=== PATIENT | male | born 1945 | race Caucasian/White ===

== ENCOUNTER → 2019-05-31 | Outpatient (CLI) | payer MEDICARE, OTHER ==
--- NOTE | 2019-05-31 17:48 | RADIOLOGY REPORT (SQ) ---
EXAM DESCRIPTION: PET CT SKULL/THIGH COMPLETED DATE/TIME: 05/31/2019 1:19 pm REASON FOR STUDY: R91.1 SOLITARY PULMONARY NODULE R91.1 SOLITARY PULMONARY NODULE COMPARISON: Report [facility] CT chest abdomen pelvis 05/04/2019 RADIONUCLIDE AND DOSE: 11.4 mCi F18 FDG The route of agent administration: Intravenous FASTING BLOOD SUGAR: 70 mg/dl CONTRAST TYPE AND DOSE: No CT contrast given. TECHNIQUE: Blood glucose level was verified. Above dose of FDG was injected intravenously. 2-D seg mented attenuation correction images were obtained from the base of the skull to the midthighs. Nonc ontrast CT images were obtained for attenuation correction and fusion with emission images. CT image s were performed without oral or intravenous contrast and are not sensitive for parenchymal lesions. A series of overlapping emission PET images were obtained. Images reviewed and manipulated at [facility] work station by the radiologist. Images stored on PACS. LIMITATIONS: None. FINDINGS: HEAD AND NECK: No areas of abnormal metabolic activity in the soft tissues of the head and neck. CHEST: No areas of abnormal metabolic activity in the chest. In particular, no metabolically active lung nodules are present at the right lung apex. No metabolic activity along the right pleural space adjacent to with trace right pleural effusion. No metabolic activity in 3.5 x 2 cm right peritracheal lymph node axial image 80, sub-carinal 2 x 1.6 cm lymph node, or multiple bilateral 1 to 2 cm hilar lymph nodes. ABDOMEN AND PELVIS: No areas of abnormal metabolic activity in the abdomen or pelvis. Expected physi ologic activity is present in the genitourinary system and bowel. PROXIMAL LOWER EXTREMITIES: No areas of abnormal metabolic activity in the soft tissues of the lower extremities. BONES: No abnormal metabolic activity in the visualized skeleton. ADDITIONAL CT FINDINGS: Calcified carotid bifurcations, cardiomegaly with calcified aortic valve and coronary arteries, calcified gallstone, 4 cm cyst right kidney, trace right pleural effusion OTHER: No other significant findings. IMPRESSION: No hypermetabolic lesions worrisome for malignancy TECHNICAL DOCUMENTATION: JOB ID: [id number] [employer]- All Rights Reserved Reading location - IP/workstation name: BUSINESS [employer]UCATION [employer]STRU[employer]-[email or web address]
== END ==
LOC: RAD 10:19
PROVIDERS: ATTEND Internal Medicine
DX: R91.1 Solitary pulmonary nodule (principal)
CPT/HCPCS: 78815; A9552

== ENCOUNTER 2019-08-07 00:53 | Inpatient (IN) | payer MEDICARE, OTHER ==
[2019-08-07 01:42] LABS: ABSOLUTE LYMPHOCYTES (AUTO) 0.6 10^3/uL (0.5-4.7); ABSOLUTE MONOCYTES (AUTO) 0.5 10^3/uL (0.1-1.4); ABSOLUTE NEUT (AUTO) 3.5 10^3/uL (1.7-8.2); BASOPHILS % (AUTO) 0.6 % (0-2); EOSINOPHILS % (AUTO) 0.9 % (0-6); HEMATOCRIT 34.2 % (37.9-51.0); HEMOGLOBIN 11.2 g/dL (13.5-17.0); LYMPHOCYTES % (AUTO) 13.4 % (13-45); MEAN CORPUSCULAR HEMOGLOBIN 29.6 pg (27.0-33.4); MEAN CORPUSCULAR HGB CONC 32.6 g/dL (32.0-36.0); MEAN CORPUSCULAR VOLUME 91 fl (80-97); MONOCYTES % (AUTO) 10.7 % (3-13); PLATELET COUNT 211 10^3/uL (150-450); RED BLOOD COUNT 3.77 10^6/uL (4.35-5.55); RED CELL DISTRIBUTION WIDTH 16.6 % (11.5-14.0); SEGMENTED NEUTROPHILS % (AUTO) 74.4 % (42-78); TOTAL CELLS COUNTED % (AUTO) 100 %; WHITE BLOOD COUNT 4.7 10^3/uL (4.0-10.5)
[2019-08-07 01:54] LABS: INTERNATIONAL RATION (INR) 1.34; PROTHROMBIN TIME 16.7 SEC (11.4-15.4)
[2019-08-07 01:57] LABS: ALBUMIN 3.5 g/dL (3.5-5.0); ALKALINE PHOSPHATASE 171 U/L (38-126); ANION GAP 10 (5-19); ASPARTATE AMINO TRANSFERASE 38 U/L (17-59); BILIRUBIN,DIRECT 0.2 mg/dL (0.0-0.4); BILIRUBIN,TOTAL 0.7 mg/dL (0.2-1.3); BLOOD UREA NITROGEN 61 mg/dL (7-20); CARBON DIOXIDE 34 mmol/L (22-30); CHLORIDE 90 mmol/L (98-107); CREATINE KINASE 58 U/L (55-170); GLUCOSE 221 mg/dL (75-110); POTASSIUM 3.9 mmol/L (3.6-5.0); TOTAL PROTEIN 6.7 g/dL (6.3-8.2)
[2019-08-07 02:09] LABS: TROPONIN I < 0.012 ng/mL
--- NOTE | 2019-08-07 02:31 | RADIOLOGY REPORT (SQ) ---
CHEST 1 VIEW on 08/07/2019 at 1:57 AM CLINICAL INDICATION: Shortness of breath COMPARISON: 07/25/2015 FINDINGS: The patient is status post median sternotomy. Mild cardiomegaly is noted. Mild increased interstitial changes may be chronic in nature versus mild edema. Vascular calcification is noted in the aorta. Hilar and mediastinal contours are within normal limits. IMPRESSION: No significant change in the appearance of the chest.
[2019-08-07 03:48] LABS: APPEARANCE,URINE SLIGHTLY-CLOUDY; BILIRUBIN,URINE NEGATIVE (NEGATIVE); COLOR,URINE YELLOW; GLUCOSE, URINE NEGATIVE (NEGATIVE); KETONES,URINE NEGATIVE (NEGATIVE); LEUKOCYTE ESTERASE,URINE LARGE (NEGATIVE); NITRITE,URINE NEGATIVE (NEGATIVE); PROTEIN,URINE NEGATIVE (NEGATIVE); URINE SPECIFIC GRAVITY 1.014
[2019-08-07] MEDS ORDERED: CEFTRIAXONE 1 GM/D5W RTU 1 GM/50 ML RTUPB IV ONE (04:47)
[2019-08-07] MEDS ORDERED: FUROSEMIDE INJ/PF 40 MG/4 ML SDV IV ONE (04:47)
[2019-08-07] MEDS ORDERED: ACETAMINOPHEN 325 MG TABLET PO ONE (05:03)
--- NOTE | 2019-08-07 05:09 | ER Document Report ---
ED General - General Chief Complaint: Shortness Of Breath Stated Complaint: SHORTNESS OF BREATH Time Seen by Provider: 08/07/19 03:40 Primary Care Provider: SHAYAN RODAS MD [Primary Care Provider] - Follow up as needed Notes: 74-year-old male with atrial fibrillation on apixaban, CHF with unknown EF presents to the emergency department with chief complaint of lower extremity swelling and pain. Patient states that he has swelling from his hips down and "my scrotum is the size of a grapefruit". Patient also complains of shortness of breath. Patient is requiring 4 L of oxygen via nasal cannula here in the emergency department and he does not wear oxygen at home. Patient is in significant discomfort. Of note, patient does have a small pressure ulcer on his left medial malleolus. Patient denies any chest pain, does complain of a productive cough, denies any nausea or vomiting, denies abdominal pain. TRAVEL OUTSIDE OF THE [place] IN LAST 30 DAYS: No - Related Data Allergies/Adverse Reactions: No Known Allergies Allergy (Unverified 07/25/15 00:42) Past Medical History - Social History Smoking Status: Former Smoker Chew tobacco use (# tins/day): No Frequency of alcohol use: Occasional Drug Abuse: None Family History: Reviewed & Not Pertinent Patient has suicidal ideation: No Patient has homicidal ideation: No - Past Medical History Cardiac Medical History: Reports: Hx Atrial Fibrillation, Hx Congestive Heart Failure, Hx Heart Attack, Hx Hypertension Pulmonary Medical History: Reports: Hx Pneumonia Endocrine Medical History: Reports: Hx Diabetes Mellitus Type 2 Renal/ Medical History: Reports: Hx Benign Prostatic Hyperplasia Past Surgical History: Reports: Hx Appendectomy, Hx Cardiac Catheterization, Hx Cardiac Surgery Review of Systems - Review of Systems Constitutional: See HPI EENT: No symptoms reported Cardiovascular: See HPI Respiratory: See HPI Gastrointestinal: See HPI Genitourinary: No symptoms reported Male Genitourinary: See HPI Musculoskeletal: No symptoms reported Skin: No symptoms reported Hematologic/Lymphatic: No symptoms reported Neurological/Psychological: No symptoms reported Physical Exam - Vital signs Vitals: Temp 97.5 F 08/07/19 00:53 - Notes Notes: PHYSICAL EXAMINATION: Reviewed vital signs and charting by RN GENERAL: Alert, interacts well. No acute distress. HEAD: Normocephalic, atraumatic. EYES: Pupils equal and round. Extraocular movements intact. ENT: Oral mucosa moist, tongue midline. NECK: Full range of motion. Trachea midline. LUNGS: Bilateral basilar rhonchi. Mild respiratory distress. HEART: Irregularly irregular rhythm. 2/6 systolic ejection murmur ABDOMEN: Distended and mildly tender. Bowel sounds present EXTREMITIES: Moves all 4 extremities spontaneously. No edema, No cyanosis. PSYCH: Normal affect, normal mood. SKIN: Warm, dry, normal turgor. No rashes or lesions noted. Course - Re-evaluation Re-evalutation: 08/07/19 05:10 Patient appears to be in discomfort and is requesting relief. He has been tachypneic throughout his stay but is currently breathing at 14 breaths/min. Patient's blood pressure is normotensive. Patient is requiring 4 L of oxygen and does seem to be in mild respiratory distress. Chest x-ray did show some bilateral interstitial edema, the hemidiaphragms were both crisp and clear no evidence of pulmonary edema or pleural effusions. Urinalysis did show a urinary tract infection. He will receive ceftriaxone 1 g IV once. BNP 4730. I am going to initiated admission. 08/07/19 05:42 Dr. Patino, hospitalist, accepted the patient for full admission to [facility]. - Vital Signs Vital signs: Temp Pulse Resp BP Pulse Ox 97.5 F 16 100/73 97 08/07/19 01:08 08/07/19 05:08 08/07/19 05:08 08/07/19 05:08 - Laboratory Result Diagrams: 08/07/19 01:22 08/07/19 01:22 Laboratory results interpreted by me: 08/07/19 08/07/19 08/07/19 01:22 01:22 01:22 RBC 3.77 L Hgb 11.2 L Hct 34.2 L RDW 16.6 H PT 16.7 H Sodium 134.1 L Chloride 90 L Carbon Dioxide 34 H BUN 61 H Creatinine 1.30 H Est GFR (MDRD) Non-Af 54 L Glucose 221 H Calcium 8.0 L Alkaline Phosphatase 171 H NT-Pro-B Natriuret Pep Urine Urobilinogen Ur Leukocyte Esterase Urine Ascorbic Acid 08/07/19 08/07/19 01:22 03:15 RBC Hgb Hct RDW PT Sodium Chloride Carbon Dioxide BUN Creatinine Est GFR (MDRD) Non-Af Glucose Calcium Alkaline Phosphatase NT-Pro-B Natriuret Pep 4730 H Urine Urobilinogen 4.0 H Ur Leukocyte Esterase LARGE H Urine Ascorbic Acid 40 H Discharge - Discharge Clinical Impression: CHF exacerbation Qualifiers: Heart failure type: unspecified Qualified Code(s): I50.9 - Heart failure, unspecified Condition: Stable Disposition: ADMITTED INPATIENT Admitting Provider: Sukumar (Hospitalist) Unit Admitted: IMCU Referrals: SHAYAN RODAS MD [Primary Care Provider] - Follow up as needed
[2019-08-07] MEDS ORDERED: ACETAMINOPHEN 325 MG TABLET PO PRN (05:31)
[2019-08-07] MEDS ORDERED: DEXTROSE 50%-WATER 25 GM/50 ML DISP.SYRIN IV PRN ×2 (05:31)
[2019-08-07] MEDS ORDERED: MAG HYDROX/AL HYDROX/SIMETH SUSP 30 ML UDCUP PO PRN (05:31)
[2019-08-07] MEDS ORDERED: GLUCAGON,HUMAN RECOMB 1 MG INJ IM PRN (05:31)
[2019-08-07] MEDS ORDERED: DEXTROSE 40% GEL 15 GM TUBE PO PRN ×2 (05:31)
[2019-08-07 06:19] LABS: URINE AMPHETAMINES SCREEN NEGATIVE; URINE BARBITURATES SCREEN NEGATIVE; URINE BENZODIAZEPINES SCREEN NEGATIVE; URINE COCAINE SCREEN NEGATIVE; URINE MARIJUANA (THC) SCREEN NEGATIVE; URINE METHADONE SCREEN NEGATIVE; URINE PHENCYCLIDINE SCREEN NEGATIVE
--- NOTE | 2019-08-07 06:32 | PDOC H&P ---
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 He is past medical history of 5 vessel bypass graft, diabetes, COPD, atrial fibrillation on Eliquis, hypertension, congestive heart failure with unknown ejection fraction, deafness and BPH. He presents with several days of worsening shortness of breath from baseline with a nonproductive cough it is associated with scrotal and lower extremity edema. He denies recent chest pain, nausea vomiting, change of diet or medications. However bag of medications have multiple full duplicates. He is found to have blood pressure of 85/50, pulse of 88 respirations 24 saturation of 92% on 3 L. He has massive volume overload with widespread pitting edema, acute renal failure and evidence of peripheral vascular disease with ulcer to the left medial malleolus and left lateral lower leg. He received Lasix and referred to the hospitalist for admission. Past Medical History Cardiac Medical History: Reports: Atrial Fibrillation, Congestive Heart Failure, Myocardial Infarction, Hypertension Pulmonary Medical History: Reports: Pneumonia Endocrine Medical History: Reports: Diabetes Mellitus Type 2 Psychiatric Medical History: Reports: Tobacco Dependency Past Surgical History Past Surgical History: Reports: Appendectomy, Cardiac Catheterization Social History Information Source: Patient, [facility] Lives with: Alone Smoking Status: Former Smoker Electronic Cigarette use?: No Drugs: None - Advance Directive Resuscitation Status: Full Code Family History Family History: COPD, Hypertension Parental Family History Reviewed: Yes Children Family History Reviewed: Yes Sibling(s) Family History Reviewed.: Yes Medication/Allergy Allergies/Adverse Reactions: No Known Allergies Allergy (Unverified 07/25/15 00:42) Review of Systems Constitutional: PRESENT: as per HPI, fatigue, weakness, weight gain. ABSENT: chills, fever(s), headache(s), weight loss Eyes: ABSENT: visual disturbances Ears: ABSENT: hearing changes Cardiovascular: PRESENT: as per HPI, dyspnea on exertion, edema, orthropnea. ABSENT: chest pain, palpitations Respiratory: PRESENT: as per HPI, cough, dyspnea. ABSENT: hemoptysis, sputum Gastrointestinal: PRESENT: as per HPI, abdominal pain, bloating. ABSENT: constipation, diarrhea, hematemesis, hematochezia, nausea, vomiting Genitourinary: ABSENT: dysuria, hematuria Musculoskeletal: ABSENT: joint swelling Integumentary: ABSENT: rash, wounds Neurological: ABSENT: abnormal gait, abnormal speech, confusion, dizziness, focal weakness, syncope Psychiatric: ABSENT: anxiety, depression, homidical ideation, suicidal ideation Endocrine: ABSENT: cold intolerance, heat intolerance, polydipsia, polyuria Hematologic/Lymphatic: ABSENT: easy bleeding, easy bruising Physical Exam Vital Signs: Temp Pulse Resp BP Pulse Ox 97.5 F 16 100/73 97 08/07/19 01:08 08/07/19 05:08 08/07/19 05:08 08/07/19 05:08 Intake & Output 08/05/19 08/06/19 08/07/19 11:59 11:59 11:59 Weight 117.48 kg General appearance: PRESENT: cooperative, disheveled, hard of hearing, mild distress, well-developed. ABSENT: well-nourished Head exam: PRESENT: atraumatic, normocephalic Eye exam: PRESENT: conjunctiva pink, EOMI, PERRLA. ABSENT: scleral icterus Ear exam: PRESENT: normal external ear exam Mouth exam: PRESENT: moist, tongue midline Neck exam: PRESENT: full ROM, JVD. ABSENT: lymphadenopathy Respiratory exam: PRESENT: accessory muscle use, crackles, decreased breath sounds, prolonged expiratory phas, symmetrical, tachypnea. ABSENT: rhonchi, wheezes Cardiovascular exam: PRESENT: gallop, +S1, +S2, systolic murmur Pulses: PRESENT: normal dorsalis pedis pul Vascular exam: PRESENT: normal capillary refill GI/Abdominal exam: PRESENT: normal bowel sounds, soft. ABSENT: distended, guarding, mass, organolmegaly, rebound, tenderness Rectal exam: PRESENT: deferred Extremities exam: PRESENT: full ROM, pedal edema, tenderness, +2 edema. ABSENT: joint swelling Neurological exam: PRESENT: alert, awake, oriented to person, oriented to place, oriented to time, oriented to situation, CN II-XII grossly intact. ABSENT: motor sensory deficit Psychiatric exam: PRESENT: appropriate affect, normal mood. ABSENT: homicidal ideation, suicidal ideation Skin exam: PRESENT: cyanosis, erythema, intact, warm, other - Several 1 cm ulcers of arterial insufficiency and peripheral vascular disease. ABSENT: rash Results Laboratory Results: 08/07/19 01:22 08/07/19 01:22 08/07/19 08/07/19 08/07/19 01:22 01:22 01:22 WBC 4.7 RBC 3.77 L Hgb 11.2 L Hct 34.2 L MCV 91 MCH 29.6 MCHC 32.6 RDW 16.6 H Plt Count 211 Seg Neutrophils % 74.4 Sodium 134.1 L Potassium 3.9 Chloride 90 L Carbon Dioxide 34 H Anion Gap 10 BUN 61 H Creatinine 1.30 H Est GFR ( Amer) > 60 Glucose 221 H Lactic Acid 0.8 Calcium 8.0 L Total Bilirubin 0.7 AST 38 Alkaline Phosphatase 171 H Total Protein 6.7 Albumin 3.5 Urine Color Urine Appearance Urine pH Ur Specific Prole Urine Protein Urine Glucose (UA) Urine Ketones Urine Blood Urine Nitrite Ur Leukocyte Esterase Urine WBC (Auto) Urine RBC (Auto) 08/07/19 03:15 WBC RBC Hgb Hct MCV MCH MCHC RDW Plt Count Seg Neutrophils % Sodium Potassium Chloride Carbon Dioxide Anion Gap BUN Creatinine Est GFR ( Amer) Glucose Lactic Acid Calcium Total Bilirubin AST Alkaline Phosphatase Total Protein Albumin Urine Color YELLOW Urine Appearance SLIGHTLY-CLOUDY Urine pH 5.0 Ur Specific Prole 1.014 Urine Protein NEGATIVE Urine Glucose (UA) NEGATIVE Urine Ketones NEGATIVE Urine Blood NEGATIVE Urine Nitrite NEGATIVE Ur Leukocyte Esterase LARGE H Urine WBC (Auto) 134 Urine RBC (Auto) 5 08/07/19 08/07/19 08/07/19 01:22 01:22 01:22 Creatine Kinase 58 CK-MB (CK-2) 1.70 Troponin I < 0.012 NT-Pro-B Natriuret Pep 4730 H Impressions: Chest X-Ray 08/07/19 01:19 IMPRESSION: No significant change in the appearance of the chest. Assessment and Plan - Diagnosis (1) CHF exacerbation Qualifiers: Heart failure type: systolic Qualified Code(s): I50.23 - Acute on chronic systolic (congestive) heart failure Is this a current diagnosis for this admission?: Yes Plan: Likely decompensated acute on chronic systolic heart failure secondary to dietary and medication noncompliance complicated by hypotension.. Trial gentle diuresis, optimize rate control, follow-up 2D echo and TSH (2) Acute renal failure Is this a current diagnosis for this admission?: Yes Plan: Likely secondary to hypotension and #1. Avoid nephrotoxic meds and doses follow-up chemistry (3) Atrial fibrillation Is this a current diagnosis for this admission?: Yes Plan: Reduce Eliquis to 2.5 twice daily. Consider calcium channel ezekiel for rate control given beta-ezekiel expected hypotension. (4) Diabetes mellitus Is this a current diagnosis for this admission?: Yes Plan: Follow-up medication reconciliation with Humalog sliding scale - Time Time Spent with patient: 25-34 minutes - Inpatient Certification Medical Necessity: Need Close Monitoring Due to Risk of Patient Decompensation
[2019-08-07 06:42] LABS: ABSOLUTE RETICS # 0.044 10^6/uL (0.028-0.122); RETICULOCYTE COUNT (AUTO) 1.16 % (0.66-2.85)
[2019-08-07 07:01] LABS: IRON(TIBC) 53.3 ug/dL (49-181)
[2019-08-07] MEDS ORDERED: INSULIN GLARGINE,HUM.REC.ANLOG 1,000 UNIT/10 ML VIAL SUBCUT ONE (07:30)
[2019-08-07] MEDS: INSULIN LISPRO 100 UNIT/ML 3 ML VIAL SUBCUT SCH ×3 (07:54→16:06)
[2019-08-07] MEDS ORDERED: INSULIN GLARGINE,HUM.REC.ANLOG 1,000 UNIT/10 ML VIAL (PYX) SUBCUT SCH (08:00)
[2019-08-07 08:08] LABS: FOLATE 8.22 ng/mL (>2.76)
[2019-08-07 09:28] LABS: CREATINE KINASE MB 1.76 ng/mL (<4.55); TROPONIN I 0.013 ng/mL
[2019-08-07] MEDS: FLUTICASONE NASAL SPRAY 50 MCG/SPRY 120 SPRAY/16 GM NASL SCH ×2 (10:27→21:46)
[2019-08-07] MEDS: FUROSEMIDE INJ/PF 40 MG/4 ML SDV IV SCH (10:27)
[2019-08-07] MEDS: NITROGLYCERIN 2.5 MG (0.1 MG/HR) PATCH.TD24 TD SCH (10:27)
[2019-08-07] MEDS: APIXABAN 2.5 MG TABLET PO SCH ×2 (10:28→17:27)
[2019-08-07] MEDS: POTASSIUM CHLORIDE 10 MEQ TABLET.ER PO SCH ×2 (10:28→21:43)
[2019-08-07] MEDS: DOCUSATE SODIUM 100 MG CAPSULE PO SCH ×2 (10:28→10:30)
[2019-08-07] MEDS: ASPIRIN 81 MG TABLET, CHEWABLE PO SCH (10:28)
[2019-08-07] MEDS: ASCORBIC ACID 500 MG TABLET PO SCH (10:28)
[2019-08-07] MEDS ORDERED: INSULIN GLARGINE,HUM.REC.ANLOG 1,000 UNIT/10 ML VIAL (PYX) SUBCUT ONE (10:30)
--- NOTE | 2019-08-07 11:57 | Progress Note ---
Provider Note Provider Note: Mr. Prado is a 74 year old gentleman who follows with [facility] physicians for primary care. He recently was evaluated in June [address] Camarillo for a pulmonary nodule. However, this was negative on PET and was NOT thought to be cancer and no biopsy was recommended. Further annual screening chest CT was recommended. Please call with any questions or concerns.
[2019-08-07 13:57] LABS: CREATINE KINASE MB 1.44 ng/mL (<4.55); TROPONIN I 0.013 ng/mL
--- NOTE | 2019-08-07 16:01 | Progress Note ---
Provider Note Provider Note: Patient seen and evaluated. He was admitted early on today. Appreciate oncology input. No further evaluation needed for the pulmonary arnold at this time. He will follow-up with outpatient CT scan as per Alma Rosaers recommendation
[2019-08-07 19:53] LABS: CREATINE KINASE MB 1.49 ng/mL (<4.55); TROPONIN I 0.013 ng/mL
[2019-08-07] MEDS: ATORVASTATIN CALCIUM 80 MG TABLET PO SCH (21:43)
[2019-08-07] MEDS ORDERED: TRAZODONE HCL 50 MG TABLET PO ONE (23:00)
[2019-08-08 06:42] LABS: ABSOLUTE EOSINOPHILS # (AUTO) 0.1 10^3/uL (0.0-0.6); ABSOLUTE LYMPHOCYTES (AUTO) 0.7 10^3/uL (0.5-4.7); ABSOLUTE MONOCYTES (AUTO) 0.5 10^3/uL (0.1-1.4); ABSOLUTE NEUT (AUTO) 3.3 10^3/uL (1.7-8.2); BASOPHILS % (AUTO) 0.7 % (0-2); EOSINOPHILS % (AUTO) 1.2 % (0-6); HEMATOCRIT 35.2 % (37.9-51.0); HEMOGLOBIN 11.5 g/dL (13.5-17.0); LYMPHOCYTES % (AUTO) 14.7 % (13-45); MEAN CORPUSCULAR HEMOGLOBIN 29.3 pg (27.0-33.4); MEAN CORPUSCULAR HGB CONC 32.5 g/dL (32.0-36.0); MEAN CORPUSCULAR VOLUME 90 fl (80-97); MONOCYTES % (AUTO) 11.2 % (3-13); PLATELET COUNT 216 10^3/uL (150-450); RED BLOOD COUNT 3.92 10^6/uL (4.35-5.55); RED CELL DISTRIBUTION WIDTH 16.4 % (11.5-14.0); SEGMENTED NEUTROPHILS % (AUTO) 72.2 % (42-78); TOTAL CELLS COUNTED % (AUTO) 100 %; WHITE BLOOD COUNT 4.6 10^3/uL (4.0-10.5)
[2019-08-08 06:58] LABS: ANION GAP 9 (5-19); BLOOD UREA NITROGEN 60 mg/dL (7-20); CARBON DIOXIDE 34 mmol/L (22-30); CHLORIDE 90 mmol/L (98-107); GLUCOSE 165 mg/dL (75-110)
[2019-08-08] MEDS: INSULIN LISPRO 100 UNIT/ML 3 ML VIAL SUBCUT SCH ×3 (10:13→18:53)
[2019-08-08] MEDS: INSULIN GLARGINE,HUM.REC.ANLOG 1,000 UNIT/10 ML VIAL (PYX) SUBCUT SCH (10:14)
[2019-08-08] MEDS: NITROGLYCERIN 2.5 MG (0.1 MG/HR) PATCH.TD24 TD SCH (10:15)
[2019-08-08] MEDS: ASPIRIN 81 MG TABLET, CHEWABLE PO SCH (10:18)
[2019-08-08] MEDS: APIXABAN 2.5 MG TABLET PO SCH ×2 (10:18→18:54)
[2019-08-08] MEDS: ASCORBIC ACID 500 MG TABLET PO SCH (10:18)
[2019-08-08] MEDS: POTASSIUM CHLORIDE 10 MEQ TABLET.ER PO SCH ×2 (10:18→22:03)
[2019-08-08] MEDS: FUROSEMIDE INJ/PF 40 MG/4 ML SDV IV SCH (10:18)
[2019-08-08] MEDS: FLUTICASONE NASAL SPRAY 50 MCG/SPRY 120 SPRAY/16 GM NASL SCH ×2 (10:22→22:03)
[2019-08-08] MEDS: DOCUSATE SODIUM 100 MG CAPSULE PO SCH (10:22)
--- NOTE | 2019-08-08 14:56 | PDOC PROGRESS REPORT ---
Subjective Progress Note for:: 08/08/19 Subjective:: Says he feels better, no chest pain Reason For Visit: HYPOTENSION ARF HEART FAILURE Physical Exam Vital Signs: Temp Pulse Resp BP Pulse Ox 98.0 F 85 20 107/65 96 08/08/19 12:48 08/08/19 12:48 08/08/19 12:48 08/08/19 12:48 08/08/19 12:48 Intake & Output 08/07/19 08/08/19 08/09/19 06:59 06:59 06:59 Intake Total 50 598 Output Total 600 Balance 50 -2 Weight 117.48 kg 116.7 kg General appearance: PRESENT: no acute distress, hard of hearing, other - Chronically ill looking Head exam: PRESENT: atraumatic Eye exam: PRESENT: conjunctiva pink, PERRLA. ABSENT: scleral icterus Mouth exam: PRESENT: moist, tongue midline Neck exam: ABSENT: carotid bruit, JVD, lymphadenopathy, thyromegaly Respiratory exam: PRESENT: clear to auscultation remington. ABSENT: rales, rhonchi, wheezes Cardiovascular exam: PRESENT: RRR, +S1, +S2. ABSENT: diastolic murmur, rubs, s ystolic murmur Vascular exam: PRESENT: normal capillary refill GI/Abdominal exam: PRESENT: distended, normal bowel sounds, soft. ABSENT: guarding, mass, organolmegaly, rebound, tenderness Rectal exam: PRESENT: deferred Extremities exam: PRESENT: full ROM, +2 edema. ABSENT: calf tenderness, clubbin g, pedal edema Neurological exam: PRESENT: alert, awake, oriented to person, oriented to place, oriented to time, oriented to situation, CN II-XII grossly intact. ABSENT: mot or sensory deficit Psychiatric exam: PRESENT: appropriate affect, normal mood. ABSENT: homicidal ideation, suicidal ideation Skin exam: PRESENT: dry, intact, warm. ABSENT: cyanosis, rash Results Laboratory Results: 08/08/19 05:55 08/08/19 05:55 08/08/19 08/08/19 05:55 05:55 WBC 4.6 RBC 3.92 L Hgb 11.5 L Hct 35.2 L MCV 90 MCH 29.3 MCHC 32.5 RDW 16.4 H Plt Count 216 Seg Neutrophils % 72.2 Sodium 132.7 L Potassium 4.0 Chloride 90 L Carbon Dioxide 34 H Anion Gap 9 BUN 60 H Creatinine 1.09 Est GFR ( Amer) > 60 Glucose 165 H Calcium 8.0 L 08/07/19 08/07/19 08/07/19 01:22 01:22 01:22 Creatine Kinase 58 CK-MB (CK-2) 1.70 Troponin I < 0.012 NT-Pro-B Natriuret Pep 4730 H 08/07/19 08/07/19 08/07/19 08:32 08:32 13:06 Creatine Kinase 52 L 38 L CK-MB (CK-2) 1.76 Troponin I 0.013 NT-Pro-B Natriuret Pep 08/07/19 08/07/19 08/07/19 13:06 19:15 19:15 Creatine Kinase 43 L CK-MB (CK-2) 1.44 1.49 Troponin I 0.013 0.013 NT-Pro-B Natriuret Pep Impressions: Chest X-Ray 08/07/19 01:19 IMPRESSION: No significant change in the appearance of the chest. Assessment and Plan - Diagnosis (1) Acute renal failure Is this a current diagnosis for this admission?: Yes Plan: Likely secondary to hypotension and #1. Avoid nephrotoxic meds and doses follow-up chemistry (2) CHF exacerbation Qualifiers: Heart failure type: systolic Qualified Code(s): I50.23 - Acute on chronic systolic (congestive) heart failure Is this a current diagnosis for this admission?: Yes Plan: Likely decompensated acute on chronic systolic heart failure secondary to diet mil and medication noncompliance complicated by hypotension.. Trial gentle diuresis, optimize rate control, F/u echo and obtain US abd as he appears to have ascites clinically (3) Diabetes mellitus Is this a current diagnosis for this admission?: Yes Plan: Waylon sliding scale - Inpatient Certification Based on my medical assessment, after consideration of the patient's comorbidities, presenting symptoms, or acuity I expect that the services needed warrant INPATIENT care.: Yes
--- NOTE | 2019-08-08 17:21 | RADIOLOGY REPORT (SQ) ---
EXAM DESCRIPTION: U/S ABDOMEN COMPLETE W/DOPPLER IMAGES COMPLETED DATE/TIME: 08/08/2019 4:52 pm REASON FOR STUDY: Abdominal distension, ? ascites COMPARISON: None TECHNIQUE: Dynamic and static grayscale images acquired of the abdomen and recorded on PACS. Mark adams selected color Doppler and spectral images recorded. LIMITATIONS: Study limited due to acoustical interference from fat or from air in the bowel. FINDINGS: PANCREAS: Not seen, obscured by gas. LIVER: Diffusely echogenic but otherwise unremarkable. Top normal size at 18 cm. LIVER VASCULATURE: Normal directional flow of the main portal vein and hepatic veins. GALLBLADDER: Limited positioning, suboptimal visualization. Probable cholelithiasis and sludge. ULTRASOUND-DETECTED CORTES'S SIGN: Negative. INTRAHEPATIC DUCTS AND COMMON DUCT:CBD and intrahepatic ducts normal caliber. No filling defects. INFERIOR VENA CAVA: Normal flow. AORTA: Obscured by gas. RIGHT KIDNEY: Normal size. Normal echogenicity. No solid or suspicious masses. No hydronephrosis. No calcifications. LEFT KIDNEY: Normal size. Normal echogenicity. No solid or suspicious masses. No hydronephrosis. No calcifications. SPLEEN:Enlarged, almost 16 cm maximally. PERITONEAL AND PLEURAL SPACES: Fluid is noted, most notable in the right lower quadrant. This is foc ally moderate. OTHER: No other significant finding. IMPRESSION: 1. Ascites, most pronounced in the right lower quadrant. 2. Splenomegaly. 3. Cholelithiasis. 4. Fatty liver. TECHNICAL DOCUMENTATION: JOB ID: [id number] 2010 [employer]- All Rights Reserved Reading location - IP/workstation name: [email or web address]
[2019-08-08] MEDS: OXYCODONE-ACETAMINOPHEN 5-325 MG TABLET PO PRN (18:54)
[2019-08-08] MEDS: ATORVASTATIN CALCIUM 80 MG TABLET PO SCH (22:03)
[2019-08-08] MEDS: GUAIFENESIN 600 MG TABLET.SA PO SCH (22:03)
--- NOTE | 2019-08-08 22:57 | XCELERA REPORT ---
[address] [address] Transthoracic Echocardiogram Report Name: SANDRA MAX Age: 74 yrs Gender: Male : 1945 Patient Status: Inpatient Patient Location: [address] [place] [address] Study Date: 08/08/2019 07:00 PM Height: 75 in Weight: 259 lb BSA: 2.4 m2 Procedure: A two-dimensional transthoracic echocardiogram with color flow and Doppler was performed. The study was technically difficult with many images being suboptimal in quality. Reason For Study: systolic murmur History: SYSTOLIC MURMUR. Ordering Physician: SLOANE IQBAL Performed By: Jacqueline Kitchen Interpretation Summary The left ventricle is normal in size. There is normal left ventricular wall thickness. LV EF is 45% Left ventricular systolic function is moderately reduced. There is moderate global hypokinesis of the left ventricle. Flattened septum is consistent with RV pressure/volume overload There is no thrombus. No ASD,VSD, or PFO seen. The right ventricle is moderately dilated. The right atrium is mild to moderately dilated. The left atrium is severely dilated. There is mild mitral leaflet calcification. There is mild mitral annular calcification. There is no evidence of mitral valve prolapse. There is mild mitral stenosis There is a mild amount of mitral regurgitation There is no aortic valvular vegetation. There is aortic sclerosis without aortic stenosis. There is no LVOT obstruction. There is a trace amount of aortic regurgitation There is no tricuspid stenosis. There is a moderate amount of tricuspid regurgitation There is servere pulmonary hypertension by echo RVSP is at least 75 mm of Hg , with RA mean of at least 20 mm of Hg. There is no pulmonic valvular stenosis. There is a trace amount of pulmonic regurgitation The aortic root is normal size. The inferior vena cava appeared dilated and did not change with respiration (RAP > 20 mmHg) There is no pericardial effusion. MMode/2D Measurements & Calculations RVDd: 4.8 cm LVIDd: 5.6 cm FS: 20.5 % Ao root diam: 3.7 cm IVSd: 1.0 cm LVIDs: 4.5 cm EDV(Teich): 154.6 ml Ao root area: 10.8 cm2 LVPWd: 1.1 cm ESV(Teich): 90.7 ml LA dimension: 6.2 cm EF(Teich): 41.4 % Doppler Measurements & Calculations MV E max rd: MV P1/2t max rd: Ao V2 max: LV V1 max P.5 cm/sec 156.4 cm/sec 123.9 cm/sec 3.5 mmHg MV A max rd: MV P1/2t: 82.4 msec Ao max P.1 mmHgLV V1 max: 36.2 cm/sec MVA(P1/2t): 2.7 cm2 92.9 cm/sec MV E/A: 3.6 MV dec slope: 555.7 cm/sec2 MV dec time: 0.22 sec TV V2 max: PA V2 max: MV P1/2t-pr_phl: 375.2 cm/sec 103.2 cm/sec 82.4 msec TV max PG: PA max P.3 mmHg 56.3 mmHg Left Ventricle The left ventricle is normal in size. There is normal left ventricular wall thickness. LV EF is 45%. Left ventricular systolic function is moderately reduced. LV diastolic function not assessed. There is moderate global hypokinesis of the left ventricle. Flattened septum is consistent with RV pressure/volume overload. There is no thrombus. No ASD,VSD, or PFO seen. Right Ventricle The right ventricle is moderately dilated. The right ventricular systolic function is mild to moderately reduced. Atria The right atrium is mild to moderately dilated. The left atrium is severely dilated. Mitral Valve There is mild mitral leaflet calcification. There is mild mitral annular calcification. There is no evidence of mitral valve prolapse. There is mild mitral stenosis. There is a mild amount of mitral regurgitation. Aortic Valve There is no aortic valvular vegetation. There is aortic sclerosis without aortic stenosis. There is no LVOT obstruction. There is a trace amount of aortic regurgitation. Tricuspid Valve There is no tricuspid stenosis. There is a moderate amount of tricuspid regurgitation. There is servere pulmonary hypertension by echo. RVSP is at least 75 mm of Hg , with RA mean of at least 20 mm of Hg. Pulmonic Valve There is no pulmonic valvular stenosis. There is a trace amount of pulmonic regurgitation. Great Vessels The aortic root is normal size. The inferior vena cava appeared dilated and did not change with respiration (RAP > 20 mmHg). Effusions There is no pericardial effusion. : SLOANE IQBAL Lakshmi
[2019-08-09 05:53] LABS: ABSOLUTE EOSINOPHILS # (AUTO) 0.1 10^3/uL (0.0-0.6); ABSOLUTE LYMPHOCYTES (AUTO) 0.9 10^3/uL (0.5-4.7); ABSOLUTE MONOCYTES (AUTO) 0.6 10^3/uL (0.1-1.4); ABSOLUTE NEUT (AUTO) 3.2 10^3/uL (1.7-8.2); BASOPHILS % (AUTO) 0.5 % (0-2); EOSINOPHILS % (AUTO) 1.7 % (0-6); HEMATOCRIT 35.7 % (37.9-51.0); HEMOGLOBIN 11.7 g/dL (13.5-17.0); LYMPHOCYTES % (AUTO) 18.2 % (13-45); MEAN CORPUSCULAR HEMOGLOBIN 29.5 pg (27.0-33.4); MEAN CORPUSCULAR HGB CONC 32.9 g/dL (32.0-36.0); MEAN CORPUSCULAR VOLUME 90 fl (80-97); MONOCYTES % (AUTO) 11.9 % (3-13); PLATELET COUNT 202 10^3/uL (150-450); RED BLOOD COUNT 3.98 10^6/uL (4.35-5.55); RED CELL DISTRIBUTION WIDTH 16.5 % (11.5-14.0); SEGMENTED NEUTROPHILS % (AUTO) 67.7 % (42-78); TOTAL CELLS COUNTED % (AUTO) 100 %; WHITE BLOOD COUNT 4.7 10^3/uL (4.0-10.5)
[2019-08-09 06:05] LABS: ANION GAP 7 (5-19); BLOOD UREA NITROGEN 57 mg/dL (7-20); CALCIUM 7.9 mg/dL (8.4-10.2); CARBON DIOXIDE 34 mmol/L (22-30); CHLORIDE 90 mmol/L (98-107); GLUCOSE 181 mg/dL (75-110); POTASSIUM 4.2 mmol/L (3.6-5.0)
[2019-08-09] MEDS: OXYCODONE-ACETAMINOPHEN 5-325 MG TABLET PO PRN ×4 (08:24→20:38)
[2019-08-09] MEDS: INSULIN GLARGINE,HUM.REC.ANLOG 1,000 UNIT/10 ML VIAL (PYX) SUBCUT SCH (08:25)
[2019-08-09] MEDS: INSULIN LISPRO 100 UNIT/ML 3 ML VIAL SUBCUT SCH ×3 (08:31→17:47)
[2019-08-09] MEDS: DOCUSATE SODIUM 100 MG CAPSULE PO SCH (11:28)
[2019-08-09] MEDS: GUAIFENESIN 600 MG TABLET.SA PO SCH ×2 (11:28→22:24)
[2019-08-09] MEDS: ASCORBIC ACID 500 MG TABLET PO SCH (11:28)
[2019-08-09] MEDS: FUROSEMIDE INJ/PF 40 MG/4 ML SDV IV SCH (11:28)
[2019-08-09] MEDS: POTASSIUM CHLORIDE 10 MEQ TABLET.ER PO SCH ×2 (11:29→22:23)
[2019-08-09] MEDS: CEFTRIAXONE 1 GM/D5W RTU 1 GM/50 ML RTUPB IV SCH (11:29)
[2019-08-09] MEDS: FLUTICASONE NASAL SPRAY 50 MCG/SPRY 120 SPRAY/16 GM NASL SCH ×2 (11:37→22:24)
[2019-08-09] MEDS: APIXABAN 2.5 MG TABLET PO SCH ×2 (11:38→17:40)
[2019-08-09] MEDS: ASPIRIN 81 MG TABLET, CHEWABLE PO SCH (11:38)
[2019-08-09] MEDS ORDERED: (PENDING PHARMACY ID) (Eszopiclone [Lunesta] 1 MG) PO PRN (12:54)
--- NOTE | 2019-08-09 13:09 | PDOC PROGRESS REPORT ---
Subjective Reason For Visit: HYPOTENSION ARF HEART FAILURE Physical Exam Vital Signs: Temp Pulse Resp BP Pulse Ox 98.3 F 95 16 100/68 96 08/09/19 08:05 08/09/19 08:05 08/09/19 08:05 08/09/19 08:05 08/09/19 08:05 Intake & Output 08/08/19 08/09/19 08/10/19 06:59 06:59 06:59 Intake Total 598 1622 Output Total 600 Balance -2 1622 Weight 116.7 kg 115.2 kg General appearance: PRESENT: no acute distress, hard of hearing, well-developed, well-nourished Head exam: PRESENT: atraumatic, normocephalic Eye exam: PRESENT: conjunctiva pink, EOMI, PERRLA. ABSENT: scleral icterus Ear exam: PRESENT: normal external ear exam Mouth exam: PRESENT: moist, tongue midline Neck exam: ABSENT: carotid bruit, JVD, lymphadenopathy, thyromegaly Respiratory exam: PRESENT: clear to auscultation remington, unlabored. ABSENT: rales, rhonchi, wheezes Cardiovascular exam: PRESENT: RRR, +S1, +S2. ABSENT: diastolic murmur, rubs, systolic murmur Pulses: PRESENT: normal dorsalis pedis pul Vascular exam: PRESENT: normal capillary refill GI/Abdominal exam: PRESENT: ascites, normal bowel sounds, soft. ABSENT: distended, guarding, mass, organolmegaly, rebound, tenderness Rectal exam: PRESENT: deferred Gentrourinary exam: PRESENT: scrotal swelling Extremities exam: PRESENT: full ROM, other - Anasarca. ABSENT: calf tenderness, clubbing, pedal edema Neurological exam: PRESENT: alert, awake, oriented to person, oriented to place, oriented to time, oriented to situation, CN II-XII grossly intact. ABSENT: motor sensory deficit Psychiatric exam: PRESENT: appropriate affect, normal mood. ABSENT: homicidal ideation, suicidal ideation Skin exam: PRESENT: dry, intact, warm. ABSENT: cyanosis, rash Results Laboratory Results: 08/09/19 04:36 08/09/19 04:36 08/09/19 08/09/19 04:36 04:36 WBC 4.7 RBC 3.98 L Hgb 11.7 L Hct 35.7 L MCV 90 MCH 29.5 MCHC 32.9 RDW 16.5 H Plt Count 202 Seg Neutrophils % 67.7 Sodium 131.0 L Potassium 4.2 Chloride 90 L Carbon Dioxide 34 H Anion Gap 7 BUN 57 H Creatinine 1.26 H Est GFR ( Amer) > 60 Glucose 181 H Calcium 7.9 L 08/07/19 08/07/19 08/07/19 01:22 01:22 01:22 Creatine Kinase 58 CK-MB (CK-2) 1.70 Troponin I < 0.012 NT-Pro-B Natriuret Pep 4730 H 08/07/19 08/07/19 08/07/19 08:32 08:32 13:06 Creatine Kinase 52 L 38 L CK-MB (CK-2) 1.76 Troponin I 0.013 NT-Pro-B Natriuret Pep 08/07/19 08/07/19 08/07/19 13:06 19:15 19:15 Creatine Kinase 43 L CK-MB (CK-2) 1.44 1.49 Troponin I 0.013 0.013 NT-Pro-B Natriuret Pep Impressions: Chest X-Ray 08/07/19 01:19 IMPRESSION: No significant change in the appearance of the chest. Abdomen Ultrasound 08/08/19 00:00 IMPRESSION: 1. Ascites, most pronounced in the right lower quadrant. 2. Splenomegaly. 3. Cholelithiasis. 4. Fatty liver. Assessment and Plan - Diagnosis (1) Acute renal failure Is this a current diagnosis for this admission?: Yes (2) CHF exacerbation Qualifiers: Heart failure type: systolic Qualified Code(s): I50.23 - Acute on chronic systolic (congestive) heart failure Is this a current diagnosis for this admission?: Yes (3) Diabetes mellitus Is this a current diagnosis for this admission?: Yes (4) Pulmonary hypertension Is this a current diagnosis for this admission?: Yes (5) Ascites Is this a current diagnosis for this admission?: Yes - Plan Summary Summary: Echocardiogram reveals an ejection fraction of 45% with normal left ventricular wall thickness and right ventricular dilatation and biatrial dilatation there is no thrombus patient has severe pulmonary hypertension with RVSP of at least 75 mmHg which is consistent with his massive anasarca. Abdominal ultrasound revealed ascites especially in the right lower quadrant, splenomegaly, cholelithiasis and fatty liver. Patient had a recent PET scan done which did not confirm any malignancy LFTs done on admission were grossly negative with normal AST ALT and bilirubin. Alkaline phosphatase was mildly elevated. Noted to have a gram-positive cocci positivity in 1 blood culture bottle possible contaminant however given his comorbidities I have started him on empiric ceftriaxone and repeat blood cultures are pending Clearly something is going on with this patient with severe right-sided heart failure although precise etiology is unclear to me at this time. He is down for a paracentesis. Fluid will be sent for analysis including cytology. We will follow-up with results
[2019-08-09] MEDS: NITROGLYCERIN 2.5 MG (0.1 MG/HR) PATCH.TD24 TD SCH (14:24)
[2019-08-09] MEDS: GABAPENTIN 300 MG CAPSULE PO SCH ×2 (14:24→22:24)
[2019-08-09 16:27] LABS: FLUID SOURCE ASCITES
[2019-08-09 16:28] LABS: FLUID COLOR YELLOW
[2019-08-09 16:29] LABS: FLUID APPEARANCE HAZY; FLUID VISCOSITY LIQUID
[2019-08-09 16:41] LABS: FLUID TYPE PERITONEAL
--- NOTE | 2019-08-09 17:31 | RADIOLOGY REPORT (SQ) ---
EXAM DESCRIPTION: U/S ABD PARACENTESIS IMAGES COMPLETED DATE/TIME: 08/09/2019 4:10 pm REASON FOR STUDY: Ascites COMPARISON Abdominal ultrasound 08/08/2019 PET-CT 05/31/2019 LIMITATIONS: None. PROCEDURE: After obtaining informed consent, the patient was brought to the ultrasound suite. The p rocedure was performed with the patient on a gurney. Ultrasound was used to identify a prominent poc ket of ascites in the right lower quadrant. An appropriate access site was selected. The patient wa s prepped and draped in usual sterile fashion. The access site was anesthetized with 6 mL 1% lidoca ine. A [id number] needle was advanced into the fluid. After aspiration of fluid the needle, th e catheter was advanced off the needle into the fluid. A total of 3,000 mL of clear yellow fluid was removed. The patient tolerated the procedure well left the department in satisfactory condition. IMPRESSION: Ultrasound-guided paracentesis. Specimen sent for testing as per attending physician COMMENT: Patient medication list reviewed: Yes- Quality ID# [id number]:Eligible professional attests to doc umenting in the medical record they obtained, updated, or reviewed the patient's current medications. TECHNICAL DOCUMENTATION: JOB ID: [id number] 2010 [employer]- All Rights Reserved Reading location - IP/workstation name: [id number]
[2019-08-09] MEDS: ATORVASTATIN CALCIUM 80 MG TABLET PO SCH (22:23)
[2019-08-09] MEDS: TAMSULOSIN HCL 0.4 MG CAP.SR.24H PO SCH (22:24)
[2019-08-10] MEDS: GABAPENTIN 300 MG CAPSULE PO SCH ×3 (05:58→22:20)
[2019-08-10] MEDS: INSULIN LISPRO 100 UNIT/ML 3 ML VIAL SUBCUT SCH ×3 (08:17→17:30)
[2019-08-10] MEDS: ASCORBIC ACID 500 MG TABLET PO SCH (09:48)
[2019-08-10] MEDS: ASPIRIN 81 MG TABLET, CHEWABLE PO SCH (09:48)
[2019-08-10] MEDS: METOPROLOL SUCCINATE 25 MG TAB.SR.24H PO SCH (09:48)
[2019-08-10] MEDS: INSULIN GLARGINE,HUM.REC.ANLOG 1,000 UNIT/10 ML VIAL SUBCUT SCH (09:48)
[2019-08-10] MEDS: FUROSEMIDE INJ/PF 40 MG/4 ML SDV IV SCH ×2 (09:49→22:21)
[2019-08-10] MEDS: GUAIFENESIN 600 MG TABLET.SA PO SCH ×2 (09:49→22:20)
[2019-08-10] MEDS: APIXABAN 2.5 MG TABLET PO SCH ×2 (09:49→17:28)
[2019-08-10] MEDS: POTASSIUM CHLORIDE 10 MEQ TABLET.ER PO SCH ×2 (09:49→22:21)
[2019-08-10] MEDS: NITROGLYCERIN 2.5 MG (0.1 MG/HR) PATCH.TD24 TD SCH (09:49)
[2019-08-10] MEDS: DOCUSATE SODIUM 100 MG CAPSULE PO SCH (09:50)
[2019-08-10] MEDS: CEFTRIAXONE 1 GM/D5W RTU 1 GM/50 ML RTUPB IV SCH (09:50)
[2019-08-10] MEDS: FLUTICASONE NASAL SPRAY 50 MCG/SPRY 120 SPRAY/16 GM NASL SCH ×2 (09:51→22:00)
[2019-08-10] MEDS: OXYCODONE-ACETAMINOPHEN 5-325 MG TABLET PO PRN ×2 (11:25→20:08)
--- NOTE | 2019-08-10 13:43 | PDOC PROGRESS REPORT ---
Subjective Progress Note for:: 08/10/19 Subjective:: Says he feels better, no chest pain Reason For Visit: HYPOTENSION ARF HEART FAILURE Physical Exam Vital Signs: Temp Pulse Resp BP Pulse Ox 97.6 F 92 16 95/50 L 99 08/10/19 07:39 08/10/19 07:39 08/10/19 07:39 08/10/19 07:43 08/10/19 07:39 Intake & Output 08/09/19 08/10/19 08/11/19 06:59 06:59 06:59 Intake Total 1622 1282 50 Balance 1622 1282 50 Weight 115.2 kg 114.8 kg General appearance: PRESENT: no acute distress, well-developed, well-nourished Head exam: PRESENT: atraumatic, normocephalic Eye exam: PRESENT: conjunctiva pink, EOMI, PERRLA. ABSENT: scleral icterus Mouth exam: PRESENT: tongue midline Neck exam: ABSENT: carotid bruit, JVD, lymphadenopathy, thyromegaly Respiratory exam: PRESENT: clear to auscultation remington, unlabored. ABSENT: rales, rhonchi, wheezes Cardiovascular exam: PRESENT: RRR, +S1, +S2, systolic murmur. ABSENT: diastolic murmur, rubs GI/Abdominal exam: PRESENT: normal bowel sounds, soft, other - anasarca. ABSENT: distended, guarding, mass, organolmegaly, rebound, tenderness Rectal exam: PRESENT: deferred Gentrourinary exam: PRESENT: scrotal swelling Extremities exam: PRESENT: full ROM, other - 4 + edema. ABSENT: calf tenderness, clubbing, pedal edema Neurological exam: PRESENT: alert, awake, oriented to person, oriented to place, oriented to time, oriented to situation, CN II-XII grossly intact. ABSENT: motor sensory deficit Psychiatric exam: PRESENT: appropriate affect, normal mood. ABSENT: homicidal ideation, suicidal ideation Skin exam: PRESENT: dry, intact, warm. ABSENT: cyanosis, rash Results Laboratory Results: 08/09/19 04:36 08/09/19 04:36 08/09/19 15:10 Fluid Type PERITONEAL Fluid Source ASCITES Fluid Color YELLOW Fluid Appearance HAZY Fluid Viscosity LIQUID Fluid WBC 700 Fluid RBC 4666 08/07/19 05:30 Blood Blood Culture - Final Staphylococcus Cohnii 08/07/19 08/07/19 08/07/19 01:22 01:22 01:22 Creatine Kinase 58 CK-MB (CK-2) 1.70 Troponin I < 0.012 NT-Pro-B Natriuret Pep 4730 H 08/07/19 08/07/19 08/07/19 08:32 08:32 13:06 Creatine Kinase 52 L 38 L CK-MB (CK-2) 1.76 Troponin I 0.013 NT-Pro-B Natriuret Pep 08/07/19 08/07/19 08/07/19 13:06 19:15 19:15 Creatine Kinase 43 L CK-MB (CK-2) 1.44 1.49 Troponin I 0.013 0.013 NT-Pro-B Natriuret Pep Impressions: Chest X-Ray 08/07/19 01:19 IMPRESSION: No significant change in the appearance of the chest. Abdomen Ultrasound 08/08/19 00:00 IMPRESSION: 1. Ascites, most pronounced in the right lower quadrant. 2. Splenomegaly. 3. Cholelithiasis. 4. Fatty liver. Paracentesis Ultrasound 08/09/19 00:00 IMPRESSION: Ultrasound-guided paracentesis. Specimen sent for testing as per attending physician Assessment and Plan - Diagnosis (1) Acute renal failure Is this a current diagnosis for this admission?: Yes (2) CHF exacerbation Qualifiers: Heart failure type: systolic Qualified Code(s): I50.23 - Acute on chronic systolic (congestive) heart failure Is this a current diagnosis for this admission?: Yes (3) Diabetes mellitus Is this a current diagnosis for this admission?: Yes (4) Pulmonary hypertension Is this a current diagnosis for this admission?: Yes (5) Ascites Is this a current diagnosis for this admission?: Yes - Plan Summary Summary: Echocardiogram reveals an ejection fraction of 45% with normal left ventricular wall thickness and right ventricular dilatation and biatrial dilatation there is no thrombus patient has severe pulmonary hypertension with RVSP of at least 75 mmHg which is consistent with his massive anasarca. Abdominal ultrasound revealed ascites especially in the right lower quadrant, splenomegaly, cholelithiasis and fatty liver. Patient had a recent PET scan done which did not confirm any malignancy LFTs done on admission were grossly negative with normal AST ALT and bilirubin. Alkaline phosphatase was mildly elevated. Noted to have a gram-positive cocci positivity in 1 blood culture bottle possible contaminant however given his comorbidities I have started him on empiric ceftriaxone and repeat blood cultures are pending Clearly something is going on with this patient with severe right-sided heart failure although precise etiology is unclear to me at this time. He is down for a paracentesis. Fluid will be sent for analysis including cytology. We will follow-up with results 08/09 Patient grew Staphylococcus Cohnii on 1 blood culture with 3 of the bottles having been negative. Patient does have a right-sided valvular dysfunction. No vegetations were seen on echocardiogram. His ascitic fluid shows 2+ white blood cells with 700 WBC and 4666 RBC. Total protein, LDH as well as cytology still pending. Patient remains on Lasix 40 mg IV although I wonder if this should be increased to twice a day to try move some of within is improved and his scrotal pain is also improved fluid - Time Anticipated discharge: Home Within: within 72 hours
[2019-08-10] MEDS ORDERED: APIXABAN 2.5 MG TABLET PO SCH (18:00)
[2019-08-10] MEDS: APIXABAN 5 MG TABLET PO SCH (18:47)
[2019-08-10] MEDS: MORPHINE SULFATE 10 MG/ML INJ IV PRN (22:18)
[2019-08-10] MEDS: MAGNESIUM HYDROXIDE SUSP 30 ML UDCUP PO PRN (22:19)
[2019-08-10] MEDS: ATORVASTATIN CALCIUM 80 MG TABLET PO SCH (22:20)
[2019-08-10] MEDS: TAMSULOSIN HCL 0.4 MG CAP.SR.24H PO SCH (22:20)
[2019-08-11] MEDS: MORPHINE SULFATE 10 MG/ML INJ IV PRN ×4 (00:43→08:36)
[2019-08-11] MEDS: GABAPENTIN 300 MG CAPSULE PO SCH ×3 (05:23→21:15)
[2019-08-11 05:52] LABS: ABSOLUTE EOSINOPHILS # (AUTO) 0.1 10^3/uL (0.0-0.6); ABSOLUTE LYMPHOCYTES (AUTO) 0.7 10^3/uL (0.5-4.7); ABSOLUTE MONOCYTES (AUTO) 0.6 10^3/uL (0.1-1.4); BASOPHILS % (AUTO) 0.7 % (0-2); EOSINOPHILS % (AUTO) 1.2 % (0-6); HEMATOCRIT 36.8 % (37.9-51.0); HEMOGLOBIN 12.2 g/dL (13.5-17.0); LYMPHOCYTES % (AUTO) 16.9 % (13-45); MEAN CORPUSCULAR HEMOGLOBIN 29.4 pg (27.0-33.4); MEAN CORPUSCULAR VOLUME 89 fl (80-97); MONOCYTES % (AUTO) 13.1 % (3-13); PLATELET COUNT 175 10^3/uL (150-450); RED BLOOD COUNT 4.14 10^6/uL (4.35-5.55); SEGMENTED NEUTROPHILS % (AUTO) 68.1 % (42-78); TOTAL CELLS COUNTED % (AUTO) 100 %; WHITE BLOOD COUNT 4.4 10^3/uL (4.0-10.5)
[2019-08-11 06:07] LABS: ANION GAP 9 (5-19); BLOOD UREA NITROGEN 53 mg/dL (7-20); CARBON DIOXIDE 36 mmol/L (22-30); CHLORIDE 88 mmol/L (98-107); GLUCOSE 191 mg/dL (75-110); POTASSIUM 4.5 mmol/L (3.6-5.0)
[2019-08-11] MEDS: INSULIN LISPRO 100 UNIT/ML 3 ML VIAL SUBCUT SCH ×3 (08:35→17:55)
[2019-08-11] MEDS: INSULIN GLARGINE,HUM.REC.ANLOG 1,000 UNIT/10 ML VIAL SUBCUT SCH (08:35)
[2019-08-11] MEDS: CEFTRIAXONE 1 GM/D5W RTU 1 GM/50 ML RTUPB IV SCH (10:32)
[2019-08-11] MEDS: APIXABAN 5 MG TABLET PO SCH ×2 (10:33→17:58)
[2019-08-11] MEDS: ASCORBIC ACID 500 MG TABLET PO SCH (10:33)
[2019-08-11] MEDS: METOPROLOL SUCCINATE 25 MG TAB.SR.24H PO SCH (10:33)
[2019-08-11] MEDS: ASPIRIN 81 MG TABLET, CHEWABLE PO SCH (10:33)
[2019-08-11] MEDS: DOCUSATE SODIUM 100 MG CAPSULE PO SCH (10:33)
[2019-08-11] MEDS: GUAIFENESIN 600 MG TABLET.SA PO SCH ×2 (10:33→21:16)
[2019-08-11] MEDS: FUROSEMIDE INJ/PF 40 MG/4 ML SDV IV SCH ×2 (10:34→21:17)
[2019-08-11] MEDS: POTASSIUM CHLORIDE 10 MEQ TABLET.ER PO SCH ×2 (10:34→21:15)
[2019-08-11] MEDS: FLUTICASONE NASAL SPRAY 50 MCG/SPRY 120 SPRAY/16 GM NASL SCH ×2 (10:40→21:17)
[2019-08-11] MEDS: NITROGLYCERIN 2.5 MG (0.1 MG/HR) PATCH.TD24 TD SCH (10:41)
--- NOTE | 2019-08-11 13:39 | PDOC PROGRESS REPORT ---
Subjective Progress Note for:: 08/11/19 Subjective:: Says he feels better, no chest pain Reason For Visit: HYPOTENSION ARF HEART FAILURE Physical Exam Vital Signs: Temp Pulse Resp BP Pulse Ox 97.3 F 87 16 109/57 L 95 08/11/19 07:41 08/11/19 07:41 08/11/19 07:41 08/11/19 07:41 08/11/19 07:41 Intake & Output 08/10/19 08/11/19 08/12/19 06:59 06:59 06:59 Intake Total 1282 1672 Output Total 3200 Balance 1282 -1528 Weight 114.8 kg 114.8 kg General appearance: PRESENT: no acute distress, cooperative, hard of hearing Head exam: PRESENT: atraumatic Neck exam: ABSENT: JVD, tenderness Respiratory exam: PRESENT: clear to auscultation remington, unlabored Cardiovascular exam: PRESENT: irregular rhythm, +S1, +S2 GI/Abdominal exam: PRESENT: ascites, soft. ABSENT: tenderness Rectal exam: PRESENT: deferred Neurological exam: PRESENT: alert, awake, oriented to person, oriented to place, oriented to time, oriented to situation, CN II-XII grossly intact. ABSENT: motor sensory deficit Results Laboratory Results: 08/11/19 05:12 08/11/19 05:12 08/09/19 08/09/19 08/11/19 15:10 15:10 05:12 WBC 4.4 RBC 4.14 L Hgb 12.2 L Hct 36.8 L MCV 89 MCH 29.4 MCHC 33.0 RDW 16.0 H Plt Count 175 Seg Neutrophils % 68.1 Sodium Potassium Chloride Carbon Dioxide Anion Gap BUN Creatinine Est GFR ( Amer) Glucose Calcium Fluid Total Protein 3.3 Fluid LDH 123 08/11/19 05:12 WBC RBC Hgb Hct MCV MCH MCHC RDW Plt Count Seg Neutrophils % Sodium 133.1 L Potassium 4.5 Chloride 88 L Carbon Dioxide 36 H Anion Gap 9 BUN 53 H Creatinine 1.27 H Est GFR ( Amer) > 60 Glucose 191 H Calcium 8.0 L Fluid Total Protein Fluid LDH 08/09/19 15:10 Ascities Fluid Gram Stain - Final 08/07/19 08/07/19 08/07/19 01:22 01:22 01:22 Creatine Kinase 58 CK-MB (CK-2) 1.70 Troponin I < 0.012 NT-Pro-B Natriuret Pep 4730 H 08/07/19 08/07/19 08/07/19 08:32 08:32 13:06 Creatine Kinase 52 L 38 L CK-MB (CK-2) 1.76 Troponin I 0.013 NT-Pro-B Natriuret Pep 08/07/19 08/07/19 08/07/19 13:06 19:15 19:15 Creatine Kinase 43 L CK-MB (CK-2) 1.44 1.49 Troponin I 0.013 0.013 NT-Pro-B Natriuret Pep Impressions: Chest X-Ray 08/07/19 01:19 IMPRESSION: No significant change in the appearance of the chest. Abdomen Ultrasound 08/08/19 00:00 IMPRESSION: 1. Ascites, most pronounced in the right lower quadrant. 2. Splenomegaly. 3. Cholelithiasis. 4. Fatty liver. Paracentesis Ultrasound 08/09/19 00:00 IMPRESSION: Ultrasound-guided paracentesis. Specimen sent for testing as per attending physician Assessment and Plan - Diagnosis (1) Acute renal failure Is this a current diagnosis for this admission?: Yes (2) CHF exacerbation Qualifiers: Heart failure type: systolic Qualified Code(s): I50.23 - Acute on chronic systolic (congestive) heart failure Is this a current diagnosis for this admission?: Yes (3) Diabetes mellitus Is this a current diagnosis for this admission?: Yes (4) Pulmonary hypertension Is this a current diagnosis for this admission?: Yes (5) Ascites Is this a current diagnosis for this admission?: Yes - Plan Summary Summary: Echocardiogram reveals an ejection fraction of 45% with normal left ventricular wall thickness and right ventricular dilatation and biatrial dilatation there is no thrombus patient has severe pulmonary hypertension with RVSP of at least 75 mmHg which is consistent with his massive anasarca. Abdominal ultrasound revealed ascites especially in the right lower quadrant, splenomegaly, cho lelithiasis and fatty liver. Patient had a recent PET scan done which did not confirm any malignancy LFTs done on admission were grossly negative with normal AST ALT and bilirubin. Alkaline phosphatase was mildly elevated. Noted to have a gram-positive cocci positivity in 1 blood culture bottle pos sible contaminant however given his comorbidities I have started him on empiric ceftriaxone and repeat blood cultures are pending Clearly something is going on with this patient with severe right-sided heart failure although precise etiology is unclear to me at this time. He is down for a paracentesis. Fluid will be sent for analysis including cytology. We will follow-up with results 08/09 Patient grew Staphylococcus Cohnii on 1 blood culture with 3 of the bottles having been negative. Patient does have a right-sided valvular dysfunction. No vegetations were seen on echocardiogram. His ascitic fluid shows 2+ white blood cells with 700 WBC and 4666 RBC. Total protein, LDH as well as cytology still pending. Patient remains on Lasix 40 mg IV although I wonder if this should be increased to twice a day to try move some of within is improved and his scrotal pain is also improved fluid 08/10Patient's weight has barely changed since admission losing less than 3 kg over the last 3 to 4 days despite diuresis as well as paracentesis. He does appear that he is not being adequately diuresed. I have increased his Lasix to 40 mg twice daily from 08/09. His output actually increased on August 09 with a - 1528 mL. At this point I will leave his Lasix at 40 mg twice daily. I however also note that he is hypochloremic and hyponatremic and so we will have to watch this very closely and be on the look out for contraction alkalosis. Kidney function today is barely improved but at least it is not getting worse. A short after all the tests that have obtained on this gentleman the only explanation Patient has a small woundulcer, present on admission, currently yielding gram-positive cocci in clusters likely skin west. Is currently on ceftriaxone empirically. I see no evidence of any systemic infection but antibiotics can be adjusted if needed. Ascitic fluid is no yielding any organism at this point. And although there was a positive 1 out of 4 blood culture this may well be a contaminant. We will continue to encourage diuresis as tolerated. If needed his Lasix can be increased but he does appear to have responded to the 80 mg daily and so we will leave it at this for now - Inpatient Certification Based on my medical assessment, after consideration of the patient's comorbidities, presenting symptoms, or acuity I expect that the services needed warrant INPATIENT care.: Yes Medical Necessity: Need for IV Antibiotics, Risk of Complication if Not Cared For in Hospital
[2019-08-11] MEDS: OXYCODONE-ACETAMINOPHEN 5-325 MG TABLET PO PRN ×2 (13:49→21:16)
[2019-08-11] MEDS: ZOLPIDEM TARTRATE 5 MG TABLET PO PRN (21:15)
[2019-08-11] MEDS: ALPRAZOLAM 0.25 MG TABLET PO PRN (21:15)
[2019-08-11] MEDS: TRAZODONE HCL 50 MG TABLET PO PRN (21:16)
[2019-08-11] MEDS: TAMSULOSIN HCL 0.4 MG CAP.SR.24H PO SCH (21:16)
[2019-08-11] MEDS: ATORVASTATIN CALCIUM 80 MG TABLET PO SCH (21:16)
[2019-08-12] MEDS: GABAPENTIN 300 MG CAPSULE PO SCH ×3 (05:12→21:19)
[2019-08-12 06:35] LABS: ALBUMIN 3.2 g/dL (3.5-5.0); ALKALINE PHOSPHATASE 145 U/L (38-126); ANION GAP 9 (5-19); ASPARTATE AMINO TRANSFERASE 33 U/L (17-59); BILIRUBIN,DIRECT 0.2 mg/dL (0.0-0.4); BILIRUBIN,TOTAL 0.5 mg/dL (0.2-1.3); BLOOD UREA NITROGEN 57 mg/dL (7-20); CALCIUM 7.8 mg/dL (8.4-10.2); CARBON DIOXIDE 36 mmol/L (22-30); CHLORIDE 88 mmol/L (98-107); GLUCOSE 138 mg/dL (75-110); POTASSIUM 4.2 mmol/L (3.6-5.0); TOTAL PROTEIN 6.4 g/dL (6.3-8.2)
[2019-08-12] MEDS: INSULIN LISPRO 100 UNIT/ML 3 ML VIAL SUBCUT SCH ×3 (08:32→17:20)
[2019-08-12] MEDS: CEFTRIAXONE 1 GM/D5W RTU 1 GM/50 ML RTUPB IV SCH (10:05)
[2019-08-12] MEDS: APIXABAN 5 MG TABLET PO SCH ×2 (10:06→17:21)
[2019-08-12] MEDS: INSULIN GLARGINE,HUM.REC.ANLOG 1,000 UNIT/10 ML VIAL SUBCUT SCH (10:06)
[2019-08-12] MEDS: ASCORBIC ACID 500 MG TABLET PO SCH (10:06)
[2019-08-12] MEDS: POTASSIUM CHLORIDE 10 MEQ TABLET.ER PO SCH ×2 (10:06→21:19)
[2019-08-12] MEDS: DOCUSATE SODIUM 100 MG CAPSULE PO SCH (10:06)
[2019-08-12] MEDS: ASPIRIN 81 MG TABLET, CHEWABLE PO SCH (10:06)
[2019-08-12] MEDS: NITROGLYCERIN 2.5 MG (0.1 MG/HR) PATCH.TD24 TD SCH (10:07)
[2019-08-12] MEDS: METOPROLOL SUCCINATE 25 MG TAB.SR.24H PO SCH (10:07)
[2019-08-12] MEDS: GUAIFENESIN 600 MG TABLET.SA PO SCH ×2 (10:07→21:19)
[2019-08-12] MEDS: FLUTICASONE NASAL SPRAY 50 MCG/SPRY 120 SPRAY/16 GM NASL SCH ×2 (10:08→21:20)
[2019-08-12] MEDS: FUROSEMIDE INJ/PF 40 MG/4 ML SDV IV SCH ×2 (10:11→21:20)
[2019-08-12] MEDS: OXYCODONE-ACETAMINOPHEN 5-325 MG TABLET PO PRN (11:55)
[2019-08-12] MEDS: ALPRAZOLAM 0.25 MG TABLET PO PRN (13:55)
[2019-08-12] MEDS: MAGNESIUM HYDROXIDE SUSP 30 ML UDCUP PO PRN (13:55)
--- NOTE | 2019-08-12 17:11 | PDOC PROGRESS REPORT ---
Subjective Progress Note for:: 08/12/19 Subjective:: Patient doing well overall today after his paracentesis yesterday. He states his abdomen feels significantly better but when I examined him today his belly is still quite tense. He was started on 4 mg IV morphine overnight which seems like a bit much. This is been discontinued. He has oral narcotics available at a lower concentration. His creatinine is the same approximately which is consistent with likely CKD 2. He still has some abdominal discomfort and fu llness. Patient has no new complaints today otherwise. Reason For Visit: HYPOTENSION ARF HEART FAILURE Physical Exam Vital Signs: Temp Pulse Resp BP Pulse Ox 98.2 F 69 20 106/60 97 08/12/19 16:29 08/12/19 16:29 08/12/19 16:29 08/12/19 16:29 08/12/19 16:29 Intake & Output 08/11/19 08/12/19 08/13/19 06:59 06:59 06:59 Intake Total 1672 1112 530 Output Total 3200 2850 1250 Balance -1528 -1738 -720 Weight 114.8 kg 112.1 kg General appearance: PRESENT: no acute distress, well-developed, well-nourished Head exam: PRESENT: atraumatic, normocephalic Eye exam: PRESENT: conjunctiva pink Mouth exam: PRESENT: moist Respiratory exam: PRESENT: clear to auscultation remington. ABSENT: rales, rhonchi, wheezes Cardiovascular exam: PRESENT: RRR. ABSENT: diastolic murmur, rubs, systolic murmur GI/Abdominal exam: PRESENT: ascites, distended, firm. ABSENT: guarding, rebound, rigid, soft, tenderness Extremities exam: PRESENT: pedal edema Neurological exam: PRESENT: alert, awake, oriented to person, oriented to place, oriented to time, oriented to situation Psychiatric exam: PRESENT: appropriate affect, normal mood Skin exam: PRESENT: dry, intact, warm Results Laboratory Results: 08/11/19 05:12 08/12/19 05:36 08/12/19 05:36 Sodium 132.5 L Potassium 4.2 Chloride 88 L Carbon Dioxide 36 H Anion Gap 9 BUN 57 H Creatinine 1.26 H Est GFR ( Amer) > 60 Glucose 138 H Calcium 7.8 L Total Bilirubin 0.5 AST 33 Alkaline Phosphatase 145 H Total Protein 6.4 Albumin 3.2 L 08/10/19 13:00 Ankle - Diabetic Ulcer Gram Stain - Final 08/10/19 13:00 Ankle - Diabetic Ulcer Wound Culture - Final Staphylococcus Aureus Skin [place] 08/09/19 15:10 Ascities Fluid Gram Stain - Final 08/10/19 13:00 Leg - Diabetic Ulcer Gram Stain - Final 08/10/19 13:00 Leg - Diabetic Ulcer Wound Culture - Final Staphylococcus Aureus Skin [place] 08/07/19 05:15 Blood Blood Culture - Final NO GROWTH IN 5 DAYS 08/07/19 08/07/19 08/07/19 01:22 01:22 01:22 Creatine Kinase 58 CK-MB (CK-2) 1.70 Troponin I < 0.012 NT-Pro-B Natriuret Pep 4730 H 08/07/19 08/07/19 08/07/19 08:32 08:32 13:06 Creatine Kinase 52 L 38 L CK-MB (CK-2) 1.76 Troponin I 0.013 NT-Pro-B Natriuret Pep 08/07/19 08/07/19 08/07/19 13:06 19:15 19:15 Creatine Kinase 43 L CK-MB (CK-2) 1.44 1.49 Troponin I 0.013 0.013 NT-Pro-B Natriuret Pep Impressions: Chest X-Ray 08/07/19 01:19 IMPRESSION: No significant change in the appearance of the chest. Abdomen Ultrasound 08/08/19 00:00 IMPRESSION: 1. Ascites, most pronounced in the right lower quadrant. 2. Splenomegaly. 3. Cholelithiasis. 4. Fatty liver. Paracentesis Ultrasound 08/09/19 00:00 IMPRESSION: Ultrasound-guided paracentesis. Specimen sent for testing as per attending physician Assessment and Plan - Diagnosis (1) CHF exacerbation Qualifiers: Heart failure type: systolic Qualified Code(s): I50.23 - Acute on chronic systolic (congestive) heart failure Is this a current diagnosis for this admission?: Yes Plan: Per previous physician: "likely decompensated acute on chronic systolic heart failure secondary to dietary and medication noncompliance complicated by hypotension.. 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 He will need cardiology follow-up closely after discharge. Beta-ezekiel, held ARB/LUIS inhibitor for renal failure; may consider starting Entresto in the future (2) Acute renal failure Is this a current diagnosis for this admission?: Yes Plan: 08/12/2019 Suspect cardiorenal superimposed on CKD 2 Trend BMP Diuresis as above (3) Pulmonary hypertension Is this a current diagnosis for this admission?: Yes Plan: Likely secondary to LV and RV failure with volume overload Needs repeat echo after adequate diuresis is achieved; get RHC if pressures are still high at that point (4) Atrial fibrillation Is this a current diagnosis for this admission?: Yes Plan: 08/12/2019 Chronic A. fib Eliquis twice daily continued Rate control medications continued (5) Diabetes mellitus Qualifiers: Diabetes mellitus type: type 2 Diabetes mellitus intermediate frame tender insulin use: without intermediate frame tender use Diabetes mellitus complication status: without complication Qualified Code(s): E11.9 - Type 2 diabetes mellitus without complications Is this a current diagnosis for this admission?: Yes Plan: Accu-Cheks Low-dose correctional insulin (6) Dyslipidemia Is this a current diagnosis for this admission?: Yes Plan: Statin - Plan Summary Summary: Echocardiogram reveals an ejection fraction of 45% with normal left ventricular wall thickness and right ventricular dilatation and biatrial dilatation there is no thrombus patient has severe pulmonary hypertension with RVSP of at least 75 mmHg which is consistent with his massive anasarca. Abdominal ultrasound revealed ascites especially in the right lower quadrant, splenomegaly, cholelithiasis and fatty liver. Patient had a recent PET scan done which did not confirm any malignancy LFTs done on admission were grossly negative with normal AST ALT and bilirubin. Alkaline phosphatase was mildly elevated. Noted to have a gram-positive cocci positivity in 1 blood culture bottle possible contaminant however given his comorbidities I have started him on empiric ceftriaxone and repeat blood cultures are pending Clearly something is going on with this patient with severe right-sided heart failure although precise etiology is unclear to me at this time. He is down for a paracentesis. Fluid will be sent for analysis including cytology. We will follow-up with results 08/09 Patient grew Staphylococcus Cohnii on 1 blood culture with 3 of the bottles having been negative. Patient does have a right-sided valvular dysfunction. No vegetations were seen on echocardiogram. His ascitic fluid shows 2+ white blood cells with 700 WBC and 4666 RBC. Total protein, LDH as well as cytology still pending. Patient remains on Lasix 40 mg IV although I wonder if this should be increased to twice a day to try move some of within is improved and his scrotal pain is also improved fluid 08/10Patient's weight has barely changed since admission losing less than 3 kg over the last 3 to 4 days despite diuresis as well as paracentesis. He does appear that he is not being adequately diuresed. I have increased his Lasix to 40 mg twice daily from 08/09. His output actually increased on August 09 with a - 1528 mL. At this point I will leave his Lasix at 40 mg twice daily. I however also note that he is hypochloremic and hyponatremic and so we will have to watch this very closely and be on the look out for contraction alkalosis. Kidney function today is barely improved but at least it is not getting worse. A short after all the tests that have obtained on this gentleman the only explanation Patient has a small woundulcer, present on admission, currently yielding gram- positive cocci in clusters likely skin west. Is currently on ceftriaxone empirically. I see no evidence of any systemic infection but antibiotics can be adjusted if needed. Ascitic fluid is no yielding any organism at this point. And although there was a positive 1 out of 4 blood culture this may well be a contaminant. We will continue to encourage diuresis as tolerated. If needed his Lasix can be increased but he does appear to have responded to the 80 mg daily and so we will leave it at this for now - Time Time Spent with patient: 15-24 minutes Medications reviewed and adjusted accordingly: Yes Anticipated discharge: Home Within: within 48 hours - Inpatient Certification Based on my medical assessment, after consideration of the patient's comorbidities, presenting symptoms, or acuity I expect that the services needed warrant INPATIENT care.: Yes I certify that my determination is in accordance with my understanding of Medicare's requirements for reasonable and necessary INPATIENT services [42 CFR 412.3e].: Yes Medical Necessity: Significant Comorbidiites Make Outpatient Treatment Too Risky, Need Close Monitoring Due to Risk of Patient Decompensation, Risk of Complication if Not Cared For in Hospital, Risk of Diagnosis Which Will Require Inpatient Eval/Care/Monitoring
[2019-08-12] MEDS: ATORVASTATIN CALCIUM 80 MG TABLET PO SCH (21:19)
[2019-08-12] MEDS: TAMSULOSIN HCL 0.4 MG CAP.SR.24H PO SCH (21:19)
[2019-08-12] MEDS: TRAZODONE HCL 50 MG TABLET PO PRN (21:22)
[2019-08-12] MEDS: ZOLPIDEM TARTRATE 5 MG TABLET PO PRN (23:46)
[2019-08-13] MEDS: GABAPENTIN 300 MG CAPSULE PO SCH ×3 (05:47→21:25)
[2019-08-13] MEDS: INSULIN LISPRO 100 UNIT/ML 3 ML VIAL SUBCUT SCH ×3 (08:01→18:04)
[2019-08-13] MEDS: INSULIN GLARGINE,HUM.REC.ANLOG 1,000 UNIT/10 ML VIAL SUBCUT SCH (08:02)
[2019-08-13] MEDS: ASCORBIC ACID 500 MG TABLET PO SCH (09:18)
[2019-08-13] MEDS: POTASSIUM CHLORIDE 10 MEQ TABLET.ER PO SCH ×2 (09:18→21:25)
[2019-08-13] MEDS: ASPIRIN 81 MG TABLET, CHEWABLE PO SCH (09:18)
[2019-08-13] MEDS: DOCUSATE SODIUM 100 MG CAPSULE PO SCH (09:18)
[2019-08-13] MEDS: GUAIFENESIN 600 MG TABLET.SA PO SCH ×2 (09:18→21:25)
[2019-08-13] MEDS: OXYCODONE-ACETAMINOPHEN 5-325 MG TABLET PO PRN ×2 (09:18→20:07)
[2019-08-13] MEDS: APIXABAN 5 MG TABLET PO SCH ×2 (09:18→18:07)
[2019-08-13] MEDS: FUROSEMIDE INJ/PF 40 MG/4 ML SDV IV SCH ×2 (09:19→21:25)
[2019-08-13] MEDS: CEFTRIAXONE 1 GM/D5W RTU 1 GM/50 ML RTUPB IV SCH (09:19)
[2019-08-13] MEDS: METOPROLOL SUCCINATE 25 MG TAB.SR.24H PO SCH (09:24)
[2019-08-13] MEDS: FLUTICASONE NASAL SPRAY 50 MCG/SPRY 120 SPRAY/16 GM NASL SCH ×2 (09:24→21:25)
[2019-08-13] MEDS: NITROGLYCERIN 2.5 MG (0.1 MG/HR) PATCH.TD24 TD SCH (09:24)
--- NOTE | 2019-08-13 13:32 | PDOC PROGRESS REPORT ---
Subjective Subjective:: 08/12/2019 patient doing well overall today after his paracentesis yesterday. He states his abdomen feels significantly better but when I examined him today his belly is still quite tense. He was started on 4 mg IV morphine overnight which seems like a bit much. This is been discontinued. He has oral narcotics available at a lower concentration. His creatinine is the same approximately which is consistent with likely CKD 2. He still has some abdominal discomfort and fullness. Patient has no new complaints today otherwise. 08/13/2019 Patient is a bit sleepy today but probably wakes up when I speak to him. He a ctually jumped out of bed and threw his nasal cannula on the floor trying to get his urinal. His abdomen and legs are still quite edematous. I reviewed his previous imaging studies and other than CHF I do not see a source of his ascites and lower extremity edema. He did not appear to have any malignancy or vascular occlusions on his ultrasound and recent PET scan. The ascites fluid did not shira ear to be infected and the pathology did not reveal malignancy in the fluid. LDH was low and protein slightly elevated in the ascites fluid. Per his UA he does not have nephrotic syndrome. His liver function appears to be normal based on his CMP. His blood pressure is low today, will add midodrine and if this successfully increases his blood pressure we can increase his cardiac medication regimen to help with his diuresis. If we can accomplish this he could probably be discharged tomorrow. Reason For Visit: HYPOTENSION ARF HEART FAILURE Physical Exam Vital Signs: Temp Pulse Resp BP Pulse Ox 97.4 F 86 16 102/64 92 08/13/19 11:45 08/13/19 11:45 08/13/19 11:45 08/13/19 11:45 08/13/19 11:45 Intake & Output 08/12/19 08/13/19 08/14/19 06:59 06:59 06:59 Intake Total 1112 1532 50 Output Total 2850 3200 Balance -3323 -7578 50 Weight 112.1 kg 113.5 kg General appearance: PRESENT: no acute distress, well-developed, well-nourished Head exam: PRESENT: atraumatic, normocephalic Eye exam: PRESENT: conjunctiva pink Mouth exam: PRESENT: moist Respiratory exam: PRESENT: clear to auscultation remington. ABSENT: rales, rhonchi, wheezes Cardiovascular exam: PRESENT: RRR. ABSENT: diastolic murmur, rubs, systolic murmur GI/Abdominal exam: PRESENT: ascites, distended, normal bowel sounds, soft. ABSENT: guarding, mass, organolmegaly, rebound, tenderness Extremities exam: PRESENT: pedal edema, +2 edema Neurological exam: PRESENT: alert, awake, oriented to person, oriented to place, oriented to time, oriented to situation Psychiatric exam: PRESENT: appropriate affect, normal mood Skin exam: PRESENT: dry, intact, warm Results Laboratory Results: 08/11/19 05:12 08/12/19 05:36 08/09/19 15:10 Ascities Fluid Gram Stain - Final 08/09/19 15:10 Ascities Fluid Body Fluid Culture - Final NO AEROBIC OR ANAEROBIC ORGANISMS RECOVERED 08/10/19 13:00 Ankle - Diabetic Ulcer Gram Stain - Final 08/10/19 13:00 Ankle - Diabetic Ulcer Wound Culture - Final Staphylococcus Aureus Skin West 08/07/19 08/07/19 08/07/19 01:22 01:22 01:22 Creatine Kinase 58 CK-MB (CK-2) 1.70 Troponin I < 0.012 NT-Pro-B Natriuret Pep 4730 H 08/07/19 08/07/19 08/07/19 08:32 08:32 13:06 Creatine Kinase 52 L 38 L CK-MB (CK-2) 1.76 Troponin I 0.013 NT-Pro-B Natriuret Pep 08/07/19 08/07/19 08/07/19 13:06 19:15 19:15 Creatine Kinase 43 L CK-MB (CK-2) 1.44 1.49 Troponin I 0.013 0.013 NT-Pro-B Natriuret Pep Impressions: Chest X-Ray 08/07/19 01:19 IMPRESSION: No significant change in the appearance of the chest. Abdomen Ultrasound 08/08/19 00:00 IMPRESSION: 1. Ascites, most pronounced in the right lower quadrant. 2. Splenomegaly. 3. Cholelithiasis. 4. Fatty liver. Paracentesis Ultrasound 08/09/19 00:00 IMPRESSION: Ultrasound-guided paracentesis. Specimen sent for testing as per attending physician Assessment and Plan - Diagnosis (1) CHF exacerbation Qualifiers: Heart failure type: combined systolic and diastolic Qualified Code(s): I50.43 - Acute on chronic combined systolic (congestive) and diastolic (congestive) heart failure Is this a current diagnosis for this admission?: Yes Plan: Per previous physician: "likely decompensated acute on chronic systolic heart failure secondary to dietary and medication noncompliance complicated by hypotension.. 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 He will need cardiology follow-up closely after discharge. Beta-ezekiel, held ARB/LUIS inhibitor for renal failure; may consider starting Entresto in the future 08/13/2019 Added midodrine so that we can increase his cardiac meds and improve his diuresis in the setting of low blood pressure. Continue up titrating his cardiac meds, he will need close follow-up with cardiology outpatient We will check PVL BLE to look for DVT (2) Acute renal failure Is this a current diagnosis for this admission?: Yes (3) Pulmonary hypertension Is this a current diagnosis for this admission?: Yes Plan: Likely secondary to LV and RV failure with volume overload Needs repeat echo after adequate diuresis is achieved; get RHC if pressures are still high at that point 08/13/2019 Still trying to adequately diurese patient. I continue to be concerned that he may have underlying primary pulmonary hypertension. We will not be able to tell until he has properly diuresed (4) Atrial fibrillation Is this a current diagnosis for this admission?: Yes Plan: 08/12/2019 Chronic A. 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 Abdominal ultrasound revealed ascites especially in the right lower quadrant, splenomegaly, cholelithiasis and fatty liver. Patient had a recent PET scan done which did not confirm any malignancy LFTs done on admission were grossly negative with normal AST ALT and bilirubin. Alkaline phosphatase was mildly elevated. Noted to have a gram-positive cocci positivity in 1 blood culture bottle possible contaminant however given his comorbidities I have started him on empiric ceftriaxone and repeat blood cultures are pending Clearly something is going on with this patient with severe right-sided heart failure although precise etiology is unclear to me at this time. He is down for a paracentesis. Fluid will be sent for analysis including cytology. We will follow-up with results 08/09 Patient grew Staphylococcus Cohnii on 1 blood culture with 3 of the bottles having been negative. Patient does have a right-sided valvular dysfunction. No vegetations were seen on echocardiogram. His ascitic fluid shows 2+ white blood cells with 700 WBC and 4666 RBC. Total protein, LDH as well as cytology still pending. Patient remains on Lasix 40 mg IV although I wonder if this should be increased to twice a day to try move some of within is improved and his scrotal pain is also improved fluid 08/10Patient's weight has barely changed since admission losing less than 3 kg over the last 3 to 4 days despite diuresis as well as paracentesis. He does appear that he is not being adequately diuresed. I have increased his Lasix to 40 mg twice daily from 08/09. His output actually increased on August 09 with a - 1528 mL. At this point I will leave his Lasix at 40 mg twice daily. I however also note that he is hypochloremic and hyponatremic and so we will have to watch this very closely and be on the look out for contraction alkalosis. Kidney function today is barely improved but at least it is not getting worse. A short after all the tests that have obtained on this gentleman the only explanation Patient has a small woundulcer, present on admission, currently yielding gram- positive cocci in clusters likely skin west. Is currently on ceftriaxone empirically. I see no evidence of any systemic infection but antibiotics can be adjusted if needed. Ascitic fluid is no yielding any organism at this point. And although there was a positive 1 out of 4 blood culture this may well be a contaminant. We will continue to encourage diuresis as tolerated. If needed his Lasix can be increased but he does appear to have responded to the 80 mg daily and so we will leave it at this for now - Time Time Spent with patient: 15-24 minutes Medications reviewed and adjusted accordingly: Yes Anticipated discharge: Home Within: within 48 hours - Inpatient Certification Based on my medical assessment, after consideration of the patient's comorbidities, presenting symptoms, or acuity I expect that the services needed warrant INPATIENT care.: Yes I certify that my determination is in accordance with my understanding of Medicare's requirements for reasonable and necessary INPATIENT services [42 CFR 412.3e].: Yes Medical Necessity: Significant Comorbidiites Make Outpatient Treatment Too Risky, Need Close Monitoring Due to Risk of Patient Decompensation, Risk of Complication if Not Cared For in Hospital, Risk of Diagnosis Which Will Require Inpatient Eval/Care/Monitoring
[2019-08-13] MEDS: MIDODRINE HCL 5 MG TABLET PO SCH ×2 (14:50→18:07)
[2019-08-13] MEDS: TAMSULOSIN HCL 0.4 MG CAP.SR.24H PO SCH (21:25)
[2019-08-13] MEDS: ATORVASTATIN CALCIUM 80 MG TABLET PO SCH (21:25)
[2019-08-13] MEDS: MAGNESIUM HYDROXIDE SUSP 30 ML UDCUP PO PRN (21:35)
[2019-08-14] MEDS: TRAZODONE HCL 50 MG TABLET PO PRN (01:54)
[2019-08-14] MEDS: GABAPENTIN 300 MG CAPSULE PO SCH ×3 (06:18→21:07)
[2019-08-14] MEDS: INSULIN GLARGINE,HUM.REC.ANLOG 1,000 UNIT/10 ML VIAL SUBCUT SCH (08:44)
[2019-08-14] MEDS: INSULIN LISPRO 100 UNIT/ML 3 ML VIAL SUBCUT SCH ×3 (08:44→17:59)
[2019-08-14] MEDS: ASPIRIN 81 MG TABLET, CHEWABLE PO SCH (09:52)
[2019-08-14] MEDS: ASCORBIC ACID 500 MG TABLET PO SCH (09:53)
[2019-08-14] MEDS: POTASSIUM CHLORIDE 10 MEQ TABLET.ER PO SCH ×2 (09:53→21:07)
[2019-08-14] MEDS: GUAIFENESIN 600 MG TABLET.SA PO SCH ×2 (09:53→21:07)
[2019-08-14] MEDS: METOPROLOL SUCCINATE 25 MG TAB.SR.24H PO SCH (09:54)
[2019-08-14] MEDS: DOCUSATE SODIUM 100 MG CAPSULE PO SCH (09:54)
[2019-08-14] MEDS: APIXABAN 5 MG TABLET PO SCH ×2 (09:54→17:59)
[2019-08-14] MEDS: MIDODRINE HCL 5 MG TABLET PO SCH ×3 (09:54→17:59)
[2019-08-14] MEDS: FUROSEMIDE INJ/PF 40 MG/4 ML SDV IV SCH ×2 (09:55→21:08)
[2019-08-14] MEDS: CEFTRIAXONE 1 GM/D5W RTU 1 GM/50 ML RTUPB IV SCH (09:55)
[2019-08-14] MEDS: FLUTICASONE NASAL SPRAY 50 MCG/SPRY 120 SPRAY/16 GM NASL SCH ×2 (09:56→21:13)
[2019-08-14] MEDS: NITROGLYCERIN 2.5 MG (0.1 MG/HR) PATCH.TD24 TD SCH (09:58)
[2019-08-14] MEDS: MAGNESIUM HYDROXIDE SUSP 30 ML UDCUP PO PRN (12:51)
[2019-08-14] MEDS ORDERED: MIDODRINE HCL 5 MG TABLET PO ONE (13:00)
[2019-08-14] MEDS ORDERED: MIDODRINE HCL 5 MG TABLET PO SCH (14:00)
[2019-08-14] MEDS: DOBUTAMINE HCL/D5W 500 MG/250 ML RTUINJ IV PRN (14:20)
[2019-08-14] MEDS: ALPRAZOLAM 0.25 MG TABLET PO PRN (14:20)
--- NOTE | 2019-08-14 14:57 | PDOC PROGRESS REPORT ---
Subjective Progress Note for:: 08/14/19 Subjective:: 08/12/2019 patient doing well overall today after his paracentesis yesterday. He states his abdomen feels significantly better but when I examined him today his belly is still quite tense. He was started on 4 mg IV morphine overnight which seems like a bit much. This is been discontinued. He has oral narcotics available at a lower concentration. His creatinine is the same approximately which is consistent with likely CKD 2. He still has some abdominal discomfort and fullness. Patient has no new complaints today otherwise. 08/13/2019 Patient is a bit sleepy today but probably wakes up when I speak to him. He actually jumped out of bed and threw his nasal cannula on the floor trying to get his urinal. His abdomen and legs are still quite edematous. I reviewed his previous imaging studies and other than CHF I do not see a source of his ascites and lower extremity edema. He did not appear to have any malignancy or vascular occlusions on his ultrasound and recent PET scan. The ascites fluid did not appear to be infected and the pathology did not reveal malignancy in the fluid. LDH was low and protein slightly elevated in the ascites fluid. Per his UA he does not have nephrotic syndrome. His liver function appears to be normal based on his CMP. His blood pressure is low today, will add midodrine and if this successfully increases his blood pressure we can increase his cardiac medication regimen to help with his diuresis. If we can accomplish this he could probably be discharged tomorrow. 08/14/2019 Consulted cardiology and discussed the case in great detail with Dr. Portillo. Patient has portal hypertension likely due to right-sided heart failure and pulmonary hypertension. I have increased his dose of midodrine to allow for up titration of his cardiac medications and diuresis. Other than generalized fatigue and weakness and his persistent edema, patient has no new complaints. Reason For Visit: HYPOTENSION ARF HEART FAILURE Physical Exam Vital Signs: Temp Pulse Resp BP Pulse Ox 97.4 F 68 20 97/57 L 92 08/14/19 11:27 08/14/19 11:27 08/14/19 11:27 08/14/19 11:27 08/14/19 11:27 Intake & Output 08/13/19 08/14/19 08/15/19 06:59 06:59 06:59 Intake Total 1532 1458 520 Output Total 3200 2400 900 [facility] [phone] Weight 113.5 kg 111.8 kg General appearance: PRESENT: no acute distress, well-developed, well-nourished Head exam: PRESENT: atraumatic, normocephalic Eye exam: PRESENT: conjunctiva pink Mouth exam: PRESENT: moist Respiratory exam: PRESENT: clear to auscultation remington. ABSENT: rales, rhonchi, wheezes Cardiovascular exam: PRESENT: RRR. ABSENT: diastolic murmur, rubs, systolic murmur GI/Abdominal exam: PRESENT: ascites, distended, normal bowel sounds, soft. ABSENT: guarding, mass, organolmegaly, rebound, tenderness Extremities exam: PRESENT: full ROM, pedal edema, +2 edema Neurological exam: PRESENT: alert, awake, oriented to person, oriented to place, oriented to time, oriented to situation Psychiatric exam: PRESENT: appropriate affect, normal mood Skin exam: PRESENT: dry, intact, warm Results Laboratory Results: 08/11/19 05:12 08/12/19 05:36 08/09/19 05:44 Blood Blood Culture - Final NO GROWTH IN 5 DAYS 08/09/19 04:36 Blood Blood Culture - Final NO GROWTH IN 5 DAYS 08/07/19 08/07/19 08/07/19 01:22 01:22 01:22 Creatine Kinase 58 CK-MB (CK-2) 1.70 Troponin I < 0.012 NT-Pro-B Natriuret Pep 4730 H 08/07/19 08/07/19 08/07/19 08:32 08:32 13:06 Creatine Kinase 52 L 38 L CK-MB (CK-2) 1.76 Troponin I 0.013 NT-Pro-B Natriuret Pep 08/07/19 08/07/19 08/07/19 13:06 19:15 19:15 Creatine Kinase 43 L CK-MB (CK-2) 1.44 1.49 Troponin I 0.013 0.013 NT-Pro-B Natriuret Pep Impressions: Chest X-Ray 08/07/19 01:19 IMPRESSION: No significant change in the appearance of the chest. Abdomen Ultrasound 08/08/19 00:00 IMPRESSION: 1. Ascites, most pronounced in the right lower quadrant. 2. Splenomegaly. 3. Cholelithiasis. 4. Fatty liver. Paracentesis Ultrasound 08/09/19 00:00 IMPRESSION: Ultrasound-guided paracentesis. Specimen sent for testing as per attending physician Assessment and Plan - Diagnosis (1) CHF exacerbation Qualifiers: Heart failure type: combined systolic and diastolic Qualified Code(s): I50.43 - Acute on chronic combined systolic (congestive) and diastolic (congestive) heart failure Is this a current diagnosis for this admission?: Yes Plan: Per previous physician: "likely decompensated acute on chronic systolic heart failure secondary to dietary and medication noncompliance complicated by hypotension.. 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 He will need cardiology follow-up closely after discharge. Beta-ezekiel, held ARB/LUIS inhibitor for renal failure; may consider starting Entresto in the future 08/13/2019 Added midodrine so that we can increase his cardiac meds and improve his diuresis in the setting of low blood pressure. Continue up titrating his cardiac meds, he will need close follow-up with cardiology outpatient We will check PVL BLE to look for DVT 08/14/2019 Consulted cardiology discussed case with Dr. Portillo will see the patient today. Appreciate his help. PVL has not been done yet Increase midodrine for low BP on cardiac medications are being uptitrated (2) Acute renal failure Is this a current diagnosis for this admission?: Yes Plan: 08/12/2019 Suspect cardiorenal superimposed on CKD 2 Trend BMP Diuresis as above 08/14/2019 Patient likely at baseline creatinine currently at 1.26 Trend BMP (3) Pulmonary hypertension Is this a current diagnosis for this admission?: Yes Plan: Likely secondary to LV and RV failure with volume overload Needs repeat echo after adequate diuresis is achieved; get RHC if pressures are still high at that point 08/13/2019 Still trying to adequately diurese patient. I continue to be concerned that he may have underlying primary pulmonary hypertension. We will not be able to tell until he has properly diuresed (4) Atrial fibrillation Is this a current diagnosis for this admission?: Yes (5) Diabetes mellitus Qualifiers: Diabetes mellitus type: type 2 Diabetes mellitus termination clerk insulin use: without termination clerk use Diabetes mellitus complication status: without complication Qualified Code(s): E11.9 - Type 2 diabetes mellitus without complications Is this a current diagnosis for this admission?: Yes (6) Dyslipidemia Is this a current diagnosis for this admission?: Yes - Plan Summary Summary: Echocardiogram reveals an ejection fraction of 45% with normal left ventricular wall thickness and right ventricular dilatation and biatrial dilatation there is no thrombus patient has severe pulmonary hypertension with RVSP of at least 75 mmHg which is consistent with his massive anasarca. Abdominal ultrasound revealed ascites especially in the right lower quadrant, splenomegaly, cholelithiasis and fatty liver. Patient had a recent PET scan done which did not confirm any malignancy LFTs done on admission were grossly negative with normal AST ALT and bilirubin. Alkaline phosphatase was mildly elevated. Noted to have a gram-positive cocci positivity in 1 blood culture bottle possible contaminant however given his comorbidities I have started him on empi claire ceftriaxone and repeat blood cultures are pending Clearly something is going on with this patient with severe right-sided heart failure although precise etiology is unclear to me at this time. He is down for a paracentesis. Fluid will be sent for analysis including cytology. We will follow-up with results 08/09 Patient grew Staphylococcus Cohnii on 1 blood culture with 3 of the bottles having been negative. Patient does have a right-sided valvular dysfunction. No vegetations were seen on echocardiogram. His ascitic fluid shows 2+ white blood cells with 700 WBC and 4666 RBC. Total protein, LDH as well as cytology still pending. Patient remains on Lasix 40 mg IV although I wonder if this should be increased to twice a day to try move some of within is improved and his scrotal pain is also improved fluid 08/10Patient's weight has barely changed since admission losing less than 3 kg over the last 3 to 4 days despite diuresis as well as paracentesis. He does appear that he is not being adequately diuresed. I have increased his Lasix to 40 mg twice daily from 08/09. His output actually increased on August 09 with a - 1528 mL. At this point I will leave his Lasix at 40 mg twice daily. I however also note that he is hypochloremic and hyponatremic and so we will have to watch this very closely and be on the look out for contraction alkalosis. Kidney function today is barely improved but at least it is not getting worse. A short after all the tests that have obtained on this gentleman the only explanation Patient has a small woundulcer, present on admission, currently yielding gram- positive cocci in clusters likely skin west. Is currently on ceftriaxone empirically. I see no evidence of any systemic infection but antibiotics can be adjusted if needed. Ascitic fluid is no yielding any organism at this point. And although there was a positive 1 out of 4 blood culture this may well be a contaminant. We will continue to encourage diuresis as tolerated. If needed his Lasix can be increased but he does appear to have responded to the 80 mg daily and so we will leave it at this for now - Time Time Spent with patient: 15-24 minutes Medications reviewed and adjusted accordingly: Yes Anticipated discharge: Home Within: within 48 hours - Inpatient Certification Based on my medical assessment, after consideration of the patient's comorbidities, presenting symptoms, or acuity I expect that the services needed warrant INPATIENT care.: Yes I certify that my determination is in accordance with my understanding of Medicare's requirements for reasonable and necessary INPATIENT services [42 CFR 412.3e].: Yes Medical Necessity: Significant Comorbidiites Make Outpatient Treatment Too Risky, Need Close Monitoring Due to Risk of Patient Decompensation, Risk of Complication if Not Cared For in Hospital, Risk of Diagnosis Which Will Require Inpatient Eval/Care/Monitoring
--- NOTE | 2019-08-14 20:34 | PDOC CONSULTATION ---
Consultation-Blank Consultation: CARDIOLOGY CONSULTATION by Dr. Alicia Portillo on 08/14/2019. Patient seen at 11:30 AM. 60 minutes spent as patient more than 50% of time spent in direct patient care. REASON FOR CONSULTATION: Patient with biventricular failure and portal hypertension. The patient also has been having hypotension. CONSULT REQUESTING PHYSICIAN: Dr. Colby, [facility]. History OF PRESENT ILLNESS: Note patient not a very good historian, and the patient severely hard of hearing.. At present he says his shortness of breath is much better and he feels much better after his paracentesis. Although he has had fluid removed by paracentesis. The patient still has ascites. He also has bad hepatosplenomegaly. He has orthopnea but no PND. The patient was admitted on 08/07/2023 worsening shortness of breath with nonproductive cough and with a scrotal and lower extremity edema. He has a history of chronic leg edema which increased. He has a history of hypertension, coronary artery disease history of coronary bypass graft surgery in 2 5 vessels with no recent angina. Past history of myocardial infarction history of atrial fibrillation with the patient being on Eliquis. He also has COPD. The patient was admitted and treated and his echocardiogram showed a moderately reduced left ventricle ejection fraction of 45%. He also had severe pulmonary hypertension. Also the patient had a situs and he has hepatosplenomegaly with evidence of portal hypertension. He had a paracentesis a few days ago which showed that there was no spontaneous bacterial peritonitis and there was no malignant cells in the peritoneal fluid. Hence this is most likely a combination of portal pulmonary hypertension. At present he has some orthopnea but no chest pain or discomfort. His atrial fibrillation is well controlled. He has no TIA CVA symptoms there is no bleeding on Coumadin on Eliquis. He is on diuretics but his blood pressure is low and with a small dose of midodrine 2.5 did not make any effect. This has been increased to 5 mg p.o. twice daily. Will increase it to 10 mg p.o. 3 times daily and also in view of the patient's biventricular failure we will start the patient on dobutamine. Past Medical History Cardiac Medical History: Reports: Atrial Fibrillation, Congestive Heart Failure, Myocardial Infarction, Hypertension, artery disease, history of myocardial infarction in the past, and hyperlipidemia. Pulmonary Medical History: Reports: Pneumonia, COPD. Denies asthma or sleep apnea. Diagnosis of right pulmonary solitary nodule. In May 2019 the patient had a PET scan which did not show evidence of malignancy. This was done due to the patient's solitary pulmonary nodule. Endocrine Medical History: Reports: Diabetes Mellitus Type 2 Psychiatric Medical History: Reports: Tobacco Dependency [employer] FINDER: Denies history of TIA CVA. No history of headaches migraines or seizures. RENAL: History of mild renal failure. Past Surgical History Past Surgical History: Reports: Appendectomy, Cardiac Catheterization. Coronary artery bypass graft surgery. Recent paracentesis to remove peritoneal fluid Social History Information Source: Patient, [facility] Records Lives with: Alone Smoking Status: Current smoker. 1 pack/day Electronic Cigarette use?: No Drugs: None - Advance Directive Resuscitation Status: Full Code Family History Family History: COPD, Hypertension Parental Family History Reviewed: Yes Children Family History Reviewed: Yes Sibling(s) Family History Reviewed.: Yes Medication/Allergy Allergies/Adverse Reactions: No Known Allergies Allergy (Unverified 07/25/15 00:42) Apixaban [Eliquis 5 mg Tablet] 1 tab PO BID 08/07/19 Ascorbic Acid [Vitamin C 500 mg Tablet] 500 mg PO DAILY 08/07/19 Aspirin [Ecotrin 81 mg EC Tablet] 81 mg PO DAILY 08/07/19 Atorvastatin Calcium [Lipitor 80 mg Tablet] 80 mg PO QHS 08/07/19 Bumetanide [Bumex 1 mg Tablet] 2 mg PO BID 08/07/19 Docusate Sodium [Colace 100 mg Capsule] 1 tab PO BID PRN 08/07/19 Eszopiclone [Lunesta] 1 mg PO QHS PRN 08/07/19 Fluticasone Propionate [Flonase Nasal [place] 50 Mcg/[place] 16 gm] 2 sprays NASL Q12 PRN 08/07/19 Gabapentin [Neurontin 300 mg Capsule] 1 - 2 tab PO NOON PRN 08/07/19 Gabapentin [Neurontin 300 mg Capsule] 2 - 3 tab PO QHS PRN 08/07/19 Gabapentin [Neurontin 300 mg Capsule] 2 tab PO QAM PRN 08/07/19 Guaifenesin [Mucinex] 1,200 mg PO BID 08/07/19 Loperamide HCl [Loperamide] 2 mg PO ASDIR PRN 08/07/19 Magnesium Oxide 400 mg PO DAILY 08/07/19 Melatonin [Melatonin 3 mg Tablet] 1 tab PO QHS PRN 08/07/19 Metolazone [Zaroxolyn 2.5 Mg Tablet] 2.5 mg PO BID 08/07/19 Metoprolol Succinate [Toprol Xl 25 mg Tab.sr] 1 tab PO DAILY 08/07/19 Nitroglycerin [Nitrostat 0.4 mg (1/150 Gr) Tabs 25/Bottle] 1 tab SL Q5MP PRN 08/07/19 Omeprazole 20 mg PO DAILY 08/07/19 Simethicone [Mi-Acid] 80 mg PO TID PRN 08/07/19 Tamsulosin HCl [Flomax] 0.4 mg PO QHS 08/07/19 Trazodone HCl 50 mg PO QHS PRN MDD 4 TABS 08/07/19 Review of Systems Constitutional: PRESENT: as per HPI, fatigue, weakness, weight gain. ABSENT: chills, fever(s), headache(s), weight loss Eyes: ABSENT: visual disturbances Ears: ABSENT: hearing changes Cardiovascular: PRESENT: as per HPI, dyspnea on exertion, edema, orthropnea. ABSENT: chest pain, palpitations Respiratory: PRESENT: as per HPI, cough, dyspnea. ABSENT: hemoptysis, sputum Gastrointestinal: PRESENT: as per HPI, abdominal pain, bloating. ABSENT: constipation, diarrhea, hematemesis, hematochezia, nausea, vomiting Genitourinary: ABSENT: dysuria, hematuria Musculoskeletal: ABSENT: joint swelling Integumentary: ABSENT: rash, wounds Neurological: ABSENT: abnormal gait, abnormal speech, confusion, dizziness, focal weakness, syncope Psychiatric: ABSENT: anxiety, depression, homidical ideation, suicidal ideation Endocrine: ABSENT: cold intolerance, heat intolerance, polydipsia, polyuria Hematologic/Lymphatic: ABSENT: easy bleeding, easy bruising Current Medications Acetaminophen (Tylenol 325 Mg Tablet) 650 mg PO Q4HP PRN PRN Reason: pain or temp greater than 101F Stop: 09/06/19 05:30 Al Hydrox/Mg Hydrox/Simethicone (Maalox Plus Susp 30 Udcup) 30 ml PO Q4HP PRN PRN Reason: HEARTBURN Stop: 09/06/19 05:30 Alprazolam (Xanax 0.25 Mg Tablet) 0.25 mg PO Q6HP PRN PRN Reason: ANXIETY Stop: 08/15/19 14:47 Last Admin: 08/14/19 14:20 Dose: 0.25 mg Documented by: Apixaban (Eliquis 5 Mg Tablet) 5 mg PO BID JONNY Stop: 09/09/19 17:59 Last Admin: 08/14/19 17:59 Dose: 5 mg Documented by: Ascorbic Acid (Vitamin C 500 Mg Tablet) 500 mg PO DAILY JONNY Stop: 09/06/19 09:59 Last Admin: 08/14/19 09:53 Dose: 500 mg Documented by: Aspirin (Aspirin 81 Mg Chewable Tablet) 81 mg PO DAILY JONNY Stop: 09/06/19 09:59 Last Admin: 08/14/19 09:52 Dose: 81 mg Documented by: Atorvastatin Calcium (Lipitor 80 Mg Tablet) 80 mg PO QHS JONNY Stop: 09/06/19 21:59 Last Admin: 08/13/19 21:25 Dose: 80 mg Documented by: Dextrose (Dextrose Inj 50% Syringe (25 Gm/50 Ml)) 12.5 gm IV PRN PRN; Protocol PRN Reason: FOR BG 50-69 IN ALERT PATIENT Stop: 09/06/19 05:30 Dextrose (Dextrose Inj 50% Syringe (25 Gm/50 Ml)) 25 gm IV PRN PRN; Protocol PRN Reason: PER PROTOCOL Stop: 09/06/19 05:30 Docusate Sodium (Colace 100 Mg Capsule) 100 mg PO DAILY [facility] Stop: 09/06/19 09:59 Last Admin: 08/14/19 09:54 Dose: 100 mg Documented by: Fluticasone Propionate (Flonase Nasal [place] 50 Mcg/[place] 16 Gm) 1 spray NASL Q12 JONNY Stop: 09/06/19 09:59 Last Admin: 08/14/19 09:56 Dose: 1 spr Documented by: Furosemide (Lasix Inj/Pf 40 Mg/4 Ml Sdv) 40 mg IV Q8 JONNY Stop: 09/13/19 21:59 Gabapentin (Neurontin 300 Mg Capsule) 300 mg PO Q8 JONNY Stop: 09/08/19 13:59 Last Admin: 08/14/19 13:01 Dose: 300 mg Documented by: Glucagon (Glucagen Inj 1 Mg Vial) 1 mg IM PRN PRN; Protocol PRN Reason: Evaluate for BG < 70 Stop: 09/06/19 05:30 Glucose (Glutose 40% Gel 15 Gm Tube) 15 gm PO PRN PRN; Protocol PRN Reason: FOR BG 50-69 IN ALERT PATIENT Stop: 09/06/19 05:30 Glucose (Glutose 40% Gel 15 Gm Tube) 30 gm PO PRN PRN; Protocol PRN Reason: FOR BG < 50 IN ALERT PATIENT Stop: 09/06/19 05:30 Guaifenesin (Mucinex Sr 600 Mg Tablet.Sa) 600 mg PO Q12 [facility] Stop: 09/07/19 21:59 Last Admin: 08/14/19 09:53 Dose: 600 mg Documented by: Ceftriaxone Sodium/Dextrose (Rocephin Rtu 1 Gm/D5w 50 Ml Premix) 1 gm in 50 mls @ 100 mls/hr IV DAILY [facility] Stop: 08/16/19 09:59 Last Infusion: 08/14/19 13:51 Dose: Infused Documented by: Insulin Glargine (Lantus Insulin 100 Unit/1 Ml 10 Ml) 15 [facility] Stop: 09/09/19 07:59 Last Admin: 08/14/19 08:44 Dose: 15 unit Documented by: Insulin Human Lispro (Humalog Insulin 100 Unit/1 Ml 3 Ml Vial) 0 - 12 unit SUBCUT [facility]; Protocol Stop: 09/06/19 07:59 Last Admin: 08/14/19 17:59 Dose: 2 unit Documented by: Magnesium Hydroxide (Milk Of Magnesia 30 Ml Udcup) 30 ml PO Q12HP PRN PRN Reason: CONSTIPATION Stop: 09/09/19 20:25 Last Admin: 08/14/19 12:51 Dose: 30 ml Documented by: Metoprolol Succinate (Toprol Xl 25 Mg Tab.Sr) 12.5 mg PO DAILY [facility] Stop: 09/13/19 09:59 Last Admin: 08/14/19 09:54 Dose: 12.5 mg Documented by: Nitroglycerin (Nitro-Dur 2.5 Mg (0.1 Mg/Hr) Transdermal Ptch) 1 each TD DAILY [facility] Stop: 09/06/19 09:59 Last Admin: 08/14/19 09:58 Dose: 1 each Documented by: Oxycodone/Acetaminophen (Percocet 5-325 Mg Tablet) 1 tab PO Q4HP PRN PRN Reason: FOR PAIN SCALE 2-4 Stop: 08/15/19 18:24 Last Admin: 08/13/19 20:07 Dose: 1 tab Documented by: Potassium Chloride (Klor-Con 10 Meq Tablet Er) 20 meq PO Q12 JONNY Stop: 09/06/19 09:59 Last Admin: 08/14/19 09:53 Dose: 20 meq Documented by: Sodium Chloride (Saline Flush 2.5 Ml Monoject Prefil Syrin) 2.5 ml IV Q8 JONNY Stop: 09/06/19 05:59 Last Admin: 08/14/19 13:01 Dose: 2.5 ml Documented by: Tamsulosin HCl (Flomax 0.4 Mg Cap.Sr) 0.4 mg PO QHS JONNY Stop: 09/08/19 21:59 Last Admin: 08/13/19 21:25 Dose: 0.4 mg Documented by: Trazodone HCl (Desyrel 50 Mg Tablet) 50 mg PO HSP PRN PRN Reason: SLEEP OR INSOMNIA Stop: 09/08/19 12:53 Last Admin: 08/14/19 01:54 Dose: 50 mg Documented by: Zolpidem Tartrate (Ambien 5 Mg Tablet) 5 mg PO HSP PRN PRN Reason: INSOMNIA Stop: 08/16/19 13:19 Last Admin: 08/12/19 23:46 Dose: 5 mg Documented by: PHYSICAL EXAMINATION: The patient is a frail build is very hard of hearing, and appears to be chronically ill. Selected Entries 08/14/19 07:43 Temperature 97.5 F Temperature Oral Source Pulse Rate 76 Respiratory 16 Rate Blood Pressure 101/62 Blood Pressure 75 Mean BP Location Right Arm BP Position Supine O2 Sat by Pulse 98 Oximetry Oxygen Flow 2.50 Rate Oxygen Delivery Nasal Cannula Method HEAD: Is atraumatic normocephalic. EYES: Pupils are equal round regular reactive to light and accommodation. Extraocular movements are normal there is no conjunctival pallor. There is no scleral icterus. EARS: Tympanic membranes are intact. External auditory canals are clear. NOSE: There is no deviated nasal septum. There is no inflammation nasal mucous membrane. MOUTH: Mucous membranes of mouth are moist tongue is moist there is no ulcers. There is no bleeding from the gums. THROAT: There is no redness of the oropharynx. There is no exudates. SKIN: There is no skin rashes. There is no skin lesions. There is stasis dermatitis of the lower extremities. There is no petechia or ecchymosis. NECK: Is supple. There is JVD present. [JVD is elevated]. Carotids are equal there is no bruits. There is no lymphadenopathy. There is no goiter. There is no accessory muscle respiration use. Trachea central. LUNGS: Shows diminished air entry and prolonged expiration. There is no rhonchi rales or wheezing. On percussion there is hyperresonance. There are a few bibasilar rales of CHF. There is heart S1-S2 is heard. S1 is of variable intensity. There is no S3 gallop. There is no S4 gallop. Systolic murmur in the left sternal border and the apex. There is murmurs of mitral regurgitation, tricuspid tricuspid regurgitation present. There is no rub. ABDOMEN: There is hepatomegaly and splenomegaly present. Liver is nontender, and nonpulsatile. There is ascites present. There is no tender areas masses. Bowel sounds are well heard. HERNIAL SITES ARE FREE. Extremities: Femorals are diminished. There is no femoral bruits. Leg pulses are difficult to palpate. There is 1+ pedal edema bilaterally with chronic venous stasis dermatitis. There is no cyanosis or clubbing. There is no DVT or cellulitis. [employer] FINDER: The patient is conscious awake alert oriented x3 with no focal deficits. PSYCHIATRIC: The patient judgment site are intact, and his affect is normal. Labs- Entire Visit 08/07/19 08/07/19 08/07/19 01:22 01:22 01:22 WBC 4.7 RBC 3.77 L Hgb 11.2 L Hct 34.2 L MCV 91 MCH 29.6 MCHC 32.6 RDW 16.6 H Plt Count 211 Lymph % (Auto) 13.4 [place] % (Auto) 10.7 Eos % (Auto) 0.9 Baso % (Auto) 0.6 Reticulocyte # Absolute Neuts (auto) 3.5 Absolute Lymphs (auto) 0.6 Absolute Monos (auto) 0.5 Absolute Eos (auto) 0.0 Absolute Basos (auto) 0.0 Seg Neutrophils % 74.4 Retic Count (auto) PT 16.7 H INR 1.34 Sodium 134.1 L Potassium 3.9 Chloride 90 L Carbon Dioxide 34 H Anion Gap 10 BUN 61 H Creatinine 1.30 H Est GFR ( Amer) > 60 Est GFR (MDRD) Non-Af 54 L Glucose 221 H POC Glucose Lactic Acid Calcium 8.0 L Iron TIBC % Saturation Ferritin Total Bilirubin 0.7 Direct Bilirubin 0.2 Neonat Total Bilirubin Not Reportable Neonat Direct Bilirubin Not Reportable Neonat Indirect Bili Not Reportable AST 38 ALT 36 Alkaline Phosphatase 171 H Creatine Kinase 58 CK-MB (CK-2) Troponin I NT-Pro-B Natriuret Pep Total Protein 6.7 Albumin 3.5 Vitamin B12 Folate TSH Urine Color Urine Appearance Urine pH Ur Specific Alpha Urine Protein Urine Glucose (UA) Urine Ketones Urine Blood Urine Nitrite Urine Bilirubin Urine Urobilinogen Ur Leukocyte Esterase Urine WBC (Auto) Urine RBC (Auto) U Hyaline Cast (Auto) Urine Bacteria (Auto) Urine WBC Clumps Squamous Epi Cells Auto Urine Mucus (Auto) Urine Ascorbic Acid Fluid Type Fluid Source Fluid Color Fluid Appearance Fluid Viscosity Fluid WBC Fluid RBC Fluid Seg Neutrophils Fluid Lymphocytes Fluid Monocytes Fluid Eosinophils Fluid Basophils Fluid Total Protein Fluid LDH Urine Opiates Screen Urine Methadone Screen Ur Barbiturates Screen Ur Phencyclidine Scrn Ur Amphetamines Screen U Benzodiazepines Scrn Urine Cocaine Screen U Marijuana (THC) Screen 08/07/19 08/07/19 08/07/19 01:22 01:22 01:22 WBC RBC Hgb Hct MCV MCH MCHC RDW Plt Count Lymph % (Auto) [place] % (Auto) Eos % (Auto) Baso % (Auto) Reticulocyte # Absolute Neuts (auto) Absolute Lymphs (auto) Absolute Monos (auto) Absolute Eos (auto) Absolute Basos (auto) Seg Neutrophils % Retic Count (auto) PT INR Sodium Potassium Chloride Carbon Dioxide Anion Gap BUN Creatinine Est GFR ( Amer) Est GFR (MDRD) Non-Af Glucose POC Glucose Lactic Acid 0.8 Calcium Iron TIBC % Saturation Ferritin Total Bilirubin Direct Bilirubin Neonat Total Bilirubin Neonat Direct Bilirubin Neonat Indirect Bili AST ALT Alkaline Phosphatase Creatine Kinase CK-MB (CK-2) 1.70 Troponin I < 0.012 NT-Pro-B Natriuret Pep 4730 H Total Protein Albumin Vitamin B12 Folate TSH Urine Color Urine Appearance Urine pH Ur Specific Alpha Urine Protein Urine Glucose (UA) Urine Ketones Urine Blood Urine Nitrite Urine Bilirubin Urine Urobilinogen Ur Leukocyte Esterase Urine WBC (Auto) Urine RBC (Auto) U Hyaline Cast (Auto) Urine Bacteria (Auto) Urine WBC Clumps Squamous Epi Cells Auto Urine Mucus (Auto) Urine Ascorbic Acid Fluid Type Fluid Source Fluid Color Fluid Appearance Fluid Viscosity Fluid WBC Fluid RBC Fluid Seg Neutrophils Fluid Lymphocytes Fluid Monocytes Fluid Eosinophils Fluid Basophils Fluid Total Protein Fluid LDH Urine Opiates Screen Urine Methadone Screen Ur Barbiturates Screen Ur Phencyclidine Scrn Ur Amphetamines Screen U Benzodiazepines Scrn Urine Cocaine Screen U Marijuana (THC) Screen 08/07/19 08/07/19 08/07/19 01:22 01:22 01:22 WBC RBC Hgb Hct MCV MCH MCHC RDW Plt Count Lymph % (Auto) [place] % (Auto) Eos % (Auto) Baso % (Auto) Reticulocyte # 0.044 Absolute Neuts (auto) Absolute Lymphs (auto) Absolute Monos (auto) Absolute Eos (auto) Absolute Basos (auto) Seg Neutrophils % Retic Count (auto) 1.16 PT INR Sodium Potassium Chloride Carbon Dioxide Anion Gap BUN Creatinine Est GFR ( Amer) Est GFR (MDRD) Non-Af Glucose POC Glucose Lactic Acid Calcium Iron 53.3 TIBC 358 % Saturation 15 Ferritin 15.40 L Total Bilirubin Direct Bilirubin Neonat Total Bilirubin Neonat Direct Bilirubin Neonat Indirect Bili AST ALT Alkaline Phosphatase Creatine Kinase CK-MB (CK-2) Troponin I NT-Pro-B Natriuret Pep Total Protein Albumin Vitamin B12 276.0 Folate 8.22 TSH 3.17 Urine Color Urine Appearance Urine pH Ur Specific Alpha Urine Protein Urine Glucose (UA) Urine Ketones Urine Blood Urine Nitrite Urine Bilirubin Urine Urobilinogen Ur Leukocyte Esterase Urine WBC (Auto) Urine RBC (Auto) U Hyaline Cast (Auto) Urine Bacteria (Auto) Urine WBC Clumps Squamous Epi Cells Auto Urine Mucus (Auto) Urine Ascorbic Acid Fluid Type Fluid Source Fluid Color Fluid Appearance Fluid Viscosity Fluid WBC Fluid RBC Fluid Seg Neutrophils Fluid Lymphocytes Fluid Monocytes Fluid Eosinophils Fluid Basophils Fluid Total Protein Fluid LDH Urine Opiates Screen Urine Methadone Screen Ur Barbiturates Screen Ur Phencyclidine Scrn Ur Amphetamines Screen U Benzodiazepines Scrn Urine Cocaine Screen U Marijuana (THC) Screen 08/07/19 08/07/19 08/07/19 03:15 03:15 06:59 WBC RBC Hgb Hct MCV MCH MCHC RDW Plt Count Lymph % (Auto) [place] % (Auto) Eos % (Auto) Baso % (Auto) Reticulocyte # Absolute Neuts (auto) Absolute Lymphs (auto) Absolute Monos (auto) Absolute Eos (auto) Absolute Basos (auto) Seg Neutrophils % Retic Count (auto) PT INR Sodium Potassium Chloride Carbon Dioxide Anion Gap BUN Creatinine Est GFR ( Amer) Est GFR (MDRD) Non-Af Glucose POC Glucose 180 H Lactic Acid Calcium Iron TIBC % Saturation Ferritin Total Bilirubin Direct Bilirubin Neonat Total Bilirubin Neonat Direct Bilirubin Neonat Indirect Bili AST ALT Alkaline Phosphatase Creatine Kinase CK-MB (CK-2) Troponin I NT-Pro-B Natriuret Pep Total Protein Albumin Vitamin B12 Folate TSH Urine Color YELLOW Urine Appearance SLIGHTLY-CLOUDY Urine pH 5.0 Ur Specific Alpha 1.014 Urine Protein NEGATIVE Urine Glucose (UA) NEGATIVE Urine Ketones NEGATIVE Urine Blood NEGATIVE Urine Nitrite NEGATIVE Urine Bilirubin NEGATIVE Urine Urobilinogen 4.0 H Ur Leukocyte Esterase LARGE H Urine WBC (Auto) 134 Urine RBC (Auto) 5 U Hyaline Cast (Auto) 5 Urine Bacteria (Auto) TRACE Urine WBC Clumps FEW Squamous Epi Cells Auto 1 Urine Mucus (Auto) RARE Urine Ascorbic Acid 40 H Fluid Type Fluid Source Fluid Color Fluid Appearance Fluid Viscosity Fluid WBC Fluid RBC Fluid Seg Neutrophils Fluid Lymphocytes Fluid Monocytes Fluid Eosinophils Fluid Basophils Fluid Total Protein Fluid LDH Urine Opiates Screen NEGATIVE Urine Methadone Screen NEGATIVE Ur Barbiturates Screen NEGATIVE Ur Phencyclidine Scrn NEGATIVE Ur Amphetamines Screen NEGATIVE U Benzodiazepines Scrn NEGATIVE Urine Cocaine Screen NEGATIVE U Marijuana (THC) Screen NEGATIVE 08/07/19 08/07/19 08/07/19 07:48 08:32 08:32 WBC RBC Hgb Hct MCV MCH MCHC RDW Plt Count Lymph % (Auto) [place] % (Auto) Eos % (Auto) Baso % (Auto) Reticulocyte # Absolute Neuts (auto) Absolute Lymphs (auto) Absolute Monos (auto) Absolute Eos (auto) Absolute Basos (auto) Seg Neutrophils % Retic Count (auto) PT INR Sodium Potassium Chloride Carbon Dioxide Anion Gap BUN Creatinine Est GFR ( Amer) Est GFR (MDRD) Non-Af Glucose POC Glucose 172 H Lactic Acid Calcium Iron TIBC % Saturation Ferritin Total Bilirubin Direct Bilirubin Neonat Total Bilirubin Neonat Direct Bilirubin Neonat Indirect Bili AST ALT Alkaline Phosphatase Creatine Kinase 52 L CK-MB (CK-2) 1.76 Troponin I 0.013 NT-Pro-B Natriuret Pep Total Protein Albumin Vitamin B12 Folate TSH Urine Color Urine Appearance Urine pH Ur Specific Alpha Urine Protein Urine Glucose (UA) Urine Ketones Urine Blood Urine Nitrite Urine Bilirubin Urine Urobilinogen Ur Leukocyte Esterase Urine WBC (Auto) Urine RBC (Auto) U Hyaline Cast (Auto) Urine Bacteria (Auto) Urine WBC Clumps Squamous Epi Cells Auto Urine Mucus (Auto) Urine Ascorbic Acid Fluid Type Fluid Source Fluid Color Fluid Appearance Fluid Viscosity Fluid WBC Fluid RBC Fluid Seg Neutrophils Fluid Lymphocytes Fluid Monocytes Fluid Eosinophils Fluid Basophils Fluid Total Protein Fluid LDH Urine Opiates Screen Urine Methadone Screen Ur Barbiturates Screen Ur Phencyclidine Scrn Ur Amphetamines Screen U Benzodiazepines Scrn Urine Cocaine Screen U Marijuana (THC) Screen 08/07/19 08/07/19 08/07/19 11:16 13:06 13:06 WBC RBC Hgb Hct MCV MCH MCHC RDW Plt Count Lymph % (Auto) [place] % (Auto) Eos % (Auto) Baso % (Auto) Reticulocyte # Absolute Neuts (auto) Absolute Lymphs (auto) Absolute Monos (auto) Absolute Eos (auto) Absolute Basos (auto) Seg Neutrophils % Retic Count (auto) PT INR Sodium Potassium Chloride Carbon Dioxide Anion Gap BUN Creatinine Est GFR ( Amer) Est GFR (MDRD) Non-Af Glucose POC Glucose 256 H Lactic Acid Calcium Iron TIBC % Saturation Ferritin Total Bilirubin Direct Bilirubin Neonat Total Bilirubin Neonat Direct Bilirubin Neonat Indirect Bili AST ALT Alkaline Phosphatase Creatine Kinase 38 L CK-MB (CK-2) 1.44 Troponin I 0.013 NT-Pro-B Natriuret Pep Total Protein Albumin Vitamin B12 Folate TSH Urine Color Urine Appearance Urine pH Ur Specific Alpha Urine Protein Urine Glucose (UA) Urine Ketones Urine Blood Urine Nitrite Urine Bilirubin Urine Urobilinogen Ur Leukocyte Esterase Urine WBC (Auto) Urine RBC (Auto) U Hyaline Cast (Auto) Urine Bacteria (Auto) Urine WBC Clumps Squamous Epi Cells Auto Urine Mucus (Auto) Urine Ascorbic Acid Fluid Type Fluid Source Fluid Color Fluid Appearance Fluid Viscosity Fluid WBC Fluid RBC Fluid Seg Neutrophils Fluid Lymphocytes Fluid Monocytes Fluid Eosinophils Fluid Basophils Fluid Total Protein Fluid LDH Urine Opiates Screen Urine Methadone Screen Ur Barbiturates Screen Ur Phencyclidine Scrn Ur Amphetamines Screen U Benzodiazepines Scrn Urine Cocaine Screen U Marijuana (THC) Screen 08/07/19 08/07/19 08/07/19 15:57 19:15 19:15 WBC RBC Hgb Hct MCV MCH MCHC RDW Plt Count Lymph % (Auto) [place] % (Auto) Eos % (Auto) Baso % (Auto) Reticulocyte # Absolute Neuts (auto) Absolute Lymphs (auto) Absolute Monos (auto) Absolute Eos (auto) Absolute Basos (auto) Seg Neutrophils % Retic Count (auto) PT INR Sodium Potassium Chloride Carbon Dioxide Anion Gap BUN Creatinine Est GFR ( Amer) Est GFR (MDRD) Non-Af Glucose POC Glucose 134 H Lactic Acid Calcium Iron TIBC % Saturation Ferritin Total Bilirubin Direct Bilirubin Neonat Total Bilirubin Neonat Direct Bilirubin Neonat Indirect Bili AST ALT Alkaline Phosphatase Creatine Kinase 43 L CK-MB (CK-2) 1.49 Troponin I 0.013 NT-Pro-B Natriuret Pep Total Protein Albumin Vitamin B12 Folate TSH Urine Color Urine Appearance Urine pH Ur Specific Alpha Urine Protein Urine Glucose (UA) Urine Ketones Urine Blood Urine Nitrite Urine Bilirubin Urine Urobilinogen Ur Leukocyte Esterase Urine WBC (Auto) Urine RBC (Auto) U Hyaline Cast (Auto) Urine Bacteria (Auto) Urine WBC Clumps Squamous Epi Cells Auto Urine Mucus (Auto) Urine Ascorbic Acid Fluid Type Fluid Source Fluid Color Fluid Appearance Fluid Viscosity Fluid WBC Fluid RBC Fluid Seg Neutrophils Fluid Lymphocytes Fluid Monocytes Fluid Eosinophils Fluid Basophils Fluid Total Protein Fluid LDH Urine Opiates Screen Urine Methadone Screen Ur Barbiturates Screen Ur Phencyclidine Scrn Ur Amphetamines Screen U Benzodiazepines Scrn Urine Cocaine Screen U Marijuana (THC) Screen 08/08/19 08/08/19 08/08/19 05:55 05:55 09:37 WBC 4.6 RBC 3.92 L Hgb 11.5 L Hct 35.2 L MCV 90 MCH 29.3 MCHC 32.5 RDW 16.4 H Plt Count 216 Lymph % (Auto) 14.7 [place] % (Auto) 11.2 Eos % (Auto) 1.2 Baso % (Auto) 0.7 Reticulocyte # Absolute Neuts (auto) 3.3 Absolute Lymphs (auto) 0.7 Absolute Monos (auto) 0.5 Absolute Eos (auto) 0.1 Absolute Basos (auto) 0.0 Seg Neutrophils % 72.2 Retic Count (auto) PT INR Sodium 132.7 L Potassium 4.0 Chloride 90 L Carbon Dioxide 34 H Anion Gap 9 BUN 60 H Creatinine 1.09 Est GFR ( Amer) > 60 Est GFR (MDRD) Non-Af > 60 Glucose 165 H POC Glucose 193 H Lactic Acid Calcium 8.0 L Iron TIBC % Saturation Ferritin Total Bilirubin Direct Bilirubin Neonat Total Bilirubin Neonat Direct Bilirubin Neonat Indirect Bili AST ALT Alkaline Phosphatase Creatine Kinase CK-MB (CK-2) Troponin I NT-Pro-B Natriuret Pep Total Protein Albumin Vitamin B12 Folate TSH Urine Color Urine Appearance Urine pH Ur Specific Alpha Urine Protein Urine Glucose (UA) Urine Ketones Urine Blood Urine Nitrite Urine Bilirubin Urine Urobilinogen Ur Leukocyte Esterase Urine WBC (Auto) Urine RBC (Auto) U Hyaline Cast (Auto) Urine Bacteria (Auto) Urine WBC Clumps Squamous Epi Cells Auto Urine Mucus (Auto) Urine Ascorbic Acid Fluid Type Fluid Source Fluid Color Fluid Appearance Fluid Viscosity Fluid WBC Fluid RBC Fluid Seg Neutrophils Fluid Lymphocytes Fluid Monocytes Fluid Eosinophils Fluid Basophils Fluid Total Protein Fluid LDH Urine Opiates Screen Urine Methadone Screen Ur Barbiturates Screen Ur Phencyclidine Scrn Ur Amphetamines Screen U Benzodiazepines Scrn Urine Cocaine Screen U Marijuana (THC) Screen 08/08/19 08/08/19 08/08/19 11:30 16:39 20:43 WBC RBC Hgb Hct MCV MCH MCHC RDW Plt Count Lymph % (Auto) [place] % (Auto) Eos % (Auto) Baso % (Auto) Reticulocyte # Absolute Neuts (auto) Absolute Lymphs (auto) Absolute Monos (auto) Absolute Eos (auto) Absolute Basos (auto) Seg Neutrophils % Retic Count (auto) PT INR Sodium Potassium Chloride Carbon Dioxide Anion Gap BUN Creatinine Est GFR ( Amer) Est GFR (MDRD) Non-Af Glucose POC Glucose 188 H 207 H 190 H Lactic Acid Calcium Iron TIBC % Saturation Ferritin Total Bilirubin Direct Bilirubin Neonat Total Bilirubin Neonat Direct Bilirubin Neonat Indirect Bili AST ALT Alkaline Phosphatase Creatine Kinase CK-MB (CK-2) Troponin I NT-Pro-B Natriuret Pep Total Protein Albumin Vitamin B12 Folate TSH Urine Color Urine Appearance Urine pH Ur Specific Alpha Urine Protein Urine Glucose (UA) Urine Ketones Urine Blood Urine Nitrite Urine Bilirubin Urine Urobilinogen Ur Leukocyte Esterase Urine WBC (Auto) Urine RBC (Auto) U Hyaline Cast (Auto) Urine Bacteria (Auto) Urine WBC Clumps Squamous Epi Cells Auto Urine Mucus (Auto) Urine Ascorbic Acid Fluid Type Fluid Source Fluid Color Fluid Appearance Fluid Viscosity Fluid WBC Fluid RBC Fluid Seg Neutrophils Fluid Lymphocytes Fluid Monocytes Fluid Eosinophils Fluid Basophils Fluid Total Protein Fluid LDH Urine Opiates Screen Urine Methadone Screen Ur Barbiturates Screen Ur Phencyclidine Scrn Ur Amphetamines Screen U Benzodiazepines Scrn Urine Cocaine Screen U Marijuana (THC) Screen 08/09/19 08/09/19 08/09/19 04:36 04:36 07:51 WBC 4.7 RBC 3.98 L Hgb 11.7 L Hct 35.7 L MCV 90 MCH 29.5 MCHC 32.9 RDW 16.5 H Plt Count 202 Lymph % (Auto) 18.2 [place] % (Auto) 11.9 Eos % (Auto) 1.7 Baso % (Auto) 0.5 Reticulocyte # Absolute Neuts (auto) 3.2 Absolute Lymphs (auto) 0.9 Absolute Monos (auto) 0.6 Absolute Eos (auto) 0.1 Absolute Basos (auto) 0.0 Seg Neutrophils % 67.7 Retic Count (auto) PT INR Sodium 131.0 L Potassium 4.2 Chloride 90 L Carbon Dioxide 34 H Anion Gap 7 BUN 57 H Creatinine 1.26 H Est GFR ( Amer) > 60 Est GFR (MDRD) Non-Af 56 L Glucose 181 H POC Glucose 151 H Lactic Acid Calcium 7.9 L Iron TIBC % Saturation Ferritin Total Bilirubin Direct Bilirubin Neonat Total Bilirubin Neonat Direct Bilirubin Neonat Indirect Bili AST ALT Alkaline Phosphatase Creatine Kinase CK-MB (CK-2) Troponin I NT-Pro-B Natriuret Pep Total Protein Albumin Vitamin B12 Folate TSH Urine Color Urine Appearance Urine pH Ur Specific Alpha Urine Protein Urine Glucose (UA) Urine Ketones Urine Blood Urine Nitrite Urine Bilirubin Urine Urobilinogen Ur Leukocyte Esterase Urine WBC (Auto) Urine RBC (Auto) U Hyaline Cast (Auto) Urine Bacteria (Auto) Urine WBC Clumps Squamous Epi Cells Auto Urine Mucus (Auto) Urine Ascorbic Acid Fluid Type Fluid Source Fluid Color Fluid Appearance Fluid Viscosity Fluid WBC Fluid RBC Fluid Seg Neutrophils Fluid Lymphocytes Fluid Monocytes Fluid Eosinophils Fluid Basophils Fluid Total Protein Fluid LDH Urine Opiates Screen Urine Methadone Screen Ur Barbiturates Screen Ur Phencyclidine Scrn Ur Amphetamines Screen U Benzodiazepines Scrn Urine Cocaine Screen U Marijuana (THC) Screen 08/09/19 08/09/19 08/09/19 11:20 15:10 15:10 WBC RBC Hgb Hct MCV MCH MCHC RDW Plt Count Lymph % (Auto) [place] % (Auto) Eos % (Auto) Baso % (Auto) Reticulocyte # Absolute Neuts (auto) Absolute Lymphs (auto) Absolute Monos (auto) Absolute Eos (auto) Absolute Basos (auto) Seg Neutrophils % Retic Count (auto) PT INR Sodium Potassium Chloride Carbon Dioxide Anion Gap BUN Creatinine Est GFR ( Amer) Est GFR (MDRD) Non-Af Glucose POC Glucose 200 H Lactic Acid Calcium Iron TIBC % Saturation Ferritin Total Bilirubin Direct Bilirubin Neonat Total Bilirubin Neonat Direct Bilirubin Neonat Indirect Bili AST ALT Alkaline Phosphatase Creatine Kinase CK-MB (CK-2) Troponin I NT-Pro-B Natriuret Pep Total Protein Albumin Vitamin B12 Folate TSH Urine Color Urine Appearance Urine pH Ur Specific Alpha Urine Protein Urine Glucose (UA) Urine Ketones Urine Blood Urine Nitrite Urine Bilirubin Urine Urobilinogen Ur Leukocyte Esterase Urine WBC (Auto) Urine RBC (Auto) U Hyaline Cast (Auto) Urine Bacteria (Auto) Urine WBC Clumps Squamous Epi Cells Auto Urine Mucus (Auto) Urine Ascorbic Acid Fluid Type PERITONEAL Fluid Source ASCITES Fluid Color YELLOW Fluid Appearance HAZY Fluid Viscosity LIQUID Fluid WBC 700 Fluid RBC 4666 Fluid Seg Neutrophils 14 Fluid Lymphocytes 63 Fluid Monocytes 23 Fluid Eosinophils 0 Fluid Basophils 0 Fluid Total Protein Fluid LDH 123 Urine Opiates Screen Urine Methadone Screen Ur Barbiturates Screen Ur Phencyclidine Scrn Ur Amphetamines Screen U Benzodiazepines Scrn Urine Cocaine Screen U Marijuana (THC) Screen 08/09/19 08/09/19 08/10/19 15:10 17:39 07:36 WBC RBC Hgb Hct MCV MCH MCHC RDW Plt Count Lymph % (Auto) [place] % (Auto) Eos % (Auto) Baso % (Auto) Reticulocyte # Absolute Neuts (auto) Absolute Lymphs (auto) Absolute Monos (auto) Absolute Eos (auto) Absolute Basos (auto) Seg Neutrophils % Retic Count (auto) PT INR Sodium Potassium Chloride Carbon Dioxide Anion Gap BUN Creatinine Est GFR ( Amer) Est GFR (MDRD) Non-Af Glucose POC Glucose 157 H 123 H Lactic Acid Calcium Iron TIBC % Saturation Ferritin Total Bilirubin Direct Bilirubin Neonat Total Bilirubin Neonat Direct Bilirubin Neonat Indirect Bili AST ALT Alkaline Phosphatase Creatine Kinase CK-MB (CK-2) Troponin I NT-Pro-B Natriuret Pep Total Protein Albumin Vitamin B12 Folate TSH Urine Color Urine Appearance Urine pH Ur Specific Alpha Urine Protein Urine Glucose (UA) Urine Ketones Urine Blood Urine Nitrite Urine Bilirubin Urine Urobilinogen Ur Leukocyte Esterase Urine WBC (Auto) Urine RBC (Auto) U Hyaline Cast (Auto) Urine Bacteria (Auto) Urine WBC Clumps Squamous Epi Cells Auto Urine Mucus (Auto) Urine Ascorbic Acid Fluid Type Fluid Source Fluid Color Fluid Appearance Fluid Viscosity Fluid WBC Fluid RBC Fluid Seg Neutrophils Fluid Lymphocytes Fluid Monocytes Fluid Eosinophils Fluid Basophils Fluid Total Protein 3.3 Fluid LDH Urine Opiates Screen Urine Methadone Screen Ur Barbiturates Screen Ur Phencyclidine Scrn Ur Amphetamines Screen U Benzodiazepines Scrn Urine Cocaine Screen U Marijuana (THC) Screen 08/10/19 08/11/19 08/11/19 12:19 05:12 05:12 WBC 4.4 RBC 4.14 L Hgb 12.2 L Hct 36.8 L MCV 89 MCH 29.4 MCHC 33.0 RDW 16.0 H Plt Count 175 Lymph % (Auto) 16.9 [place] % (Auto) 13.1 H Eos % (Auto) 1.2 Baso % (Auto) 0.7 Reticulocyte # Absolute Neuts (auto) 3.0 Absolute Lymphs (auto) 0.7 Absolute Monos (auto) 0.6 Absolute Eos (auto) 0.1 Absolute Basos (auto) 0.0 Seg Neutrophils % 68.1 Retic Count (auto) PT INR Sodium 133.1 L Potassium 4.5 Chloride 88 L Carbon Dioxide 36 H Anion Gap 9 BUN 53 H Creatinine 1.27 H Est GFR ( Amer) > 60 Est GFR (MDRD) Non-Af 55 L Glucose 191 H POC Glucose 233 H Lactic Acid Calcium 8.0 L Iron TIBC % Saturation Ferritin Total Bilirubin Direct Bilirubin Neonat Total Bilirubin Neonat Direct Bilirubin Neonat Indirect Bili AST ALT Alkaline Phosphatase Creatine Kinase CK-MB (CK-2) Troponin I NT-Pro-B Natriuret Pep Total Protein Albumin Vitamin B12 Folate TSH Urine Color Urine Appearance Urine pH Ur Specific Alpha Urine Protein Urine Glucose (UA) Urine Ketones Urine Blood Urine Nitrite Urine Bilirubin Urine Urobilinogen Ur Leukocyte Esterase Urine WBC (Auto) Urine RBC (Auto) U Hyaline Cast (Auto) Urine Bacteria (Auto) Urine WBC Clumps Squamous Epi Cells Auto Urine Mucus (Auto) Urine Ascorbic Acid Fluid Type Fluid Source Fluid Color Fluid Appearance Fluid Viscosity Fluid WBC Fluid RBC Fluid Seg Neutrophils Fluid Lymphocytes Fluid Monocytes Fluid Eosinophils Fluid Basophils Fluid Total Protein Fluid LDH Urine Opiates Screen Urine Methadone Screen Ur Barbiturates Screen Ur Phencyclidine Scrn Ur Amphetamines Screen U Benzodiazepines Scrn Urine Cocaine Screen U Marijuana (THC) Screen 08/11/19 08/11/19 08/11/19 07:34 12:41 17:25 WBC RBC Hgb Hct MCV MCH MCHC RDW Plt Count Lymph % (Auto) [place] % (Auto) Eos % (Auto) Baso % (Auto) Reticulocyte # Absolute Neuts (auto) Absolute Lymphs (auto) Absolute Monos (auto) Absolute Eos (auto) Absolute Basos (auto) Seg Neutrophils % Retic Count (auto) PT INR Sodium Potassium Chloride Carbon Dioxide Anion Gap BUN Creatinine Est GFR ( Amer) Est GFR (MDRD) Non-Af Glucose POC Glucose 165 H 129 H 132 H Lactic Acid Calcium Iron TIBC % Saturation Ferritin Total Bilirubin Direct Bilirubin Neonat Total Bilirubin Neonat Direct Bilirubin Neonat Indirect Bili AST ALT Alkaline Phosphatase Creatine Kinase CK-MB (CK-2) Troponin I NT-Pro-B Natriuret Pep Total Protein Albumin Vitamin B12 Folate TSH Urine Color Urine Appearance Urine pH Ur Specific Alpha Urine Protein Urine Glucose (UA) Urine Ketones Urine Blood Urine Nitrite Urine Bilirubin Urine Urobilinogen Ur Leukocyte Esterase Urine WBC (Auto) Urine RBC (Auto) U Hyaline Cast (Auto) Urine Bacteria (Auto) Urine WBC Clumps Squamous Epi Cells Auto Urine Mucus (Auto) Urine Ascorbic Acid Fluid Type Fluid Source Fluid Color Fluid Appearance Fluid Viscosity Fluid WBC Fluid RBC Fluid Seg Neutrophils Fluid Lymphocytes Fluid Monocytes Fluid Eosinophils Fluid Basophils Fluid Total Protein Fluid LDH Urine Opiates Screen Urine Methadone Screen Ur Barbiturates Screen Ur Phencyclidine Scrn Ur Amphetamines Screen U Benzodiazepines Scrn Urine Cocaine Screen U Marijuana (THC) Screen 08/12/19 08/12/19 08/12/19 05:36 08:15 12:17 WBC RBC Hgb Hct MCV MCH MCHC RDW Plt Count Lymph % (Auto) [place] % (Auto) Eos % (Auto) Baso % (Auto) Reticulocyte # Absolute Neuts (auto) Absolute Lymphs (auto) Absolute Monos (auto) Absolute Eos (auto) Absolute Basos (auto) Seg Neutrophils % Retic Count (auto) PT INR Sodium 132.5 L Potassium 4.2 Chloride 88 L Carbon Dioxide 36 H Anion Gap 9 BUN 57 H Creatinine 1.26 H Est GFR ( Amer) > 60 Est GFR (MDRD) Non-Af 56 L Glucose 138 H POC Glucose 128 H 165 H Lactic Acid Calcium 7.8 L Iron TIBC % Saturation Ferritin Total Bilirubin 0.5 Direct Bilirubin 0.2 Neonat Total Bilirubin Not Reportable Neonat Direct Bilirubin Not Reportable Neonat Indirect Bili Not Reportable AST 33 ALT 29 Alkaline Phosphatase 145 H Creatine Kinase CK-MB (CK-2) Troponin I NT-Pro-B Natriuret Pep Total Protein 6.4 Albumin 3.2 L Vitamin B12 Folate TSH Urine Color Urine Appearance Urine pH Ur Specific Alpha Urine Protein Urine Glucose (UA) Urine Ketones Urine Blood Urine Nitrite Urine Bilirubin Urine Urobilinogen Ur Leukocyte Esterase Urine WBC (Auto) Urine RBC (Auto) U Hyaline Cast (Auto) Urine Bacteria (Auto) Urine WBC Clumps Squamous Epi Cells Auto Urine Mucus (Auto) Urine Ascorbic Acid Fluid Type Fluid Source Fluid Color Fluid Appearance Fluid Viscosity Fluid WBC Fluid RBC Fluid Seg Neutrophils Fluid Lymphocytes Fluid Monocytes Fluid Eosinophils Fluid Basophils Fluid Total Protein Fluid LDH Urine Opiates Screen Urine Methadone Screen Ur Barbiturates Screen Ur Phencyclidine Scrn Ur Amphetamines Screen U Benzodiazepines Scrn Urine Cocaine Screen U Marijuana (THC) Screen 08/12/19 08/13/19 08/13/19 16:28 07:46 11:47 WBC RBC Hgb Hct MCV MCH MCHC RDW Plt Count Lymph % (Auto) [place] % (Auto) Eos % (Auto) Baso % (Auto) Reticulocyte # Absolute Neuts (auto) Absolute Lymphs (auto) Absolute Monos (auto) Absolute Eos (auto) Absolute Basos (auto) Seg Neutrophils % Retic Count (auto) PT INR Sodium Potassium Chloride Carbon Dioxide Anion Gap BUN Creatinine Est GFR ( Amer) Est GFR (MDRD) Non-Af Glucose POC Glucose 198 H 157 H 167 H Lactic Acid Calcium Iron TIBC % Saturation Ferritin Total Bilirubin Direct Bilirubin Neonat Total Bilirubin Neonat Direct Bilirubin Neonat Indirect Bili AST ALT Alkaline Phosphatase Creatine Kinase CK-MB (CK-2) Troponin I NT-Pro-B Natriuret Pep Total Protein Albumin Vitamin B12 Folate TSH Urine Color Urine Appearance Urine pH Ur Specific Alpha Urine Protein Urine Glucose (UA) Urine Ketones Urine Blood Urine Nitrite Urine Bilirubin Urine Urobilinogen Ur Leukocyte Esterase Urine WBC (Auto) Urine RBC (Auto) U Hyaline Cast (Auto) Urine Bacteria (Auto) Urine WBC Clumps Squamous Epi Cells Auto Urine Mucus (Auto) Urine Ascorbic Acid Fluid Type Fluid Source Fluid Color Fluid Appearance Fluid Viscosity Fluid WBC Fluid RBC Fluid Seg Neutrophils Fluid Lymphocytes Fluid Monocytes Fluid Eosinophils Fluid Basophils Fluid Total Protein Fluid LDH Urine Opiates Screen Urine Methadone Screen Ur Barbiturates Screen Ur Phencyclidine Scrn Ur Amphetamines Screen U Benzodiazepines Scrn Urine Cocaine Screen U Marijuana (THC) Screen 08/13/19 08/14/19 08/14/19 16:22 07:44 11:27 WBC RBC Hgb Hct MCV MCH MCHC RDW Plt Count Lymph % (Auto) [place] % (Auto) Eos % (Auto) Baso % (Auto) Reticulocyte # Absolute Neuts (auto) Absolute Lymphs (auto) Absolute Monos (auto) Absolute Eos (auto) Absolute Basos (auto) Seg Neutrophils % Retic Count (auto) PT INR Sodium Potassium Chloride Carbon Dioxide Anion Gap BUN Creatinine Est GFR ( Amer) Est GFR (MDRD) Non-Af Glucose POC Glucose 136 H 170 H 149 H Lactic Acid Calcium Iron TIBC % Saturation Ferritin Total Bilirubin Direct Bilirubin Neonat Total Bilirubin Neonat Direct Bilirubin Neonat Indirect Bili AST ALT Alkaline Phosphatase Creatine Kinase CK-MB (CK-2) Troponin I NT-Pro-B Natriuret Pep Total Protein Albumin Vitamin B12 Folate TSH Urine Color Urine Appearance Urine pH Ur Specific Alpha Urine Protein Urine Glucose (UA) Urine Ketones Urine Blood Urine Nitrite Urine Bilirubin Urine Urobilinogen Ur Leukocyte Esterase Urine WBC (Auto) Urine RBC (Auto) U Hyaline Cast (Auto) Urine Bacteria (Auto) Urine WBC Clumps Squamous Epi Cells Auto Urine Mucus (Auto) Urine Ascorbic Acid Fluid Type Fluid Source Fluid Color Fluid Appearance Fluid Viscosity Fluid WBC Fluid RBC Fluid Seg Neutrophils Fluid Lymphocytes Fluid Monocytes Fluid Eosinophils Fluid Basophils Fluid Total Protein Fluid LDH Urine Opiates Screen Urine Methadone Screen Ur Barbiturates Screen Ur Phencyclidine Scrn Ur Amphetamines Screen U Benzodiazepines Scrn Urine Cocaine Screen U Marijuana (THC) Screen 08/14/19 16:12 WBC RBC Hgb Hct MCV MCH MCHC RDW Plt Count Lymph % (Auto) [place] % (Auto) Eos % (Auto) Baso % (Auto) Reticulocyte # Absolute Neuts (auto) Absolute Lymphs (auto) Absolute Monos (auto) Absolute Eos (auto) Absolute Basos (auto) Seg Neutrophils % Retic Count (auto) PT INR Sodium Potassium Chloride Carbon Dioxide Anion Gap BUN Creatinine Est GFR ( Amer) Est GFR (MDRD) Non-Af Glucose POC Glucose 192 H Lactic Acid Calcium Iron TIBC % Saturation Ferritin Total Bilirubin Direct Bilirubin Neonat Total Bilirubin Neonat Direct Bilirubin Neonat Indirect Bili AST ALT Alkaline Phosphatase Creatine Kinase CK-MB (CK-2) Troponin I NT-Pro-B Natriuret Pep Total Protein Albumin Vitamin B12 Folate TSH Urine Color Urine Appearance Urine pH Ur Specific Alpha Urine Protein Urine Glucose (UA) Urine Ketones Urine Blood Urine Nitrite Urine Bilirubin Urine Urobilinogen Ur Leukocyte Esterase Urine WBC (Auto) Urine RBC (Auto) U Hyaline Cast (Auto) Urine Bacteria (Auto) Urine WBC Clumps Squamous Epi Cells Auto Urine Mucus (Auto) Urine Ascorbic Acid Fluid Type Fluid Source Fluid Color Fluid Appearance Fluid Viscosity Fluid WBC Fluid RBC Fluid Seg Neutrophils Fluid Lymphocytes Fluid Monocytes Fluid Eosinophils Fluid Basophils Fluid Total Protein Fluid LDH Urine Opiates Screen Urine Methadone Screen Ur Barbiturates Screen Ur Phencyclidine Scrn Ur Amphetamines Screen U Benzodiazepines Scrn Urine Cocaine Screen U Marijuana (THC) Screen Chest X-Ray 08/07/19 01:19 IMPRESSION: No significant change in the appearance of the chest. Abdomen Ultrasound 08/08/19 00:00 IMPRESSION: 1. Ascites, most pronounced in the right lower quadrant. 2. Splenomegaly. 3. Cholelithiasis. 4. Fatty liver. Paracentesis Ultrasound 08/09/19 00:00 IMPRESSION: Ultrasound-guided paracentesis. Specimen sent for testing as per attending physician EKG done today shows atrial fibrillation with controlled ventricular response. Incomplete right bundle branch block pattern. Cannot exclude old inferior myocardial infarction. All echocardiogram done on 08/08/2019. Shows that the left ventricle is of normal size without LVH. LV ejection fraction is 45% moderately reduced with moderate diffuse hypokinesis. There is flattened septum consistent with right ventricular pressure and volume overload. There is no thrombus and no ASD VSD or PFO seen. Right ventricle was moderately dilated. There is mild mitral leaflet calcification mild mitral annular calcification there is mild mitral stenosis there is mild amount of mitral regurgitation. There is aortic sclerosis without stenosis. There is trace amount of aortic regurgitation. There is moderate amount of tricuspid regurgitation. There is severe pulmonary hypertension) systolic pressure is at least 75 mmHg with a RA mean of at least 20 mmHg. There is trace pulmonic regurgitation. There is no pericardial effusion. The inferior vena cava appeared to be dilated and did not change with respiration [right atrial pressure greater than 20 mm]. This was already discussed with the [facility] hospitalist physician on the day this was done. 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 The patient is not on LUIS. We will start as soon as the blood pressure gets better so he can tolerate the LUIS inhibitor.. Will increase the patient's diuretics. In view of the patient's hypotension will increase the patient's midodrine to 10 mg p.o. 3 times daily and start the patient on dobutamine. This may also help in reducing the patient's pulmonary hypertension. 2. Severe pulmonary hypertension: Because of acute on chronic right ventricle systolic pressure. As mentioned earlier we will try dobutamine. We will also continue diuresis cautiously. Will increase the patient's beta-ezekiel. We will start the patient on LUIS inhibitor. This will be done once the patient's blood pressure picks up. 3. Portal hypertension with hepatosplenomegaly and ascites: This most likely is a due to portal pulmonary hypertension. We will a.m. at treating the patient's right ventricle systolic heart failure. The patient has no history of alcohol abuse. 4. Cardiomyopathy with moderately reduced LV ejection fraction. As mentioned earlier we will try to start the patient on an LUIS inhibitor and increase the patient's beta-ezekiel. 5. Chronic atrial fibrillation, with controlled ventricular response. We will continue the patient's Eliquis. 6. Coronary artery disease: History of prior OR and history of coronary bypass graft surgery. No evidence of anginal symptoms. No evidence of acute coronary syndrome at present. 7. COPD: At present does not seem to have acute exacerbation of COPD. 8. Struve hypertension: At present the patient blood pressure is tenuous. We will see if the midodrine will increase the patient's blood pressure. 9. Diabetes mellitus: Continue current antidiabetic regimen and Accu-Cheks as per protocol. 10. Mild renal insufficiency. This should improve with treatment. 11. Hyperlipidemia: Continue statin 12. Tobacco abuse disorder. Tobacco cessation counseling given. 3 minutes spent on this. Medications reviewed. Medications adjusted. Medical decision making is high complexity. 60 minutes spent as patient more than 50% time spent in direct patient care. Discussed with attending provider Dr. Colby. Will follow. 4.
[2019-08-14] MEDS: OXYCODONE-ACETAMINOPHEN 5-325 MG TABLET PO PRN (21:06)
[2019-08-14] MEDS: ZOLPIDEM TARTRATE 5 MG TABLET PO PRN (21:06)
[2019-08-14] MEDS: TAMSULOSIN HCL 0.4 MG CAP.SR.24H PO SCH (21:07)
[2019-08-14] MEDS: ATORVASTATIN CALCIUM 80 MG TABLET PO SCH (21:07)
[2019-08-15] MEDS: ALPRAZOLAM 0.25 MG TABLET PO PRN (00:07)
[2019-08-15] MEDS: TRAZODONE HCL 50 MG TABLET PO PRN (00:07)
[2019-08-15] MEDS: OXYCODONE-ACETAMINOPHEN 5-325 MG TABLET PO PRN (01:05)
[2019-08-15] MEDS: FUROSEMIDE INJ/PF 40 MG/4 ML SDV IV SCH ×3 (06:05→22:06)
[2019-08-15] MEDS: GABAPENTIN 300 MG CAPSULE PO SCH ×3 (06:05→22:07)
--- NOTE | 2019-08-15 07:15 | EKG REPORT ---
SEVERITY:- ABNORMAL ECG - ATRIAL FIBRILLATION, V-RATE [id number] INCOMPLETE RIGHT BUNDLE BRANCH BLOCK AND LPFB PROBABLE INFERIOR INFARCT, AGE INDETERMINATE : Confirmed by: Riley Coleman MD 15-Aug-2019 07:14:52
[2019-08-15] MEDS: INSULIN GLARGINE,HUM.REC.ANLOG 1,000 UNIT/10 ML VIAL SUBCUT SCH (09:18)
[2019-08-15] MEDS: ASPIRIN 81 MG TABLET, CHEWABLE PO SCH (09:18)
[2019-08-15] MEDS: INSULIN LISPRO 100 UNIT/ML 3 ML VIAL SUBCUT SCH ×3 (09:18→17:26)
[2019-08-15] MEDS: POTASSIUM CHLORIDE 10 MEQ TABLET.ER PO SCH ×2 (09:18→22:06)
[2019-08-15] MEDS: ASCORBIC ACID 500 MG TABLET PO SCH (09:19)
[2019-08-15] MEDS: APIXABAN 5 MG TABLET PO SCH ×2 (09:19→17:35)
[2019-08-15] MEDS: METOPROLOL SUCCINATE 25 MG TAB.SR.24H PO SCH (09:19)
[2019-08-15] MEDS: DOCUSATE SODIUM 100 MG CAPSULE PO SCH (09:19)
[2019-08-15] MEDS: MIDODRINE HCL 5 MG TABLET PO SCH ×3 (09:19→17:35)
[2019-08-15] MEDS: GUAIFENESIN 600 MG TABLET.SA PO SCH ×2 (09:19→22:07)
[2019-08-15] MEDS: CEFTRIAXONE 1 GM/D5W RTU 1 GM/50 ML RTUPB IV SCH (09:20)
[2019-08-15] MEDS: NITROGLYCERIN 2.5 MG (0.1 MG/HR) PATCH.TD24 TD SCH (09:21)
[2019-08-15] MEDS: FLUTICASONE NASAL SPRAY 50 MCG/SPRY 120 SPRAY/16 GM NASL SCH ×2 (09:33→22:07)
--- NOTE | 2019-08-15 13:37 | PDOC PROGRESS REPORT ---
Subjective Progress Note for:: 08/15/19 Subjective:: 08/12/2019 patient doing well overall today after his paracentesis yesterday. He states his abdomen feels significantly better but when I examined him today his belly is still quite tense. He was started on 4 mg IV morphine overnight which seems like a bit much. This is been discontinued. He has oral narcotics available at a lower concentration. His creatinine is the same approximately which is consistent with likely CKD 2. He still has some abdominal discomfort and fullness. Patient has no new complaints today otherwise. 08/13/2019 Patient is a bit sleepy today but probably wakes up when I speak to him. He actually jumped out of bed and threw his nasal cannula on the floor trying to get his urinal. His abdomen and legs are still quite edematous. I reviewed his previous imaging studies and other than CHF I do not see a source of his ascites and lower extremity edema. He did not appear to have any malignancy or vascular occlusions on his ultrasound and recent PET scan. The ascites fluid did not appear to be infected and the pathology did not reveal malignancy in the fluid. LDH was low and protein slightly elevated in the ascites fluid. Per his UA he does not have nephrotic syndrome. His liver function appears to be normal based on his CMP. His blood pressure is low today, will add midodrine and if this successfully increases his blood pressure we can increase his cardiac medication regimen to help with his diuresis. If we can accomplish this he could probably be discharged tomorrow. 08/14/2019 Consulted cardiology and discussed the case in great detail with Dr. Portillo. Patient has portal hypertension likely due to right-sided heart failure and pulmonary hypertension. I have increased his dose of midodrine to allow for up titration of his cardiac medications and diuresis. Other than generalized fatigue and weakness and his persistent edema, patient has no new complaints. 08/15/2019 Dr. Portilol has started the patient on dobutamine and he seems to be diuresing a bit better. His legs are less tense but still quite swollen and the same goes for his abdomen. His lungs are clear on exam. Patient has no specific complaints other than overall edema and generalized fatigue. Blood pressure running a bit low and his midodrine has been increased. Reason For Visit: HYPOTENSION ARF HEART FAILURE Physical Exam Vital Signs: Temp Pulse Resp BP Pulse Ox 97.7 F 75 16 114/69 87 L 08/15/19 10:59 08/15/19 12:00 08/15/19 10:59 08/15/19 12:00 08/15/19 10:59 Intake & Output 08/14/19 08/15/19 08/16/19 06:59 06:59 06:59 Intake Total 1458 842 Output Total 2400 3500 Balance -942 -3418 Weight 111.8 kg 113.3 kg General appearance: PRESENT: no acute distress, well-developed, well-nourished Head exam: PRESENT: atraumatic, normocephalic Eye exam: PRESENT: conjunctiva pink Mouth exam: PRESENT: moist Respiratory exam: PRESENT: clear to auscultation remington. ABSENT: rales, rhonchi, wheezes Cardiovascular exam: PRESENT: RRR. ABSENT: diastolic murmur, rubs, systolic murmur GI/Abdominal exam: PRESENT: ascites, distended, normal bowel sounds, soft. ABSENT: tenderness Extremities exam: PRESENT: pedal edema, +2 edema Musculoskeletal exam: PRESENT: ambulatory Neurological exam: PRESENT: alert, awake, oriented to person, oriented to place, oriented to time, oriented to situation Psychiatric exam: PRESENT: appropriate affect, normal mood Skin exam: PRESENT: dry, intact, warm Results Laboratory Results: 08/11/19 05:12 08/12/19 05:36 08/07/19 08/07/19 08/07/19 01:22 01:22 01:22 Creatine Kinase 58 CK-MB (CK-2) 1.70 Troponin I < 0.012 NT-Pro-B Natriuret Pep 4730 H 08/07/19 08/07/19 08/07/19 08:32 08:32 13:06 Creatine Kinase 52 L 38 L CK-MB (CK-2) 1.76 Troponin I 0.013 NT-Pro-B Natriuret Pep 08/07/19 08/07/19 08/07/19 13:06 19:15 19:15 Creatine Kinase 43 L CK-MB (CK-2) 1.44 1.49 Troponin I 0.013 0.013 NT-Pro-B Natriuret Pep Impressions: Chest X-Ray 08/07/19 01:19 IMPRESSION: No significant change in the appearance of the chest. Abdomen Ultrasound 08/08/19 00:00 IMPRESSION: 1. Ascites, most pronounced in the right lower quadrant. 2. Splenomegaly. 3. Cholelithiasis. 4. Fatty liver. Paracentesis Ultrasound 08/09/19 00:00 IMPRESSION: Ultrasound-guided paracentesis. Specimen sent for testing as per attending physician Assessment and Plan - Diagnosis (1) CHF exacerbation Qualifiers: Heart failure type: combined systolic and diastolic Qualified Code(s): I50.43 - Acute on chronic combined systolic (congestive) and diastolic (congestive) heart failure Is this a current diagnosis for this admission?: Yes Plan: Per previous physician: "likely decompensated acute on chronic systolic heart failure secondary to dietary and medication noncompliance complicated by hypotension.. 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 He will need cardiology follow-up closely after discharge. Beta-ezekiel, held ARB/LUIS inhibitor for renal failure; may consider starting Entresto in the future 08/13/2019 Added midodrine so that we can increase his cardiac meds and improve his diuresis in the setting of low blood pressure. Continue up titrating his cardiac meds, he will need close follow-up with cardiology outpatient We will check PVL BLE to look for DVT 08/14/2019 Consulted cardiology discussed case with Dr. Portillo will see the patient today. Appreciate his help. PVL has not been done yet Increase midodrine for low BP on cardiac medications are being uptitrated 08/15/2019 Dobutamine continues, diuresing, legs and abdomen slightly less tense and less edematous (2) Acute renal failure Is this a current diagnosis for this admission?: Yes (3) Pulmonary hypertension Is this a current diagnosis for this admission?: Yes Plan: Likely secondary to LV and RV failure with volume overload Needs repeat echo after adequate diuresis is achieved; get RHC if pressures are still high at that point 08/13/2019 Still trying to adequately diurese patient. I continue to be concerned that he may have underlying primary pulmonary hypertension. We will not be able to tell until he has properly diuresed 08/15/2019 Diuresing with the addition of dobutamine on board now per Dr. Portillo (4) Atrial fibrillation Is this a current diagnosis for this admission?: Yes (5) Diabetes mellitus Qualifiers: Diabetes mellitus type: type 2 Diabetes mellitus jail insulin use: without termite technician use Diabetes mellitus complication status: without complication Qualified Code(s): E11.9 - Type 2 diabetes mellitus without complications Is this a current diagnosis for this admission?: Yes (6) Dyslipidemia Is this a current diagnosis for this admission?: Yes - Plan Summary Summary: Echocardiogram reveals an ejection fraction of 45% with normal left ventricular wall thickness and right ventricular dilatation and biatrial dilatation there is no thrombus patient has severe pulmonary hypertension with RVSP of at least 75 mmHg which is consistent with his massive anasarca. Abdominal ultrasound revealed ascites especially in the right lower quadrant, splenomegaly, cholelithiasis and fatty liver. Patient had a recent PET scan done which did not confirm any malignancy LFTs done on admission were grossly negative with normal AST ALT and bilirubin. Alkaline phosphatase was mildly elevated. Noted to have a gram-positive cocci positivity in 1 blood culture bottle possible contaminant however given his comorbidities I have started him on empiric ceftriaxone and repeat blood cultures are pending Clearly something is going on with this patient with severe right-sided heart failure although precise etiology is unclear to me at this time. He is down for a paracentesis. Fluid will be sent for analysis including cytology. We will follow-up with results 08/09 Patient grew Staphylococcus Cohnii on 1 blood culture with 3 of the bottles having been negative. Patient does have a right-sided valvular dysfunction. No vegetations were seen on echocardiogram. His ascitic fluid shows 2+ white blood cells with 700 WBC and 4666 RBC. Total protein, LDH as well as cytology still pending. Patient remains on Lasix 40 mg IV although I wonder if this should be increased to twice a day to try move some of within is improved and his scrotal pain is also improved fluid 08/10Patient's weight has barely changed since admission losing less than 3 kg over the last 3 to 4 days despite diuresis as well as paracentesis. He does appear that he is not being adequately diuresed. I have increased his Lasix to 40 mg twice daily from 08/09. His output actually increased on August 09 with a - 1528 mL. At this point I will leave his Lasix at 40 mg twice daily. I however also note that he is hypochloremic and hyponatremic and so we will have to watch this very closely and be on the look out for contraction alkalosis. Kidney function today is barely improved but at least it is not getting worse. A short after all the tests that have obtained on this gentleman the only explanation Patient has a small woundulcer, present on admission, currently yielding gram-p ositive cocci in clusters likely skin west. Is currently on ceftriaxone empirically. I see no evidence of any systemic infection but antibiotics can be adjusted if needed. Ascitic fluid is no yielding any organism at this point. And although there was a positive 1 out of 4 blood culture this may well be a contaminant. We will continue to encourage diuresis as tolerated. If needed his Lasix can be increased but he does appear to have responded to the 80 mg daily and so we will leave it at this for now - Time Time Spent with patient: 25-34 minutes Medications reviewed and adjusted accordingly: Yes Anticipated discharge: Home - Inpatient Certification Based on my medical assessment, after consideration of the patient's comorbidities, presenting symptoms, or acuity I expect that the services needed warrant INPATIENT care.: Yes I certify that my determination is in accordance with my understanding of Medicare's requirements for reasonable and necessary INPATIENT services [42 CFR 412.3e].: Yes Medical Necessity: Significant Comorbidiites Make Outpatient Treatment Too Risky, Need Close Monitoring Due to Risk of Patient Decompensation, Risk of Complication if Not Cared For in Hospital, Risk of Diagnosis Which Will Require Inpatient Eval/Care/Monitoring
--- NOTE | 2019-08-15 15:31 | Progress Note ---
Provider Note Provider Note: CARDIOLOGY PROGRESS NOTE by Dr. Alicia Portillo on 08/15/2019. SUBJECTIVE: The patient states that his shortness of breath is slightly improved. He does have orthopnea but no PND. He is got an excellent urine output and his leg edema is slightly less than yesterday. He remains in atrial fibrillation with controlled ventricular response. There is no ventricular arrhythmia seen. There is no nausea vomiting. There is no chest pain or discomfort. His blood pressure has improved. PHYSICAL EXAMINATION: The patient is a frail build and appears to be chronically ill. At present in no acute distress. Of note again the patient is severely hard of hearing. Selected Entries 08/15/19 08/15/19 08:00 08:16 Temperature 97.4 F Temperature Oral Source Respiratory 18 Rate Blood Pressure 118/55 L Blood Pressure 76 Mean O2 Sat by Pulse 97 Oximetry Oxygen Flow 2.50 Rate Oxygen Delivery Nasal Cannula Method HEAD: Is atraumatic normocephalic. EYES: Pupils are equal round regular reactive to light and accommodation. Extraocular movements are normal there is no conjunctival pallor. There is no scleral icterus. EARS: Tympanic membranes are intact. External auditory canals are clear. NOSE: There is no deviated nasal septum. There is no inflammation nasal mucous membrane. MOUTH: Mucous membranes of mouth are moist tongue is moist there is no ulcers. There is no bleeding from the gums. THROAT: There is no redness of the oropharynx. There is no exudates. SKIN: There is no skin rashes. There is no skin lesions. There is stasis dermatitis of the lower extremities. There is no petechia or ecchymosis. NECK: Is supple. There is JVD present. [JVD is elevated]. Carotids are equal there is no bruits. There is no lymphadenopathy. There is no goiter. There is no accessory muscle respiration use. Trachea central. LUNGS: Shows diminished air entry and prolonged expiration. There is no rhonchi rales or wheezing. On percussion there is hyperresonance. There are a few bibasilar rales of CHF. There is heart S1-S2 is heard. S1 is of variable intensity. There is no S3 gallop. There is no S4 gallop. Systolic murmur in the left sternal border and the apex. There is murmurs of mitral regurgitation, tricuspid tricuspid regurgitation present. There is no rub. ABDOMEN: There is hepatomegaly and splenomegaly present. Liver is nontender, and nonpulsatile. There is ascites present. There is no tender areas masses. Bowel sounds are well heard. HERNIAL SITES ARE FREE. Extremities: Femorals are diminished. There is no femoral bruits. Leg pulses are difficult to palpate. There is 1+ pedal edema bilaterally with chronic venous stasis dermatitis. There is no cyanosis or clubbing. There is no DVT or cellulitis. 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 PSYCHIATRIC: The pa tient judgment site are intact, and his affect is normal. 24-hour intake is 842 mL. Total 24-hour output is 3500 mL. Labs- All tests 24 hr 08/15/19 08/15/19 08/15/19 08:14 10:55 16:11 POC Glucose 184 H 158 H 134 H Chest X-Ray 08/07/19 01:19 IMPRESSION: No significant change in the appearance of the chest. Abdomen Ultrasound 08/08/19 00:00 IMPRESSION: 1. Ascites, most pronounced in the right lower quadrant. 2. Splenomegaly. 3. Cholelithiasis. 4. Fatty liver. Paracentesis Ultrasound 08/09/19 00:00 IMPRESSION: Ultrasound-guided paracentesis. Specimen sent for testing as per attending physician Venous Doppler Study 08/15/19 00:00 IMPRESSION: NO EVIDENCE DVT OR SVT IN EITHER LEG. 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 The patient is not on LUIS. We will start as soon as the blood pressure gets better so he can tolerate the LUIS inhibitor.. Will increase the patient's diuretics. Will continue the patient's midodrine and dobutamine. This may also help in reducing the patient's pulmonary hypertension. 2. Severe pulmonary hypertension: Because of acute on chronic right ventricle systolic pressure. As mentioned earlier we will try dobutamine. We will also continue diuresis cautiously. Will increase the patient's beta-ezekiel. We will start the patient on LUIS inhibitor. This will be done once the patient's blood pressure picks up. 3. Portal hypertension with hepatosplenomegaly and ascites: This most likely is a due to portal pulmonary hypertension. We will a.m. at treating the patient's right ventricle systolic heart failure. The patient has no history of alcohol abuse. 4. Cardiomyopathy with moderately reduced LV ejection fraction. As mentioned earlier we will try to start the patient on an LUIS inhibitor and increase the patient's beta-ezekiel. 5. Chronic atrial fibrillation, with controlled ventricular response. We will continue the patient's Eliquis. 6. Coronary artery disease: History of prior IA and history of coronary bypass graft surgery. No evidence of anginal symptoms. No evidence of acute coronary syndrome at present. 7. COPD: At present does not seem to have acute exacerbation of COPD. 8. Struve hypertension: At present the patient blood pressure is tenuous. We will see if the midodrine will increase the patient's blood pressure. 9. Diabetes mellitus: Continue current antidiabetic regimen and Accu-Cheks as per protocol. 10. Mild renal insufficiency. This should improve with treatment. 11. Hyperlipidemia: Continue statin 12. Tobacco abuse disorder. Tobacco cessation counseling given. 3 minutes spent on this. Medications reviewed. Medications adjusted. Medical decision making is high complexity. 40 minutes spent as patient more than 50% time spent in direct patient care. Discussed with attending provider Dr. Colby. Will follow.
--- NOTE | 2019-08-15 16:30 | RADIOLOGY REPORT (SQ) ---
EXAM DESCRIPTION: VENOUS BILATERAL LOWER IMAGES COMPLETED DATE/TIME: 08/15/2019 3:54 pm REASON FOR STUDY: DVT/PE COMPARISON: None. TECHNIQUE: Dynamic and static haji scale and color images acquired of both lower extremity venous sy stems. Selected spectral images acquired with additional compression and augmentation maneuvers. Imag es stored on PACS. LIMITATIONS: None. FINDINGS: RIGHT LEG COMMON FEMORAL AND FEMORAL: Normal phasicity, compression and augmentation. No visualized echogenic m aterial on haji scale. No defects on color images. POPLITEAL: Normal compression and augmentation. No visualized echogenic material on haji scale. No de fects on color images. CALF VESSELS: Normal compression and augmentation. No visualized echogenic material on haji scale. No defects on color image. GSV AND SSV: Normal compression. No visualized echogenic material on haji scale. No defects on color images. ANY DEEP VENOUS INSUFFICIENCY: No. ANY EVIDENCE OF POPLITEAL CYST: No. OTHER: No other finding. LEFT LEG COMMON FEMORAL AND FEMORAL: Normal phasicity, compression and augmentation. No visualized echogenic m aterial on haji scale. No defects on color images. POPLITEAL: Normal compression and augmentation. No visualized echogenic material on haji scale. No de fects on color images. CALF VESSELS: Normal compression and augmentation. No visualized echogenic material on haji scale. No defects on color images. GSV AND SSV: Normal compression. No visualized echogenic material on haji scale. No defects on color images. ANY DEEP VENOUS INSUFFICIENCY: No. ANY EVIDENCE POPLITEAL CYST: No. OTHER: No other finding. IMPRESSION: NO EVIDENCE DVT OR SVT IN EITHER LEG. TECHNICAL DOCUMENTATION: JOB ID: [id number] 2010 [employer]- All Rights Reserved Reading location - IP/workstation name: [email or web address]
[2019-08-15] MEDS: DOBUTAMINE HCL/D5W 500 MG/250 ML RTUINJ IV PRN (17:38)
[2019-08-15] MEDS: ATORVASTATIN CALCIUM 80 MG TABLET PO SCH (22:06)
[2019-08-15] MEDS: TAMSULOSIN HCL 0.4 MG CAP.SR.24H PO SCH (22:07)
[2019-08-16] MEDS: FUROSEMIDE INJ/PF 40 MG/4 ML SDV IV SCH ×3 (06:39→21:49)
[2019-08-16] MEDS: GABAPENTIN 300 MG CAPSULE PO SCH ×3 (06:40→21:49)
[2019-08-16 07:15] LABS: ANION GAP 6 (5-19); BLOOD UREA NITROGEN 33 mg/dL (7-20); CARBON DIOXIDE 37 mmol/L (22-30); CHLORIDE 91 mmol/L (98-107); GLUCOSE 89 mg/dL (75-110); POTASSIUM 4.3 mmol/L (3.6-5.0)
[2019-08-16] MEDS: INSULIN LISPRO 100 UNIT/ML 3 ML VIAL SUBCUT SCH ×3 (08:00→16:21)
[2019-08-16] MEDS: ASCORBIC ACID 500 MG TABLET PO SCH (09:53)
[2019-08-16] MEDS: MIDODRINE HCL 5 MG TABLET PO SCH ×3 (09:53→17:09)
[2019-08-16] MEDS: LISINOPRIL 5 MG TABLET PO SCH ×2 (09:53→21:50)
[2019-08-16] MEDS: POTASSIUM CHLORIDE 10 MEQ TABLET.ER PO SCH ×2 (09:53→21:49)
[2019-08-16] MEDS: DOCUSATE SODIUM 100 MG CAPSULE PO SCH (09:53)
[2019-08-16] MEDS: METOPROLOL SUCCINATE 25 MG TAB.SR.24H PO SCH (09:53)
[2019-08-16] MEDS: GUAIFENESIN 600 MG TABLET.SA PO SCH ×2 (09:53→21:49)
[2019-08-16] MEDS: APIXABAN 5 MG TABLET PO SCH ×2 (09:53→17:09)
[2019-08-16] MEDS: INSULIN GLARGINE,HUM.REC.ANLOG 1,000 UNIT/10 ML VIAL SUBCUT SCH (09:54)
[2019-08-16] MEDS: ASPIRIN 81 MG TABLET, CHEWABLE PO SCH (09:54)
[2019-08-16] MEDS: FLUTICASONE NASAL SPRAY 50 MCG/SPRY 120 SPRAY/16 GM NASL SCH ×2 (09:56→21:43)
[2019-08-16] MEDS: NITROGLYCERIN 2.5 MG (0.1 MG/HR) PATCH.TD24 TD SCH (10:08)
--- NOTE | 2019-08-16 15:46 | PDOC PROGRESS REPORT ---
Subjective Progress Note for:: 08/16/19 Subjective:: 08/12/2019 patient doing well overall today after his paracentesis yesterday. He states his abdomen feels significantly better but when I examined him today his belly is still quite tense. He was started on 4 mg IV morphine overnight which seems like a bit much. This is been discontinued. He has oral narcotics available at a lower concentration. His creatinine is the same approximately which is consistent with likely CKD 2. He still has some abdominal discomfort and fullness. Patient has no new complaints today otherwise. 08/13/2019 Patient is a bit sleepy today but probably wakes up when I speak to him. He actually jumped out of bed and threw his nasal cannula on the floor trying to get his urinal. His abdomen and legs are still quite edematous. I reviewed his previous imaging studies and other than CHF I do not see a source of his ascites and lower extremity edema. He did not appear to have any malignancy or vascular occlusions on his ultrasound and recent PET scan. The ascites fluid did not appear to be infected and the pathology did not reveal malignancy in the fluid. LDH was low and protein slightly elevated in the ascites fluid. Per his UA he does not have nephrotic syndrome. His liver function appears to be normal based on his CMP. His blood pressure is low today, will add midodrine and if this successfully increases his blood pressure we can increase his cardiac medication regimen to help with his diuresis. If we can accomplish this he could probably be discharged tomorrow. 08/14/2019 Consulted cardiology and discussed the case in great detail with Dr. Portillo. Patient has portal hypertension likely due to right-sided heart failure and pulmonary hypertension. I have increased his dose of midodrine to allow for up titration of his cardiac medications and diuresis. Other than generalized fatigue and weakness and his persistent edema, patient has no new complaints. 08/15/2019 Dr. Portillo has started the patient on dobutamine and he seems to be diuresing a bit better. His legs are less tense but still quite swollen and the same goes for his abdomen. His lungs are clear on exam. Patient has no specific complaints other than overall edema and generalized fatigue. Blood pressure running a bit low and his midodrine has been increased. 08/16/2019 Patient does not seem to have much improvement in his abdomen or legs today. We are continuing to adjust his cardiac medications as his blood pressure allows though it remains quite low. Ceftriaxone day 7 is today and this will and. His ankle wound culture grew MSSA. Other than continued edema and generalized fatigue and weakness, patient has no new complaints. Reason For Visit: HYPOTENSION ARF HEART FAILURE Physical Exam Vital Signs: Temp Pulse Resp BP Pulse Ox 97.8 F 74 18 104/88 H 96 08/16/19 10:58 08/16/19 14:00 08/16/19 10:58 08/16/19 14:00 08/16/19 10:58 Intake & Output 08/15/19 08/16/19 08/17/19 06:59 06:59 06:59 Intake Total 842 1371 50 Output Total 3500 6200 Balance -7422 -8117 50 Weight 113.3 kg 113.3 kg General appearance: PRESENT: no acute distress, well-developed, well-nourished Head exam: PRESENT: atraumatic Eye exam: PRESENT: conjunctiva pink Mouth exam: PRESENT: moist Respiratory exam: PRESENT: clear to auscultation remington. ABSENT: rales, rhonchi, wheezes Cardiovascular exam: PRESENT: RRR. ABSENT: diastolic murmur, rubs, systolic murmur GI/Abdominal exam: PRESENT: ascites, distended, normal bowel sounds. ABSENT: guarding, tenderness Neurological exam: PRESENT: alert, awake, oriented to person, oriented to place, oriented to time, oriented to situation Psychiatric exam: PRESENT: appropriate affect, normal mood Skin exam: PRESENT: dry, intact, warm Results Laboratory Results: 08/11/19 05:12 08/16/19 06:31 08/16/19 06:31 Sodium 134.2 L Potassium 4.3 Chloride 91 L Carbon Dioxide 37 H Anion Gap 6 BUN 33 H Creatinine 0.90 Est GFR ( Amer) > 60 Glucose 89 Calcium 8.0 L Magnesium 2.6 H 08/07/19 08/07/19 08/07/19 01:22 01:22 01:22 Creatine Kinase 58 CK-MB (CK-2) 1.70 Troponin I < 0.012 NT-Pro-B Natriuret Pep 4730 H 08/07/19 08/07/19 08/07/19 08:32 08:32 13:06 Creatine Kinase 52 L 38 L CK-MB (CK-2) 1.76 Troponin I 0.013 NT-Pro-B Natriuret Pep 08/07/19 08/07/19 08/07/19 13:06 19:15 19:15 Creatine Kinase 43 L CK-MB (CK-2) 1.44 1.49 Troponin I 0.013 0.013 NT-Pro-B Natriuret Pep Impressions: Chest X-Ray 08/07/19 01:19 IMPRESSION: No significant change in the appearance of the chest. Abdomen Ultrasound 08/08/19 00:00 IMPRESSION: 1. Ascites, most pronounced in the right lower quadrant. 2. Splenomegaly. 3. Cholelithiasis. 4. Fatty liver. Paracentesis Ultrasound 08/09/19 00:00 IMPRESSION: Ultrasound-guided paracentesis. Specimen sent for testing as per attending physician Venous Doppler Study 08/15/19 00:00 IMPRESSION: NO EVIDENCE DVT OR SVT IN EITHER LEG. Assessment and Plan - Diagnosis (1) CHF exacerbation Qualifiers: Heart failure type: combined systolic and diastolic Qualified Code(s): I50.43 - Acute on chronic combined systolic (congestive) and diastolic (congestive) heart failure Is this a current diagnosis for this admission?: Yes Plan: Per previous physician: "likely decompensated acute on chronic systolic heart failure secondary to dietary and medication noncompliance complicated by hypotension.. Trial gentle diuresis, optimize rate control, F/u echo and obtain US abd as he appears to have ascites clinically and" 08/23/2019 Acute combined systolic and diastolic CHF exacerbation; fluid accumulation pref erence appears to be in the abdomen Echo showed an EF 45%, moderately reduced LV systolic function and moderate global hypokinesis of left ventricle, elevated RV pressure and volume overload Diuresis with IV Lasix has only been partially effective Suspect he may have some underlying primary pulmonary hypertension which will need to be evaluated with a right heart cath assuming he continues to have elevated pulmonary pressures and a repeat echo after adequate diuresis. He will need cardiology follow-up closely after discharge. Beta-ezekiel, held ARB/LUIS inhibitor for renal failure; may consider starting Entresto in the future 08/13/2019 Added midodrine so that we can increase his cardiac meds and improve his diuresis in the setting of low blood pressure. Continue up titrating his cardiac meds, he will need close follow-up with cardiology outpatient We will check PVL BLE to look for DVT 08/14/2019 Consulted cardiology discussed case with Dr. Portillo will see the patient today. Appreciate his help. PVL has not been done yet Increase midodrine for low BP on cardiac medications are being uptitrated 08/15/2019 Dobutamine continues, diuresing, legs and abdomen slightly less tense and less edematous 08/16/2019 Still on dobutamine drip. No notable improvement in edema of his abdomen or legs. I reviewed his EKGs and his echo. He does not meet criteria for cardiac resynchronization therapy but he should be monitored in case this changes in the future. Check for adrenal insufficiency given he has paradoxical low blood pressure in the setting of volume overload and this is severely limiting her ability to treat his volume overload. I say this is paradoxical because his pump failure is disproportionate to the degree of his hypotension and volume overload. I believe there is an underlying reason for his hypotension other than heart failure. Bret/renin ratio, a.m. 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: without skilled nursing use Diabetes mellitus complication status: without complication Qualified Code(s): E11.9 - Type 2 diabetes mellitus without complications Is this a current diagnosis for this admission?: Yes (6) Dyslipidemia Is this a current diagnosis for this admission?: Yes - Plan Summary Summary: Echocardiogram reveals an ejection fraction of 45% with normal left ventricular wall thickness and right ventricular dilatation and biatrial dilatation there is no thrombus patient has severe pulmonary hypertension with RVSP of at least 75 mmHg which is consistent with his massive anasarca. Abdominal ultrasound revealed ascites especially in the right lower quadrant, splenomegaly, cholelithiasis and fatty liver. Patient had a recent PET scan done which did not confirm any malignancy LFTs done on admission were grossly negative with normal AST ALT and bilirubin. Alkaline phosphatase was mildly elevated. Noted to have a gram-positive cocci positivity in 1 blood culture bottle possible contaminant however given his comorbidities I have started him on empiric ceftriaxone and repeat blood cultures are pending Clearly something is going on with this patient with severe right-sided heart failure although precise etiology is unclear to me at this time. He is down for a paracentesis. Fluid will be sent for analysis including cytology. We will follow-up with results 08/09 Patient grew Staphylococcus Cohnii on 1 blood culture with 3 of the bottles having been negative. Patient does have a right-sided valvular dysfunction. No vegetations were seen on echocardiogram. His ascitic fluid shows 2+ white blood cells with 700 WBC and 4666 RBC. Total protein, LDH as well as cytology still pending. Patient remains on Lasix 40 mg IV although I wonder if this should be increased to twice a day to try move some of within is improved and his scrotal pain is also improved fluid 08/10Patient's weight has barely changed since admission losing less than 3 kg over the last 3 to 4 days despite diuresis as well as paracentesis. He does appear that he is not being adequately diuresed. I have increased his Lasix to 40 mg twice daily from 08/09. His output actually increased on August 09 with a - 1528 mL. At this point I will leave his Lasix at 40 mg twice daily. I however also note that he is hypochloremic and hyponatremic and so we will have to watch this very closely and be on the look out for contraction alkalosis. Kidney function today is barely improved but at least it is not getting worse. A short after all the tests that have obtained on this gentleman the only explanation Patient has a small woundulcer, present on admission, currently yielding gram-p ositive cocci in clusters likely skin west. Is currently on ceftriaxone empirically. I see no evidence of any systemic infection but antibiotics can be adjusted if needed. Ascitic fluid is no yielding any organism at this point. And although there was a positive 1 out of 4 blood culture this may well be a contaminant. We will continue to encourage diuresis as tolerated. If needed his Lasix can be increased but he does appear to have responded to the 80 mg daily and so we will leave it at this for now - Time Time Spent with patient: 25-34 minutes Medications reviewed and adjusted accordingly: Yes - Inpatient Certification Based on my medical assessment, after consideration of the patient's com orbidities, presenting symptoms, or acuity I expect that the services needed warrant INPATIENT care.: Yes I certify that my determination is in accordance with my understanding of Medicare's requirements for reasonable and necessary INPATIENT services [42 CFR 412.3e].: Yes Medical Necessity: Significant Comorbidiites Make Outpatient Treatment Too Risky, Need Close Monitoring Due to Risk of Patient Decompensation, Risk of Complication if Not Cared For in Hospital, Risk of Diagnosis Which Will Require Inpatient Eval/Care/Monitoring
--- NOTE | 2019-08-16 15:50 | Progress Note ---
Provider Note Provider Note: CARDIOLOGY PROGRESS NOTE by Dr. Alicia Portillo on 08/16/2019. SUBJECTIVE: The patient states he feels he is feeling slightly better. His leg edema seems to be slightly improved. He has orthopnea but no PND. There is no chest pain or discomfort. He is in atrial fibrillation with controlled ventricular response. There is no ventricular arrhythmia seen. There is no bleeding on Eliquis. There is no TIA CVA symptoms. PHYSICAL EXAMINATION: The patient is a frail build and appears to be chronically ill. But no acute distress. Selected Entries 08/16/19 08/16/19 15:39 15:43 Temperature 97.9 F Temperature Oral Source Respiratory 16 Rate Blood Pressure 108/49 L Blood Pressure 68 Mean O2 Sat by Pulse 96 Oximetry Oxygen Flow 2.50 Rate Oxygen Delivery Nasal Cannula Method HEAD: Is atraumatic normocephalic. EYES: Pupils are equal round regular reactive to light and accommodation. Extraocular movements are normal there is no conjunctival pallor. There is no scleral icterus. EARS: Tympanic membranes are intact. External auditory canals are clear. NOSE: There is no deviated nasal septum. There is no inflammation nasal mucous membrane. MOUTH: Mucous membranes of mouth are moist tongue is moist there is no ulcers. There is no bleeding from the gums. THROAT: There is no redness of the oropharynx. There is no exudates. SKIN: There is no skin rashes. There is no skin lesions. There is stasis dermatitis of the lower extremities. There is no petechia or ecchymosis. NECK: Is supple. There is JVD present. [JVD is elevated]. Carotids are equal there is no bruits. There is no lymphadenopathy. There is no goiter. There is no accessory muscle respiration use. Trachea central. LUNGS: Shows diminished air entry and prolonged expiration. There is no rhonchi rales or wheezing. On percussion there is hyperresonance. There are a few bibasilar rales of CHF. There is heart S1-S2 is heard. S1 is of variable intensity. There is no S3 gallop. There is no S4 gallop. Systolic murmur in the left sternal border and the apex. There is murmurs of mitral regurgitation, tricuspid tricuspid regurgitation present. There is no rub. ABDOMEN: There is hepatomegaly and splenomegaly present. Liver is nontender, and nonpulsatile. There is ascites present. There is no tender areas masses. Bowel sounds are well heard. HERNIAL SITES ARE FREE. Extremities: Femorals are diminished. There is no femoral bruits. Leg pulses are difficult to palpate. There is 1- pedal edema bilaterally with chronic venous stasis dermatitis. There is no cyanosis or clubbing. There is no DVT or cellulitis. CEMENTER OIL WELL: The patient is conscious awake alert oriented x3 with no focal deficits. PSYCHIATRIC: The patient judgment site are intact, and his affect is normal. 24-hour intake is 1371 mL. Total 24-hour output is 6200 mL IMPRESSION/RECOMMENDATION: 1.Acute on chronic left ventricular and right ventricle systolic heart failure: Continue patient on beta-ezekiel and will try to increase the patient's beta- ezekiel. The patient is not on LUIS. The patient tolerating a small dose of LUIS inhibitor and beta-ezekiel. We will try to increase the dose as tolerated. Will increase the patient's diuretics. Will continue the patient's midodrine and dobutamine. This may also help in reducing the patient's pulmonary hypertension. 2. Severe pulmonary hypertension: Because of acute on chronic right ventricle systolic pressure. As mentioned earlier we will try dobutamine. We will also continue diuresis cautiously. Will increase the patient's beta-ezekiel. We will start the patient on LUIS inhibitor. This will be done once the patient's blood pressure picks up. 3. Portal hypertension with hepatosplenomegaly and ascites: This most likely is a due to portal pulmonary hypertension. We will a.m. at treating the patient's right ventricle systolic heart failure. The patient has no history of alcohol abuse. 4. Cardiomyopathy with moderately reduced LV ejection fraction. As mentioned earlier we will try to start the patient on an LUIS inhibitor and increase the patient's beta-ezekiel. 5. Chronic atrial fibrillation, with controlled ventricular response. We will continue the patient's Eliquis. 6. Coronary artery disease: History of prior [place] and history of coronary bypass graft surgery. No evidence of anginal symptoms. No evidence of acute coronary syndrome at present. 7. COPD: At present does not seem to have acute exacerbation of COPD. 8. Struve hypertension: At present the patient blood pressure is tenuous. We will see if the midodrine will increase the patient's blood pressure. 9. Diabetes mellitus: Continue current antidiabetic regimen and Accu-Cheks as per protocol. 10. Mild renal insufficiency. This should improve with treatment. 11. Hyperlipidemia: Continue statin 12. Tobacco abuse disorder. Tobacco cessation counseling given. 3 minutes spent on this. Medications reviewed. Medications adjusted. Medical decision making is high complexity. 40 minutes spent as patient more than 50% time spent in direct patient care. Discussed with attending provider Dr. Colby. Will follow.
[2019-08-16] MEDS: TRAZODONE HCL 50 MG TABLET PO PRN (21:49)
[2019-08-16] MEDS: ATORVASTATIN CALCIUM 80 MG TABLET PO SCH (21:49)
[2019-08-16] MEDS: TAMSULOSIN HCL 0.4 MG CAP.SR.24H PO SCH (21:49)
[2019-08-17] MEDS: DOBUTAMINE HCL/D5W 500 MG/250 ML RTUINJ IV PRN (02:58)
[2019-08-17] MEDS: FUROSEMIDE INJ/PF 40 MG/4 ML SDV IV SCH ×3 (05:22→21:43)
[2019-08-17] MEDS: GABAPENTIN 300 MG CAPSULE PO SCH ×3 (05:22→21:47)
[2019-08-17] MEDS: INSULIN LISPRO 100 UNIT/ML 3 ML VIAL SUBCUT SCH ×3 (08:06→18:15)
[2019-08-17] MEDS: ASCORBIC ACID 500 MG TABLET PO SCH (09:29)
[2019-08-17] MEDS: APIXABAN 5 MG TABLET PO SCH ×2 (09:29→18:24)
[2019-08-17] MEDS: GUAIFENESIN 600 MG TABLET.SA PO SCH ×2 (09:30→21:41)
[2019-08-17] MEDS: METOPROLOL SUCCINATE 25 MG TAB.SR.24H PO SCH (09:30)
[2019-08-17] MEDS: LISINOPRIL 5 MG TABLET PO SCH ×2 (09:30→21:24)
[2019-08-17] MEDS: POTASSIUM CHLORIDE 10 MEQ TABLET.ER PO SCH ×2 (09:30→21:41)
[2019-08-17] MEDS: DOCUSATE SODIUM 100 MG CAPSULE PO SCH (09:30)
[2019-08-17] MEDS: NITROGLYCERIN 2.5 MG (0.1 MG/HR) PATCH.TD24 TD SCH (09:30)
[2019-08-17] MEDS: MIDODRINE HCL 5 MG TABLET PO SCH ×3 (09:30→18:24)
[2019-08-17] MEDS: ASPIRIN 81 MG TABLET, CHEWABLE PO SCH (09:30)
[2019-08-17] MEDS: FLUTICASONE NASAL SPRAY 50 MCG/SPRY 120 SPRAY/16 GM NASL SCH ×2 (09:32→22:26)
[2019-08-17] MEDS: INSULIN GLARGINE,HUM.REC.ANLOG 1,000 UNIT/10 ML VIAL SUBCUT SCH (09:35)
--- NOTE | 2019-08-17 10:05 | PDOC PROGRESS REPORT ---
Subjective Progress Note for:: 08/17/19 Subjective:: 08/12/2019 patient doing well overall today after his paracentesis yesterday. He states his abdomen feels significantly better but when I examined him today his belly is still quite tense. He was started on 4 mg IV morphine overnight which seems like a bit much. This is been discontinued. He has oral narcotics available at a lower concentration. His creatinine is the same approximately which is consistent with likely CKD 2. He still has some abdominal discomfort and fullness. Patient has no new complaints today otherwise. 08/13/2019 Patient is a bit sleepy today but probably wakes up when I speak to him. He actually jumped out of bed and threw his nasal cannula on the floor trying to get his urinal. His abdomen and legs are still quite edematous. I reviewed his previous imaging studies and other than CHF I do not see a source of his ascites and lower extremity edema. He did not appear to have any malignancy or vascular occlusions on his ultrasound and recent PET scan. The ascites fluid did not appear to be infected and the pathology did not reveal malignancy in the fluid. LDH was low and protein slightly elevated in the ascites fluid. Per his UA he does not have nephrotic syndrome. His liver function appears to be normal based on his CMP. His blood pressure is low today, will add midodrine and if this successfully increases his blood pressure we can increase his cardiac medication regimen to help with his diuresis. If we can accomplish this he could probably be discharged tomorrow. 08/14/2019 Consulted cardiology and discussed the case in great detail with Dr. Portillo. Patient has portal hypertension likely due to right-sided heart failure and pulmonary hypertension. I have increased his dose of midodrine to allow for up titration of his cardiac medications and diuresis. Other than generalized fatigue and weakness and his persistent edema, patient has no new complaints. 08/15/2019 Dr. Portillo has started the patient on dobutamine and he seems to be diuresing a bit better. His legs are less tense but still quite swollen and the same goes for his abdomen. His lungs are clear on exam. Patient has no specific complaints other than overall edema and generalized fatigue. Blood pressure running a bit low and his midodrine has been increased. 08/16/2019 Patient does not seem to have much improvement in his abdomen or legs today. We are continuing to adjust his cardiac medications as his blood pressure allows though it remains quite low. Ceftriaxone day 7 is today and this will and. His ankle wound culture grew MSSA. Other than continued edema and generalized fatigue and weakness, patient has no new complaints. 08/17/2019 Patient states the fluid seems to be coming off more slowly now compared to when he first started the dobutamine. His legs and abdomen are still quite swollen and he would like another paracentesis done for relief of the abdominal pressure. This is been ordered for therapeutic purposes with some appropriate labs ordered as well. Unclear why his blood pressure is persistently low as his pump failure is disproportionate to his degree of hypotension. Cortisol and other hormone levels have been checked today and are pending. Patient has no other new specific complaints. Reason For Visit: HYPOTENSION ARF HEART FAILURE Physical Exam Vital Signs: Temp Pulse Resp BP Pulse Ox 98.3 F 85 16 106/72 100 08/17/19 07:49 08/17/19 08:00 08/16/19 15:43 08/17/19 08:00 08/16/19 20:27 Intake & Output 08/16/19 08/17/19 08/18/19 06:59 06:59 06:59 Intake Total 1371 1934 Output Total 5900 4285 Balance -0349 -2896 Weight 113.3 kg 109.8 kg General appearance: PRESENT: no acute distress, well-developed, well-nourished Head exam: PRESENT: atraumatic, normocephalic Eye exam: PRESENT: conjunctiva pink. ABSENT: scleral icterus Mouth exam: PRESENT: moist Respiratory exam: PRESENT: clear to auscultation remington. ABSENT: rales, rhonchi, wheezes Cardiovascular exam: PRESENT: RRR. ABSENT: diastolic murmur, rubs, systolic murmur GI/Abdominal exam: PRESENT: ascites, distended, normal bowel sounds, organolmegaly, soft. ABSENT: guarding, mass, rebound, tenderness Neurological exam: PRESENT: alert, awake, oriented to person, oriented to place, oriented to time, oriented to situation Psychiatric exam: PRESENT: appropriate affect, normal mood Skin exam: PRESENT: dry, intact, warm Results Laboratory Results: 08/11/19 05:12 08/16/19 06:31 08/07/19 08/07/19 08/07/19 01:22 01:22 01:22 Creatine Kinase 58 CK-MB (CK-2) 1.70 Troponin I < 0.012 NT-Pro-B Natriuret Pep 4730 H 08/07/19 08/07/19 08/07/19 08:32 08:32 13:06 Creatine Kinase 52 L 38 L CK-MB (CK-2) 1.76 Troponin I 0.013 NT-Pro-B Natriuret Pep 08/07/19 08/07/19 08/07/19 13:06 19:15 19:15 Creatine Kinase 43 L CK-MB (CK-2) 1.44 1.49 Troponin I 0.013 0.013 NT-Pro-B Natriuret Pep Impressions: Chest X-Ray 08/07/19 01:19 IMPRESSION: No significant change in the appearance of the chest. Abdomen Ultrasound 08/08/19 00:00 IMPRESSION: 1. Ascites, most pronounced in the right lower quadrant. 2. Splenomegaly. 3. Cholelithiasis. 4. Fatty liver. Paracentesis Ultrasound 08/09/19 00:00 IMPRESSION: Ultrasound-guided paracentesis. Specimen sent for testing as per attending physician Venous Doppler Study 08/15/19 00:00 IMPRESSION: NO EVIDENCE DVT OR SVT IN EITHER LEG. Assessment and Plan - Diagnosis (1) CHF exacerbation Qualifiers: Heart failure type: combined systolic and diastolic Qualified Code(s): I50.43 - Acute on chronic combined systolic (congestive) and diastolic (congestive) heart failure Is this a current diagnosis for this admission?: Yes Plan: Per previous physician: "likely decompensated acute on chronic systolic heart failure secondary to dietary and medication noncompliance complicated by hypotension.. 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 He will need cardiology follow-up closely after discharge. Beta-ezekeil, held ARB/LUIS inhibitor for renal failure; may consider starting Entresto in the future 08/13/2019 Added midodrine so that we can increase his cardiac meds and improve his diuresis in the setting of low blood pressure. Continue up titrating his cardiac meds, he will need close follow-up with cardiology outpatient We will check PVL BLE to look for DVT 08/14/2019 Consulted cardiology discussed case with Dr. Portillo will see the patient today. Appreciate his help. PVL has not been done yet Increase midodrine for low BP on cardiac medications are being uptitrated 08/15/2019 Dobutamine continues, diuresing, legs and abdomen slightly less tense and less edematous 08/16/2019 Still on dobutamine drip. No notable improvement in edema of his abdomen or legs. I reviewed his EKGs and his echo. He does not meet criteria for cardiac resynchronization therapy but he should be monitored in case this changes in the future. Check for adrenal insufficiency given he has paradoxical low blood pressure in the setting of volume overload and this is severely limiting her ability to treat his volume overload. I say this is paradoxical because his pump failure is disproportionate to the degree of his hypotension and volume overload. I believe there is an underlying reason for his hypotension other than heart failure. Bret/renin ratio, a.m. cortisol 08/17/2019 Hormone levels are still pending Maxed out on midodrine Dobutamine continued per cardiology (2) Acute renal failure Is this a current diagnosis for this admission?: Yes (3) Pulmonary hypertension Is this a current diagnosis for this admission?: Yes (4) Atrial fibrillation Is this a current diagnosis for this admission?: Yes (5) Diabetes mellitus Qualifiers: Diabetes mellitus type: type 2 Diabetes mellitus [employer] insulin use: without [employer] use Diabetes mellitus complication status: without complication Qualified Code(s): E11.9 - Type 2 diabetes mellitus without complications Is this a current diagnosis for this admission?: Yes (6) Dyslipidemia Is this a current diagnosis for this admission?: Yes (7) Hypotension Qualifiers: Hypotension type: unspecified hypotension type Qualified Code(s): I95.9 - Hypotension, unspecified Is this a current diagnosis for this admission?: Yes Plan: Unclear etiology is heart failure is not as severe as would be expected for this degree of low BP Possible adrenal insufficiency, appropriate labs ordered (8) Ascites Qualifiers: Ascites type: other type Qualified Code(s): R18.8 - Other ascites Is this a current diagnosis for this admission?: Yes Plan: Due to right heart failure Paracentesis done, fluid not consistent with SBP, consistent with transudate Repeat paracentesis ordered 08/16 for therapeutic purposes - Plan Summary Summary: Echocardiogram reveals an ejection fraction of 45% with normal left ventricular wall thickness and right ventricular dilatation and biatrial dilatation there is no thrombus patient has severe pulmonary hypertension with RVSP of at least 75 mmHg which is consistent with his massive anasarca. Abdominal ultrasound revealed ascites especially in the right lower quadrant, splenomegaly, cholelithiasis and fatty liver. Patient had a recent PET scan done which did not confirm any malignancy LFTs done on admission were grossly negative with normal AST ALT and bilirubin. Alkaline phosphatase was mildly elevated. Noted to have a gram-positive cocci positivity in 1 blood culture bottle possible contaminant however given his comorbidities I have started him on empiric ceftriaxone and repeat blood cultures are pending Clearly something is going on with this patient with severe right-sided heart failure although precise etiology is unclear to me at this time. He is down for a paracentesis. Fluid will be sent for analysis including cytology. We will follow-up with results 08/09 Patient grew Staphylococcus Cohnii on 1 blood culture with 3 of the bottles having been negative. Patient does have a right-sided valvular dysfunction. No vegetations were seen on echocardiogram. His ascitic fluid shows 2+ white blood cells with 700 WBC and 4666 RBC. Total protein, LDH as well as cytology still pending. Patient remains on Lasix 40 mg IV although I wonder if this should be increased to twice a day to try move some of within is improved and his scrotal pain is also improved fluid 08/10Patient's weight has barely changed since admission losing less than 3 kg over the last 3 to 4 days despite diuresis as well as paracentesis. He does appear that he is not being adequately diuresed. I have increased his Lasix to 40 mg twice daily from 08/09. His output actually increased on August 09 with a - 1528 mL. At this point I will leave his Lasix at 40 mg twice daily. I however also note that he is hypochloremic and hyponatremic and so we will have to watch this very closely and be on the look out for contraction alkalosis. Kidney function today is barely improved but at least it is not getting worse. A short after all the tests that have obtained on this gentleman the only explanation Patient has a small woundulcer, present on admission, currently yielding gram- positive cocci in clusters likely skin west. Is currently on ceftriaxone empirically. I see no evidence of any systemic infection but antibiotics can be adjusted if needed. Ascitic fluid is no yielding any organism at this point. And although there was a positive 1 out of 4 blood culture this may well be a contaminant. We will continue to encourage diuresis as tolerated. If needed his Lasix can be increased but he does appear to have responded to the 80 mg daily and so we will leave it at this for now - Time Time Spent with patient: 15-24 minutes Medications reviewed and adjusted accordingly: Yes - Inpatient Certification Based on my medical assessment, after consideration of the patient's comorbidities, presenting symptoms, or acuity I expect that the services needed warrant INPATIENT care.: Yes I certify that my determination is in accordance with my understanding of Medicare's requirements for reasonable and necessary INPATIENT services [42 CFR 412.3e].: Yes Medical Necessity: Significant Comorbidiites Make Outpatient Treatment Too Risky, Need Close Monitoring Due to Risk of Patient Decompensation, Risk of Complication if Not Cared For in Hospital, Risk of Diagnosis Which Will Require Inpatient Eval/Care/Monitoring
[2019-08-17] MEDS: ATORVASTATIN CALCIUM 80 MG TABLET PO SCH (21:42)
[2019-08-17] MEDS: TAMSULOSIN HCL 0.4 MG CAP.SR.24H PO SCH (21:42)
[2019-08-18 03:19] LABS: TOTAL PROTEIN 6.7 g/dL (6.3-8.2)
[2019-08-18] MEDS: GABAPENTIN 300 MG CAPSULE PO SCH ×3 (06:02→21:57)
[2019-08-18] MEDS: FUROSEMIDE INJ/PF 40 MG/4 ML SDV IV SCH ×3 (06:02→21:59)
[2019-08-18] MEDS: DOBUTAMINE HCL/D5W 500 MG/250 ML RTUINJ IV PRN (07:56)
[2019-08-18] MEDS: INSULIN LISPRO 100 UNIT/ML 3 ML VIAL SUBCUT SCH ×3 (07:58→16:58)
[2019-08-18] MEDS: INSULIN GLARGINE,HUM.REC.ANLOG 1,000 UNIT/10 ML VIAL SUBCUT SCH (08:06)
[2019-08-18] MEDS: DOCUSATE SODIUM 100 MG CAPSULE PO SCH (09:06)
[2019-08-18] MEDS: ASPIRIN 81 MG TABLET, CHEWABLE PO SCH (09:06)
[2019-08-18] MEDS: GUAIFENESIN 600 MG TABLET.SA PO SCH ×2 (09:09→21:58)
[2019-08-18] MEDS: ASCORBIC ACID 500 MG TABLET PO SCH (09:09)
[2019-08-18] MEDS: MIDODRINE HCL 5 MG TABLET PO SCH ×3 (09:09→17:43)
[2019-08-18] MEDS: NITROGLYCERIN 2.5 MG (0.1 MG/HR) PATCH.TD24 TD SCH (09:09)
[2019-08-18] MEDS: FLUTICASONE NASAL SPRAY 50 MCG/SPRY 120 SPRAY/16 GM NASL SCH ×2 (09:09→21:57)
[2019-08-18] MEDS: METOPROLOL SUCCINATE 25 MG TAB.SR.24H PO SCH (09:09)
[2019-08-18] MEDS: LISINOPRIL 5 MG TABLET PO SCH ×2 (09:09→21:58)
[2019-08-18] MEDS: POTASSIUM CHLORIDE 10 MEQ TABLET.ER PO SCH ×2 (09:10→21:58)
--- NOTE | 2019-08-18 12:35 | PDOC PROGRESS REPORT ---
Subjective Progress Note for:: 08/18/19 Subjective:: 08/12/2019 patient doing well overall today after his paracentesis yesterday. He states his abdomen feels significantly better but when I examined him today his belly is still quite tense. He was started on 4 mg IV morphine overnight which seems like a bit much. This is been discontinued. He has oral narcotics available at a lower concentration. His creatinine is the same approximately which is consistent with likely CKD 2. He still has some abdominal discomfort and fullness. Patient has no new complaints today otherwise. 08/13/2019 Patient is a bit sleepy today but probably wakes up when I speak to him. He actually jumped out of bed and threw his nasal cannula on the floor trying to get his urinal. His abdomen and legs are still quite edematous. I reviewed his previous imaging studies and other than CHF I do not see a source of his ascites and lower extremity edema. He did not appear to have any malignancy or vascular occlusions on his ultrasound and recent PET scan. The ascites fluid did not appear to be infected and the pathology did not reveal malignancy in the fluid. LDH was low and protein slightly elevated in the ascites fluid. Per his UA he does not have nephrotic syndrome. His liver function appears to be normal based on his CMP. His blood pressure is low today, will add midodrine and if this successfully increases his blood pressure we can increase his cardiac medication regimen to help with his diuresis. If we can accomplish this he could probably be discharged tomorrow. 08/14/2019 Consulted cardiology and discussed the case in great detail with Dr. Portillo. Patient has portal hypertension likely due to right-sided heart failure and pulmonary hypertension. I have increased his dose of midodrine to allow for up titration of his cardiac medications and diuresis. Other than generalized fatigue and weakness and his persistent edema, patient has no new complaints. 08/15/2019 Dr. Portillo has started the patient on dobutamine and he seems to be diuresing a bit better. His legs are less tense but still quite swollen and the same goes for his abdomen. His lungs are clear on exam. Patient has no specific complaints other than overall edema and generalized fatigue. Blood pressure running a bit low and his midodrine has been increased. 08/16/2019 Patient does not seem to have much improvement in his abdomen or legs today. We are continuing to adjust his cardiac medications as his blood pressure allows though it remains quite low. Ceftriaxone day 7 is today and this will and. His ankle wound culture grew MSSA. Other than continued edema and generalized fatigue and weakness, patient has no new complaints. 08/17/2019 Patient states the fluid seems to be coming off more slowly now compared to when he first started the dobutamine. His legs and abdomen are still quite swollen and he would like another paracentesis done for relief of the abdominal pressure. This is been ordered for therapeutic purposes with some appropriate labs ordered as well. Unclear why his blood pressure is persistently low as his pump failure is disproportionate to his degree of hypotension. Cortisol and other hormone levels have been checked today and are pending. Patient has no other new specific complaints. 08/18/2019 Patient has had very good urine output the past 1 to 2 days now currently net - 3.87 L and 5.8 L of urine out since yesterday. His legs appear less tense today as well as his abdomen. He still has a significant amount of ascites that would greatly benefit from another paracentesis and we will have this done tomorrow while we hold the patient's Eliquis today and tomorrow. He is very much agreeable to this and states that helped a great deal last time it was done. His cortisol is normal I expect his ACTH to be the same. Aldosterone/renin ratio still pending and probably will be back for several more days. 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 I did not see any significant valvular pathology noted on his echocardiogram done here. He would like Dr. Portillo to look back at his old echoes and compare to see if there is any significant valvular pathology seen on the previous echo. If this were the case, it would certainly change consultant as [email or web address] to correct the incompetent valve. All things considered, this would probably be the best scenario for the patient is present a fixable problem that would greatly improve his heart failure and edema. Reason For Visit: HYPOTENSION ARF HEART FAILURE Physical Exam Vital Signs: Temp Pulse Resp BP Pulse Ox 97.9 F 73 18 103/64 93 08/18/19 12:08/18/19 12:08/18/19 12:08/18/19 12:05 08/18/19 12:05 Intake & Output 08/17/19 08/18/19 08/19/19 06:59 06:59 06:59 Intake Total 1934 1050 1148 Output Total 5810 6300 600 Balance -3876 -1100 548 Weight 109.8 kg 109.2 kg General appearance: PRESENT: no acute distress, well-developed, well-nourished Head exam: PRESENT: atraumatic, normocephalic Eye exam: PRESENT: conjunctiva pink Mouth exam: PRESENT: moist Respiratory exam: PRESENT: clear to auscultation remington. ABSENT: rales, rhonchi, wheezes Cardiovascular exam: PRESENT: RRR. ABSENT: diastolic murmur, rubs, systolic murmur GI/Abdominal exam: PRESENT: ascites, distended, normal bowel sounds, soft. ABSENT: guarding, mass, organolmegaly, rebound, tenderness Extremities exam: PRESENT: pedal edema, +2 edema Musculoskeletal exam: PRESENT: ambulatory Neurological exam: PRESENT: alert, awake, oriented to person, oriented to place, oriented to time, oriented to situation Psychiatric exam: PRESENT: appropriate affect, normal mood Skin exam: PRESENT: dry, warm Results Laboratory Results: 08/11/19 05:12 08/16/19 06:31 08/18/19 02:53 Total Protein 6.7 08/07/19 08/07/19 08/07/19 01:22 01:22 01:22 Creatine Kinase 58 CK-MB (CK-2) 1.70 Troponin I < 0.012 NT-Pro-B Natriuret Pep 4730 H 08/07/19 08/07/19 08/07/19 08:32 08:32 13:06 Creatine Kinase 52 L 38 L CK-MB (CK-2) 1.76 Troponin I 0.013 NT-Pro-B Natriuret Pep 08/07/19 08/07/19 08/07/19 13:06 19:15 19:15 Creatine Kinase 43 L CK-MB (CK-2) 1.44 1.49 Troponin I 0.013 0.013 NT-Pro-B Natriuret Pep Impressions: Chest X-Ray 08/07/19 01:19 IMPRESSION: No significant change in the appearance of the chest. Abdomen Ultrasound 08/08/19 00:00 IMPRESSION: 1. Ascites, most pronounced in the right lower quadrant. 2. Splenomegaly. 3. Cholelithiasis. 4. Fatty liver. Paracentesis Ultrasound 08/09/19 00:00 IMPRESSION: Ultrasound-guided paracentesis. Specimen sent for testing as per attending physician Venous Doppler Study 08/15/19 00:00 IMPRESSION: NO EVIDENCE DVT OR SVT IN EITHER LEG. Assessment and Plan - Diagnosis (1) CHF exacerbation Qualifiers: Heart failure type: combined systolic and diastolic Qualified Code(s): I50.43 - Acute on chronic combined systolic (congestive) and diastolic (congestive) heart failure Is this a current diagnosis for this admission?: Yes (2) Acute renal failure Is this a current diagnosis for this admission?: Yes (3) Pulmonary hypertension Is this a current diagnosis for this admission?: Yes (4) Atrial fibrillation Is this a current diagnosis for this admission?: Yes (5) Diabetes mellitus Qualifiers: Diabetes mellitus type: type 2 Diabetes mellitus halfway insulin use: without terminal clerk use Diabetes mellitus complication status: without complication Qualified Code(s): E11.9 - Type 2 diabetes mellitus without complications Is this a current diagnosis for this admission?: Yes (6) Dyslipidemia Is this a current diagnosis for this admission?: Yes (7) Hypotension Qualifiers: Hypotension type: unspecified hypotension type Qualified Code(s): I95.9 - Hypotension, unspecified Is this a current diagnosis for this admission?: Yes (8) Ascites Qualifiers: Ascites type: other type Qualified Code(s): R18.8 - Other ascites Is this a current diagnosis for this admission?: Yes - Plan Summary Summary: Echocardiogram reveals an ejection fraction of 45% with normal left ventricular wall thickness and right ventricular dilatation and biatrial dilatation there is no thrombus patient has severe pulmonary hypertension with RVSP of at least 75 mmHg which is consistent with his massive anasarca. Abdominal ultrasound revealed ascites especially in the right lower quadrant, splenomegaly, cholelithiasis and fatty liver. Patient had a recent PET scan done which did not confirm any malignancy LFTs done on admission were grossly negative with normal AST ALT and bilirubin. Alkaline phosphatase was mildly elevated. Noted to have a gram-positive cocci positivity in 1 blood culture bottle possible contaminant however given his comorbidities I have started him on empiric ceftriaxone and repeat blood cultures are pending Clearly something is going on with this patient with severe right-sided heart failure although precise etiology is unclear to me at this time. He is down for a paracentesis. Fluid will be sent for analysis including cytology. We will follow-up with results 08/09 Patient grew Staphylococcus Cohnii on 1 blood culture with 3 of the bottles having been negative. Patient does have a right-sided valvular dysfunction. No vegetations were seen on echocardiogram. His ascitic fluid shows 2+ white blood cells with 700 WBC and 4666 RBC. Total protein, LDH as well as cytology still pending. Patient remains on Lasix 40 mg IV although I wonder if this should be increased to twice a day to try move some of within is improved and his scrotal pain is also improved fluid 08/10Patient's weight has barely changed since admission losing less than 3 kg over the last 3 to 4 days despite diuresis as well as paracentesis. He does appear that he is not being adequately diuresed. I have increased his Lasix to 40 mg twice daily from 08/09. His output actually increased on August 09 with a - 1528 mL. At this point I will leave his Lasix at 40 mg twice daily. I however also note that he is hypochloremic and hyponatremic and so we will have to watch this very closely and be on the look out for contraction alkalosis. Kidney function today is barely improved but at least it is not getting worse. A short after all the tests that have obtained on this gentleman the only explanation Patient has a small woundulcer, present on admission, currently yielding gram- positive cocci in clusters likely skin west. Is currently on ceftriaxone empirically. I see no evidence of any systemic infection but antibiotics can be adjusted if needed. Ascitic fluid is no yielding any organism at this point. And although there was a positive 1 out of 4 blood culture this may well be a contaminant. We will continue to encourage diuresis as tolerated. If needed his Lasix can be increased but he does appear to have responded to the 80 mg daily and so we will leave it at this for now - Time Time Spent with patient: 15-24 minutes Medications reviewed and adjusted accordingly: Yes - Inpatient Certification Based on my medical assessment, after consideration of the patient's comorbidities, presenting symptoms, or acuity I expect that the services needed warrant INPATIENT care.: Yes I certify that my determination is in accordance with my understanding of Medicare's requirements for reasonable and necessary INPATIENT services [42 CFR 412.3e].: Yes Medical Necessity: Significant Comorbidiites Make Outpatient Treatment Too Risky, Need Close Monitoring Due to Risk of Patient Decompensation, Risk of Complication if Not Cared For in Hospital, Risk of Diagnosis Which Will Require Inpatient Eval/Care/Monitoring
[2019-08-18] MEDS: TAMSULOSIN HCL 0.4 MG CAP.SR.24H PO SCH (21:57)
[2019-08-18] MEDS: ATORVASTATIN CALCIUM 80 MG TABLET PO SCH (21:58)
--- NOTE | 2019-08-18 22:01 | Progress Note ---
Provider Note Provider Note: CARDIOLOGY PROGRESS NOTE by Dr. Alicia Mayo on 08/18/2019. SUBJECTIVE: The patient states his shortness of breath is better but he has stents abdominal distention which makes him very uncomfortable. His leg edema is down to trace to mild chronic leg edema with stasis dermatitis. The patient denies any chest pain or discomfort. There is orthopnea but no PND. There is no ventricular arrhythmia seen on the monitor. The patient's atrial fibrillation with controlled ventricular response. His Eliquis has been held for the patient to have a paracentesis tomorrow. Physical EXAMINATION: The patient is of frail build and appears to be chronically ill and malnourished. Selected Entries 08/18/19 07:46 Temperature 98.0 F Temperature Oral Source Pulse Rate 77 Respiratory 17 Rate Blood Pressure 111/49 L Blood Pressure 69 Mean BP Location Right Arm BP Position Supine O2 Sat by Pulse 93 Oximetry Oxygen Delivery Room Air Method HEAD: Is atraumatic normocephalic. EYES: Pupils are equal round regular reactive to light and accommodation. Extraocular movements are normal there is no conjunctival pallor. There is no scleral icterus. EARS: Tympanic membranes are intact. External auditory canals are clear. NOSE: There is no deviated nasal septum. There is no inflammation nasal mucous membrane. MOUTH: Mucous membranes of mouth are moist tongue is moist there is no ulcers. There is no bleeding from the gums. THROAT: There is no redness of the oropharynx. There is no exudates. SKIN: There is no skin rashes. There is no skin lesions. There is stasis dermatitis of the lower extremities. There is no petechia or ecchymosis. NECK: Is supple. There is JVD present. [JVD is elevated]. Carotids are equal there is no bruits. There is no lymphadenopathy. There is no goiter. There is no accessory muscle respiration use. Trachea central. L UNGS: Shows diminished air entry and prolonged expiration. There is no rhonchi rales or wheezing. On percussion there is hyperresonance. There are a few bibasilar rales of CHF. There is heart S1-S2 is heard. S1 is of variable intensity. There is no S3 gallop. There is no S4 gallop. Systolic murmur in the left sternal border and the apex. There is murmurs of mitral regurgitation, tricuspid tricuspid regurgitation present. There is no rub. ABDOMEN: There is hepatomegaly and splenomegaly present. Liver is nontender, and nonpulsatile. There is ascites present. There is no tender areas masses. Bowel sounds are well heard. HERNIAL SITES ARE FREE. Extremities: Femorals are diminished. There is no femoral bruits. Leg pulses are difficult to palpate. There is 1- pedal edema bilaterally with chronic venous stasis dermatitis. There is no cyanosis or clubbing. There is no DVT or cellulitis. GOLD MINER: The patient is conscious awake alert oriented x3 with no focal deficits. PSYCHIATRIC: The patient judgment site are intact, and his affect is normal. 24-hour intake is 1050 mL. Total 24-hour output du5769 mL Labs- All tests 24 hr 08/17/19 08/18/19 08/18/19 05:55 02:53 02:53 APTT 35.8 POC Glucose Lactate Dehydrogenase 191 Total Protein 6.7 ACTH 24.8 08/18/19 08/18/19 08/18/19 07:45 12:03 16:36 APTT POC Glucose 110 171 H 114 H Lactate Dehydrogenase Total Protein ACTH Chest X-Ray 08/07/19 01:19 IMPRESSION: No significant change in the appearance of the chest. Abdomen Ultrasound 08/08/19 00:00 IMPRESSION: 1. Ascites, most pronounced in the right lower quadrant. 2. Splenomegaly. 3. Cholelithiasis. 4. Fatty liver. Paracentesis Ultrasound 08/09/19 00:00 IMPRESSION: Ultrasound-guided paracentesis. Specimen sent for testing as per attending physician Venous Doppler Study 08/15/19 00:00 IMPRESSION: NO EVIDENCE DVT OR SVT IN EITHER LEG. 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 The patient is not on LUIS. The patient tolerating a small dose of LUIS inhibitor and beta-ezekiel. We will try to increase the dose as tolerated. Will increase the patient's diuretics. Will continue the patient's midodrine and dobutamine. This may also help in reducing the patient's pulmonary hypert ension. 2. Severe pulmonary hypertension: Because of acute on chronic right ventricle systolic pressure. As mentioned earlier we will try dobutamine. We will also continue diuresis cautiously. Will increase the patient's beta-ezekiel. We will start the patient on LUIS inhibitor. This will be done once the patient's blood pressure picks up. 3. Portal hypertension with hepatosplenomegaly and ascites: This most likely is a due to portal pulmonary hypertension. We will a.m. at treating the patient's right ventricle systolic heart failure. The patient has no history of alcohol abuse. The patient is 4 paracentesis office peritoneal fluid tomorrow for symptomatic relief. 4. Cardiomyopathy with moderately reduced LV ejection fraction. As mentioned earlier we will try to start the patient on an LUIS inhibitor and increase the patient's beta-ezekiel. 5. Chronic atrial fibrillation, with controlled ventricular response. We will continue the patient's Eliquis. 6. Coronary artery disease: History of prior GA and history of coronary bypass graft surgery. No evidence of anginal symptoms. No evidence of acute coronary syndrome at present. 7. COPD: At present does not seem to have acute exacerbation of COPD. 8. Struve hypertension: At present the patient blood pressure is tenuous. We will see if the midodrine will increase the patient's blood pressure. 9. Diabetes mellitus: Continue current antidiabetic regimen and Accu-Cheks as per protocol. 10. Mild renal insufficiency. This should improve with treatment. 11. Hyperlipidemia: Continue statin 12. Tobacco abuse disorder. Tobacco cessation counseling given. 3 minutes spent on this. Medications reviewed. Medications adjusted. Medical decision making is high complexity. 40 minutes spent as patient more than 50% time spent in direct patient care. Discussed with attending provider Dr. Colby. Will follow..
[2019-08-19] MEDS: TRAZODONE HCL 50 MG TABLET PO PRN (01:50)
[2019-08-19 04:23] LABS: C DIFFICILE GDH NEGATIVE (NEGATIVE)
[2019-08-19] MEDS: FUROSEMIDE INJ/PF 40 MG/4 ML SDV IV SCH ×2 (05:13→15:19)
[2019-08-19] MEDS: GABAPENTIN 300 MG CAPSULE PO SCH ×2 (05:13→15:19)
[2019-08-19 06:40] LABS: PROTHROMBIN TIME 17.2 SEC (11.4-15.4)
[2019-08-19] MEDS: INSULIN LISPRO 100 UNIT/ML 3 ML VIAL SUBCUT SCH ×3 (08:31→17:02)
[2019-08-19] MEDS: ASPIRIN 81 MG TABLET, CHEWABLE PO SCH (09:26)
[2019-08-19] MEDS: DOCUSATE SODIUM 100 MG CAPSULE PO SCH (09:27)
[2019-08-19] MEDS: ASCORBIC ACID 500 MG TABLET PO SCH (10:33)
[2019-08-19] MEDS: GUAIFENESIN 600 MG TABLET.SA PO SCH (10:33)
[2019-08-19] MEDS: MIDODRINE HCL 5 MG TABLET PO SCH ×2 (10:33→15:19)
[2019-08-19] MEDS: LISINOPRIL 5 MG TABLET PO SCH (10:33)
[2019-08-19] MEDS: METOPROLOL SUCCINATE 25 MG TAB.SR.24H PO SCH (10:33)
[2019-08-19] MEDS: FLUTICASONE NASAL SPRAY 50 MCG/SPRY 120 SPRAY/16 GM NASL SCH (10:34)
[2019-08-19] MEDS: INSULIN GLARGINE,HUM.REC.ANLOG 1,000 UNIT/10 ML VIAL SUBCUT SCH (10:34)
[2019-08-19] MEDS: NITROGLYCERIN 2.5 MG (0.1 MG/HR) PATCH.TD24 TD SCH (10:48)
[2019-08-19] MEDS: POTASSIUM CHLORIDE 10 MEQ TABLET.ER PO SCH (10:53)
--- NOTE | 2019-08-19 14:59 | PDOC PROGRESS REPORT ---
Subjective Progress Note for:: 08/19/19 Subjective:: Patient was seen on morning rounds. He was found sitting up to the edge of the bed, comfortably, on room air. He is frustrated that he has not yet had his paracentesis today. When asked if he is feeling well, he shrugs his shoulders. He does state that he is looking forward to going home soon. He denies fever, chest pain, shortness of breath. He has no other questions or concerns at this time. Reason For Visit: HYPOTENSION ARF HEART FAILURE Physical Exam Vital Signs: Temp Pulse Resp BP Pulse Ox 97.8 F 67 18 102/53 L 93 08/19/19 12:09 08/19/19 12:09 08/19/19 12:09 08/19/19 12:08/19/19 12:09 Intake & Output 08/18/19 08/19/19 08/20/19 06:59 06:59 06:59 Intake Total 1050 2450 701 Output Total 2150 2500 750 Balance -1100 -50 -49 Weight 109.2 kg 106.9 kg General appearance: PRESENT: no acute distress, cooperative, hard of hearing, morbidly obese, well-developed Head exam: PRESENT: atraumatic, normocephalic Eye exam: PRESENT: conjunctiva pink, EOMI, PERRLA. ABSENT: scleral icterus Mouth exam: PRESENT: moist, tongue midline Respiratory exam: PRESENT: clear to auscultation remington, symmetrical, unlabored, other - Room air. ABSENT: rales, rhonchi, wheezes Cardiovascular exam: PRESENT: RRR. ABSENT: diastolic murmur, rubs, systolic murmur Pulses: PRESENT: normal dorsalis pedis pul Vascular exam: PRESENT: normal capillary refill GI/Abdominal exam: PRESENT: ascites, distended, normal bowel sounds. ABSENT: guarding, mass, organolmegaly, rebound, tenderness Rectal exam: PRESENT: deferred Extremities exam: PRESENT: full ROM. ABSENT: calf tenderness, clubbing, pedal edema Musculoskeletal exam: PRESENT: ambulatory Neurological exam: PRESENT: alert, awake, oriented to person, oriented to place, oriented to time, oriented to situation, CN II-XII grossly intact. ABSENT: motor sensory deficit Psychiatric exam: PRESENT: appropriate affect, normal mood. ABSENT: homicidal ideation, suicidal ideation Skin exam: PRESENT: dry, intact, warm. ABSENT: cyanosis, rash Results Laboratory Results: 08/11/19 05:12 08/16/19 06:31 08/07/19 08/07/19 08/07/19 01:22 01:22 01:22 Creatine Kinase 58 CK-MB (CK-2) 1.70 Troponin I < 0.012 NT-Pro-B Natriuret Pep 4730 H 08/07/19 08/07/19 08/07/19 08:32 08:32 13:06 Creatine Kinase 52 L 38 L CK-MB (CK-2) 1.76 Troponin I 0.013 NT-Pro-B Natriuret Pep 08/07/19 08/07/19 08/07/19 13:06 19:15 19:15 Creatine Kinase 43 L CK-MB (CK-2) 1.44 1.49 Troponin I 0.013 0.013 NT-Pro-B Natriuret Pep Impressions: Chest X-Ray 08/07/19 01:19 IMPRESSION: No significant change in the appearance of the chest. Abdomen Ultrasound 08/08/19 00:00 IMPRESSION: 1. Ascites, most pronounced in the right lower quadrant. 2. Splenomegaly. 3. Cholelithiasis. 4. Fatty liver. Paracentesis Ultrasound 08/09/19 00:00 IMPRESSION: Ultrasound-guided paracentesis. Specimen sent for testing as per attending physician Venous Doppler Study 08/15/19 00:00 IMPRESSION: NO EVIDENCE DVT OR SVT IN EITHER LEG. Assessment and Plan - Diagnosis (1) CHF exacerbation Qualifiers: Heart failure type: combined systolic and diastolic Qualified Code(s): I50.43 - Acute on chronic combined systolic (congestive) and diastolic (congestive) heart failure Is this a current diagnosis for this admission?: Yes Plan: Per previous physician: "likely decompensated acute on chronic systolic heart failure secondary to dietary and medication noncompliance complicated by hypotension.. 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 He will need cardiology follow-up closely after discharge. Beta-ezekiel, held ARB/LUIS inhibitor for renal failure; may consider starting Entresto in the future 08/13/2019 Added midodrine so that we can increase his cardiac meds and improve his diuresis in the setting of low blood pressure. Continue up titrating his cardiac meds, he will need close follow-up with cardiology outpatient We will check PVL BLE to look for DVT 08/14/2019 Consulted cardiology discussed case with Dr. Portillo will see the patient today. Appreciate his help. PVL has not been done yet Increase midodrine for low BP on cardiac medications are being uptitrated 08/15/2019 Dobutamine continues, diuresing, legs and abdomen slightly less tense and less edematous 08/16/2019 Still on dobutamine drip. No notable improvement in edema of his abdomen or legs. I reviewed his EKGs and his echo. He does not meet criteria for cardiac resynchronization therapy but he should be monitored in case this changes in the future. Check for adrenal insufficiency given he has paradoxical low blood pressure in the setting of volume overload and this is severely limiting her ability to treat his volume overload. I say this is paradoxical because his pump failure is disproportionate to the degree of his hypotension and volume overload. I believe there is an underlying reason for his hypotension other than heart failure. Bret/renin ratio, a.m. cortisol 08/17/2019 Hormone levels are still pending Maxed out on midodrine Dobutamine continued per cardiology 08/19/2019 Cardiology consulted; primary management per Dr. Calderon No longer on dobutamine. Continues on lisinopril, metoprolol, aspirin and statin therapy. Continues to be diuresed with IV furosemide 40 mg every 8 hours. Cardiac diet Daily weights, strict I&O's. (2) Ascites Qualifiers: Ascites type: other type Qualified Code(s): R18.8 - Other ascites Is this a current diagnosis for this admission?: Yes Plan: Due to right heart failure Paracentesis done, fluid not consistent with SBP, consistent with transudate Repeat paracentesis ordered 08/16 for therapeutic purposes 08/19/2019 Repeat therapeutic paracentesis today. (3) Acute renal failure Is this a current diagnosis for this admission?: Yes Plan: 08/12/2019 Suspect cardiorenal superimposed on CKD 2 Trend BMP Diuresis as above 08/14/2019 Patient likely at baseline creatinine currently at 1.26 Trend BMP 08/19/2019 Continues to have good urinary output. Follow-up routine chemistry. (4) Hypotension Qualifiers: Hypotension type: unspecified hypotension type Qualified Code(s): I95.9 - Hypotension, unspecified Is this a current diagnosis for this admission?: Yes Plan: Unclear etiology is heart failure is not as severe as would be expected for this degree of low BP Possible adrenal insufficiency, appropriate labs ordered 08/19/2019 Adrenal insufficiency labs are normal; ruled out. Doing well with Midodrine 10 mg 3 times daily. Changing position slowly/fall precautions (5) Pulmonary hypertension Is this a current diagnosis for this admission?: Yes Plan: Likely secondary to LV and RV failure with volume overload Needs repeat echo after adequate diuresis is achieved; get RHC if pressures are still high at that point 08/13/2019 Still trying to adequately diurese patient. I continue to be concerned that he may have underlying primary pulmonary hypertension. We will not be able to tell until he has properly diuresed 08/15/2019 Diuresing with the addition of dobutamine on board now per Dr. Portillo 08/19/[address] Calderon. Continues on Iv furosemide (6) Atrial fibrillation Is this a current diagnosis for this admission?: Yes Plan: 08/12/2019 Chronic A. fib Eliquis twice daily continued Rate control medications continued 08/13/2019 Rate primarily controlled, increasing rate control meds may be difficult with low BP 08/19/2019 Rate controlled on current regiment; metoprolol Anticoagulated on Eliquis (7) Diabetes mellitus Qualifiers: Diabetes mellitus type: type 2 Diabetes mellitus terminal worker insulin use: without terminal worker use Diabetes mellitus complication status: without c omplication Qualified Code(s): E11.9 - Type 2 diabetes mellitus without c omplications Is this a current diagnosis for this admission?: Yes Plan: We will check A1c with a.m. lab work. Patient is placed on a cardiac diet. Accu-Cheks before meals and at bedtime with Humalog for sliding scale coverage. Hypoglycemia protocol in place. (8) Dyslipidemia Is this a current diagnosis for this admission?: Yes Plan: Statin - Plan Summary Summary: Echocardiogram reveals an ejection fraction of 45% with normal left ventricular wall thickness and right ventricular dilatation and biatrial dilatation there is no thrombus patient has severe pulmonary hypertension with RVSP of at least 75 mmHg which is consistent with his massive anasarca. Abdominal ultrasound revealed ascites especially in the right lower quadrant, splenomegaly, cholelithiasis and fatty liver. Patient had a recent PET scan done which did not confirm any malignancy LFTs done on admission were grossly negative with normal AST ALT and bilirubin. Alkaline phosphatase was mildly elevated. Noted to have a gram-positive cocci positivity in 1 blood culture bottle possible contaminant however given his comorbidities I have started him on empir ic ceftriaxone and repeat blood cultures are pending Clearly something is going on with this patient with severe right-sided heart failure although precise etiology is unclear to me at this time. He is down for a paracentesis. Fluid will be sent for analysis including cytology. We will follow-up with results 08/09 Patient grew Staphylococcus Cohnii on 1 blood culture with 3 of the bottles having been negative. Patient does have a right-sided valvular dysfunction. No vegetations were seen on echocardiogram. His ascitic fluid shows 2+ white blood cells with 700 WBC and 4666 RBC. Total protein, LDH as well as cytology still pending. Patient remains on Lasix 40 mg IV although I wonder if this should be increased to twice a day to try move some of within is improved and his scrotal pain is also improved fluid 08/10Patient's weight has barely changed since admission losing less than 3 kg over the last 3 to 4 days despite diuresis as well as paracentesis. He does appear that he is not being adequately diuresed. I have increased his Lasix to 40 mg twice daily from 08/09. His output actually increased on August 09 with a - 1528 mL. At this point I will leave his Lasix at 40 mg twice daily. I however also note that he is hypochloremic and hyponatremic and so we will have to watch this very closely and be on the look out for contraction alkalosis. Kidney function today is barely improved but at least it is not getting worse. A short after all the tests that have obtained on this gentleman the only explanation Patient has a small woundulcer, present on admission, currently yielding gram- positive cocci in clusters likely skin west. Is currently on ceftriaxone empirically. I see no evidence of any systemic infection but antibiotics can be adjusted if needed. Ascitic fluid is no yielding any organism at this point. And although there was a positive 1 out of 4 blood culture this may well be a contaminant. We will continue to encourage diuresis as tolerated. If needed his Lasix can be increased but he does appear to have responded to the 80 mg daily and so we will leave it at this for now - Time Time Spent with patient: 25-34 minutes Medications reviewed and adjusted accordingly: Yes
[2019-08-19 15:24] VITALS: BP 104/59
--- NOTE | 2019-08-19 15:32 | RADIOLOGY REPORT (SQ) ---
EXAM DESCRIPTION: U/S ABDOMEN LIMITED W/O DOP IMAGES COMPLETED DATE/TIME: 08/19/2019 3:17 pm REASON FOR STUDY: therapeutic ascites removal COMPARISON: None. TECHNIQUE: Limited Static and real time haji scale imaging performed of the 4 abdominal quadrants an d the midline. LIMITATIONS: None. FINDINGS: ASCITES: Minimal diffuse all ascites identified, with limited safe access. OTHER: No other significant finding. IMPRESSION: MINIMAL DIFFUSE ASCITES WITH LIMITED SAFE ACCESS. PARACENTESIS NOT PERFORMED. COMMENT: NONE TECHNICAL DOCUMENTATION: JOB ID: [id number] 2010 [employer]- All Rights Reserved Reading location - IP/workstation name: [email or web address]
[2019-08-19 16:14] LABS: ANION GAP 10 (5-19); BLOOD UREA NITROGEN 24 mg/dL (7-20); CALCIUM 8.4 mg/dL (8.4-10.2); CARBON DIOXIDE 30 mmol/L (22-30); CHLORIDE 95 mmol/L (98-107); GLUCOSE 126 mg/dL (75-110); POTASSIUM 4.4 mmol/L (3.6-5.0)
[2019-08-20 09:09] LABS: ALDOSTERONE RENIN RATIO 2 1.2 (0.0-30.0); RENIN ACTIVITY 2.136 ng/mL/hr (0.167-5.38)
--- NOTE | 2019-08-20 11:13 | PDOC DISCHARGE SUMMARY ---
Impression - Admit/DC Date/PCP Admission Date/Primary Care Provider: 08/07/19 05:34 SHAYAN RODAS MD Discharge Date: 08/19/19 - Discharge Diagnosis (1) CHF exacerbation Is this a current diagnosis for this admission?: Yes (2) Ascites Is this a current diagnosis for this admission?: Yes (3) Acute renal failure Is this a current diagnosis for this admission?: Yes (4) Hypotension Is this a current diagnosis for this admission?: Yes (5) Pulmonary hypertension Is this a current diagnosis for this admission?: Yes (6) Atrial fibrillation Is this a current diagnosis for this admission?: Yes (7) Diabetes mellitus Is this a current diagnosis for this admission?: Yes (8) Dyslipidemia Is this a current diagnosis for this admission?: Yes - Assessment Summary: Echocardiogram reveals an ejection fraction of 45% with normal left ventricular wall thickness and right ventricular dilatation and biatrial dilatation there is no thrombus patient has severe pulmonary hypertension with RVSP of at least 75 mmHg which is consistent with his massive anasarca. Abdominal ultrasound revealed ascites especially in the right lower quadrant, splenomegaly, cholelithiasis and fatty liver. Patient had a recent PET scan done which did not confirm any malignancy LFTs done on admission were grossly negative with normal AST ALT and bilirubin. Alkaline phosphatase was mildly elevated. Noted to have a gram-positive cocci positivity in 1 blood culture bottle possible contaminant however given his comorbidities I have started him on empiric ceftriaxone and repeat blood cultures are pending Clearly something is going on with this patient with severe right-sided heart failure although precise etiology is unclear to me at this time. He is down for a paracentesis. Fluid will be sent for analysis including cytology. We will follow-up with results 08/09 Patient grew Staphylococcus Cohnii on 1 blood culture with 3 of the bottles having been negative. Patient does have a right-sided valvular dysfunction. No vegetations were seen on echocardiogram. His ascitic fluid shows 2+ white blood cells with 700 WBC and 4666 RBC. Total protein, LDH as well as cytology still pending. Patient remains on Lasix 40 mg IV although I wonder if this should be increased to twice a day to try move some of within is improved and his scrotal pain is also improved fluid 08/10Patient's weight has barely changed since admission losing less than 3 kg over the last 3 to 4 days despite diuresis as well as paracentesis. He does appear that he is not being adequately diuresed. I have increased his Lasix to 40 mg twice daily from 08/09. His output actually increased on August 09 with a - 1528 mL. At this point I will leave his Lasix at 40 mg twice daily. I however also note that he is hypochloremic and hyponatremic and so we will have to watch this very closely and be on the look out for contraction alkalosis. Kidney function today is barely improved but at least it is not getting worse. A short after all the tests that have obtained on this gentleman the only explanation Patient has a small woundulcer, present on admission, currently yielding gram- positive cocci in clusters likely skin west. Is currently on ceftriaxone empirically. I see no evidence of any systemic infection but antibiotics can be adjusted if needed. Ascitic fluid is no yielding any organism at this point. And although there was a positive 1 out of 4 blood culture this may well be a contaminant. We will continue to encourage diuresis as tolerated. If needed his Lasix can be increased but he does appear to have responded to the 80 mg daily and so we will leave it at this for now - Additional Information Resuscitation Status: Full Code Discharge Diet: Cardiac, Diabetic Discharge Activity: Activity As Tolerated, Balance Activity w/Rest, Weigh Daily Referrals: SHAYAN RODAS MD [Primary Care Provider] - 08/22/19 9:15 am ELBA SMITH MD [ACTIVE STAFF] - (Someone will call you with appointment time and date.) Prescriptions: Spironolactone [Aldactone 25 mg Tablet] 25 mg PO QAM #30 tablet Potassium Chloride [Klor-Con 10 Meq Tablet ER] 20 meq PO Q12 #120 tablet.er Furosemide [Lasix 40 mg Tablet] 40 mg PO BID #60 tablet Gabapentin [Neurontin 300 mg Capsule] 300 mg PO Q8 #90 capsule Nitroglycerin [Nitro-Dur 2.5 mg (0.1 mg/Hr) Transdermal Ptch] 1 each TD DAILY #30 patch.td24 Lisinopril [Prinivil 5 mg Tablet] 2.5 mg PO Q12 #30 tablet Midodrine HCl [Proamatine 5 mg Tablet] 10 mg PO TID #180 tablet Home Medications: Apixaban [Eliquis 5 mg Tablet] 1 tab PO BID 08/07/19 Ascorbic Acid [Vitamin C 500 mg Tablet] 500 mg PO DAILY 08/07/19 Aspirin [Ecotrin 81 mg EC Tablet] 81 mg PO DAILY 08/07/19 Atorvastatin Calcium [Lipitor 80 mg Tablet] 80 mg PO QHS 08/07/19 Docusate Sodium [Colace 100 mg Capsule] 1 tab PO BID PRN 08/07/19 Eszopiclone [Lunesta] 1 mg PO QHS PRN 08/07/19 Fluticasone Propionate [Flonase Nasal [place] 50 Mcg/[place] 16 gm] 2 sprays NASL Q12 PRN 08/07/19 Guaifenesin [Mucinex] 1,200 mg PO BID 08/07/19 Loperamide HCl [Loperamide] 2 mg PO ASDIR PRN 08/07/19 Magnesium Oxide 400 mg PO DAILY 08/07/19 Melatonin [Melatonin 3 mg Tablet] 1 tab PO QHS PRN 08/07/19 Metoprolol Succinate [Toprol Xl 25 mg Tab.sr] 1 tab PO DAILY 08/07/19 Nitroglycerin [Nitrostat 0.4 mg (1/150 Gr) Tabs 25/Bottle] 1 tab SL Q5MP PRN 08/07/19 Omeprazole 20 mg PO DAILY 08/07/19 Simethicone [Mi-Acid] 80 mg PO TID PRN 08/07/19 Tamsulosin HCl [Flomax] 0.4 mg PO QHS 08/07/19 Trazodone HCl 50 mg PO QHS PRN MDD 4 TABS 08/07/19 Acetaminophen [Tylenol 325 mg Tablet] 650 mg PO Q4HP PRN tablet 08/19/19 Apixaban [Eliquis 5 mg Tablet] 5 mg PO BID tablet 08/19/19 Aspirin [Aspirin 81 mg Chewable Tablet] 81 mg PO DAILY tab.chew 08/19/19 Furosemide [Lasix 40 mg Tablet] 40 mg PO BID #60 tablet 08/19/19 Gabapentin [Neurontin 300 mg Capsule] 300 mg PO Q8 #90 capsule 08/19/19 Insulin Glargine,Hum.rec.anlog [Lantus Insulin 100 Unit/1 ml 10 ml] 15 unit SUBCUT QAM unit 08/19/19 Lisinopril [Prinivil 5 mg Tablet] 2.5 mg PO Q12 #30 tablet 08/19/19 Midodrine HCl [Proamatine 5 mg Tablet] 10 mg PO TID #180 tablet 08/19/19 Nitroglycerin [Nitro-Dur 2.5 mg (0.1 mg/Hr) Transdermal Ptch] 1 each TD DAILY #30 patch.td24 08/19/19 Potassium Chloride [Klor-Con 10 Meq Tablet ER] 20 meq PO Q12 #120 tablet.er 08/19/19 Spironolactone [Aldactone 25 mg Tablet] 25 mg PO QAM #30 tablet 08/19/19 History of Present Illiness History of Present Illness: H&P per Dr. 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 He is past medical history of 5 vessel bypass graft, diabetes, COPD, atrial fibrillation on Eliquis, hypertension, congestive heart failure with unknown ejection fraction, deafness and BPH. He presents with several days of worsening shortness of breath from baseline with a nonproductive cough it is associated with scrotal and lower extremity edema. He denies recent chest pain, nausea vomiting, change of diet or medications. However bag of medications have multiple full duplicates. He is found to have blood pressure of 85/50, pulse of 88 respirations 24 saturation of 92% on 3 L. He has massive volume overload with widespread pitting edema, acute renal failure and evidence of peripheral vascular disease with ulcer to the left medial malleolus and left lateral lower leg. He received Lasix and referred to the hospitalist for admission. Hospital Course Hospital Course: (1) CHF exacerbation Per previous physician: "likely decompensated acute on chronic systolic heart failure secondary to dietary and medication noncompliance complicated by hypotension.. 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 He will need cardiology follow-up closely after discharge. Beta-ezekiel, held ARB/LUIS inhibitor for renal failure; may consider starting Entresto in the future 08/13/2019 Added midodrine so that we can increase his cardiac meds and improve his diuresis in the setting of low blood pressure. Continue up titrating his cardiac meds, he will need close follow-up with cardiology outpatient We will check PVL BLE to look for DVT 08/14/2019 Consulted cardiology discussed case with Dr. Smith will see the patient today. Appreciate his help. PVL has not been done yet Increase midodrine for low BP on cardiac medications are being uptitrated 08/15/2019 Dobutamine continues, diuresing, legs and abdomen slightly less tense and less edematous 08/16/2019 Still on dobutamine drip. No notable improvement in edema of his abdomen or legs. I reviewed his EKGs and his echo. He does not meet criteria for cardiac resynchronization therapy but he should be monitored in case this changes in the future. Check for adrenal insufficiency given he has paradoxical low blood pressure in the setting of volume overload and this is severely limiting her ability to treat his volume overload. I say this is paradoxical because his pump failure is disproportionate to the degree of his hypotension and volume overload. I believe there is an underlying reason for his hypotension other than heart failure. Bret/renin ratio, a.m. cortisol 08/17/2019 Hormone levels are still pending Maxed out on midodrine Dobutamine continued per cardiology 08/19/2019 Cardiology consulted; primary management per Dr. Calderon No longer on dobutamine. Continues on lisinopril, metoprolol, aspirin and statin therapy. Diuresed with IV furosemide 40 mg every 8 hours; transitioned to p.o. furosemide at discharge with addition of spironolactone per Dr. Calderon. Cardiac diet Daily weights, strict I&O's. (2) Ascites Due to right heart failure Paracentesis done, fluid not consistent with SBP, consistent with transudate Repeat paracentesis ordered 08/16 for therapeutic purposes 08/19/2019 Repeat therapeutic paracentesis on day of discharge unsuccessful. (3) Acute renal failure 08/12/2019 Suspect cardiorenal superimposed on CKD 2 Trend BMP Diuresis as above 08/14/2019 Patient likely at baseline creatinine currently at 1.26 Trend BMP 08/19/2019 Continues to have good urinary output. Routine chemistry follow up per PCP (4) Hypotension Unclear etiology is heart failure is not as severe as would be expected for this degree of low BP Possible adrenal insufficiency, appropriate labs ordered 08/19/2019 Adrenal insufficiency labs are pending. Renin/aldosterone are send out labs that will not return for several more days. Doing well with Midodrine 10 mg 3 times daily. Changing position slowly/fall precautions (5) Pulmonary hypertension Likely secondary to LV and RV failure with volume overload Needs repeat echo after adequate diuresis is achieved; get RHC if pressures are still high at that point 08/13/2019 Still trying to adequately diurese patient. I continue to be concerned that he may have underlying primary pulmonary hypertension. We will not be able to tell until he has properly diuresed 08/15/2019 Diuresing with the addition of dobutamine on board now per Dr. Smith 08/19/[address] Calderon. (6) Atrial fibrillation 08/12/2019 Chronic A. fib Eliquis twice daily continued Rate control medications continued 08/13/2019 Rate primarily controlled, increasing rate control meds may be difficult with l ow BP 08/19/2019 Rate controlled on current regiment; metoprolol Anticoagulated on Eliquis (7) Diabetes mellitus Resume outpatient management on discharge. (8) Dyslipidemia Statin Echocardiogram reveals an ejection fraction of 45% with normal left ventricular wall thickness and right ventricular dilatation and biatrial dilatation there is no thrombus patient has severe pulmonary hypertension with RVSP of at least 75 mmHg which is consistent with his massive anasarca. Abdominal ultrasound revealed ascites especially in the right lower quadrant, splenomegaly, cholelithiasis and fatty liver. Patient had a recent PET scan done which did not confirm any malignancy LFTs done on admission were grossly negative with normal AST ALT and bilirubin. Alkaline phosphatase was mildly elevated. Noted to have a gram-positive cocci positivity in 1 blood culture bottle possible contaminant however given his comorbidities I have started him on empiric ceftriaxone and repeat blood cultures revealed contamination. Physical Exam Vital Signs: Temp Pulse Resp BP Pulse Ox 97.7 F 71 17 104/59 L 97 08/19/19 17:07 08/19/19 17:07 08/19/19 17:08/19/19 17:08/19/19 17:07 Intake & Output 08/19/19 08/20/19 08/21/19 06:59 06:59 06:59 Intake Total 2450 701 Output Total 2500 750 Balance -50 -49 Weight 106.9 kg Additional comments: Exam unchanged from progress note dated same day of discharge. Patient is discharged in stable condition, maintaining oxygen saturations while ambulatory on room air. Results Laboratory Results: WBC 4.4 10^3/uL (4.0-10.5) 08/11/19 05:12 RBC 4.14 10^6/uL (4.35-5.55) L 08/11/19 05:12 Hgb 12.2 g/dL (13.5-17.0) L 08/11/19 05:12 Hct 36.8 % (37.9-51.0) L 08/11/19 05:12 MCV 89 fl (80-97) 08/11/19 05:12 MCH 29.4 pg (27.0-33.4) 08/11/19 05:12 MCHC 33.0 g/dL (32.0-36.0) 08/11/19 05:12 RDW 16.0 % (11.5-14.0) H 08/11/19 05:12 Plt Count 175 10^3/uL (150-450) 08/11/19 05:12 Lymph % (Auto) 16.9 % (13-45) 08/11/19 05:12 [place] % (Auto) 13.1 % (3-13) H 08/11/19 05:12 Eos % (Auto) 1.2 % (0-6) 08/11/19 05:12 Baso % (Auto) 0.7 % (0-2) 08/11/19 05:12 Reticulocyte # 0.044 10^6/uL (0.028-0.122) 08/07/19 01:22 Absolute Neuts (auto) 3.0 10^3/uL (1.7-8.2) 08/11/19 05:12 Absolute Lymphs (auto) 0.7 10^3/uL (0.5-4.7) 08/11/19 05:12 Absolute Monos (auto) 0.6 10^3/uL (0.1-1.4) 08/11/19 05:12 Absolute Eos (auto) 0.1 10^3/uL (0.0-0.6) 08/11/19 05:12 Absolute Basos (auto) 0.0 10^3/uL (0.0-0.2) 08/11/19 05:12 Seg Neutrophils % 68.1 % (42-78) 08/11/19 05:12 Retic Count (auto) 1.16 % (0.66-2.85) 08/07/19 01:22 PT 17.2 SEC (11.4-15.4) H 08/19/19 06:10 INR 1.40 08/19/19 06:10 APTT 35.8 SEC (23.5-35.8) 08/18/19 02:53 Sodium 135.1 mmol/L (137-145) L 08/19/19 15:25 Potassium 4.4 mmol/L (3.6-5.0) 08/19/19 15:25 Chloride 95 mmol/L (98-107) L 08/19/19 15:25 Carbon Dioxide 30 mmol/L (22-30) 08/19/19 15:25 Anion Gap 10 (5-19) 08/19/19 15:25 BUN 24 mg/dL (7-20) H 08/19/19 15:25 Creatinine 0.98 mg/dL (0.52-1.25) 08/19/19 15:25 Est GFR ( Amer) > 60 (>60) 08/19/19 15:25 Est GFR (MDRD) Non-Af > 60 (>60) 08/19/19 15:25 Glucose 126 mg/dL (75-110) H 08/19/19 15:25 POC Glucose 150 mg/dL (70-110) H 08/19/19 16:16 Lactic Acid 0.8 mmol/L (0.7-2.1) 08/07/19 01:22 Calcium 8.4 mg/dL (8.4-10.2) 08/19/19 15:25 Magnesium 2.6 mg/dL (1.6-2.3) H 08/16/19 06:31 Iron 53.3 ug/dL (49-181) 08/07/19 01:22 TIBC 358 ug/dL (250-450) 08/07/19 01:22 % Saturation 15 % 08/07/19 01:22 Ferritin 15.40 ng/mL (17.9-464.0) L 08/07/19 01:22 Total Bilirubin 0.5 mg/dL (0.2-1.3) 08/12/19 05:36 Direct Bilirubin 0.2 mg/dL (0.0-0.4) 08/12/19 05:36 Neonat Total Bilirubin Not Reportable 08/12/19 05:36 Neonat Direct Bilirubin Not Reportable 08/12/19 05:36 Neonat Indirect Bili Not Reportable 08/12/19 05:36 AST 33 U/L (17-59) 08/12/19 05:36 ALT 29 U/L (<50) 08/12/19 05:36 Alkaline Phosphatase 145 U/L (38-126) H 08/12/19 05:36 Lactate Dehydrogenase 191 U/L (120-246) 08/18/19 02:53 Creatine Kinase 43 U/L (55-170) L 08/07/19 19:15 CK-MB (CK-2) 1.49 ng/mL (<4.55) 08/07/19 19:15 Troponin I 0.013 ng/mL 08/07/19 19:15 NT-Pro-B Natriuret Pep 4730 pg/mL (<450) H 08/07/19 01:22 Total Protein 6.7 g/dL (6.3-8.2) 08/18/19 02:53 Albumin 3.2 g/dL (3.5-5.0) L 08/12/19 05:36 Renin Activity 2.136 ng/mL/hr (0.167-5.38) 08/16/19 17:07 Aldosterone 2.6 ng/dL (0.0-30.0) 08/16/19 17:07 Aldosterone/Renin Ratio 1.2 (0.0-30.0) 08/16/19 17:07 Vitamin B12 276.0 pg/mL (239-931) 08/07/19 01:22 Folate 8.22 ng/mL (>2.76) 08/07/19 01:22 TSH 3.17 uIU/mL (0.47-4.68) 08/07/19 01:22 Cortisol AM Sample 14.70 ug/dL (4.46-22.7) 08/17/19 05:55 ACTH 24.8 pg/mL (7.2-63.3) 08/17/19 05:55 Urine Color YELLOW 08/07/19 03:15 Urine Appearance SLIGHTLY-CLOUDY 08/07/19 03:15 Urine pH 5.0 (5.0-9.0) 08/07/19 03:15 Ur Specific Cass 1.014 08/07/19 03:15 Urine Protein NEGATIVE mg/dL (NEGATIVE) 08/07/19 03:15 Urine Glucose (UA) NEGATIVE mg/dL (NEGATIVE) 08/07/19 03:15 Urine Ketones NEGATIVE mg/dL (NEGATIVE) 08/07/19 03:15 Urine Blood NEGATIVE (NEGATIVE) 08/07/19 03:15 Urine Nitrite NEGATIVE (NEGATIVE) 08/07/19 03:15 Urine Bilirubin NEGATIVE (NEGATIVE) 08/07/19 03:15 Urine Urobilinogen 4.0 mg/dL (<2.0) H 08/07/19 03:15 Ur Leukocyte Esterase LARGE (NEGATIVE) H 08/07/19 03:15 Urine WBC (Auto) 134 /HPF 08/07/19 03:15 Urine RBC (Auto) 5 /HPF 08/07/19 03:15 U Hyaline Cast (Auto) 5 /LPF 08/07/19 03:15 Urine Bacteria (Auto) TRACE /HPF 08/07/19 03:15 Urine WBC Clumps FEW /HPF 08/07/19 03:15 Squamous Epi Cells Auto 1 /HPF 08/07/19 03:15 Urine Mucus (Auto) RARE /LPF 08/07/19 03:15 Urine Ascorbic Acid 40 (NEGATIVE) H 08/07/19 03:15 Fluid Type PERITONEAL 08/09/19 15:10 Fluid Source ASCITES 08/09/19 15:10 Fluid Color YELLOW 08/09/19 15:10 Fluid Appearance HAZY 08/09/19 15:10 Fluid Viscosity LIQUID 08/09/19 15:10 Fluid WBC 700 /uL 08/09/19 15:10 Fluid RBC 4666 /uL 08/09/19 15:10 Fluid Seg Neutrophils 14 % 08/09/19 15:10 Fluid Lymphocytes 63 % 08/09/19 15:10 Fluid Monocytes 23 % 08/09/19 15:10 Fluid Eosinophils 0 % 08/09/19 15:10 Fluid Basophils 0 % 08/09/19 15:10 Fluid Total Protein 3.3 g/dL (.) 08/09/19 15:10 Fluid LDH 123 IU/L (.) 08/09/19 15:10 Stl C. Difficile GDH Ag NEGATIVE (NEGATIVE) 08/18/19 22:45 Stl C.difficile Tox A&B NEGATIVE (NEGATIVE) 08/18/19 22:45 Urine Opiates Screen NEGATIVE 08/07/19 03:15 Urine Methadone Screen NEGATIVE 08/07/19 03:15 Ur Barbiturates Screen NEGATIVE 08/07/19 03:15 Ur Phencyclidine Scrn NEGATIVE 08/07/19 03:15 Ur Amphetamines Screen NEGATIVE 08/07/19 03:15 U Benzodiazepines Scrn NEGATIVE 08/07/19 03:15 Urine Cocaine Screen NEGATIVE 08/07/19 03:15 U Marijuana (THC) Screen NEGATIVE 08/07/19 03:15 08/07/19 08/07/19 08/07/19 01:22 01:22 08:32 CK-MB (CK-2) 1.70 1.76 Troponin I < 0.012 0.013 NT-Pro-B Natriuret Pep 4730 H 08/07/19 08/07/19 13:06 19:15 CK-MB (CK-2) 1.44 1.49 Troponin I 0.013 0.013 NT-Pro-B Natriuret Pep Impressions: Chest X-Ray 08/07/19 01:19 IMPRESSION: No significant change in the appearance of the chest. Abdomen Ultrasound 08/08/19 00:00 IMPRESSION: 1. Ascites, most pronounced in the right lower quadrant. 2. Splenomegaly. 3. Cholelithiasis. 4. Fatty liver. Paracentesis Ultrasound 08/09/19 00:00 IMPRESSION: Ultrasound-guided paracentesis. Specimen sent for testing as per attending physician Venous Doppler Study 08/15/19 00:00 IMPRESSION: NO EVIDENCE DVT OR SVT IN EITHER LEG. Abdomen Ultrasound 08/19/19 00:00 IMPRESSION: MINIMAL DIFFUSE ASCITES WITH LIMITED SAFE ACCESS. PARACENTESIS NOT PERFORMED. Plan Plan of Treatment: Follow-up with your primary care provider within 1 week. Follow-up with Dr. Calderon within 1 week Take your medication as prescribed. Eat a heart healthy diet. Do NOT smoke. Return to emergency department as needed for concerning symptoms. Time Spent: Greater than 30 Minutes Stroke Is this a Stroke Patient?: No Acute Heart Failure - Is this a Heart Failure Patient?: Yes Documentation of LVEF assessment?: Yes LVEF < 40%?: No- if no continue to question #3 3. Anticoagulant therapy for permanect/persistent/paraoxysmal Afib or Aflutter: Yes Follow-up Appointment scheduled within 7 days?: Yes
== END 2019-08-19 18:03 | disposition home or self-care (01) | DRG 291 ==
LOC: ER 00:53 → EH 05:34 → 3W 07:41 → 3S 19:42
PROVIDERS: ADMIT Internal Medicine; ATTEND Registered Nurse
PROC: 0W9G30Z Drainage of Peritoneal Cavity with Drainage Device, Percutaneous Approach (ICD-10-PCS; principal; 2019-08-09)
DX: I13.0 Hypertensive heart and chronic kidney disease with heart failure and stage 1 through stage 4 chronic kidney disease, or unspecified chronic kidney disease (principal); I50.43 Acute on chronic combined systolic (congestive) and diastolic (congestive) heart failure; R18.8 Other ascites; N17.9 Acute kidney failure, unspecified; N39.0 Urinary tract infection, site not specified; E87.1 Hypo-osmolality and hyponatremia; K76.6 Portal hypertension; I48.20 Chronic atrial fibrillation, unspecified; I27.20 Pulmonary hypertension, unspecified; I73.9 Peripheral vascular disease, unspecified; E78.5 Hyperlipidemia, unspecified; R16.2 Hepatomegaly with splenomegaly, not elsewhere classified; E11.22 Type 2 diabetes mellitus with diabetic chronic kidney disease; N18.2 Chronic kidney disease, stage 2 (mild); I95.9 Hypotension, unspecified; E11.65 Type 2 diabetes mellitus with hyperglycemia; J44.9 Chronic obstructive pulmonary disease, unspecified; I77.1 Stricture of artery; N50.89 Other specified disorders of the male genital organs; E87.8 Other disorders of electrolyte and fluid balance, not elsewhere classified; L89.529 Pressure ulcer of left ankle, unspecified stage; N40.0 Benign prostatic hyperplasia without lower urinary tract symptoms; I25.2 Old myocardial infarction; Z60.2 Problems related to living alone; Z79.01 Long term (current) use of anticoagulants; Z95.1 Presence of aortocoronary bypass graft; Z79.82 Long term (current) use of aspirin; Z79.891 Long term (current) use of opiate analgesic; Z79.4 Long term (current) use of insulin; Z79.899 Other long term (current) drug therapy; Z71.6 Tobacco abuse counseling
CPT/HCPCS: 36415; 49083; 71045; 76700; 76705; 80048; 80053; 80307; 81001; 82024; 82088; 82533; 82550; 82553; 82607; 82728; 82746; 82962; 83540; 83550; 83605; 83615; 83735; 83880; 84155; 84157; 84244; 84443; 84484; 85025; 85045; 85610; 85730; 87040; 87070; 87075; 87077; 87186; 87205; 87324; 87449; 89050; 93005; 93010; 93306; 93970; 93976; 96365; 96375; 99285; J0696; J1250; J1815; J1940; J2270; J3490

== ENCOUNTER → 2019-12-06 | Outpatient (CLI) | payer MEDICARE, OTHER ==
[2019-12-06 14:37] LABS: ABSOLUTE EOSINOPHILS # (AUTO) 0.1 10^3/uL (0.0-0.6); ABSOLUTE LYMPHOCYTES (AUTO) 0.8 10^3/uL (0.5-4.7); ABSOLUTE MONOCYTES (AUTO) 0.5 10^3/uL (0.1-1.4); ABSOLUTE NEUT (AUTO) 3.9 10^3/uL (1.7-8.2); BASOPHILS % (AUTO) 0.4 % (0-2); EOSINOPHILS % (AUTO) 1.6 % (0-6); HEMATOCRIT 39.5 % (37.9-51.0); HEMOGLOBIN 13.2 g/dL (13.5-17.0); LYMPHOCYTES % (AUTO) 14.5 % (13-45); MEAN CORPUSCULAR HEMOGLOBIN 32.1 pg (27.0-33.4); MEAN CORPUSCULAR HGB CONC 33.3 g/dL (32.0-36.0); MEAN CORPUSCULAR VOLUME 96 fl (80-97); MONOCYTES % (AUTO) 9.1 % (3-13); PLATELET COUNT 213 10^3/uL (150-450); RED CELL DISTRIBUTION WIDTH 20.9 % (11.5-14.0); SEGMENTED NEUTROPHILS % (AUTO) 74.4 % (42-78); TOTAL CELLS COUNTED % (AUTO) 100 %; WHITE BLOOD COUNT 5.2 10^3/uL (4.0-10.5)
[2019-12-06 14:57] LABS: ALBUMIN 3.6 g/dL (3.5-5.0); ALKALINE PHOSPHATASE 181 U/L (38-126); ANION GAP 7 (5-19); ASPARTATE AMINO TRANSFERASE 50 U/L (17-59); BILIRUBIN,DIRECT 0.4 mg/dL (0.0-0.4); BILIRUBIN,TOTAL 0.7 mg/dL (0.2-1.3); BLOOD UREA NITROGEN 16 mg/dL (7-20); CALCIUM 8.6 mg/dL (8.4-10.2); CARBON DIOXIDE 26 mmol/L (22-30); CHLORIDE 102 mmol/L (98-107); GLUCOSE 123 mg/dL (75-110); POTASSIUM 5.2 mmol/L (3.6-5.0); TOTAL PROTEIN 7.1 g/dL (6.3-8.2)
[2019-12-07 15:35] LABS: C DIFFICILE GDH NEGATIVE (NEGATIVE)
== END ==
LOC: OD 13:25
PROVIDERS: ATTEND Physician Assistant
DX: R19.7 Diarrhea, unspecified (principal)
CPT/HCPCS: 36415; 80053; 83520; 83690; 85025; 87177; 87205; 87324; 87449

== ENCOUNTER 2020-02-13 01:10 | Inpatient (IN) | payer MEDICARE ==
[2020-02-13 01:41] LABS: ABSOLUTE EOSINOPHILS # (AUTO) 0.1 10^3/uL (0.0-0.6); ABSOLUTE LYMPHOCYTES (AUTO) 0.6 10^3/uL (0.5-4.7); ABSOLUTE MONOCYTES (AUTO) 0.4 10^3/uL (0.1-1.4); BASOPHILS % (AUTO) 0.5 % (0-2); HEMATOCRIT 40.2 % (37.9-51.0); HEMOGLOBIN 13.1 g/dL (13.5-17.0); MEAN CORPUSCULAR HEMOGLOBIN 32.8 pg (27.0-33.4); MEAN CORPUSCULAR HGB CONC 32.6 g/dL (32.0-36.0); MEAN CORPUSCULAR VOLUME 101 fl (80-97); MONOCYTES % (AUTO) 8.6 % (3-13); PLATELET COUNT 260 10^3/uL (150-450); RED CELL DISTRIBUTION WIDTH 17.7 % (11.5-14.0); SEGMENTED NEUTROPHILS % (AUTO) 78.9 % (42-78); TOTAL CELLS COUNTED % (AUTO) 100 %; WHITE BLOOD COUNT 5.1 10^3/uL (4.0-10.5)
[2020-02-13 01:42] LABS: VENOUS BLOOD BASE EXCESS -1.3 mmol/L; VENOUS BLOOD HCO3 28.4 mmol/L (20-32); VENOUS BLOOD PH 7.2 (7.30-7.42)
[2020-02-13 01:51] LABS: VENOUS BLOOD PCO2 73.7 mmHg (35-63)
[2020-02-13 02:01] LABS: ALBUMIN 3.3 g/dL (3.5-5.0); ALKALINE PHOSPHATASE 150 U/L (38-126); ANION GAP 13 (5-19); ASPARTATE AMINO TRANSFERASE 33 U/L (17-59); BILIRUBIN,DIRECT 0.4 mg/dL (0.0-0.4); BILIRUBIN,TOTAL 0.6 mg/dL (0.2-1.3); BLOOD UREA NITROGEN 47 mg/dL (7-20); CALCIUM 7.9 mg/dL (8.4-10.2); CARBON DIOXIDE 27 mmol/L (22-30); CHLORIDE 95 mmol/L (98-107); GLUCOSE 194 mg/dL (75-110); POTASSIUM 4.6 mmol/L (3.6-5.0); TOTAL PROTEIN 6.3 g/dL (6.3-8.2)
--- NOTE | 2020-02-13 02:07 | RADIOLOGY REPORT (SQ) ---
CLINICAL HISTORY: hx liver failure; acute abdomen swelling; SOB COMPARISON: 07/18/2019. 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 Sternotomy was performed. There is bibasilar airspace disease. There is no pleural effusion. There is no pneumothorax. There are no acute osseous findings. IMPRESSION: Worsening bibasilar pneumonia.
[2020-02-13 02:23] LABS: PROTHROMBIN TIME 18.3 SEC (11.4-15.4)
[2020-02-13] MEDS ORDERED: FENTANYL CITRATE INJ/PF 100 MCG/2 ML AMPUL IV ONE (03:10)
[2020-02-13] MEDS ORDERED: CEFTRIAXONE 1 GM/D5W RTU 1 GM/50 ML RTUPB IV ONE (03:10)
[2020-02-13] MEDS ORDERED: CEFTRIAXONE 2 GM/D5W RTU 2 GM/50 ML RTUPB IV ONE (03:16)
[2020-02-13 04:08] LABS: A TYPE INFLUENZA AG NEGATIVE (NEGATIVE); B INFLUENZA AG NEGATIVE (NEGATIVE)
[2020-02-13 04:17] LABS: APPEARANCE,URINE SLIGHTLY-CLOUDY; BILIRUBIN,URINE NEGATIVE (NEGATIVE); COLOR,URINE YELLOW; GLUCOSE, URINE NEGATIVE (NEGATIVE); KETONES,URINE NEGATIVE (NEGATIVE); LEUKOCYTE ESTERASE,URINE MODERATE (NEGATIVE); NITRITE,URINE NEGATIVE (NEGATIVE); PROTEIN,URINE NEGATIVE (NEGATIVE); URINE SPECIFIC GRAVITY 1.014
--- NOTE | 2020-02-13 04:38 | ER Document Report ---
ED GI/ - General Chief Complaint: Shortness Of Breath Stated Complaint: SOB Time Seen by Provider: 02/13/20 02:31 TRAVEL OUTSIDE OF THE [place] IN LAST 30 DAYS: No - HPI Notes: 02/13/20 04:31 Patient is a 74-year-old male with a past medical history of CHF who presents with shortness of breath and leg swelling. Patient states he has gained a significant amount of weight in the past 12 days. He states that his legs are swollen into the scrotum and the abdomen. He is also short of breath. Per reports, patient was 82% on room air when EMS arrived and was smoking a cigarette. He states he has had a dry cough but nothing is coming up. No fevers. Patient has been taking Eliquis and his lasix and his other medications as prescribed. He also has a history of ascites and has had paracentesis before in the past. States he only drinks on occasion now and not daily. He is a very poor historian and is very hard of hearing. 02/13/20 04:33 - Related Data Allergies/Adverse Reactions: No Known Allergies Allergy (Unverified 07/25/15 00:42) Past Medical History - General Information source: Patient - Social History Smoking Status: Current Every Day Smoker Chew tobacco use (# tins/day): No Frequency of alcohol use: Occasional Drug Abuse: None Family History: COPD, Hypertension - Past Medical History Cardiac Medical History: Reports: Hx Atrial Fibrillation, Hx Congestive Heart Failure, Hx Heart Attack, Hx Hypertension Pulmonary Medical History: Reports: Hx Pneumonia Endocrine Medical History: Reports: Hx Diabetes Mellitus Type 2 Renal/ Medical History: Reports: Hx Benign Prostatic Hyperplasia Psychiatric Medical History: Denies: Hx Depression Past Surgical History: Reports: Hx Appendectomy, Hx Cardiac Catheterization, Hx Cardiac Surgery Review of Systems - Review of Systems Notes: CONSTITUTIONAL: No fever, fatigue or weight loss. SKIN: No rash. HENT: No congestion, ear pain, or sore throat. EYES: No recent vision problems or eye pain. CARDIOVASCULAR: Positive for pitting edema in both lower legs into the abdomen. RESPIRATORY: Positive for dry cough and shortness of breath. GASTROINTESTINAL: No nausea, vomiting, bloody stools or diarrhea. Positive for abdominal pain. GENITOURINARY: No dysuria. MUSCULOSKELETAL: No joint pain or swelling. LYMPHATIC: No swollen glands. NEUROLOGIC: No seizures. No headache, focal weakness or sensory changes. HEMATOLOGIC: No unusual bruising or bleeding. PSYCHIATRIC: No depression or anxiety. Physical Exam - Vital signs Vitals: Resp Pulse Ox 17 97 02/13/20 01:16 02/13/20 01:16 - General In distress: Mild Notes: VITAL SIGNS: On 2L O2 GENERAL: Mild distress HEAD: Normal with no signs of head trauma. EYES: EOMI, conjunctiva normal, no discharge. EARS: Hard of hearing NOSE: Normal. NECK: Normal range of motion, no tenderness, supple, no lymphadenopathy, No adenopathy, no JVD. CHEST: Wheezing and coarse lung sounds bilaterally CARDIAC: Regular rate and rhythm. S1 and S2, without murmurs, gallops, or rubs. VASCULAR: Bilateral pitting edema in the legs, abdomen, back. ABDOMEN: Distended abdomen. GENITOURINARY: Normal, No tenderness LYMPATHTIC: No lymphadenopathy noted. MUSCULOSKELETAL: Good range of motion of all major joints. . NEUROLOGICAL: Alert and oriented x 3. No focal sensory or strength deficits. Speech normal. Follows commands appropriately. PSYCHIATRIC: Normal Affect, judgement and mood. SKIN: Normal appearance with no rashes or lesions. Course - Re-evaluation Re-evalutation: 02/13/20 04:36 CO2 was high on his VBG. He also has a low pH. Patient's x-ray is concerning for pneumonia versus pulmonary edema. He does have a history of heart failure. Patient also has swelling in his abdomen with some pain. He is on Eliquis. I am unable to do a paracentesis at this time. He will be started on Rocephin and azithromycin for the pneumonia as well as possible SBP until he can get a paracentesis with IR while in the hospital. Patient will also be placed on BiPAP. I will discuss with the admitting doctor because he also has acute kidney injury. I have not ordered any Lasix or diuretics due to this. Patient will be admitted to the hospitalist for further work up. 02/14/20 01:44 - Vital Signs Vital signs: Temp Pulse Resp BP Pulse Ox 97.6 F 86 15 97/60 L 97 02/13/20 12:33 02/13/20 14:00 02/13/20 12:33 02/13/20 12:33 02/14/20 00:44 - Laboratory Result Diagrams: 02/13/20 01:22 02/13/20 01:22 Laboratory results interpreted by me: 02/13/20 02/13/20 02/13/20 01:22 01:22 01:22 RBC 4.00 L Hgb 13.1 L MCV 101 H RDW 17.7 H Lymph % (Auto) 11.0 L Seg Neutrophils % 78.9 H PT VBG pH VBG pCO2 Sodium 134.8 L Chloride 95 L BUN 47 H Creatinine 1.70 H Est GFR ( Amer) 48 L Est GFR (MDRD) Non-Af 39 L Glucose 194 H Calcium 7.9 L Alkaline Phosphatase 150 H Ammonia < 8.7 L Albumin 3.3 L Urine Blood Urine Urobilinogen Ur Leukocyte Esterase Urine Ascorbic Acid 02/13/20 02/13/20 02/13/20 01:22 01:22 02:43 RBC Hgb MCV RDW Lymph % (Auto) Seg Neutrophils % PT 18.3 H VBG pH 7.20 L VBG pCO2 73.7 H* Sodium Chloride BUN Creatinine Est GFR ( Amer) Est GFR (MDRD) Non-Af Glucose Calcium Alkaline Phosphatase Ammonia Albumin Urine Blood SMALL H Urine Urobilinogen 4.0 H Ur Leukocyte Esterase MODERATE H Urine Ascorbic Acid 20 H - Diagnostic Test Radiology reviewed: Image reviewed, Reports reviewed - EKG Interpretation by Me Rate: Normal Rhythm: A.Fib When compared to previous EKG there are: No significant change Additional EKG results interpreted by me: 02/13/20 04:38 This atrial fibrillation at a rate of 98. QTc 455. No acute ST changes. EKG is similar to previous. Critical Care Note - Critical Care Note Total time excluding time spent on procedures (mins): 30 Comments: Upon my evaluation, this patient had a high probability of imminent or life- threatening deterioration due to acute respiratory failure, which required my direct attention, intervention, and personal management. I have personally provided 30 minutes of critical care time. Time includes review of laboratory data, radiology results, discussion with consultants, and monitoring for potential decompensation. Interventions were performed as documented above. Discharge - Discharge Clinical Impression: Acute respiratory failure with hypercapnia, BRUCE (acute kidney injury), Suspected COVID-19 virus infection Acute exacerbation of CHF (congestive heart failure) Qualifiers: Heart failure type: combined systolic and diastolic Qualified Code(s): I50.43 - Acute on chronic combined systolic (congestive) and diastolic (congestive) heart failure Pneumonia Qualifiers: Pneumonia type: due to unspecified organism Laterality: bilateral Lung location: unspecified part of lung Qualified Code(s): J18.9 - Pneumonia, unspecified organism Condition: Stable Disposition: ADMITTED INPATIENT Admitting Provider[facility] Unit Admitted: [facility]
[2020-02-13] MEDS ORDERED: AZITHROMYCIN INJ 500 MG VIAL IV ONE (04:40)
[2020-02-13] MEDS ORDERED: LORAZEPAM INJ 2 MG/1 ML VIAL IV ONE (05:21)
--- NOTE | 2020-02-13 06:25 | EKG REPORT ---
SEVERITY:- ABNORMAL ECG - ATRIAL FIBRILLATION LOW VOLTAGE IN FRONTAL LEADS PROBABLE RIGHT VENTRICULAR HYPERTROPHY NONSPECIFIC T ABNORMALITIES, LATERAL LEADS : Confirmed by: Riley Coleman MD 13-Feb-2020 06:23:27
[2020-02-13] MEDS ORDERED: GLUCAGON,HUMAN RECOMB 1 MG INJ IM PRN (08:15)
[2020-02-13] MEDS ORDERED: DEXTROSE 40% GEL 15 GM TUBE PO PRN ×2 (08:15)
[2020-02-13] MEDS ORDERED: DEXTROSE 50%-WATER 25 GM/50 ML DISP.SYRIN IV PRN ×2 (08:15)
[2020-02-13] MEDS ORDERED: IPRATROPIUM/ALBUTEROL 0.5-2.5 MG/3 ML AMPUL NEB PRN (09:04)
--- NOTE | 2020-02-13 10:44 | PDOC H&P ---
History of Present Illness Admission Date/PCP: 02/13/20 05:05 GINGER SETHI MD Patient complains of: Shortness of the breathAnd leg swelling History of Present Illness: SANDRA MAX is a 74 year old male This is a 74-year-old male's with a significant history of the congestive heart failure history of the cirrhosis of the liver history of the significant neurop athy hypertension hyperlipidemia very hard to hearing and very poor historians currently see a Dr. Ashley regularly as outpatient and Dr. Hernandes have a history of the paracentesis done in the past came today's in the emergency department with a complaint of increasing the more swelling for the last 12 daysAnd increasing more shortness of the breath In the emergency department patient oxygen saturation was 82 CO2 was high on a VBG patient was put on the BiPAP and ordered a Covid test because of the ongoing pandemic When I saw the patient in the floor patient was on the BiPAP very hard to hearing as usable patient with significant swelling in the legs patient also have a history of the fall as per the nursing finding patient with some abrasions and the patient on Eliquis otherwise patient is alert awake as usual very hard to hearing some mild distress on the BiPAP Patient at this point will order the ABG order the CT of the head to further evaluate We will order the CT scan of the chest abdomen and pelvis with her patients need a paracentesis or not I believe patients live with his son are nearby will contact with his son regarding the patient's current conditions with the multiple comorbidity with the poor historians Also have a chronic pain issues which currently was giving the gabapentin and change to the Lyrica but other than that patient also on the Lasix Discussed with the Dr. ASHLEY and consulted pulmonary for the respiratory failure repeat the ABG and a CT scan today discussed with the nursing staff Past Medical History Cardiac Medical History: Reports: Atrial Fibrillation, Congestive Heart Failure, Myocardial Infarction, Hypertension Pulmonary Medical History: Reports: Chronic Obstructive Pulmonary Disease (COPD), Pneumonia Endocrine Medical History: Reports: Diabetes Mellitus Type 2 Renal/ Medical History: Reports: Chronic Kidney Disease GI Medical History: Reports: Cirrhosis, Gastroesophageal Reflux Disease Psychiatric Medical History: Reports: Depression, General Anxiety Disorder Past Surgical History Past Surgical History: Reports: Appendectomy, Cardiac Catheterization Social History Information Source: Patient Smoking Status: Current Every Day Smoker Electronic Cigarette use?: No Frequency of Alcohol Use: None Hx Recreational Drug Use: No Drugs: None Hx Prescription Drug Abuse: No Family History Family History: Reviewed & Not Pertinent, COPD, Hypertension Parental Family History Reviewed: Yes Children Family History Reviewed: Yes Sibling(s) Family History Reviewed.: Yes Medication/Allergy Home Medications: Ascorbic Acid [Vitamin C 500 mg Tablet] 500 mg PO DAILY 08/07/19 Aspirin [Ecotrin 81 mg EC Tablet] 81 mg PO DAILY 08/07/19 Atorvastatin Calcium [Lipitor 80 mg Tablet] 80 mg PO QHS 08/07/19 Docusate Sodium [Colace 100 mg Capsule] 1 tab PO BID PRN 08/07/19 Loperamide HCl [Loperamide] 2 mg PO ASDIR PRN 08/07/19 Magnesium Oxide 400 mg PO DAILY 08/07/19 Melatonin [Melatonin 3 mg Tablet] 1 tab PO QHS PRN 08/07/19 Tamsulosin HCl [Flomax] 0.4 mg PO QHS 08/07/19 Trazodone HCl 50 mg PO HSP PRN 08/07/19 Furosemide [Lasix 40 mg Tablet] 40 mg PO BID #60 tablet 08/19/19 Gabapentin [Neurontin 300 mg Capsule] 300 mg PO Q8 #90 capsule 08/19/19 Lisinopril [Prinivil 5 mg Tablet] 2.5 mg PO Q12 #30 tablet 08/19/19 Midodrine HCl [Proamatine 5 mg Tablet] 10 mg PO TID #180 tablet 08/19/19 Nitroglycerin [Nitro-Dur 2.5 mg (0.1 mg/Hr) Transdermal Ptch] 1 each TD DAILY #30 patch.td24 08/19/19 Potassium Chloride [Klor-Con 10 Meq Tablet ER] 20 meq PO Q12 #120 tablet.er 08/19/19 Spironolactone [Aldactone 25 mg Tablet] 25 mg PO QAM #30 tablet 08/19/19 Apixaban [Eliquis 2.5 mg Tablet] 2.5 mg PO BID 02/13/20 Ferrous Sulfate [Feosol 325 mg Tablet] 325 mg PO DAILY 02/13/20 Fluticasone/Umeclidin/Vilanter [Trelegy 100-62.5-25 Mcg Ellipta 14 Dose/Dpi] 1 inh IH DAILY 02/13/20 Metoprolol Tartrate [Lopressor 50 mg Tablet] 50 mg PO Q12 02/13/20 Pregabalin [Lyrica 75 mg Capsule] 75 mg PO Q12 02/13/20 Allergies/Adverse Reactions: No Known Allergies Allergy (Unverified 07/25/15 00:42) Review of Systems Constitutional: PRESENT: fatigue. ABSENT: chills, fever(s), headache(s), weight gain, weight loss Eyes: ABSENT: visual disturbances Ears: ABSENT: hearing changes Cardiovascular: PRESENT: dyspnea on exertion, edema. ABSENT: chest pain, orthropnea, palpitations Respiratory: ABSENT: cough, hemoptysis Gastrointestinal: PRESENT: bloating. ABSENT: abdominal pain, constipation, diarrhea, hematemesis, hematochezia, nausea, vomiting Genitourinary: ABSENT: dysuria, hematuria Musculoskeletal: ABSENT: joint swelling Integumentary: ABSENT: rash, wounds Neurological: ABSENT: abnormal gait, abnormal speech, confusion, dizziness, focal weakness, syncope Psychiatric: ABSENT: anxiety, depression, homidical ideation, suicidal ideation Endocrine: ABSENT: cold intolerance, heat intolerance, menstrual abnormalities, polydipsia, polyuria Hematologic/Lymphatic: ABSENT: easy bleeding, easy bruising, lymphadenopathy Physical Exam Vital Signs: Temp Pulse Resp BP Pulse Ox 97.5 F 101 H 19 105/97 H 91 L 02/13/20 07:55 02/13/20 07:55 02/13/20 07:55 02/13/20 07:55 02/13/20 07:55 Intake & Output 02/12/20 02/13/20 02/14/20 06:59 06:59 06:59 Intake Total 50 Balance 50 Weight 123.7 kg 122.1 kg Physical Exam: Currently on a BiPAPPatient is very hard to hearing General appearance: PRESENT: mild distress, well-developed, well-nourished Head exam: PRESENT: atraumatic, normocephalic Eye exam: PRESENT: conjunctiva pink, EOMI, PERRLA. ABSENT: scleral icterus Ear exam: PRESENT: normal external ear exam Mouth exam: PRESENT: moist, tongue midline Neck exam: PRESENT: full ROM. ABSENT: carotid bruit, JVD, lymphadenopathy, thyromegaly Respiratory exam: PRESENT: decreased breath sounds Cardiovascular exam: PRESENT: RRR. ABSENT: diastolic murmur, rubs, systolic murmur Vascular exam: PRESENT: normal capillary refill GI/Abdominal exam: PRESENT: ascites, distended, normal bowel sounds. ABSENT: guarding, mass, organolmegaly, rebound, tenderness Rectal exam: PRESENT: deferred Extremities exam: PRESENT: pedal edema Neurological exam: PRESENT: alert, awake. ABSENT: motor sensory deficit Psychiatric exam: PRESENT: appropriate affect, normal mood. ABSENT: homicidal ideation, suicidal ideation Skin exam: PRESENT: dry, intact, warm. ABSENT: cyanosis, rash Results Laboratory Results: 02/13/20 01:22 02/13/20 01:22 02/13/20 02/13/20 02/13/20 01:22 01:22 01:22 WBC 5.1 RBC 4.00 L Hgb 13.1 L Hct 40.2 MCV 101 H MCH 32.8 MCHC 32.6 RDW 17.7 H Plt Count 260 Seg Neutrophils % 78.9 H VBG pH VBG pCO2 VBG HCO3 VBG Base Excess Sodium Potassium Chloride Carbon Dioxide Anion Gap BUN Creatinine Est GFR ( Amer) Glucose Lactic Acid 1.8 Calcium Total Bilirubin AST Alkaline Phosphatase Ammonia < 8.7 L Total Protein Albumin Urine Color Urine Appearance Urine pH Ur Specific [place] Urine Protein Urine Glucose (UA) Urine Ketones Urine Blood Urine Nitrite Ur Leukocyte Esterase Urine WBC (Auto) Urine RBC (Auto) 02/13/20 02/13/20 02/13/20 01:22 01:22 02:43 WBC RBC Hgb Hct MCV MCH MCHC RDW Plt Count Seg Neutrophils % VBG pH 7.20 L VBG pCO2 73.7 H* VBG HCO3 28.4 VBG Base Excess -1.3 Sodium 134.8 L Potassium 4.6 Chloride 95 L Carbon Dioxide 27 Anion Gap 13 BUN 47 H Creatinine 1.70 H Est GFR ( Amer) 48 L Glucose 194 H Lactic Acid Calcium 7.9 L Total Bilirubin 0.6 AST 33 Alkaline Phosphatase 150 H Ammonia Total Protein 6.3 Albumin 3.3 L Urine Color YELLOW Urine Appearance SLIGHTLY-CLOUDY Urine pH 5.0 Ur Specific [place] 1.014 Urine Protein NEGATIVE Urine Glucose (UA) NEGATIVE Urine Ketones NEGATIVE Urine Blood SMALL H Urine Nitrite NEGATIVE Ur Leukocyte Esterase MODERATE H Urine WBC (Auto) 81 Urine RBC (Auto) 32 02/13/20 01:22 Troponin I 0.017 Impressions: Chest X-Ray 02/13/20 00:00 IMPRESSION: Worsening bibasilar pneumonia. Assessment & Plan - Diagnosis (1) Acute respiratory failure with hypercapnia Is this a current diagnosis for this admission?: Yes Plan: We will repeat the ABG continues on a BiPAP consult the pulmonary discussed with Dr. Navarrete also ordered a CT of the chest and also rule out the Covid test is already ordered (2) Cirrhosis of liver Qualifiers: Ascites presence: unspecified Is this a current diagnosis for this admission?: Yes Plan: Patient is currently followed by Dr. Hernandes outpatients we will get the CT scan and decide about paracentesis (3) CHF exacerbation Qualifiers: Heart failure type: combined systolic and diastolic Qualified Code(s): I50.9 - Heart failure, unspecified Is this a current diagnosis for this admission?: Yes Plan: Start the patient on Lasix IV discussed with the Dr. ASHLEY (4) Acute renal failure Is this a current diagnosis for this admission?: Yes Plan: Most likely due to the CHF will start him on Lasix IV continues to monitor we will get the CT scan of the abdomen (5) Ascites Qualifiers: Ascites type: other type Qualified Code(s): R18.8 - Other ascites Is this a current diagnosis for this admission?: Yes Plan: We will get the CT scan of the abdomen pelvis whether patient need a paracentesis or not (6) Atrial fibrillation Qualifiers: Atrial fibrillation type: permanent Qualified Code(s): I48.21 - Permanent atrial fibrillation Is this a current diagnosis for this admission?: Yes Plan: Patient is currently on Eliquis 2.5 mg twice a day currently controlled rate (7) CAD (coronary artery disease) Qualifiers: Coronary Disease-Associated Artery/Lesion type: [place] artery Associated angina: without angina Is this a current diagnosis for this admission?: Yes Plan: Consulted cardiology will rule out acute coronary syndromes (8) Diabetes mellitus Qualifiers: Diabetes mellitus type: type 2 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 Diabetes mellitus complication status: without complication Qualified Code(s): E11.9 - Type 2 diabetes mellitus without complications Is this a current diagnosis for this admission?: Yes Plan: Continues a sliding scale with [facility] protocol (9) Chronic pain syndrome Is this a current diagnosis for this admission?: Yes (10) Neuropathy Is this a current diagnosis for this admission?: Yes - Time Time Spent: 50 to 70 Minutes Medications reviewed and adjusted accordingly: Yes Anticipated Discharge Disposition: Home with Home Health Anticipated Discharge Timeframe: within 72 hours - Inpatient Certification Based on my medical assessment, after consideration of the patient's comorbidities, presenting symptoms, or acuity I expect that the services needed warrant INPATIENT care.: Yes I certify that my determination is in accordance with my understanding of Medicare's requirements for reasonable and necessary INPATIENT services [42 CFR 412.3e].: Yes Medical Necessity: Failure to Improve With Outpatient Therapy, Significant Comorbidiites Make Outpatient Treatment Too Risky, Need Close Monitoring Due to Risk of Patient Decompensation, Need for IV Antibiotics Post Hospital Care: 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
[2020-02-13 11:10] LABS: ARTERIAL BLOOD H2CO3 1.88 mmol/L (1.05-1.35); ARTERIAL BLOOD HCO3 27.3 mmol/L (20-24); ARTERIAL BLOOD O2 SATURATION 90.4 % (94-98); ARTERIAL BLOOD PCO2 62.6 mmHg (35-45); ARTERIAL BLOOD PH 7.26 (7.35-7.45); ARTERIAL BLOOD PO2 68.3 mmHg (80-100); ARTERIAL BLOOD TOTAL CO2 29.2 mmol/L (23-27)
[2020-02-13 11:11] LABS: CREATINE KINASE MB 2.37 ng/mL (<4.55)
[2020-02-13 11:15] LABS: ARTERIAL BLOOD FIO2 35%
[2020-02-13 11:16] LABS: TROPONIN I < 0.012 ng/mL
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
[2020-02-13] MEDS: INSULIN LISPRO 100 UNIT/ML 3 ML VIAL SUBCUT SCH ×2 (13:54→17:27)
[2020-02-13] MEDS ORDERED: FUROSEMIDE INJ/PF 20 MG/2 ML SDV IV SCH ×2 (14:00→22:00)
--- NOTE | 2020-02-13 15:23 | RADIOLOGY REPORT (SQ) ---
EXAM DESCRIPTION: CT HEAD WITHOUT IMAGES COMPLETED DATE/TIME: 02/13/2020 2:59 pm REASON FOR STUDY: Fall, hit head, takes eliquis COMPARISON: None. TECHNIQUE: Axial images acquired through the brain without intravenous contrast. Images reviewed wi th bone, brain and subdural windows. Additional sagittal and coronal reconstructions were generated. Images stored on PACS. All CT scanners at this facility use dose modulation, iterative reconstruction, and/or weight based d osing when appropriate to reduce radiation dose to as low as reasonably achievable (ALARA). [facility]: Dose Right [facility]: CareDose [facility]: Dose Right [facility]: Teradose 4D [facility]: Kickit With RADIATION DOSE: CT Rad equipment meets quality standard of care and radiation dose reduction techniq ues were employed. CTDIvol: 50.1 - 50.1 mGy. DLP: 2169 mGy-cm. mGy. LIMITATIONS: None. FINDINGS: VENTRICLES: Normal size and contour. CEREBRUM: No masses. No hemorrhage. No midline shift. No evidence for acute infarction. Normal gra y/white matter differentiation. No areas of low density in the white matter. CEREBELLUM: No masses. No hemorrhage. No alteration of density. No evidence for acute infarction. EXTRAAXIAL SPACES: No fluid collections. No masses. ORBITS AND GLOBE: No intra- or extraconal masses. Normal contour of globe without masses. CALVARIUM: No fracture. PARANASAL SINUSES: No fluid or mucosal thickening. SOFT TISSUES: No mass or hematoma. OTHER: No other significant finding. IMPRESSION: NORMAL BRAIN CT WITHOUT CONTRAST. EVIDENCE OF ACUTE STROKE: NO. COMMENT: Quality ID # [id number]: Final reports with documentation of one or more dose reduction techniques (e.g., Automated exposure control, adjustment of the mA and/or kV according to patient size, use of iterative reconstruction technique) TECHNICAL DOCUMENTATION: JOB ID: [id number] 2010 [employer]- All Rights Reserved Reading location - IP/workstation name: [email or web address]
--- NOTE | 2020-02-13 15:32 | RADIOLOGY REPORT (SQ) ---
EXAM DESCRIPTION: CT ABD/PELVIS NO ORAL OR IV IMAGES COMPLETED DATE/TIME: 02/13/2020 3:00 pm REASON FOR STUDY: ascites COMPARISON: 05/31/2019 TECHNIQUE: CT scan of the abdomen and pelvis performed without intravenous or oral contrast. Images reviewed with lung, soft tissue, and bone windows. Reconstructed coronal and sagittal MPR images revi ewed. All images stored on PACS. All CT scanners at this facility use dose modulation, iterative reconstruction, and/or weight based d osing when appropriate to reduce radiation dose to as low as reasonably achievable (ALARA). [facility]: Dose Right [facility]: CareDose [facility]: Dose Right [facility]: Teradose 4D [facility]: Singly RADIATION DOSE: mGy. LIMITATIONS: None. FINDINGS: LOWER CHEST: See separate report of the CT of the chest. NON-CONTRASTED LIVER, SPLEEN, ADRENALS: Evaluation limited by lack of IV contrast. No identified sign ificant masses. PANCREAS: No masses. No peripancreatic inflammatory changes. GALLBLADDER: 2.6 cm calcified gallstone. No definite pericholecystic inflammatory change. RIGHT KIDNEY AND URETER: No suspicious masses. Upper pole and lower pole cysts, stable. Assessment limited by lack of IV contrast. Vascular calcifications. No definite stones. No hydronephrosis o r hydroureter. LEFT KIDNEY AND URETER: No suspicious masses. Assessment limited by lack of IV contrast. Vascular c alcifications. No hydronephrosis or hydroureter. AORTA AND RETROPERITONEUM: Aortoiliac atherosclerosis. No retroperitoneal adenopathy, mass or hemorr jeremy. BOWEL AND PERITONEAL CAVITY: No evidence of intestinal obstruction. No focal bowel wall thickening. Mild volume ascites. No free intraperitoneal gas. APPENDIX: Not visualized. PELVIS, BLADDER, AND ABDOMINAL WALL:No abnormal masses. No free fluid. Bladder normal. BONES: No acute bony abnormality. No suspicious lytic or blastic osseous lesions. Lower lumbar spon dylosis and facet arthropathy. OTHER: No other significant finding. IMPRESSION: 1. Findings suggestive of volume overload with anasarca and mild volume ascites. 2. Cholelithiasis. 3. No other evidence of acute intra-abdominal/pelvic process. COMMENT: Quality ID # [id number]: Final reports with documentation of one or more dose reduction techniques (e.g., Automated exposure control, adjustment of the mA and/or kV according to patient size, use of iterative reconstruction technique) TECHNICAL DOCUMENTATION: JOB ID: [id number] 2010 [employer]- All Rights Reserved Reading location - IP/workstation name: [email or web address]
--- NOTE | 2020-02-13 15:48 | RADIOLOGY REPORT (SQ) ---
EXAM DESCRIPTION: CT CHEST WITHOUT IMAGES COMPLETED DATE/TIME: 02/13/2020 2:59 pm REASON FOR STUDY: chf/sob COMPARISON: 01/11/2015, PET-CT 05/31/2019 TECHNIQUE: CT scan performed of the chest without intravenous contrast. Images reviewed with lung, soft tissue and bone windows. Reconstructed coronal and sagittal MPR images reviewed. All images st ored on PACS. All CT scanners at this facility use dose modulation, iterative reconstruction, and/or weight based d osing when appropriate to reduce radiation dose to as low as reasonably achievable (ALARA). [facility]: Dose Right [facility]: CareDose [facility]: Dose Right [facility]: Teradose 4D [facility]: [employer] RADIATION DOSE: CT Rad equipment meets quality standard of care and radiation dose reduction techniq ues were employed. CTDIvol: 20.8 - 29.3 mGy. DLP: 2712 mGy-cm. mGy. LIMITATIONS: No technical limitations. FINDINGS: LUNGS AND PLEURA: Small bilateral pleural effusions with bilateral interlobular with thick ening and mild ground-glass attenuation, likely edema. Additional bibasilar consolidation, likely at electasis. No pneumothorax. No discrete pulmonary masses although evaluation limited secondary to c onsolidative change. HILAR AND MEDIASTINAL STRUCTURES: The shotty mediastinal nodes without discrete adenopathy. HEART AND VASCULAR STRUCTURES: Cardiomegaly with extensive three-vessel coronary atherosclerosis. No pericardial effusion. UPPER ABDOMEN: See separate report of the CT of the abdomen. THYROID AND OTHER SOFT TISSUES: No masses. No adenopathy. Anasarca. BONES: No acute bony abnormality. Status post sternotomy. No discrete lytic or blastic osseous lesi ons. HARDWARE: Sternotomy hardware. OTHER: No other significant findings. IMPRESSION: 1. Findings compatible with CHF with cardiomegaly, small bilateral effusions and mild i nterstitial edema. Additional bibasilar consolidative change, likely atelectasis although infection not entirely excluded. 2. Heavy three-vessel coronary atherosclerosis. TECHNICAL DOCUMENTATION: JOB ID: [id number] Quality ID # [id number]: Final reports with documentation of one or more dose reduction techniques (e.g., Au tomated exposure control, adjustment of the mA and/or kV according to patient size, use of iterative reconstruction technique) 2010 [employer]- All Rights Reserved Reading location - IP/workstation name: [email or web address]
[2020-02-13] MEDS ORDERED: ACETAMINOPHEN 325 MG TABLET ONE (16:11)
[2020-02-13 17:15] LABS: CREATINE KINASE MB 2.34 ng/mL (<4.55)
[2020-02-13 17:20] LABS: TROPONIN I < 0.012 ng/mL
[2020-02-13] MEDS: APIXABAN 2.5 MG TABLET PO SCH (17:30)
[2020-02-13] MEDS: GUAIFENESIN 600 MG TABLET.SA PO SCH (17:30)
[2020-02-13] MEDS: MIDODRINE HCL 5 MG TABLET PO SCH (17:30)
[2020-02-13] MEDS ORDERED: FUROSEMIDE 40 MG TABLET PO SCH (18:00)
[2020-02-13 19:32] LABS: APPEARANCE,URINE CLEAR; BILIRUBIN,URINE NEGATIVE (NEGATIVE); COLOR,URINE YELLOW; GLUCOSE, URINE NEGATIVE (NEGATIVE); KETONES,URINE NEGATIVE (NEGATIVE); LEUKOCYTE ESTERASE,URINE TRACE (NEGATIVE); NITRITE,URINE NEGATIVE (NEGATIVE); PROTEIN,URINE NEGATIVE (NEGATIVE); URINE SPECIFIC GRAVITY 1.012; UROBILINOGEN,URINE NEGATIVE mg/dL (<2.0)
[2020-02-14] MEDS: CEFTRIAXONE 2 GM/D5W RTU 2 GM/50 ML RTUPB IV SCH ×2 (01:04→23:05)
[2020-02-14] MEDS: ATORVASTATIN CALCIUM 80 MG TABLET PO SCH ×2 (01:04→23:04)
[2020-02-14] MEDS: FUROSEMIDE INJ/PF 20 MG/2 ML SDV IV SCH ×3 (01:05→13:32)
[2020-02-14] MEDS: METOPROLOL TARTRATE 50 MG TABLET PO SCH ×3 (01:05→23:04)
[2020-02-14] MEDS: POTASSIUM CHLORIDE 10 MEQ TABLET.ER PO SCH ×2 (01:05→10:03)
[2020-02-14] MEDS: TAMSULOSIN HCL 0.4 MG CAP.SR.24H PO SCH ×2 (01:05→23:04)
[2020-02-14] MEDS: INSULIN LISPRO 100 UNIT/ML 3 ML VIAL SUBCUT SCH ×5 (01:06→23:44)
[2020-02-14] MEDS: GABAPENTIN 300 MG CAPSULE PO SCH ×4 (01:06→23:04)
[2020-02-14 05:39] LABS: ABSOLUTE LYMPHOCYTES (AUTO) 0.7 10^3/uL (0.5-4.7); ABSOLUTE MONOCYTES (AUTO) 0.6 10^3/uL (0.1-1.4); ABSOLUTE NEUT (AUTO) 3.9 10^3/uL (1.7-8.2); BASOPHILS % (AUTO) 0.2 % (0-2); EOSINOPHILS % (AUTO) 0.2 % (0-6); HEMATOCRIT 36.9 % (37.9-51.0); LYMPHOCYTES % (AUTO) 13.6 % (13-45); MEAN CORPUSCULAR HEMOGLOBIN 32.5 pg (27.0-33.4); MEAN CORPUSCULAR HGB CONC 32.5 g/dL (32.0-36.0); MEAN CORPUSCULAR VOLUME 100 fl (80-97); MONOCYTES % (AUTO) 10.8 % (3-13); PLATELET COUNT 232 10^3/uL (150-450); RED CELL DISTRIBUTION WIDTH 17.6 % (11.5-14.0); SEGMENTED NEUTROPHILS % (AUTO) 75.2 % (42-78); TOTAL CELLS COUNTED % (AUTO) 100 %; WHITE BLOOD COUNT 5.2 10^3/uL (4.0-10.5)
[2020-02-14 06:00] LABS: ANION GAP 13 (5-19); BLOOD UREA NITROGEN 53 mg/dL (7-20); CALCIUM 8.1 mg/dL (8.4-10.2); CARBON DIOXIDE 25 mmol/L (22-30); CHLORIDE 96 mmol/L (98-107); CREATINE KINASE 59 U/L (55-170); GLUCOSE 107 mg/dL (75-110); POTASSIUM 5.2 mmol/L (3.6-5.0)
[2020-02-14 06:00] LABS: ARTERIAL BLOOD BASE EXCESS -2.1 mmol/L; ARTERIAL BLOOD H2CO3 2.22 mmol/L (1.05-1.35); ARTERIAL BLOOD HCO3 27.6 mmol/L (20-24); ARTERIAL BLOOD O2 SATURATION 75.6 % (94-98); ARTERIAL BLOOD PO2 50.6 mmHg (80-100); ARTERIAL BLOOD TOTAL CO2 29.8 mmol/L (23-27)
[2020-02-14 06:02] LABS: CREATINE KINASE MB 2.53 ng/mL (<4.55); TROPONIN I 0.014 ng/mL
[2020-02-14 06:17] LABS: ARTERIAL BLOOD FIO2 36%; ARTERIAL BLOOD PH 7.19 (7.35-7.45)
[2020-02-14 06:18] LABS: ARTERIAL BLOOD PCO2 73.7 mmHg (35-45)
[2020-02-14] MEDS ORDERED: IPRATROPIUM/ALBUTEROL 0.5-2.5 MG/3 ML AMPUL NEB PRN (07:54)
[2020-02-14] MEDS ORDERED: AZITHROMYCIN 250 MG in DEXTROSE 5%-WATER 250 ML IV SCH (08:00)
--- NOTE | 2020-02-14 08:08 | PDOC CRITICAL CARE PROG REPORT ---
General Date:: 02/14/20 Hospital Day:: 2 Events in the past 12 to 24 Hours:: Remains acidotic, intermittently refusing bipap. Review of systems relevant to events:: Pulmonary Reason for ICU Addmission:: Evaluation - Medications: Medications reviewed and adjusted accordingly: Yes Vasopressors:: None Sedation:: None Physical Exam Vital Signs: Temp Pulse Resp BP Pulse Ox 94.1 F L 69 20 91/52 L 98 02/14/20 01:38 02/14/20 02:00 02/14/20 01:38 02/14/20 01:38 02/14/20 01:38 Intake & Output 02/13/20 02/14/20 02/15/20 06:59 06:59 06:59 Intake Total 50 763 Output Total 1700 Balance 50 -937 Weight 123.7 kg 122.1 kg Weight/Height Weight 122.1 kg Height 6 ft General appearance: PRESENT: no acute distress, obese Head exam: PRESENT: atraumatic, normocephalic Eye exam: PRESENT: conjunctiva pink, EOMI, PERRLA. ABSENT: scleral icterus Ear exam: PRESENT: normal external ear exam Mouth exam: PRESENT: moist, tongue midline Respiratory exam: PRESENT: clear to auscultation [place], decreased breath sounds, symmetrical. ABSENT: rales, rhonchi, wheezes Cardiovascular exam: PRESENT: irregular rhythm. ABSENT: diastolic murmur, rubs, systolic murmur GI/Abdominal exam: PRESENT: normal bowel sounds, soft. ABSENT: distended, guarding, mass, organolmegaly, rebound, tenderness Rectal exam: PRESENT: deferred Extremities exam: PRESENT: full ROM. ABSENT: calf tenderness, clubbing, pedal edema Musculoskeletal exam: PRESENT: normal inspection Neurological exam: PRESENT: other - Sleepy Skin exam: PRESENT: dry, intact, warm. ABSENT: cyanosis, rash Tubes/Lines: PRESENT: Other - Bipap. Laboratory/Radiographs Laboratory Results: 02/14/20 04:17 02/14/20 04:17 02/13/20 02/13/20 02/14/20 10:35 15:46 04:17 WBC RBC Hgb Hct MCV MCH MCHC RDW Plt Count Seg Neutrophils % Carbonic Acid 1.88 H HCO3/H2CO3 Ratio 14:1 ABG pH 7.26 L ABG pCO2 62.6 H ABG pO2 68.3 L ABG HCO3 27.3 H ABG O2 Saturation 90.4 L ABG Base Excess -1.0 FiO2 35% Sodium 133.6 L Potassium 5.2 H Chloride 96 L Carbon Dioxide 25 Anion Gap 13 BUN 53 H Creatinine 1.73 H Est GFR ( Amer) 47 L Glucose 107 Calcium 8.1 L Urine Color YELLOW Urine Appearance CLEAR Urine pH 5.0 Ur Specific [place] 1.012 Urine Protein NEGATIVE Urine Glucose (UA) NEGATIVE Urine Ketones NEGATIVE Urine Blood NEGATIVE Urine Nitrite NEGATIVE Ur Leukocyte Esterase TRACE H Urine WBC (Auto) 17 Urine RBC (Auto) 9 02/14/20 02/14/20 04:17 05:30 WBC 5.2 RBC 3.70 L Hgb 12.0 L Hct 36.9 L MCV 100 H MCH 32.5 MCHC 32.5 RDW 17.6 H Plt Count 232 Seg Neutrophils % 75.2 Carbonic Acid 2.22 H HCO3/H2CO3 Ratio 12:1 ABG pH 7.19 L* ABG pCO2 73.7 H* ABG pO2 50.6 L ABG HCO3 27.6 H ABG O2 Saturation 75.6 L ABG Base Excess -2.1 FiO2 36% Sodium Potassium Chloride Carbon Dioxide Anion Gap BUN Creatinine Est GFR ( Amer) Glucose Calcium Urine Color Urine Appearance Urine pH Ur Specific [place] Urine Protein Urine Glucose (UA) Urine Ketones Urine Blood Urine Nitrite Ur Leukocyte Esterase Urine WBC (Auto) Urine RBC (Auto) 02/13/20 02/13/20 02/13/20 01:22 10:10 10:10 Creatine Kinase 43 L CK-MB (CK-2) 2.37 Troponin I 0.017 < 0.012 02/13/20 02/13/20 02/14/20 16:18 16:18 04:17 Creatine Kinase 41 L 59 CK-MB (CK-2) 2.34 Troponin I < 0.012 02/14/20 04:17 Creatine Kinase CK-MB (CK-2) 2.53 Troponin I 0.014 Impressions: Abdomen/Pelvis CT 02/13/20 00:00 IMPRESSION: 1. Findings suggestive of volume overload with anasarca and mild volume ascites. 2. Cholelithiasis. 3. No other evidence of acute intra-abdominal/pelvic process. Chest CT 02/13/20 00:00 IMPRESSION: 1. Findings compatible with CHF with cardiomegaly, small bilateral effusions and mild interstitial edema. Additional bibasilar consolidative change, likely atelectasis although infection not entirely excluded. 2. Heavy three-vessel coronary atherosclerosis. Chest X-Ray 02/13/20 00:00 IMPRESSION: Worsening bibasilar pneumonia. Head CT 02/13/20 00:00 IMPRESSION: NORMAL BRAIN CT WITHOUT CONTRAST. EVIDENCE OF ACUTE STROKE: NO. EKG: Atrial fibrillation, RVH All labs, radiographs, diagnostic studies and EKGs were personally reviewed: Yes In addition, reports of radiographic and diagnostic studies were read: Yes Assessment and Plan - Diagnosis (1) COPD (chronic obstructive pulmonary disease) Qualifiers: COPD type: emphysema Emphysema type: centrilobular Qualified Code(s): J43.2 - Centrilobular emphysema Is this a current diagnosis for this admission?: Yes Plan: He is hypercarbic which is seen more in COPD than CHF. He is on trelogy, now on steroids and receiving ATC nebulizers and steroids. He is not wheezing. Perhaps steroids can be stopped soon as he is on Trelogy. He has been refusing Bipap so he is not at this point a failure of treatment. He accepted bipap if the alternative is intubation. This has been going on throught the night and may take a few hours to see a change. ABG ordered for 2P. He is not an ICU candidate at this time. Should he fail treatment remain acidotic then he will need the ICU. (2) Acute respiratory failure with hypercapnia Is this a current diagnosis for this admission?: Yes Plan: Just now placed back on bipap. (3) Cirrhosis of liver Qualifiers: Hepatic cirrhosis type: alcoholic cirrhosis Ascites presence: unspecified Qualified Code(s): K70.30 - Alcoholic cirrhosis of liver without ascites Is this a current diagnosis for this admission?: Yes Plan: A chronic condition, currently not active. (4) Suspected COVID-19 virus infection Is this a current diagnosis for this admission?: Yes Plan: He is a PUI although I suspect it will be negative. (5) Pulmonary hypertension Is this a current diagnosis for this admission?: Yes Plan: The presence of RVH suggets this and the presence of hypercarbic COPD. (6) Atrial fibrillation Qualifiers: Atrial fibrillation type: permanent Qualified Code(s): I48.21 - Permanent atrial fibrillation Is this a current diagnosis for this admission?: Yes Plan: This is chronic, controlled and he is on his eliquis. (7) CAD (coronary artery disease) Qualifiers: Coronary Disease-Associated Artery/Lesion type: [place] artery Associated angina: without angina Is this a current diagnosis for this admission?: Yes Plan: Not active. 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 It may go higher with steroids. Plan Summary: Bipap, repeat ABG at 2P and reassess. Critical Time Critical Time (minutes): 35 Level of Care: IMCU Anticipated discharge: Home Anticipated DC Timeframe: Other -: 1. The care of a critical patient is a dynamic process. This note is a medical representative synopsis but static in nature. The timeframe for treatments given in order is not necessarily the actual time these treatments may have been done. 2. This patient requires critical care secondary to ongoing requirements for therapy not offered or safe outside the critical care environment. Transfer to a lower level of care will result in altered life or limb morbidity and mortality. 3. Multidisciplinary rounds completed. 4. ABCDE bundle addressed.
[2020-02-14] MEDS: METHYLPREDNISOLONE INJ 40 MG/1 ML SDV IV SCH ×2 (08:12→23:04)
[2020-02-14] MEDS: AZITHROMYCIN 250 MG in DEXTROSE 5%-WATER 250 ML IV SCH (08:12)
[2020-02-14] MEDS: IPRATROPIUM/ALBUTEROL 0.5-2.5 MG/3 ML AMPUL NEB SCH ×3 (08:20→19:57)
--- NOTE | 2020-02-14 08:43 | PDOC PROGRESS REPORT ---
Subjective Progress Note for:: 02/14/20 Subjective:: Patient is currently doing fair Patient refused to wear the BiPAP Patient's pH was 7.19 consult the bricklayer and suggest the continues the BiPAP to encourage repeat the ABG in afternoon\ Discussed with the patient and he said he will do the BiPAP after he eat the breakfast Patient's denied any chest pain no short of breath Patient's Covid test is still pending Reason For Visit: ACUTE RESPIRATORY FAILURE WITH HYPERCAPNEA,ACUTE Physical Exam Vital Signs: Temp Pulse Resp BP Pulse Ox 94.4 F L 70 21 H 93/54 L 99 02/14/20 05:43 02/14/20 07:00 02/14/20 05:43 02/14/20 05:43 02/14/20 05:43 Intake & Output 02/13/20 02/14/20 02/15/20 06:59 06:59 06:59 Intake Total 50 763 Output Total 1850 Balance 50 -1087 Weight 123.7 kg 123 kg General appearance: PRESENT: no acute distress Eye exam: PRESENT: PERRLA Mouth exam: PRESENT: neck supple Respiratory exam: PRESENT: decreased breath sounds Cardiovascular exam: PRESENT: +S1, +S2 GI/Abdominal exam: PRESENT: normal bowel sounds Extremities exam: PRESENT: pedal edema Neurological exam: PRESENT: alert, awake, oriented to person, oriented to place Results Laboratory Results: 02/14/20 04:17 02/14/20 04:17 02/13/20 02/13/20 02/14/20 10:35 15:46 04:17 WBC RBC Hgb Hct MCV MCH MCHC RDW Plt Count Seg Neutrophils % Carbonic Acid 1.88 H HCO3/H2CO3 Ratio 14:1 ABG pH 7.26 L ABG pCO2 62.6 H ABG pO2 68.3 L ABG HCO3 27.3 H ABG O2 Saturation 90.4 L ABG Base Excess -1.0 FiO2 35% Sodium 133.6 L Potassium 5.2 H Chloride 96 L Carbon Dioxide 25 Anion Gap 13 BUN 53 H Creatinine 1.73 H Est GFR ( Amer) 47 L Glucose 107 Calcium 8.1 L Urine Color YELLOW Urine Appearance CLEAR Urine pH 5.0 Ur Specific [place] 1.012 Urine Protein NEGATIVE Urine Glucose (UA) NEGATIVE Urine Ketones NEGATIVE Urine Blood NEGATIVE Urine Nitrite NEGATIVE Ur Leukocyte Esterase TRACE H Urine WBC (Auto) 17 Urine RBC (Auto) 9 02/14/20 02/14/20 04:17 05:30 WBC 5.2 RBC 3.70 L Hgb 12.0 L Hct 36.9 L MCV 100 H MCH 32.5 MCHC 32.5 RDW 17.6 H Plt Count 232 Seg Neutrophils % 75.2 Carbonic Acid 2.22 H HCO3/H2CO3 Ratio 12:1 ABG pH 7.19 L* ABG pCO2 73.7 H* ABG pO2 50.6 L ABG HCO3 27.6 H ABG O2 Saturation 75.6 L ABG Base Excess -2.1 FiO2 36% Sodium Potassium Chloride Carbon Dioxide Anion Gap BUN Creatinine Est GFR ( Amer) Glucose Calcium Urine Color Urine Appearance Urine pH Ur Specific [place] Urine Protein Urine Glucose (UA) Urine Ketones Urine Blood Urine Nitrite Ur Leukocyte Esterase Urine WBC (Auto) Urine RBC (Auto) 02/13/20 02/13/20 02/13/20 01:22 10:10 10:10 Creatine Kinase 43 L CK-MB (CK-2) 2.37 Troponin I 0.017 < 0.012 02/13/20 02/13/20 02/14/20 16:18 16:18 04:17 Creatine Kinase 41 L 59 CK-MB (CK-2) 2.34 Troponin I < 0.012 02/14/20 04:17 Creatine Kinase CK-MB (CK-2) 2.53 Troponin I 0.014 Impressions: Abdomen/Pelvis CT 02/13/20 00:00 IMPRESSION: 1. Findings suggestive of volume overload with anasarca and mild volume ascites. 2. Cholelithiasis. 3. No other evidence of acute intra-abdominal/pelvic process. Chest CT 02/13/20 00:00 IMPRESSION: 1. Findings compatible with CHF with cardiomegaly, small bilateral effusions and mild interstitial edema. Additional bibasilar consolidative change, likely atelectasis although infection not entirely excluded. 2. Heavy three-vessel coronary atherosclerosis. Chest X-Ray 02/13/20 00:00 IMPRESSION: Worsening bibasilar pneumonia. Head CT 02/13/20 00:00 IMPRESSION: NORMAL BRAIN CT WITHOUT CONTRAST. EVIDENCE OF ACUTE STROKE: NO. Assessment & Plan - Diagnosis (1) Acute respiratory failure with hypercapnia Is this a current diagnosis for this admission?: Yes Plan: Encourage the patient's to continues the BiPAP follow-up with the pulmonary and repeat the ABG in afternoon (2) Cirrhosis of liver Qualifiers: Hepatic cirrhosis type: alcoholic cirrhosis Ascites presence: unspecified Qualified Code(s): K70.30 - Alcoholic cirrhosis of liver without ascites Is this a current diagnosis for this admission?: Yes Plan: Patient CT scan abdomen pelvis is all stable (3) CHF exacerbation Qualifiers: Heart failure type: combined systolic and diastolic Qualified Code(s): 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 Calderon is going to see the patient to adjust the medications (4) Acute renal failure Is this a current diagnosis for this admission?: Yes Plan: Due to the above conditions continues to monitor (5) Ascites Qualifiers: Ascites type: other type Qualified Code(s): R18.8 - Other ascites Is this a current diagnosis for this admission?: Yes (6) Atrial fibrillation Qualifiers: Atrial fibrillation type: permanent Qualified Code(s): I48.21 - Permanent atrial fibrillation Is this a current diagnosis for this admission?: Yes Plan: Currently all are well controlled continues the Eliquis (7) CAD (coronary artery disease) Qualifiers: Coronary Disease-Associated Artery/Lesion type: [place] artery Associated angina: without angina Is this a current diagnosis for this admission?: Yes (8) Diabetes mellitus Qualifiers: Diabetes mellitus type: type 2 Diabetes mellitus fpc insulin use: without technician terminal and repeater use Diabetes mellitus complication status: without complication Qualified Code(s): E11.9 - Type 2 diabetes mellitus without complications Is this a current diagnosis for this admission?: Yes Plan: Continue sliding-scale (9) Chronic pain syndrome Is this a current diagnosis for this admission?: Yes (10) Neuropathy Is this a current diagnosis for this admission?: Yes (11) COPD (chronic obstructive pulmonary disease) Qualifiers: COPD type: emphysema Emphysema type: centrilobular Qualified Code(s): J43.2 - Centrilobular emphysema Is this a current diagnosis for this admission?: Yes Plan: Continues on nebulizer treatments - Time Time Spent with patient: 25-34 minutes Level of Care: IMCU Medications reviewed and adjusted accordingly: Yes Anticipated discharge: Home with Homehealth Anticipated DC Timeframe: within 72 hours - Plan Summary Plan Summary: Again very extensive discussion of the patient's will contact the patient's family I think son is only close to the patient about the patient's current conditions patient understand very well to wearing the BiPAP is important at this stage otherwise patient ended with the intubations
[2020-02-14] MEDS ORDERED: (PENDING PHARMACY ID) (Magnesium Oxide [Magnesium Oxide] 400 MG) PO SCH (10:00)
[2020-02-14] MEDS: ASPIRIN 81 MG TABLET, ENT COATED PO SCH (10:02)
[2020-02-14] MEDS: MAGNESIUM OXIDE 400 MG TABLET PO SCH (10:02)
[2020-02-14] MEDS: GUAIFENESIN 600 MG TABLET.SA PO SCH ×2 (10:03→17:34)
[2020-02-14] MEDS: MIDODRINE HCL 5 MG TABLET PO SCH ×3 (10:03→17:34)
[2020-02-14] MEDS: APIXABAN 2.5 MG TABLET PO SCH ×2 (10:03→17:34)
[2020-02-14] MEDS: FLUTICASONE/UMECLIDIN/VILANTER 100-62.5-25 MCG/DOSE IH SCH (10:16)
[2020-02-14] MEDS: NITROGLYCERIN 2.5 MG (0.1 MG/HR) PATCH.TD24 TD SCH (13:33)
[2020-02-14 16:27] LABS: ARTERIAL BLOOD BASE EXCESS 0.2 mmol/L; ARTERIAL BLOOD HCO3 28.3 mmol/L (20-24); ARTERIAL BLOOD O2 SATURATION 98.3 % (94-98); ARTERIAL BLOOD PH 7.27 (7.35-7.45); ARTERIAL BLOOD PO2 134.7 mmHg (80-100); ARTERIAL BLOOD TOTAL CO2 30.3 mmol/L (23-27)
[2020-02-14 16:28] LABS: ARTERIAL BLOOD FIO2 15L
[2020-02-14] MEDS ORDERED: DOBUTAMINE HCL/D5W 500 MG/250 ML RTUINJ IV PRN (17:43)
--- NOTE | 2020-02-14 17:45 | Operative Report ---
Operative Report DATE OF SURGERY: 02/14/20 PREOPERATIVE DIAGNOSIS: Poor veins for IV access POSTOPERATIVE DIAGNOSIS: Same OPERATION: Central line placement SURGEON: ASAD FIELD ANESTHESIA: Local TISSUE REMOVED OR ALTERED: None COMPLICATIONS: None ESTIMATED BLOOD LOSS: 15 cc QUANTITATIVE BLOOD LOSS: 15 INTRAOPERATIVE FINDINGS: Relatively good left internal jugular vein. PROCEDURE: After informed consent obtained patient was placed on slight supine to supine p osition and left neck prepped and draped in the usual sterile fashion. Local anesthesia was then infiltrated over the location of the internal jugular vein. With use of the ultrasound the left anterior jugular vein was then punctured and guidewire passed through the needle towards the superior vena cava. Needle was removed and the puncture site dilated. A triple-lumen catheter inserted through the guidewire to a distance of about 19 cm. The catheter was then anchored to the skin with 3-0 silk. A pursestring suture needed to be done to prevent bleeding around the catheter. A Biopatch placed at the insertion site transparent dressing in place. Chest x-ray was done which showed good position of the catheter with no pneumothorax. This is an unofficial reading. Awaiting final reading from the radiologist.
--- NOTE | 2020-02-14 18:11 | RADIOLOGY REPORT (SQ) ---
EXAM DESCRIPTION: CHEST SINGLE VIEW IMAGES COMPLETED DATE/TIME: 02/14/2020 5:27 pm REASON FOR STUDY: Check central line placement COMPARISON: 02/13/2020 EXAM PARAMETERS: NUMBER OF VIEWS: One view. TECHNIQUE: Single frontal radiographic view of the chest acquired. RADIATION DOSE: NA LIMITATIONS: None. FINDINGS: LUNGS AND PLEURA: There is considerable opacification in the left base in the retrocardiac area. More limited opacification the right base. Cannot exclude minimal pleural effusion on the ri ght. MEDIASTINUM AND HILAR STRUCTURES: No masses. Contour normal. HEART AND VASCULAR STRUCTURES: Cardiomegaly. BONES: No acute findings. HARDWARE: Sternotomy wires. Left internal jugular catheter has its tip in the superior vena cava. OTHER: No other significant finding. IMPRESSION: Bibasilar pneumonia, left more than right. Left internal jugular catheter as described. Cardiomegaly without bryan pulmonary edema. Cannot exclude a minimal right pleural effusion. TECHNICAL DOCUMENTATION: JOB ID: [id number] [employer]- All Rights Reserved Reading location - IP/workstation name: [email or web address]
[2020-02-14] MEDS: KETOROLAC TROMETHAMINE INJ/PF 30 MG/1 ML SDV IV PRN (18:12)
[2020-02-14] MEDS ORDERED: FUROSEMIDE INJ/PF 20 MG/2 ML SDV IV ONE (18:15)
[2020-02-14] MEDS: PHARMACY COMMUNICATION ORDER MC SCH (18:30)
--- NOTE | 2020-02-14 19:15 | PDOC CONSULTATION ---
Consultation-Blank Consultation: CARDIOLOGY CONSULTATION by Dr. Alicia Portillo on 02/14/2020. Patient seen at 2:30 PM. 60 minutes spent on the patient with more than 50% of time spent in direct patient care. REASON FOR CONSULTATION: Patient admitted with shortness of breath and evidence of right heart failure. CONSULT REQUESTING PHYSICIAN: Dr. Steen. 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 He also has diabetic neuropathy of the legs which is increased. The patient was admitted initially an echo with19 test was negative. The patient also found to have gases which showed respiratory acidosis and hypercapnia. The patient has been intermittently refused BiPAP. At present on nasal cannula. He denies any chest pain discomfort. The patient states that he is having cough but is unable to bring up any sputum. He is audibly wheezing. He denies any fever chills or rigors. There is no bleeding on Eliquis. There is no TIA CVA symptoms. There is no near-syncope or syncope. Past Medical History Cardiac Medical History: Reports: Atrial Fibrillation, Congestive Heart Failure, Myocardial Infarction, Hypertension, artery disease, history of myocardial infarction in the past, and hyperlipidemia. To get his blood pressure up. Pulmonary Medical History: Reports: Pneumonia, COPD. Denies asthma or sleep apnea. Diagnosis of right pulmonary solitary nodule. In May 2019 the patient had a PET scan which did not show evidence of malignancy. This was done due to the patient's solitary pulmonary nodule. Endocrine Medical History: Reports: Diabetes Mellitus Type 2. The patient is recently stopped taking his antidiabetic medication. 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 No history of headaches migraines or seizures. RENAL: He has a history of chronic kidney disease. GASTROENTEROLOGY:: Patient has history of alcoholic cirrhosis with portal hypertension and ascites. He has had paracentesis multiple times. There is no history of variceal bleed. He also has a history of GERD. Past Surgical History Past Surgical History: Reports: Appendectomy, Cardiac Catheterization. Coronary artery bypass graft surgery. Recent paracentesis to remove peritoneal fluid Social History Information Source: Patient, [facility] Records Lives with: Alone Smoking Status: Current smoker. 1 pack/day Electronic Cigarette use?: No Drugs: None . Past history of alcohol abuse. The patient does not drink alcohol anymore. - Advance Directive Resuscitation Status: Full Code. His daughter is a surrogate healthcare decision maker. Aspirin [Ecotrin 81 mg EC Tablet] 81 mg PO DAILY 08/07/19 Atorvastatin Calcium [Lipitor 80 mg Tablet] 80 mg PO QHS 08/07/19 Magnesium Oxide 400 mg PO DAILY 08/07/19 Tamsulosin HCl [Flomax] 0.4 mg PO QHS 08/07/19 Trazodone HCl 50 mg PO HSP PRN 08/07/19 Apixaban [Eliquis 2.5 mg Tablet] 2.5 mg PO BID 02/13/20 Ferrous Sulfate [Feosol 325 mg Tablet] 325 mg PO DAILY 02/13/20 Fluticasone/Umeclidin/Vilanter [Trelegy 100-62.5-25 Mcg Ellipta 14 Dose/Dpi] 1 inh IH DAILY 02/13/20 Metolazone [Zaroxolyn 2.5 mg Tablet] 2.5 mg PO DAILY 02/13/20 Metoprolol Tartrate [Lopressor 50 mg Tablet] 50 mg PO Q12 02/13/20 Pregabalin [Lyrica 75 mg Capsule] 75 mg PO Q12 02/13/20 Family History Family History: COPD, Hypertension Parental Family History Reviewed: Yes Children Family History Reviewed: Yes Sibling(s) Family History Reviewed.: Yes Medication/Allergy Allergies/Adverse Reactions: No Known Allergies Allergy (Unverified 07/25/15 00:42) Current Medications Generic Name Dose Route Start Last Admin Trade Name Freq PRN Reason Stop Dose Admin Acetaminophen 650 mg 02/13/20 16:06 Tylenol 325 Mg Tablet PO 03/14/20 16:05 Q6HP PRN FEVER/PAIN Albuterol/Ipratropium 3 ml 02/14/20 08:00 02/14/20 13:44 Duoneb 3 Ml Ampul NEB 03/15/20 07:59 3 ml RTQ6 JONNY Administration Albuterol/Ipratropium 3 ml 02/14/20 07:54 Duoneb 3 Ml Ampul NEB 03/15/20 07:53 [id number] PRN SHORTNESS OF BREATH Apixaban 2.5 mg 02/13/20 18:00 02/14/20 17:34 Eliquis 2.5 Mg Tablet PO 03/14/20 17:59 2.5 mg BID JONNY Administration Aspirin 81 mg 02/14/20 10:00 02/14/20 10:02 Ecotrin 81 Mg Ec Tablet PO 03/15/20 09:59 81 mg DAILY JONNY Administration Atorvastatin Calcium 80 mg 02/13/20 22:00 02/14/20 01:04 Lipitor 80 Mg Tablet PO 03/14/20 21:59 80 mg QHS JONNY Administration Dextrose 12.5 gm 02/13/20 08:15 Dextrose Inj 50% Syringe (25 Gm/50 Ml) IV 03/14/20 08:14 PRN PRN FOR BG 50-69 IN ALERT PATIENT Protocol Dextrose 25 gm 02/13/20 08:15 Dextrose Inj 50% Syringe (25 Gm/50 Ml) IV 03/14/20 08:14 PRN PRN PER PROTOCOL Protocol Fluticasone/Vilanterol 1 inh 02/14/20 10:00 02/14/20 10:16 Trelegy 100-62.5-25 Mcg Ellipta 14 Dose/Dpi IH 03/15/20 09:59 1 inhaler DAILY JONNY Administration Furosemide 40 mg 02/14/20 22:00 Lasix Inj/Pf 40 Mg/4 Ml Sdv IV 03/15/20 21:59 Q8 JONNY Gabapentin 300 mg 02/13/20 22:00 02/14/20 13:32 Neurontin 300 Mg Capsule PO 03/14/20 21:59 300 mg Q8 JONNY Administration Glucagon 1 mg 02/13/20 08:15 Glucagen Inj 1 Mg Vial IM 03/14/20 08:14 PRN PRN Evaluate for BG < 70 Protocol Glucose 15 gm 02/13/20 08:15 Glutose 40% Gel 15 Gm Tube PO 03/14/20 08:14 PRN PRN FOR BG 50-69 IN ALERT PATIENT Protocol Glucose 30 gm 02/13/20 08:15 Glutose 40% Gel 15 Gm Tube PO 03/14/20 08:14 PRN PRN FOR BG < 50 IN ALERT PATIENT Protocol Guaifenesin 600 mg 02/13/20 18:00 02/14/20 17:34 Mucinex Sr 600 Mg Tablet.Sa PO 03/14/20 17:59 600 mg BID JONNY Administration Ceftriaxone Sodium/Dextrose 2 gm in 50 mls @ 100 mls/hr 02/13/20 22:00 02/14/20 02:10 Rocephin Rtu 2 Gm/D5w 50 Ml Premix Bag IV 02/20/20 21:59 Infused QHS JONNY Infusion Azithromycin 250 mg/ Dextrose 250 mls @ 250 mls/hr 02/14/20 08:00 02/14/20 10:16 IV 02/21/20 07:59 Infused QAM JONNY Infusion Dobutamine HCl/Dextrose 500 mg in 250 mls @ 18.45 mls/hr 02/14/20 17:43 02/14/20 18:16 Dobutrex Rtu 500 Mg-D5w 250 Ml Premixed Bag IV 03/15/20 17:42 5 mcg/kg/min CONTINUOUS PRN 18.45 mls/hr THIS MED IS NOT "PRN" Administration Protocol 5 MCG/KG/MIN Furosemide 250 mg/ Sodium 250 mls @ 4 mls/hr 02/14/20 19:00 Chloride IV 03/15/20 18:59 CONTINUOUS PRN THIS MED IS NOT "PRN" Insulin Human Lispro 0 - 12 unit 02/13/20 11:00 02/14/20 16:00 Humalog Insulin 100 Unit/1 Ml 3 Ml Vial SUBCUT 03/14/20 10:59 6 unit ACHS JONNY Administration Protocol Ketorolac Tromethamine 10 mg 02/14/20 18:02 02/14/20 18:12 Toradol Inj/Pf 30 Mg/1 Ml Sdv IV 02/19/20 18:01 10 mg Q8HP PRN Administration FOR PAIN Magnesium Oxide 400 mg 02/14/20 10:00 02/14/20 10:02 Mag-Ox 400 Mg Tablet PO 03/15/20 09:59 400 mg DAILY JONNY Administration Methylprednisolone Sodium Succinate 40 mg 02/14/20 08:30 02/14/20 08:12 Solu-Medrol Inj/Pf 40 Mg/1 Ml Sdv IV 03/15/20 08:29 40 mg Q12 JONNY Administration Metoprolol Tartrate 50 mg 02/13/20 22:00 02/14/20 10:04 Lopressor 50 Mg Tablet PO 03/14/20 21:59 Not Given Q12 JONNY Midodrine 10 mg 02/13/20 18:00 02/14/20 17:34 Proamatine 5 Mg Tablet PO 03/14/20 17:59 10 mg TID JONNY Administration Nitroglycerin 1 each 02/14/20 10:00 02/14/20 13:33 Nitro-Dur 2.5 Mg (0.1 Mg/Hr) Transdermal Ptch TD 03/15/20 09:59 1 each DAILY JONNY Administration Pharmacy Profile Note 1 each 02/14/20 18:00 02/14/20 18:30 Medication Communication Order 03/15/20 17:59 Not Given QPM JONNY Tamsulosin HCl 0.4 mg 02/13/20 22:00 02/14/20 01:05 Flomax 0.4 Mg Cap.Sr PO 03/14/20 21:59 0.4 mg QHS JONNY Administration Trazodone HCl 50 mg 02/14/20 07:52 Desyrel 50 Mg Tablet PO 03/15/20 07:51 HSP PRN SLEEP OR INSOMNIA Discontinued Medications Generic Name Dose Route Start Last Admin Trade Name Freq PRN Reason Stop Dose Admin Acetaminophen Confirm 02/13/20 16:11 02/13/20 16:15 Tylenol 325 Mg Tablet Administered 02/13/20 16:12 325 mg Dose Administration 325 mg .ROUTE .STK-MED ONE Albuterol/Ipratropium 3 ml 02/13/20 09:04 Duoneb 3 Ml Ampul NEB 03/14/20 09:03 [id number] PRN SHORTNESS OF BREATH Azithromycin 500 mg 02/13/20 04:40 02/13/20 05:31 Zithromax Inj 500 Mg Vial IV 02/13/20 04:41 500 mg IVBAG (ED) ONE Administration Fentanyl Citrate 50 mcg 02/13/20 03:10 02/13/20 03:26 Sublimaze Inj/Pf 100 Mcg/2 Ml Ampule IV 02/13/20 03:11 50 mcg NOW ONE Administration Furosemide 20 mg 02/13/20 14:00 02/13/20 13:55 Lasix Inj/Pf 20 Mg/2 Ml Sdv IV 03/14/20 13:59 20 mg Q8 JONNY Administration Furosemide 40 mg 11/02/20 18:00 Lasix 40 Mg Tablet PO 03/14/20 17:59 BID JONNY Furosemide 40 mg 02/13/20 22:00 Lasix Inj/Pf 20 Mg/2 Ml Sdv IV 03/14/20 21:59 Q8 JONNY Furosemide 30 mg 02/13/20 22:00 02/14/20 13:32 Lasix Inj/Pf 20 Mg/2 Ml Sdv IV 03/14/20 21:59 30 mg Q8 JONNY Administration Furosemide 20 mg 02/14/20 18:15 02/14/20 18:11 Lasix Inj/Pf 20 Mg/2 Ml Sdv IV 02/14/20 18:16 20 mg NOW ONE Administration Ceftriaxone Sodium/Dextrose 1 gm in 50 mls @ 100 mls/hr 02/13/20 03:10 02/13/20 03:28 Rocephin Rtu 1 Gm/D5w 50 Ml Premix IV 02/13/20 03:39 Not Given NOW ONE Ceftriaxone Sodium/Dextrose 2 gm in 50 mls @ 100 mls/hr 02/13/20 03:16 02/13/20 03:57 Rocephin Rtu 2 Gm/D5w 50 Ml Premix Bag IV 02/13/20 03:45 Infused NOW ONE Infusion Azithromycin 250 mg/ Dextrose 250 mls @ 250 mls/hr 02/14/20 08:00 IV 02/21/20 07:59 QAM [facility] Lorazepam 0.5 mg 02/13/20 05:21 02/13/20 05:28 Ativan Inj 2 Mg/1 Ml Vial IV 02/13/20 05:22 0.5 mg NOW ONE Administration Potassium Chloride 20 meq 02/13/20 22:00 02/14/20 10:03 Klor-Con 10 Meq Tablet Er PO 03/14/20 21:59 Not Given Q12 [facility] Review of Systems Constitutional: PRESENT: as per HPI, fatigue, weakness, weight gain. ABSENT: chills, fever(s), headache(s), weight loss Eyes: ABSENT: visual disturbances Ears: ABSENT: hearing changes Cardiovascular: PRESENT: as per HPI, dyspnea on exertion, edema, orthropnea. ABSENT: chest pain, palpitations Respiratory: PRESENT: as per HPI, cough, dyspnea. ABSENT: hemoptysis, sputum Gastrointestinal: PRESENT: as per HPI, abdominal pain, bloating. ABSENT: constipation, diarrhea, hematemesis, hematochezia, nausea, vomiting Genitourinary: ABSENT: dysuria, hematuria Musculoskeletal: ABSENT: joint swelling Integumentary: ABSENT: rash, wounds Neurological: ABSENT: abnormal gait, abnormal speech, confusion, dizziness, focal weakness, syncope Psychiatric: ABSENT: anxiety, depression, homidical ideation, suicidal ideation Endocrine: ABSENT: cold intolerance, heat intolerance, polydipsia, polyuria Hematologic/Lymphatic: ABSENT: easy bleeding, easy bruising. PHYSICAL EXAMINATION: The patient appears to be slightly drowsy but oriented x3. He appears to be chronically ill and malnourished. Selected Entries 02/14/20 02/14/20 02/14/20 13:45 15:53 16:15 Temperature 97.2 F Temperature Oral Source Pulse Rate Respiratory 19 Rate Blood Pressure O2 Sat by Pulse 94 Oximetry Fraction of 40 Inspired Oxygen (FIO2) Oxygen Flow 5 Rate 02/14/20 18:15 Temperature Temperature Source Pulse Rate 95 Respiratory Rate Blood Pressure 134/57 H O2 Sat by Pulse Oximetry Fraction of Inspired Oxygen (FIO2) Oxygen Flow Rate HEAD: Is atraumatic normocephalic. EYES: Pupils equal round regular reactive to light and accommodation. Extraocular movements are normal. There is no conjunctival pallor. There is no scleral icterus. EARS: Tympanic membranes are intact. External auditory canals are clear. NOSE: There is no deviated nasal septum. There is no inflammation nasal mucous membrane. MOUTH: Mucous membranes of mouth are moist. Tongue is moist. There is no ulcers. THROAT: There is no redness of the oropharynx. There is no exudates. SKIN: There is no skin rashes. There is no petechia or ecchymosis. There is no jaundice. NECK: Supple. There is JVD present. Carotids are equal there is no bruits. There is no lymphadenopathy there is no goiter. There is no accessory muscle respiration use trachea central. LUNGS: There is diminished air entry prolonged expiration. There is bilateral expiratory wheezing. There is a few scattered rhonchi. There is no rales of CHF. HEART: S1-S2 is heard. S1 is of variable intensity. There is no S3 gallop. There is no S4 gallop. There is systolic murmur left sternal border and apex there is no rub. ABDOMEN: Is distended. There is mild ascites with shifting dullness present. There is no paraspinal megaly. Bowel s ounds are well heard. There is no tender areas masses. There is no rebound guarding or rigidity. EXTREMITIES: Femorals are deep femorals are diminished. There is no femoral bruits. Leg pulses difficult to palpate. There is 3+ lower extremity edema with venous stasis dermatitis. There is no cellulitis. There is no DVT. There is no cyanosis or clubbing. Capillary refill is normal. 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 PSYCHIATRIC: In spite of the patient's drowsiness his judgment site are intact his affect is normal. Labs- Entire Visit 02/13/20 02/13/20 02/13/20 01:22 01:22 01:22 WBC 5.1 RBC 4.00 L Hgb 13.1 L Hct 40.2 MCV 101 H MCH 32.8 MCHC 32.6 RDW 17.7 H Plt Count 260 Lymph % (Auto) 11.0 L Falls % (Auto) 8.6 Eos % (Auto) 1.0 Baso % (Auto) 0.5 Absolute Neuts (auto) 4.0 Absolute Lymphs (auto) 0.6 Absolute Monos (auto) 0.4 Absolute Eos (auto) 0.1 Absolute Basos (auto) 0.0 Seg Neutrophils % 78.9 H PT INR Carbonic Acid HCO3/H2CO3 Ratio ABG pH ABG pCO2 ABG pO2 ABG HCO3 ABG Total CO2 ABG O2 Saturation ABG Base Excess VBG pH VBG pCO2 VBG HCO3 VBG Base Excess FiO2 Sodium Potassium Chloride Carbon Dioxide Anion Gap BUN Creatinine Est GFR ( Amer) Est GFR (MDRD) Non-Af Glucose POC Glucose Lactic Acid 1.8 Calcium Total Bilirubin Direct Bilirubin Neonat Total Bilirubin Neonat Direct Bilirubin Neonat Indirect Bili AST ALT Alkaline Phosphatase Ammonia < 8.7 L Creatine Kinase CK-MB (CK-2) Troponin I Total Protein Albumin Urine Color Urine Appearance Urine pH Ur Specific [place] Urine Protein Urine Glucose (UA) Urine Ketones Urine Blood Urine Nitrite Urine Bilirubin Urine Urobilinogen Ur Leukocyte Esterase Urine WBC (Auto) Urine RBC (Auto) U Hyaline Cast (Auto) Urine Bacteria (Auto) Squamous Epi Cells Auto Urine Mucus (Auto) Urine Ascorbic Acid COVID-19 Source COVID-19 (ANGELA) Influenza A (Rapid) Influenza B (Rapid) 02/13/20 02/13/20 02/13/20 01:22 01:22 01:22 WBC RBC Hgb Hct MCV MCH MCHC RDW Plt Count Lymph % (Auto) Falls % (Auto) Eos % (Auto) Baso % (Auto) Absolute Neuts (auto) Absolute Lymphs (auto) Absolute Monos (auto) Absolute Eos (auto) Absolute Basos (auto) Seg Neutrophils % PT 18.3 H INR 1.50 Carbonic Acid HCO3/H2CO3 Ratio ABG pH ABG pCO2 ABG pO2 ABG HCO3 ABG Total CO2 ABG O2 Saturation ABG Base Excess VBG pH 7.20 L VBG pCO2 73.7 H* VBG HCO3 28.4 VBG Base Excess -1.3 FiO2 Sodium 134.8 L Potassium 4.6 Chloride 95 L Carbon Dioxide 27 Anion Gap 13 BUN 47 H Creatinine 1.70 H Est GFR ( Amer) 48 L Est GFR (MDRD) Non-Af 39 L Glucose 194 H POC Glucose Lactic Acid Calcium 7.9 L Total Bilirubin 0.6 Direct Bilirubin 0.4 Neonat Total Bilirubin Not Reportable Neonat Direct Bilirubin Not Reportable Neonat Indirect Bili Not Reportable AST 33 ALT 35 Alkaline Phosphatase 150 H Ammonia Creatine Kinase CK-MB (CK-2) Troponin I Total Protein 6.3 Albumin 3.3 L Urine Color Urine Appearance Urine pH Ur Specific [place] Urine Protein Urine Glucose (UA) Urine Ketones Urine Blood Urine Nitrite Urine Bilirubin Urine Urobilinogen Ur Leukocyte Esterase Urine WBC (Auto) Urine RBC (Auto) U Hyaline Cast (Auto) Urine Bacteria (Auto) Squamous Epi Cells Auto Urine Mucus (Auto) Urine Ascorbic Acid COVID-19 Source COVID-19 (ANGELA) Influenza A (Rapid) Influenza B (Rapid) 02/13/20 02/13/20 02/13/20 01:22 02:43 02:43 WBC RBC Hgb Hct MCV MCH MCHC RDW Plt Count Lymph % (Auto) Falls % (Auto) Eos % (Auto) Baso % (Auto) Absolute Neuts (auto) Absolute Lymphs (auto) Absolute Monos (auto) Absolute Eos (auto) Absolute Basos (auto) Seg Neutrophils % PT INR Carbonic Acid HCO3/H2CO3 Ratio ABG pH ABG pCO2 ABG pO2 ABG HCO3 ABG Total CO2 ABG O2 Saturation ABG Base Excess VBG pH VBG pCO2 VBG HCO3 VBG Base Excess FiO2 Sodium Potassium Chloride Carbon Dioxide Anion Gap BUN Creatinine Est GFR ( Amer) Est GFR (MDRD) Non-Af Glucose POC Glucose Lactic Acid Calcium Total Bilirubin Direct Bilirubin Neonat Total Bilirubin Neonat Direct Bilirubin Neonat Indirect Bili AST ALT Alkaline Phosphatase Ammonia Creatine Kinase CK-MB (CK-2) Troponin I 0.017 Total Protein Albumin Urine Color YELLOW Urine Appearance SLIGHTLY-CLOUDY Urine pH 5.0 Ur Specific [place] 1.014 Urine Protein NEGATIVE Urine Glucose (UA) NEGATIVE Urine Ketones NEGATIVE Urine Blood SMALL H Urine Nitrite NEGATIVE Urine Bilirubin NEGATIVE Urine Urobilinogen 4.0 H Ur Leukocyte Esterase MODERATE H Urine WBC (Auto) 81 Urine RBC (Auto) 32 U Hyaline Cast (Auto) 27 Urine Bacteria (Auto) Squamous Epi Cells Auto 1 Urine Mucus (Auto) RARE Urine Ascorbic Acid 20 H COVID-19 Source COVID-19 (ANGELA) Influenza A (Rapid) NEGATIVE Influenza B (Rapid) NEGATIVE 02/13/20 02/13/20 02/13/20 03:38 06:25 10:10 WBC RBC Hgb Hct MCV MCH MCHC RDW Plt Count Lymph % (Auto) Falls % (Auto) Eos % (Auto) Baso % (Auto) Absolute Neuts (auto) Absolute Lymphs (auto) Absolute Monos (auto) Absolute Eos (auto) Absolute Basos (auto) Seg Neutrophils % PT INR Carbonic Acid HCO3/H2CO3 Ratio ABG pH ABG pCO2 ABG pO2 ABG HCO3 ABG Total CO2 ABG O2 Saturation ABG Base Excess VBG pH VBG pCO2 VBG HCO3 VBG Base Excess FiO2 Sodium Potassium Chloride Carbon Dioxide Anion Gap BUN Creatinine Est GFR ( Amer) Est GFR (MDRD) Non-Af Glucose POC Glucose 224 H Lactic Acid Calcium Total Bilirubin Direct Bilirubin Neonat Total Bilirubin Neonat Direct Bilirubin Neonat Indirect Bili AST ALT Alkaline Phosphatase Ammonia Creatine Kinase 43 L CK-MB (CK-2) Troponin I Total Protein Albumin Urine Color Urine Appearance Urine pH Ur Specific [place] Urine Protein Urine Glucose (UA) Urine Ketones Urine Blood Urine Nitrite Urine Bilirubin Urine Urobilinogen Ur Leukocyte Esterase Urine WBC (Auto) Urine RBC (Auto) U Hyaline Cast (Auto) Urine Bacteria (Auto) Squamous Epi Cells Auto Urine Mucus (Auto) Urine Ascorbic Acid COVID-19 Source See comment COVID-19 (ANGELA) Not Detected Influenza A (Rapid) Influenza B (Rapid) 02/13/20 02/13/20 02/13/20 10:10 10:35 12:35 WBC RBC Hgb Hct MCV MCH MCHC RDW Plt Count Lymph % (Auto) Falls % (Auto) Eos % (Auto) Baso % (Auto) Absolute Neuts (auto) Absolute Lymphs (auto) Absolute Monos (auto) Absolute Eos (auto) Absolute Basos (auto) Seg Neutrophils % PT INR Carbonic Acid 1.88 H HCO3/H2CO3 Ratio 14:1 ABG pH 7.26 L ABG pCO2 62.6 H ABG pO2 68.3 L ABG HCO3 27.3 H ABG Total CO2 29.2 H ABG O2 Saturation 90.4 L ABG Base Excess -1.0 VBG pH VBG pCO2 VBG HCO3 VBG Base Excess FiO2 35% Sodium Potassium Chloride Carbon Dioxide Anion Gap BUN Creatinine Est GFR ( Amer) Est GFR (MDRD) Non-Af Glucose POC Glucose 253 H Lactic Acid Calcium Total Bilirubin Direct Bilirubin Neonat Total Bilirubin Neonat Direct Bilirubin Neonat Indirect Bili AST ALT Alkaline Phosphatase Ammonia Creatine Kinase CK-MB (CK-2) 2.37 Troponin I < 0.012 Total Protein Albumin Urine Color Urine Appearance Urine pH Ur Specific [place] Urine Protein Urine Glucose (UA) Urine Ketones Urine Blood Urine Nitrite Urine Bilirubin Urine Urobilinogen Ur Leukocyte Esterase Urine WBC (Auto) Urine RBC (Auto) U Hyaline Cast (Auto) Urine Bacteria (Auto) Squamous Epi Cells Auto Urine Mucus (Auto) Urine Ascorbic Acid COVID-19 Source COVID-19 (ANGELA) Influenza A (Rapid) Influenza B (Rapid) 02/13/20 02/13/20 02/13/20 15:46 16:18 16:18 WBC RBC Hgb Hct MCV MCH MCHC RDW Plt Count Lymph % (Auto) Falls % (Auto) Eos % (Auto) Baso % (Auto) Absolute Neuts (auto) Absolute Lymphs (auto) Absolute Monos (auto) Absolute Eos (auto) Absolute Basos (auto) Seg Neutrophils % PT INR Carbonic Acid HCO3/H2CO3 Ratio ABG pH ABG pCO2 ABG pO2 ABG HCO3 ABG Total CO2 ABG O2 Saturation ABG Base Excess VBG pH VBG pCO2 VBG HCO3 VBG Base Excess FiO2 Sodium Potassium Chloride Carbon Dioxide Anion Gap BUN Creatinine Est GFR ( Amer) Est GFR (MDRD) Non-Af Glucose POC Glucose Lactic Acid Calcium Total Bilirubin Direct Bilirubin Neonat Total Bilirubin Neonat Direct Bilirubin Neonat Indirect Bili AST ALT Alkaline Phosphatase Ammonia Creatine Kinase 41 L CK-MB (CK-2) 2.34 Troponin I < 0.012 Total Protein Albumin Urine Color YELLOW Urine Appearance CLEAR Urine pH 5.0 Ur Specific [place] 1.012 Urine Protein NEGATIVE Urine Glucose (UA) NEGATIVE Urine Ketones NEGATIVE Urine Blood NEGATIVE Urine Nitrite NEGATIVE Urine Bilirubin NEGATIVE Urine Urobilinogen NEGATIVE Ur Leukocyte Esterase TRACE H Urine WBC (Auto) 17 Urine RBC (Auto) 9 U Hyaline Cast (Auto) 12 Urine Bacteria (Auto) TRACE Squamous Epi Cells Auto <1 Urine Mucus (Auto) RARE Urine Ascorbic Acid 20 H COVID-19 Source COVID-19 (ANGELA) Influenza A (Rapid) Influenza B (Rapid) 02/13/20 02/14/20 02/14/20 22:53 04:17 04:17 WBC RBC Hgb Hct MCV MCH MCHC RDW Plt Count Lymph % (Auto) Falls % (Auto) Eos % (Auto) Baso % (Auto) Absolute Neuts (auto) Absolute Lymphs (auto) Absolute Monos (auto) Absolute Eos (auto) Absolute Basos (auto) Seg Neutrophils % PT INR Carbonic Acid HCO3/H2CO3 Ratio ABG pH ABG pCO2 ABG pO2 ABG HCO3 ABG Total CO2 ABG O2 Saturation ABG Base Excess VBG pH VBG pCO2 VBG HCO3 VBG Base Excess FiO2 Sodium 133.6 L Potassium 5.2 H Chloride 96 L Carbon Dioxide 25 Anion Gap 13 BUN 53 H Creatinine 1.73 H Est GFR ( Amer) 47 L Est GFR (MDRD) Non-Af 39 L Glucose 107 POC Glucose 253 H Lactic Acid Calcium 8.1 L Total Bilirubin Direct Bilirubin Neonat Total Bilirubin Neonat Direct Bilirubin Neonat Indirect Bili AST ALT Alkaline Phosphatase Ammonia Creatine Kinase 59 CK-MB (CK-2) 2.53 Troponin I 0.014 Total Protein Albumin Urine Color Urine Appearance Urine pH Ur Specific [place] Urine Protein Urine Glucose (UA) Urine Ketones Urine Blood Urine Nitrite Urine Bilirubin Urine Urobilinogen Ur Leukocyte Esterase Urine WBC (Auto) Urine RBC (Auto) U Hyaline Cast (Auto) Urine Bacteria (Auto) Squamous Epi Cells Auto Urine Mucus (Auto) Urine Ascorbic Acid COVID-19 Source COVID-19 (ANGELA) Influenza A (Rapid) Influenza B (Rapid) 1102/14/20 02/14/20 04:17 05:30 11:32 WBC 5.2 RBC 3.70 L Hgb 12.0 L Hct 36.9 L MCV 100 H MCH 32.5 MCHC 32.5 RDW 17.6 H Plt Count 232 Lymph % (Auto) 13.6 Falls % (Auto) 10.8 Eos % (Auto) 0.2 Baso % (Auto) 0.2 Absolute Neuts (auto) 3.9 Absolute Lymphs (auto) 0.7 Absolute Monos (auto) 0.6 Absolute Eos (auto) 0.0 Absolute Basos (auto) 0.0 Seg Neutrophils % 75.2 PT INR Carbonic Acid 2.22 H HCO3/H2CO3 Ratio 12:1 ABG pH 7.19 L* ABG pCO2 73.7 H* ABG pO2 50.6 L ABG HCO3 27.6 H ABG Total CO2 29.8 H ABG O2 Saturation 75.6 L ABG Base Excess -2.1 VBG pH VBG pCO2 VBG HCO3 VBG Base Excess FiO2 36% Sodium Potassium Chloride Carbon Dioxide Anion Gap BUN Creatinine Est GFR ( Amer) Est GFR (MDRD) Non-Af Glucose POC Glucose 215 H Lactic Acid Calcium Total Bilirubin Direct Bilirubin Neonat Total Bilirubin Neonat Direct Bilirubin Neonat Indirect Bili AST ALT Alkaline Phosphatase Ammonia Creatine Kinase CK-MB (CK-2) Troponin I Total Protein Albumin Urine Color Urine Appearance Urine pH Ur Specific [place] Urine Protein Urine Glucose (UA) Urine Ketones Urine Blood Urine Nitrite Urine Bilirubin Urine Urobilinogen Ur Leukocyte Esterase Urine WBC (Auto) Urine RBC (Auto) U Hyaline Cast (Auto) Urine Bacteria (Auto) Squamous Epi Cells Auto Urine Mucus (Auto) Urine Ascorbic Acid COVID-19 Source COVID-19 (ANGELA) Influenza A (Rapid) Influenza B (Rapid) 02/14/20 02/14/20 16:16 17:22 WBC RBC Hgb Hct MCV MCH MCHC RDW Plt Count Lymph % (Auto) Falls % (Auto) Eos % (Auto) Baso % (Auto) Absolute Neuts (auto) Absolute Lymphs (auto) Absolute Monos (auto) Absolute Eos (auto) Absolute Basos (auto) Seg Neutrophils % PT INR Carbonic Acid 1.90 H HCO3/H2CO3 Ratio 14:1 ABG pH 7.27 L ABG pCO2 63.0 H ABG pO2 134.7 H ABG HCO3 28.3 H ABG Total CO2 30.3 H ABG O2 Saturation 98.3 H ABG Base Excess 0.2 VBG pH VBG pCO2 VBG HCO3 VBG Base Excess FiO2 15L Sodium Potassium Chloride Carbon Dioxide Anion Gap BUN Creatinine Est GFR ( Amer) Est GFR (MDRD) Non-Af Glucose POC Glucose 265 H Lactic Acid Calcium Total Bilirubin Direct Bilirubin Neonat Total Bilirubin Neonat Direct Bilirubin Neonat Indirect Bili AST ALT Alkaline Phosphatase Ammonia Creatine Kinase CK-MB (CK-2) Troponin I Total Protein Albumin Urine Color Urine Appearance Urine pH Ur Specific [place] Urine Protein Urine Glucose (UA) Urine Ketones Urine Blood Urine Nitrite Urine Bilirubin Urine Urobilinogen Ur Leukocyte Esterase Urine WBC (Auto) Urine RBC (Auto) U Hyaline Cast (Auto) Urine Bacteria (Auto) Squamous Epi Cells Auto Urine Mucus (Auto) Urine Ascorbic Acid COVID-19 Source COVID-19 (ANGELA) Influenza A (Rapid) Influenza B (Rapid) Abdomen/Pelvis CT 02/13/20 00:00 IMPRESSION: 1. Findings suggestive of volume overload with anasarca and mild volume ascites. 2. Cholelithiasis. 3. No other evidence of acute intra-abdominal/pelvic process. Chest CT 02/13/20 00:00 IMPRESSION: 1. Findings compatible with CHF with cardiomegaly, small bilateral effusions and mild interstitial edema. Additional bibasilar consolidative change, likely atelectasis although infection not entirely excluded. 2. Heavy three-vessel coronary atherosclerosis. Chest X-Ray 02/13/20 00:00 IMPRESSION: Worsening bibasilar pneumonia. Head CT 02/13/20 00:00 IMPRESSION: NORMAL BRAIN CT WITHOUT CONTRAST. EVIDENCE OF ACUTE STROKE: NO. Chest X-Ray 02/14/20 00:00 IMPRESSION: Bibasilar pneumonia, left more than right. Left internal jugular catheter as described. Cardiomegaly without bryan pulmonary edema. Cannot exclude a minimal right pleural effusion. EKG:ATRIAL FIBRILLATION [LVOLF] . LOW VOLTAGE IN FRONTAL LEADS [PRVH] . PROBABLE RIGHT VENTRICULAR HYPERTROPHY [T1LA] . NONSPECIFIC T ABNORMALITIES, LATERAL LEADS IMPRESSION/RECOMMENDATION: 1. Acute coronary pulmonary with acute on chronic right ventricular systolic failure: Would recommend starting the patient on dobutamine and Lasix drip. This acute on chronic right ventricle systolic heart failure is secondary to severe pulmonary hypertension. . Acute exacerbation of COPD: Recommend anti-COPD inhalers and antibiotics and consider steroids 3. Acute on chronic hypercapnic and hypoxic respiratory failure: Recommend int ermittent BiPAP as needed. Continue treatment of acute exacerbation of COPD. 4. Severe pulmonary hypertension: Secondary to patient's severe COPD ongoing smoking 5. History of alcoholic cirrhosis of the liver with ascites and portal hypertension. 6. Coronary artery disease: History of prior old myocardial infarction and history of coronary bypass graft surgery: The patient has no anginal symptoms and no evidence of acute coronary syndrome at present. 7. Chronic atrial fibrillation: Rate is well controlled continue current medication including Eliquis for stroke prophylaxis. 8. Hypertension: Blood pressure well controlled. Nurse's notes that the patient is on midodrine to keep his blood pressure up so that his Lopressor and other medications can be given. 9. Diabetes mellitus with peripheral neuropathy. Continue current medication for the diabetes and his neuropathy. 10. Chronic kidney disease at present stage III: Avoid nephrotoxic drugs. 12. History of tobacco abuse: Tobacco cessation counseling done. The plan is to get a central line placed and start the patient on dobutamine and a Lasix drip. Would recommend LUIS inhibitor's or ARB. Medications reviewed. Medical regimen management plan discussed with attending provider. Medications adjusted new medications added. Medical decision making is of high complexity. 60 minutes spent on this patient with more than 50% of time spent in direct patient care.
[2020-02-14] MEDS ORDERED: LIDOCAINE 1% INJ-PF (10 MG/ML) 30 ML SDV ONE (20:55)
[2020-02-14] MEDS ORDERED: FUROSEMIDE INJ/PF 20 MG/2 ML SDV IV SCH (22:00)
[2020-02-14] MEDS ORDERED: FUROSEMIDE INJ/PF 40 MG/4 ML SDV IV SCH (22:00)
[2020-02-14] MEDS: NORMAL SALINE 250 ML with FUROSEMIDE 250 MG IV PRN ×2 (23:48)
--- NOTE | 2020-02-15 00:04 | Operative Report ---
Operative Report DATE OF SURGERY: 02/14/20 PREOPERATIVE DIAGNOSIS: Bleeding around catheter central line POSTOPERATIVE DIAGNOSIS: Same OPERATION: Purse string suture around central line catheter using 3-0 Prolene SURGEON: ASAD FIELD ANESTHESIA: Local COMPLICATIONS: None ESTIMATED BLOOD LOSS: 5 cc QUANTITATIVE BLOOD LOSS: 5 INTRAOPERATIVE FINDINGS: Patient just had a left internal jugular vein triple- lumen catheter inserted. Patient appears to have bled around the catheter site. Patient has been on Eliquis. PROCEDURE: Patient was placed in supine position on the left neck prepped and draped in the usual sterile fashion. Local anesthesia infiltrated around the internal jugular vein catheter. With the use of 3-0 Prol[address] was used to place a pursestring suture around catheter. Suture was tied together and appears to have controlled the bleeding at this point. Patient tolerated procedure well. New dressing was placed by the nurses.
[2020-02-15] MEDS ORDERED: DOBUTAMINE HCL/D5W 500 MG/250 ML RTUINJ IV PRN (00:30)
[2020-02-15] MEDS: IPRATROPIUM/ALBUTEROL 0.5-2.5 MG/3 ML AMPUL NEB SCH ×4 (01:54→20:31)
[2020-02-15] MEDS: DOBUTAMINE HCL/D5W 500 MG/250 ML RTUINJ IV PRN ×3 (03:23→22:12)
[2020-02-15] MEDS: KETOROLAC TROMETHAMINE INJ/PF 30 MG/1 ML SDV IV PRN (04:23)
[2020-02-15 04:31] LABS: HEMATOCRIT 33.8 % (37.9-51.0); HEMOGLOBIN 10.7 g/dL (13.5-17.0); MEAN CORPUSCULAR HEMOGLOBIN 32.3 pg (27.0-33.4); MEAN CORPUSCULAR HGB CONC 31.6 g/dL (32.0-36.0); MEAN CORPUSCULAR VOLUME 102 fl (80-97); PLATELET COUNT 180 10^3/uL (150-450); RED BLOOD COUNT 3.31 10^6/uL (4.35-5.55); RED CELL DISTRIBUTION WIDTH 17.6 % (11.5-14.0); WHITE BLOOD COUNT 4.5 10^3/uL (4.0-10.5)
[2020-02-15 04:44] LABS: ANION GAP 8 (5-19); BLOOD UREA NITROGEN 59 mg/dL (7-20); CALCIUM 7.6 mg/dL (8.4-10.2); CARBON DIOXIDE 28 mmol/L (22-30); CHLORIDE 95 mmol/L (98-107); GLUCOSE 312 mg/dL (75-110); POTASSIUM 5.4 mmol/L (3.6-5.0)
[2020-02-15 04:47] LABS: ABSOLUTE LYMPHOCYTES# (MANUAL) 0.3 10^3/uL (0.5-4.7); ABSOLUTE MONOCYTES # (MANUAL) 0.5 10^3/uL (0.1-1.4); BASOPHILS % (MANUAL) 0 % (0-2); EOSINOPHILS % (MANUAL) 0 % (0-6); LYMPHOCYTES % (MANUAL) 6 % (13-45); MONOCYTES % (MANUAL) 10 % (3-13); SEGMENTED NEUTROPHILS % (MAN) 84 % (42-78); TOTAL CELLS COUNTED 100
[2020-02-15 04:48] LABS: ANISOCYTOSIS 1+; PLATELET COMMENT ADEQUATE
[2020-02-15] MEDS: GABAPENTIN 300 MG CAPSULE PO SCH ×3 (05:23→22:13)
[2020-02-15] MEDS: AZITHROMYCIN 250 MG in DEXTROSE 5%-WATER 250 ML IV SCH (08:24)
[2020-02-15] MEDS: INSULIN LISPRO 100 UNIT/ML 3 ML VIAL SUBCUT SCH ×4 (08:24→22:12)
[2020-02-15 08:30] LABS: ARTERIAL BLOOD BASE EXCESS 3.8 mmol/L; ARTERIAL BLOOD H2CO3 1.73 mmol/L (1.05-1.35); ARTERIAL BLOOD HCO3 30.9 mmol/L (20-24); ARTERIAL BLOOD O2 SATURATION 53.7 % (94-98); ARTERIAL BLOOD PCO2 57.5 mmHg (35-45); ARTERIAL BLOOD PH 7.35 (7.35-7.45); ARTERIAL BLOOD TOTAL CO2 32.7 mmol/L (23-27)
[2020-02-15 08:37] LABS: ARTERIAL BLOOD FIO2 35%; ARTERIAL BLOOD PO2 30.5 mmHg (80-100)
--- NOTE | 2020-02-15 08:57 | PDOC PROGRESS REPORT ---
Subjective Progress Note for:: 02/15/20 Subjective:: Patient is currently doing same currently wearing the BiPAP alert awake oriented x3 Patient's denied any chest pain no short of breath pH is improved 7.35 CO2 is also improving P O2 is still low Patient is also currently on a Lasix drip and dobutamine drips Reason For Visit: ACUTE RESPIRATORY FAILURE WITH HYPERCAPNEA,ACUTE Physical Exam Vital Signs: Temp Pulse Resp BP Pulse Ox 97.2 F 102 H 27 H 114/56 L 90 L 02/15/20 08:47 02/15/20 07:57 02/15/20 07:57 02/15/20 07:45 02/15/20 07:57 Intake & Output 02/14/20 02/15/20 02/16/20 06:59 06:59 06:59 Intake Total 763 1530 250 Output Total 1850 1650 Balance -1087 -120 250 Weight 123 kg 125.2 kg General appearance: PRESENT: no acute distress Eye exam: PRESENT: PERRLA Mouth exam: PRESENT: neck supple Respiratory exam: PRESENT: decreased breath sounds Cardiovascular exam: PRESENT: +S1, +S2 GI/Abdominal exam: PRESENT: normal bowel sounds, soft Extremities exam: PRESENT: pedal edema Neurological exam: PRESENT: alert, awake, oriented to person, oriented to place, oriented to time, oriented to situation Skin exam: PRESENT: dry Results Laboratory Results: 02/15/20 04:02 02/15/20 04:02 02/14/20 02/15/20 02/15/20 16:16 04:02 04:02 WBC 4.5 RBC 3.31 L Hgb 10.7 L Hct 33.8 L MCV 102 H MCH 32.3 MCHC 31.6 L RDW 17.6 H Plt Count 180 Seg Neutrophils % Not Reportable Carbonic Acid 1.90 H HCO3/H2CO3 Ratio 14:1 ABG pH 7.27 L ABG pCO2 63.0 H ABG pO2 134.7 H ABG HCO3 28.3 H ABG O2 Saturation 98.3 H ABG Base Excess 0.2 FiO2 15L Sodium 131.3 L Potassium 5.4 H Chloride 95 L Carbon Dioxide 28 Anion Gap 8 BUN 59 H Creatinine 1.79 H Est GFR ( Amer) 45 L Glucose 312 H Calcium 7.6 L 02/15/20 06:31 WBC RBC Hgb Hct MCV MCH MCHC RDW Plt Count Seg Neutrophils % Carbonic Acid 1.73 H HCO3/H2CO3 Ratio 17:1 ABG pH 7.35 ABG pCO2 57.5 H ABG pO2 30.5 L* ABG HCO3 30.9 H ABG O2 Saturation 53.7 L ABG Base Excess 3.8 FiO2 35% Sodium Potassium Chloride Carbon Dioxide Anion Gap BUN Creatinine Est GFR ( Amer) Glucose Calcium 02/13/20 02:43 Clean Catch Midstream Urine Culture - Final Mixed Urogenital Mindi 02/13/20 02/13/20 02/13/20 01:22 10:10 10:10 Creatine Kinase 43 L CK-MB (CK-2) 2.37 Troponin I 0.017 < 0.012 02/13/20 02/13/20 02/14/20 16:18 16:18 04:17 Creatine Kinase 41 L 59 CK-MB (CK-2) 2.34 Troponin I < 0.012 02/14/20 04:17 Creatine Kinase CK-MB (CK-2) 2.53 Troponin I 0.014 Impressions: Abdomen/Pelvis CT 02/13/20 00:00 IMPRESSION: 1. Findings suggestive of volume overload with anasarca and mild volume ascites. 2. Cholelithiasis. 3. No other evidence of acute intra-abdominal/pelvic process. Chest CT 02/13/20 00:00 IMPRESSION: 1. Findings compatible with CHF with cardiomegaly, small bilateral effusions and mild interstitial edema. Additional bibasilar consolidative change, likely atelectasis although infection not entirely excluded. 2. Heavy three-vessel coronary atherosclerosis. Head CT 02/13/20 00:00 IMPRESSION: NORMAL BRAIN CT WITHOUT CONTRAST. EVIDENCE OF ACUTE STROKE: NO. Chest X-Ray 02/14/20 00:00 IMPRESSION: Bibasilar pneumonia, left more than right. Left internal jugular catheter as described. Cardiomegaly without bryan pulmonary edema. Cannot exclude a minimal right pleural effusion. Assessment & Plan - Diagnosis (1) Acute respiratory failure with hypercapnia Is this a current diagnosis for this admission?: Yes Plan: Continues the BiPAP follow with the pulmonary Dr. Navarrete to adjust the BiPAP (2) Cirrhosis of liver Qualifiers: Hepatic cirrhosis type: alcoholic cirrhosis Ascites presence: unspecified Qualified Code(s): K70.30 - Alcoholic cirrhosis of liver without ascites Is this a current diagnosis for this admission?: Yes (3) CHF exacerbation Qualifiers: Heart failure type: combined systolic and diastolic Qualified Code(s): I50.43 - Acute on chronic combined systolic (congestive) and diastolic (congestive) heart failure Is this a current diagnosis for this admission?: Yes Plan: Continues IV Lasix drip and dobutamine drip follow-up with the tube teller (4) Acute renal failure Is this a current diagnosis for this admission?: Yes Plan: Due to the ongoing congestive heart failure will consult the nephrology for further evaluations (5) Ascites Qualifiers: Ascites type: other type Qualified Code(s): R18.8 - Other ascites Is this a current diagnosis for this admission?: Yes (6) Atrial fibrillation Qualifiers: Atrial fibrillation type: permanent Qualified Code(s): I48.21 - Permanent atrial fibrillation Is this a current diagnosis for this admission?: Yes Plan: Patient is currently on Eliquis (7) CAD (coronary artery disease) Qualifiers: Coronary Disease-Associated Artery/Lesion type: [place] artery Associated angina: without angina Is this a current diagnosis for this admission?: Yes (8) Diabetes mellitus Qualifiers: Diabetes mellitus type: type 2 Diabetes mellitus long term care administrator insulin use: without retirement use Diabetes mellitus complication status: without complication Qualified Code(s): E11.9 - Type 2 diabetes mellitus without complications Is this a current diagnosis for this admission?: Yes Plan: Continue sliding-scale (9) Chronic pain syndrome Is this a current diagnosis for this admission?: Yes (10) Neuropathy Is this a current diagnosis for this admission?: Yes (11) COPD (chronic obstructive pulmonary disease) Qualifiers: COPD type: emphysema Emphysema type: centrilobular Qualified Code(s): J43.2 - Centrilobular emphysema Is this a current diagnosis for this admission?: Yes Plan: Continues on nebulizer treatment - Time Time Spent with patient: 15-24 minutes Level of Care: IMCU Medications reviewed and adjusted accordingly: Yes Anticipated discharge: Home with Homehealth Anticipated DC Timeframe: Other - Plan Summary Plan Summary: Overall patient with multiple comorbidity including the congestive heart failure renal failure liver failure prognosis is not great try to discussed with the patient's family I think only son living nearby discussed with the service planner and the nursing staff to track the son and we can discuss with him about the patient's CODE STATUS
[2020-02-15] MEDS: ACETAMINOPHEN 325 MG TABLET PO PRN ×2 (09:50→17:30)
[2020-02-15] MEDS: METHYLPREDNISOLONE INJ 40 MG/1 ML SDV IV SCH ×2 (09:50→22:14)
[2020-02-15] MEDS: GUAIFENESIN 600 MG TABLET.SA PO SCH ×2 (09:50→17:30)
[2020-02-15] MEDS: ASPIRIN 81 MG TABLET, ENT COATED PO SCH (09:51)
[2020-02-15] MEDS: MIDODRINE HCL 5 MG TABLET PO SCH ×3 (09:51→17:30)
[2020-02-15] MEDS: NITROGLYCERIN 2.5 MG (0.1 MG/HR) PATCH.TD24 TD SCH (09:51)
[2020-02-15] MEDS: FLUTICASONE/UMECLIDIN/VILANTER 100-62.5-25 MCG/DOSE IH SCH (09:51)
[2020-02-15] MEDS: APIXABAN 2.5 MG TABLET PO SCH ×2 (09:51→17:30)
[2020-02-15] MEDS: METOPROLOL TARTRATE 50 MG TABLET PO SCH ×2 (09:51→22:13)
[2020-02-15] MEDS: MAGNESIUM OXIDE 400 MG TABLET PO SCH (09:51)
[2020-02-15 09:55] LABS: ARTERIAL BLOOD H2CO3 1.63 mmol/L (1.05-1.35); ARTERIAL BLOOD HCO3 23.4 mmol/L (20-24); ARTERIAL BLOOD O2 SATURATION 92.5 % (94-98); ARTERIAL BLOOD PCO2 54.3 mmHg (35-45); ARTERIAL BLOOD PH 7.25 (7.35-7.45); ARTERIAL BLOOD PO2 74.3 mmHg (80-100); ARTERIAL BLOOD TOTAL CO2 25.1 mmol/L (23-27)
[2020-02-15 10:15] LABS: ARTERIAL BLOOD FIO2 40%
--- NOTE | 2020-02-15 11:46 | Progress Note ---
Provider Note Provider Note: Discussed with the patient's son and also discussed with the patient's daughter who has a power of attorney recruiter currently in [place] regarding the patient's current conditions with the poor prognosis and a CODE STATUS Patient's daughter's wants to continues to be full code until she come here and probably take a couple of days but she aware about the patient's poor prognosis and poor conditions
[2020-02-15] MEDS: LACTULOSE SYRUP 20 GM/30 ML UDCUP PO SCH ×4 (12:03→22:14)
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
[2020-02-15] MEDS: BUSPIRONE HCL 10 MG TABLET PO SCH ×2 (13:47→22:14)
[2020-02-15] MEDS: PATIROMER 8.4 GM SUSP PACKET PO SCH (14:57)
[2020-02-15 15:40] LABS: ALBUMIN 2.8 g/dL (3.5-5.0); ALKALINE PHOSPHATASE 110 U/L (38-126); ANION GAP 10 (5-19); ASPARTATE AMINO TRANSFERASE 33 U/L (17-59); BILIRUBIN,DIRECT 0.3 mg/dL (0.0-0.4); BILIRUBIN,TOTAL 0.4 mg/dL (0.2-1.3); BLOOD UREA NITROGEN 57 mg/dL (7-20); CALCIUM 7.8 mg/dL (8.4-10.2); CARBON DIOXIDE 29 mmol/L (22-30); CHLORIDE 92 mmol/L (98-107); GLUCOSE 275 mg/dL (75-110); POTASSIUM 5.6 mmol/L (3.6-5.0); TOTAL PROTEIN 5.5 g/dL (6.3-8.2)
[2020-02-15] MEDS: PHARMACY COMMUNICATION ORDER MC SCH (17:31)
[2020-02-15] MEDS: NORMAL SALINE 250 ML with FUROSEMIDE 250 MG IV PRN ×2 (17:31)
--- NOTE | 2020-02-15 19:32 | Progress Note ---
Provider Note Provider Note: CARDIOLOGY PROGRESS NOTE by Dr. Alicia Mcgowan on 02/15/2020. SUBJECTIVE: The patient complains of constipation and gas-like abdominal distention. He wants paracentesis done. But the problem is the patient has only mild acetic fluid. He feels slightly better he is less short of breath but only minimally slow. His leg edema is still present but the patient making good urine. There is no chest pain discomfort. He remains in atrial fibrillation controlled ventricular response. There is no ventricular arrhythmias seen. He has been seen by nephrology. PHYSICAL EXAMINATION: Patient appears to be chronically ill he is moderately obese. Selected Entries 02/15/20 02/15/20 13:08 14:00 Pulse Rate 82 Respiratory 24 H Rate Blood Pressure 102/53 L Blood Pressure 69 Mean O2 Sat by Pulse 95 Oximetry Fraction of 35 Inspired Oxygen (FIO2) HEAD: Is atraumatic normocephalic. EYES: Pupils equal round regular reactive to light and accommodation. Extraocular movements are normal. There is no conjunctival pallor. There is no scleral icterus. EARS: Tympanic membranes are intact. External auditory canals are clear. NOSE: There is no deviated nasal septum. There is no inflammation nasal mucous membrane. MOUTH: Mucous membranes of mouth are moist. Tongue is moist. There is no ulcers. THROAT: There is no redness of the oropharynx. There is no exudates. SKIN: There is no skin rashes. There is no petechia or ecchymosis. There is no jaundice. NECK: Supple. There is JVD present. Carotids are equal there is no bruits. There is no lymphadenopathy there is no goiter. There is no accessory muscle respiration use trachea central. LUNGS: There is diminished air entry prolonged expiration. There is bilateral expiratory wheezing. There is a few scattered rhonchi. There is no rales of CHF. HEART: S1-S2 is heard. S1 is of variable intensity. There is no S3 gallop. There is no S4 gallop. There is systolic murmur left sternal border and apex there is no rub. ABDOMEN: Is distended. There is mild ascites with shifting dullness present. There is no paraspinal megaly. Bowel sounds are well heard. There is no tender areas masses. There is no rebound guarding or rigidity. EXTREMITIES: Femorals are deep femorals are diminished. There is no femoral bruits. Leg pulses difficult to palpate. There is 3+ lower extremity edema with venous stasis dermatitis. There is no cellulitis. There is no DVT. There is no cyanosis or clubbing. Capillary refill is normal. CORK MIXER: The patient is slightly drowsy but oriented x3 with no focal deficits. PSYCHIATRIC: In spite of the patient's drowsiness his judgment site are intact his affect is normal. The patient's 24-hour intake is 1530 mL normal and his output for 24 hours is 1650 mL. Labs- All tests 24 hr 02/14/20 02/15/20 02/15/20 22:54 04:02 04:02 WBC 4.5 RBC 3.31 L Hgb 10.7 L Hct 33.8 L MCV 102 H MCH 32.3 MCHC 31.6 L RDW 17.6 H Plt Count 180 Lymph % (Auto) Not Reportable [place] % (Auto) Not Reportable Eos % (Auto) Not Reportable Baso % (Auto) Not Reportable Absolute Neuts (auto) Not Reportable Absolute Lymphs (auto) Not Reportable Absolute Monos (auto) Not Reportable Absolute Eos (auto) Not Reportable Absolute Basos (auto) Not Reportable Total Counted 100 Seg Neutrophils % Not Reportable Seg Neuts % (Manual) 84 H Lymphocytes % (Manual) 6 L Monocytes % (Manual) 10 Eosinophils % (Manual) 0 Basophils % (Manual) 0 Abs Neuts (Manual) 3.8 Abs Lymphs (Manual) 0.3 L Abs Monocytes (Manual) 0.5 Absolute Eos (Manual) 0.0 Abs Basophils (Manual) 0.0 Platelet Comment ADEQUATE Anisocytosis 1+ Macrocytosis 1+ Carbonic Acid HCO3/H2CO3 Ratio ABG pH ABG pCO2 ABG pO2 ABG HCO3 ABG Total CO2 ABG O2 Saturation ABG Base Excess FiO2 Sodium 131.3 L Potassium 5.4 H Chloride 95 L Carbon Dioxide 28 Anion Gap 8 BUN 59 H Creatinine 1.79 H Est GFR ( Amer) 45 L Est GFR (MDRD) Non-Af 37 L Glucose 312 H POC Glucose 283 H Calcium 7.6 L Magnesium Total Bilirubin Direct Bilirubin Neonat Total Bilirubin Neonat Direct Bilirubin Neonat Indirect Bili AST ALT Alkaline Phosphatase Total Protein Albumin 02/15/20 02/15/20 02/15/20 06:31 07:48 09:28 WBC RBC Hgb Hct MCV MCH MCHC RDW Plt Count Lymph % (Auto) [place] % (Auto) Eos % (Auto) Baso % (Auto) Absolute Neuts (auto) Absolute Lymphs (auto) Absolute Monos (auto) Absolute Eos (auto) Absolute Basos (auto) Total Counted Seg Neutrophils % Seg Neuts % (Manual) Lymphocytes % (Manual) Monocytes % (Manual) Eosinophils % (Manual) Basophils % (Manual) Abs Neuts (Manual) Abs Lymphs (Manual) Abs Monocytes (Manual) Absolute Eos (Manual) Abs Basophils (Manual) Platelet Comment Anisocytosis Macrocytosis Carbonic Acid 1.73 H 1.63 H HCO3/H2CO3 Ratio 17:1 14:1 ABG pH 7.35 7.25 L ABG pCO2 57.5 H 54.3 H ABG pO2 30.5 L* 74.3 L ABG HCO3 30.9 H 23.4 ABG Total CO2 32.7 H 25.1 ABG O2 Saturation 53.7 L 92.5 L ABG Base Excess 3.8 -4.0 FiO2 35% 40% Sodium Potassium Chloride Carbon Dioxide Anion Gap BUN Creatinine Est GFR ( Amer) Est GFR (MDRD) Non-Af Glucose POC Glucose 318 H Calcium Magnesium Total Bilirubin Direct Bilirubin Neonat Total Bilirubin Neonat Direct Bilirubin Neonat Indirect Bili AST ALT Alkaline Phosphatase Total Protein Albumin 02/15/20 02/15/20 02/15/20 11:56 14:39 16:02 WBC RBC Hgb Hct MCV MCH MCHC RDW Plt Count Lymph % (Auto) [place] % (Auto) Eos % (Auto) Baso % (Auto) Absolute Neuts (auto) Absolute Lymphs (auto) Absolute Monos (auto) Absolute Eos (auto) Absolute Basos (auto) Total Counted Seg Neutrophils % Seg Neuts % (Manual) Lymphocytes % (Manual) Monocytes % (Manual) Eosinophils % (Manual) Basophils % (Manual) Abs Neuts (Manual) Abs Lymphs (Manual) Abs Monocytes (Manual) Absolute Eos (Manual) Abs Basophils (Manual) Platelet Comment Anisocytosis Macrocytosis Carbonic Acid HCO3/H2CO3 Ratio ABG pH ABG pCO2 ABG pO2 ABG HCO3 ABG Total CO2 ABG O2 Saturation ABG Base Excess FiO2 Sodium 131.1 L Potassium 5.6 H Chloride 92 L Carbon Dioxide 29 Anion Gap 10 BUN 57 H Creatinine 1.68 H Est GFR ( Amer) 48 L Est GFR (MDRD) Non-Af 40 L Glucose 275 H POC Glucose 303 H 317 H Calcium 7.8 L Magnesium 2.4 H Total Bilirubin 0.4 Direct Bilirubin 0.3 Neonat Total Bilirubin Not Reportable Neonat Direct Bilirubin Not Reportable Neonat Indirect Bili Not Reportable AST 33 ALT 33 Alkaline Phosphatase 110 Total Protein 5.5 L Albumin 2.8 L Abdomen/Pelvis CT 02/13/20 00:00 IMPRESSION: 1. Findings suggestive of volume overload with anasarca and mild volume ascites. 2. Cholelithiasis. 3. No other evidence of acute intra-abdominal/pelvic process. Chest CT 02/13/20 00:00 IMPRESSION: 1. Findings compatible with CHF with cardiomegaly, small bilateral effusions and mild interstitial edema. Additional bibasilar consolidative change, likely atelectasis although infection not entirely excluded. 2. Heavy three-vessel coronary atherosclerosis. Chest X-Ray 02/13/20 00:00 IMPRESSION: Worsening bibasilar pneumonia. Head CT 02/13/20 00:00 IMPRESSION: NORMAL BRAIN CT WITHOUT CONTRAST. EVIDENCE OF ACUTE STROKE: NO. Chest X-Ray 02/14/20 00:00 IMPRESSION: Bibasilar pneumonia, left more than right. Left internal jugular catheter as described. Cardiomegaly without bryan pulmonary edema. Cannot exclude a minimal right pleural effusion. IMPRESSION/RECOMMENDATION: 1. Acute coronary pulmonary with acute on chronic right ventricular systolic failure: Would add a small dose of ARB and continue the patient on dobutamine and Lasix drip. This acute on chronic right ventricle systolic heart failure is secondary to severe pulmonary hypertension. . Acute exacerbation of COPD: Recommend anti-COPD inhalers and antibiotics and consider steroids 3. Acute on chronic hypercapnic and hypoxic respiratory failure: Recommend intermittent BiPAP as needed. Continue treatment of acute exacerbation of COPD. 4. Severe pulmonary hypertension: Secondary to patient's severe COPD ongoing smoking 5. History of alcoholic cirrhosis of the liver with ascites and portal hypertension. 6. Coronary artery disease: History of prior old myocardial infarction and history of coronary bypass graft surgery: The patient has no anginal symptoms and no evidence of acute coronary syndrome at present. 7. Chronic atrial fibrillation: Rate is well controlled continue current medication including Eliquis for stroke prophylaxis. 8. Hypertension: Blood pressure well controlled. Nurse's notes that the patient is on midodrine to keep his blood pressure up so that his Lopressor and other medications can be given. 9. Diabetes mellitus with peripheral neuropathy. Continue current medication for the diabetes and his neuropathy. 10. Chronic kidney disease at present stage III: Avoid nephrotoxic drugs. 12. History of tobacco abuse: Tobacco cessation counseling done. Medications reviewed. Medications added. Medical decision making is of high complexity. Medical regimen management plan discussed with attending provider. Discussed with nephrology also. Medical decision making is of high complexity. 40 minutes spent on this patient more than 50% of time spent in direct patient care. Will follow.
[2020-02-15] MEDS: CEFTRIAXONE 2 GM/D5W RTU 2 GM/50 ML RTUPB IV SCH (22:12)
[2020-02-15] MEDS: LOSARTAN POTASSIUM 25 MG TABLET PO SCH (22:13)
[2020-02-15] MEDS: ATORVASTATIN CALCIUM 80 MG TABLET PO SCH (22:13)
[2020-02-15] MEDS: TAMSULOSIN HCL 0.4 MG CAP.SR.24H PO SCH (22:13)
[2020-02-16] MEDS: IPRATROPIUM/ALBUTEROL 0.5-2.5 MG/3 ML AMPUL NEB SCH ×4 (04:13→21:10)
[2020-02-16 05:39] LABS: HEMATOCRIT 32.9 % (37.9-51.0); HEMOGLOBIN 10.6 g/dL (13.5-17.0); MEAN CORPUSCULAR HEMOGLOBIN 32.1 pg (27.0-33.4); MEAN CORPUSCULAR HGB CONC 32.2 g/dL (32.0-36.0); MEAN CORPUSCULAR VOLUME 100 fl (80-97); PLATELET COUNT 177 10^3/uL (150-450); RED CELL DISTRIBUTION WIDTH 17.4 % (11.5-14.0); WHITE BLOOD COUNT 5.2 10^3/uL (4.0-10.5)
[2020-02-16 05:43] LABS: ANION GAP 9 (5-19); BLOOD UREA NITROGEN 55 mg/dL (7-20); CALCIUM 8.1 mg/dL (8.4-10.2); CARBON DIOXIDE 30 mmol/L (22-30); CHLORIDE 92 mmol/L (98-107); GLUCOSE 287 mg/dL (75-110)
[2020-02-16] MEDS: BUSPIRONE HCL 10 MG TABLET PO SCH ×3 (05:46→22:59)
[2020-02-16] MEDS: GABAPENTIN 300 MG CAPSULE PO SCH ×3 (05:47→22:58)
[2020-02-16 06:13] LABS: ABSOLUTE LYMPHOCYTES# (MANUAL) 0.2 10^3/uL (0.5-4.7); ABSOLUTE MONOCYTES # (MANUAL) 0.1 10^3/uL (0.1-1.4); BAND NEUTROPHILS % (MANUAL) 1 % (3-5); BASOPHILS % (MANUAL) 0 % (0-2); EOSINOPHILS % (MANUAL) 0 % (0-6); LYMPHOCYTES % (MANUAL) 3 % (13-45); MONOCYTES % (MANUAL) 2 % (3-13); SEGMENTED NEUTROPHILS % (MAN) 94 % (42-78); TOTAL CELLS COUNTED 100
[2020-02-16 06:17] LABS: ANISOCYTOSIS 1+; OVALOCYTES SLIGHT; PLATELET COMMENT ADEQUATE; POIKILOCYTOSIS SLIGHT; SCHISTOCYTES SLIGHT; TEAR DROP CELLS SLIGHT; TOXIC GRANULATION 1+
[2020-02-16 08:39] LABS: ARTERIAL BLOOD BASE EXCESS 2.5 mmol/L; ARTERIAL BLOOD HCO3 27.3 mmol/L (20-24); ARTERIAL BLOOD O2 SATURATION 95.2 % (94-98); ARTERIAL BLOOD PCO2 43.1 mmHg (35-45); ARTERIAL BLOOD PH 7.42 (7.35-7.45); ARTERIAL BLOOD PO2 74.5 mmHg (80-100); ARTERIAL BLOOD TOTAL CO2 28.7 mmol/L (23-27)
[2020-02-16 08:56] LABS: ARTERIAL BLOOD FIO2 30%
[2020-02-16] MEDS: MAGNESIUM OXIDE 400 MG TABLET PO SCH (10:25)
[2020-02-16] MEDS: APIXABAN 2.5 MG TABLET PO SCH ×2 (10:25→17:50)
[2020-02-16] MEDS: METOPROLOL TARTRATE 50 MG TABLET PO SCH ×2 (10:25→23:01)
[2020-02-16] MEDS: MIDODRINE HCL 5 MG TABLET PO SCH ×3 (10:25→17:50)
[2020-02-16] MEDS: ASPIRIN 81 MG TABLET, ENT COATED PO SCH (10:25)
[2020-02-16] MEDS: GUAIFENESIN 600 MG TABLET.SA PO SCH ×2 (10:25→17:50)
[2020-02-16] MEDS: LACTULOSE SYRUP 20 GM/30 ML UDCUP PO SCH ×4 (10:26→22:58)
[2020-02-16] MEDS: AZITHROMYCIN 250 MG in DEXTROSE 5%-WATER 250 ML IV SCH (10:27)
[2020-02-16] MEDS: METHYLPREDNISOLONE INJ 40 MG/1 ML SDV IV SCH ×2 (10:31→23:01)
[2020-02-16] MEDS: LOSARTAN POTASSIUM 25 MG TABLET PO SCH ×2 (10:34→23:03)
[2020-02-16] MEDS: INSULIN LISPRO 100 UNIT/ML 3 ML VIAL SUBCUT SCH ×4 (10:40→22:59)
[2020-02-16] MEDS: NITROGLYCERIN 2.5 MG (0.1 MG/HR) PATCH.TD24 TD SCH (10:41)
[2020-02-16] MEDS: FLUTICASONE/UMECLIDIN/VILANTER 100-62.5-25 MCG/DOSE IH SCH (10:42)
--- NOTE | 2020-02-16 10:44 | PDOC PROGRESS REPORT ---
Subjective Progress Note for:: 02/15/20 Subjective:: Minimal improvement still very lethargic Reason For Visit: ACUTE RESPIRATORY FAILURE WITH HYPERCAPNEA,ACUTE Physical Exam Vital Signs: Temp Pulse Resp BP Pulse Ox 97.2 F 66 27 H 102/53 L 90 L 02/15/20 08:47 02/15/20 13:08 02/15/20 07:57 02/15/20 13:08 02/15/20 07:57 Intake & Output 02/14/20 02/15/20 02/16/20 06:59 06:59 06:59 Intake Total 763 1530 250 Output Total 1850 1650 Balance -1087 -120 250 Weight 123 kg 125.2 kg General appearance: PRESENT: no acute distress, disheveled, morbidly obese. ABSENT: cooperative Head exam: PRESENT: atraumatic, normocephalic Eye exam: PRESENT: conjunctiva pale, EOMI. ABSENT: nystagmus, periorbital swelling Mouth exam: PRESENT: dry mucosa, neck supple, tongue midline Neck exam: ABSENT: carotid bruit, full ROM, JVD, lymphadenopathy, meningismus, tenderness, thyromegaly, tracheal deviation, tracheostomy, other Respiratory exam: PRESENT: decreased breath sounds, prolonged expiratory phas, rhonchi, symmetrical, unlabored. ABSENT: retraction, stridor Cardiovascular exam: PRESENT: RRR, +S1, +S2 Pulses: PRESENT: normal radial pulses GI/Abdominal exam: PRESENT: soft. ABSENT: guarding, mass, rebound, tenderness Extremities exam: PRESENT: full ROM. ABSENT: calf tenderness, clubbing, joint swelling, pedal edema, tenderness Musculoskeletal exam: PRESENT: full ROM. ABSENT: deformity, dislocation Neurological exam: PRESENT: altered Psychiatric exam: PRESENT: flat affect Focused psych exam: PRESENT: delusional Skin exam: PRESENT: dry, warm Results Laboratory Results: 02/15/20 04:02 02/15/20 04:02 02/14/20 02/15/20 02/15/20 16:16 04:02 04:02 WBC 4.5 RBC 3.31 L Hgb 10.7 L Hct 33.8 L MCV 102 H MCH 32.3 MCHC 31.6 L RDW 17.6 H Plt Count 180 Seg Neutrophils % Not Reportable Carbonic Acid 1.90 H HCO3/H2CO3 Ratio 14:1 ABG pH 7.27 L ABG pCO2 63.0 H ABG pO2 134.7 H ABG HCO3 28.3 H ABG O2 Saturation 98.3 H ABG Base Excess 0.2 FiO2 15L Sodium 131.3 L Potassium 5.4 H Chloride 95 L Carbon Dioxide 28 Anion Gap 8 BUN 59 H Creatinine 1.79 H Est GFR ( Amer) 45 L Glucose 312 H Calcium 7.6 L 02/15/20 02/15/20 06:31 09:28 WBC RBC Hgb Hct MCV MCH MCHC RDW Plt Count Seg Neutrophils % Carbonic Acid 1.73 H 1.63 H HCO3/H2CO3 Ratio 17:1 14:1 ABG pH 7.35 7.25 L ABG pCO2 57.5 H 54.3 H ABG pO2 30.5 L* 74.3 L ABG HCO3 30.9 H 23.4 ABG O2 Saturation 53.7 L 92.5 L ABG Base Excess 3.8 -4.0 FiO2 35% 40% Sodium Potassium Chloride Carbon Dioxide Anion Gap BUN Creatinine Est GFR ( Amer) Glucose Calcium 02/13/20 02:43 Clean Catch Midstream Urine Culture - Final Mixed Urogenital [place] 02/13/20 02/13/20 02/13/20 01:22 10:10 10:10 Creatine Kinase 43 L CK-MB (CK-2) 2.37 Troponin I 0.017 < 0.012 02/13/20 02/13/20 02/14/20 16:18 16:18 04:17 Creatine Kinase 41 L 59 CK-MB (CK-2) 2.34 Troponin I < 0.012 02/14/20 04:17 Creatine Kinase CK-MB (CK-2) 2.53 Troponin I 0.014 Impressions: Abdomen/Pelvis CT 02/13/20 00:00 IMPRESSION: 1. Findings suggestive of volume overload with anasarca and mild volume ascites. 2. Cholelithiasis. 3. No other evidence of acute intra-abdominal/pelvic process. Chest CT 02/13/20 00:00 IMPRESSION: 1. Findings compatible with CHF with cardiomegaly, small bilateral effusions and mild interstitial edema. Additional bibasilar consolidative change, likely atelectasis although infection not entirely excluded. 2. Heavy three-vessel coronary atherosclerosis. Head CT 02/13/20 00:00 IMPRESSION: NORMAL BRAIN CT WITHOUT CONTRAST. EVIDENCE OF ACUTE STROKE: NO. Chest X-Ray 02/14/20 00:00 IMPRESSION: Bibasilar pneumonia, left more than right. Left internal jugular catheter as described. Cardiomegaly without bryan pulmonary edema. Cannot exclude a minimal right pleural effusion. Assessment & Plan - Diagnosis (1) Acute respiratory failure with hypercapnia Is this a current diagnosis for this admission?: Yes Plan: pH is improved but has not normalized this time after discussing with Dr. Steen will increased pressure support (2) CHF exacerbation Qualifiers: Heart failure type: combined systolic and diastolic Qualified Code(s): I5 0.43 - Acute on chronic combined systolic (congestive) and diastolic (congestive) heart failure Is this a current diagnosis for this admission?: Yes Plan: Improving (3) Cirrhosis of liver Qualifiers: Hepatic cirrhosis type: alcoholic cirrhosis Ascites presence: unspecified Qualified Code(s): K70.30 - Alcoholic cirrhosis of liver without ascites Is this a current diagnosis for this admission?: Yes Plan: No change (4) Atrial fibrillation Qualifiers: Atrial fibrillation type: permanent Qualified Code(s): I48.21 - Permanent atrial fibrillation Is this a current diagnosis for this admission?: Yes Plan: Regular rhythm today - Time Time Spent with patient: 40 minutes
--- NOTE | 2020-02-16 10:52 | PDOC PROGRESS REPORT ---
Subjective Progress Note for:: 02/16/20 Subjective:: Better today conversing Reason For Visit: ACUTE RESPIRATORY FAILURE WITH HYPERCAPNEA,ACUTE Physical Exam Vital Signs: Temp Pulse Resp BP Pulse Ox 97.2 F 110 H 42 H 118/100 H 93 02/16/20 08:29 02/16/20 07:35 02/16/20 07:35 02/16/20 07:00 02/16/20 07:35 Intake & Output 02/15/20 02/16/20 02/17/20 06:59 06:59 06:59 Intake Total 1530 1698 Output Total 1650 3200 Balance -120 -1502 Weight 125.2 kg General appearance: PRESENT: no acute distress, cooperative, disheveled, obese Head exam: PRESENT: atraumatic, normocephalic Eye exam: PRESENT: conjunctiva pale, EOMI. ABSENT: nystagmus, periorbital swelling Mouth exam: PRESENT: dry mucosa, neck supple, tongue midline Neck exam: ABSENT: carotid bruit, full ROM, JVD, lymphadenopathy, meningismus, tenderness, thyromegaly, tracheal deviation, tracheostomy, other Respiratory exam: PRESENT: decreased breath sounds, prolonged expiratory phas, rales, rhonchi, symmetrical, unlabored. ABSENT: retraction, stridor, tachypnea Cardiovascular exam: PRESENT: irregular rhythm Pulses: PRESENT: normal radial pulses GI/Abdominal exam: PRESENT: soft. ABSENT: rebound, tenderness Musculoskeletal exam: ABSENT: deformity, dislocation Neurological exam: PRESENT: awake Psychiatric exam: PRESENT: appropriate affect Skin exam: PRESENT: dry, warm Results Laboratory Results: 02/16/20 05:16 02/16/20 05:16 02/15/20 02/15/20 02/16/20 09:28 14:39 05:16 WBC 5.2 RBC 3.30 L Hgb 10.6 L Hct 32.9 L MCV 100 H MCH 32.1 MCHC 32.2 RDW 17.4 H Plt Count 177 Seg Neutrophils % Not Reportable Carbonic Acid 1.63 H HCO3/H2CO3 Ratio 14:1 ABG pH 7.25 L ABG pCO2 54.3 H ABG pO2 74.3 L ABG HCO3 23.4 ABG O2 Saturation 92.5 L ABG Base Excess -4.0 FiO2 40% Sodium 131.1 L Potassium 5.6 H Chloride 92 L Carbon Dioxide 29 Anion Gap 10 BUN 57 H Creatinine 1.68 H Est GFR ( Amer) 48 L Glucose 275 H Calcium 7.8 L Magnesium 2.4 H Total Bilirubin 0.4 AST 33 Alkaline Phosphatase 110 Total Protein 5.5 L Albumin 2.8 L 02/16/20 02/16/20 05:16 08:15 WBC RBC Hgb Hct MCV MCH MCHC RDW Plt Count Seg Neutrophils % Carbonic Acid 1.30 HCO3/H2CO3 Ratio 21:1 ABG pH 7.42 ABG pCO2 43.1 ABG pO2 74.5 L ABG HCO3 27.3 H ABG O2 Saturation 95.2 ABG Base Excess 2.5 FiO2 30% Sodium 130.8 L Potassium 5.0 Chloride 92 L Carbon Dioxide 30 Anion Gap 9 BUN 55 H Creatinine 1.54 H Est GFR ( Amer) 54 L Glucose 287 H Calcium 8.1 L Magnesium Total Bilirubin AST Alkaline Phosphatase Total Protein Albumin 02/13/20 02/13/20 02/13/20 01:22 10:10 10:10 Creatine Kinase 43 L CK-MB (CK-2) 2.37 Troponin I 0.017 < 0.012 02/13/20 02/13/20 02/14/20 16:18 16:18 04:17 Creatine Kinase 41 L 59 CK-MB (CK-2) 2.34 Troponin I < 0.012 02/14/20 04:17 Creatine Kinase CK-MB (CK-2) 2.53 Troponin I 0.014 Impressions: Abdomen/Pelvis CT 02/13/20 00:00 IMPRESSION: 1. Findings suggestive of volume overload with anasarca and mild volume ascites. 2. Cholelithiasis. 3. No other evidence of acute intra-abdominal/pelvic process. Chest CT 02/13/20 00:00 IMPRESSION: 1. Findings compatible with CHF with cardiomegaly, small bilateral effusions and mild interstitial edema. Additional bibasilar consolidative change, likely atelectasis although infection not entirely excluded. 2. Heavy three-vessel coronary atherosclerosis. Head CT 02/13/20 00:00 IMPRESSION: NORMAL BRAIN CT WITHOUT CONTRAST. EVIDENCE OF ACUTE STROKE: NO. Chest X-Ray 02/14/20 00:00 IMPRESSION: Bibasilar pneumonia, left more than right. Left internal jugular catheter as described. Cardiomegaly without bryan pulmonary edema. Cannot exclude a minimal right pleural effusion. Assessment & Plan - Diagnosis (1) Acute respiratory failure with hypercapnia Is this a current diagnosis for this admission?: Yes Plan: improved Will need noninvasive positive pressure ventilation at discharge The above patient has failed BiPAP with a patent airway. This patient would benefit from noninvasive mechanical ventilation via the trilogy AVAPS/AE and faster responding AVAPS rates. The trilogy is able to provide a target tidal volume and also adjusting the EPAP pressures to maintain a patent airway as well as an oral backup rate this machine will help improve PaCO2 levels. The severity of the patient's condition will lead to future hospitalizations and readmissions as well as life-threatening situations without the use of this device day and night. Trilogy home vent needed for hypercapnic respiratory failure. [facility] or [facility] to follow for trilogy set up. (2) CHF exacerbation Qualifiers: Heart failure type: combined systolic and diastolic Qualified Code(s): I50.43 - Acute on chronic combined systolic (congestive) and diastolic (congestive) heart failure Is this a current diagnosis for this admission?: Yes Plan: Improving (3) Cirrhosis of liver Qualifiers: Hepatic cirrhosis type: alcoholic cirrhosis Ascites presence: unspecified Qualified Code(s): K70.30 - Alcoholic cirrhosis of liver without ascites Is this a current diagnosis for this admission?: Yes Plan: No change (4) Atrial fibrillation Qualifiers: Atrial fibrillation type: permanent Qualified Code(s): I48.21 - Permanent atrial fibrillation Is this a current diagnosis for this admission?: Yes Plan: today irregular - Time Time Spent with patient: 30 minutes
--- NOTE | 2020-02-16 12:53 | PDOC PROGRESS REPORT ---
Subjective Progress Note for:: 02/16/20 Subjective:: Patient is currently doing same currently wearing the BiPAP alert awake oriented x3 Patient's denied any chest pain no short of breath pH is improved 7.35 CO2 is also improving P O2 is still low Patient is also currently on a Lasix drip and dobutamine drips Reason For Visit: ACUTE RESPIRATORY FAILURE WITH HYPERCAPNEA,ACUTE Physical Exam Vital Signs: Temp Pulse Resp BP Pulse Ox 97.2 F 110 H 42 H 118/100 H 93 02/16/20 08:29 02/16/20 07:35 02/16/20 07:35 02/16/20 07:00 02/16/20 07:35 Intake & Output 02/15/20 02/16/20 02/17/20 06:59 06:59 06:59 Intake Total 1530 1698 Output Total 1650 3200 Balance -120 -1502 Weight 125.2 kg General appearance: PRESENT: no acute distress Eye exam: PRESENT: PERRLA Mouth exam: PRESENT: neck supple Respiratory exam: PRESENT: decreased breath sounds Cardiovascular exam: PRESENT: +S1, +S2 GI/Abdominal exam: PRESENT: ascites, distended, normal bowel sounds Extremities exam: PRESENT: pedal edema Neurological exam: PRESENT: alert, awake, oriented to person, oriented to place, oriented to time Results Laboratory Results: 02/16/20 05:16 02/16/20 05:16 02/15/20 02/16/20 02/16/20 14:39 05:16 05:16 WBC 5.2 RBC 3.30 L Hgb 10.6 L Hct 32.9 L MCV 100 H MCH 32.1 MCHC 32.2 RDW 17.4 H Plt Count 177 Seg Neutrophils % Not Reportable Carbonic Acid HCO3/H2CO3 Ratio ABG pH ABG pCO2 ABG pO2 ABG HCO3 ABG O2 Saturation ABG Base Excess FiO2 Sodium 131.1 L 130.8 L Potassium 5.6 H 5.0 Chloride 92 L 92 L Carbon Dioxide 29 30 Anion Gap 10 9 BUN 57 H 55 H Creatinine 1.68 H 1.54 H Est GFR ( Amer) 48 L 54 L Glucose 275 H 287 H Calcium 7.8 L 8.1 L Magnesium 2.4 H Total Bilirubin 0.4 AST 33 Alkaline Phosphatase 110 Total Protein 5.5 L Albumin 2.8 L 02/16/20 08:15 WBC RBC Hgb Hct MCV MCH MCHC RDW Plt Count Seg Neutrophils % Carbonic Acid 1.30 HCO3/H2CO3 Ratio 21:1 ABG pH 7.42 ABG pCO2 43.1 ABG pO2 74.5 L ABG HCO3 27.3 H ABG O2 Saturation 95.2 ABG Base Excess 2.5 FiO2 30% Sodium Potassium Chloride Carbon Dioxide Anion Gap BUN Creatinine Est GFR ( Amer) Glucose Calcium Magnesium Total Bilirubin AST Alkaline Phosphatase Total Protein Albumin 02/13/20 02/13/20 02/13/20 01:22 10:10 10:10 Creatine Kinase 43 L CK-MB (CK-2) 2.37 Troponin I 0.017 < 0.012 02/13/20 02/13/20 02/14/20 16:18 16:18 04:17 Creatine Kinase 41 L 59 CK-MB (CK-2) 2.34 Troponin I < 0.012 02/14/20 04:17 Creatine Kinase CK-MB (CK-2) 2.53 Troponin I 0.014 Impressions: Abdomen/Pelvis CT 02/13/20 00:00 IMPRESSION: 1. Findings suggestive of volume overload with anasarca and mild volume ascites. 2. Cholelithiasis. 3. No other evidence of acute intra-abdominal/pelvic process. Chest CT 02/13/20 00:00 IMPRESSION: 1. Findings compatible with CHF with cardiomegaly, small bilateral effusions and mild interstitial edema. Additional bibasilar consolidative change, likely atelectasis although infection not entirely excluded. 2. Heavy three-vessel coronary atherosclerosis. Head CT 02/13/20 00:00 IMPRESSION: NORMAL BRAIN CT WITHOUT CONTRAST. EVIDENCE OF ACUTE STROKE: NO. Chest X-Ray 02/14/20 00:00 IMPRESSION: Bibasilar pneumonia, left more than right. Left internal jugular catheter as described. Cardiomegaly without bryan pulmonary edema. Cannot exclude a minimal right pleural effusion. Assessment & Plan - Diagnosis (1) Acute respiratory failure with hypercapnia Is this a current diagnosis for this admission?: Yes Plan: improved with normal ph (2) Cirrhosis of liver Qualifiers: Hepatic cirrhosis type: alcoholic cirrhosis Ascites presence: unspecified Qualified Code(s): K70.30 - Alcoholic cirrhosis of liver without ascites Is this a current diagnosis for this admission?: Yes Plan: No change (3) CHF exacerbation Qualifiers: Heart failure type: combined systolic and diastolic Qualified Code(s): I50.43 - Acute on chronic combined systolic (congestive) and diastolic (congestive) heart failure Is this a current diagnosis for this admission?: Yes Plan: Improving (4) Acute renal failure Is this a current diagnosis for this admission?: Yes (5) Ascites Qualifiers: Ascites type: other type Qualified Code(s): R18.8 - Other ascites Is this a current diagnosis for this admission?: Yes Plan: We will get the ultrasound of the abdomen (6) Atrial fibrillation Qualifiers: Atrial fibrillation type: permanent Qualified Code(s): I48.21 - Permanent atrial fibrillation Is this a current diagnosis for this admission?: Yes Plan: today irregular (7) CAD (coronary artery disease) Qualifiers: Coronary Disease-Associated Artery/Lesion type: [place] artery Associated angina: without angina Is this a current diagnosis for this admission?: Yes (8) Diabetes mellitus Qualifiers: Diabetes mellitus type: type 2 Diabetes mellitus 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 insulin use: without 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 use Diabetes mellitus complication status: without complication Qualified Code(s): E11.9 - Type 2 diabetes mellitus without complications Is this a current diagnosis for this admission?: Yes (9) Chronic pain syndrome Is this a current diagnosis for this admission?: Yes (10) Neuropathy Is this a current diagnosis for this admission?: Yes (11) COPD (chronic obstructive pulmonary disease) Qualifiers: COPD type: emphysema Emphysema type: centrilobular Qualified Code(s): J43.2 - Centrilobular emphysema Is this a current diagnosis for this admission?: Yes - Time Time Spent with patient: 15-24 minutes Level of Care: IMCU Medications reviewed and adjusted accordingly: Yes Anticipated discharge: Other Anticipated DC Timeframe: Other - Plan Summary Plan Summary: Will get the ultrasound of her abdomen first see patient get able to get a paracentesis Continues to follow with the cardiology and nephrology Discussed With the daughter regarding the patient's current conditions overall prognosis is poor
[2020-02-16] MEDS: PATIROMER 8.4 GM SUSP PACKET PO SCH (13:38)
--- NOTE | 2020-02-16 15:06 | RADIOLOGY REPORT (SQ) ---
EXAM DESCRIPTION: CHEST SINGLE VIEW IMAGES COMPLETED DATE/TIME: 02/16/2020 2:04 pm REASON FOR STUDY: check placement of central line COMPARISON: 02/14/2020 EXAM PARAMETERS: NUMBER OF VIEWS: One view. TECHNIQUE: Single frontal radiographic view of the chest acquired. RADIATION DOSE: NA LIMITATIONS: None. FINDINGS: LUNGS AND PLEURA: There is increasing bibasilar airspace disease, left more than right. S uperimposed pulmonary edema. MEDIASTINUM AND HILAR STRUCTURES: No masses. Contour normal. HEART AND VASCULAR STRUCTURES: Cardiomegaly. BONES: No acute findings. HARDWARE: Sternotomy wires. Left internal jugular catheter has its tip in the superior vena cava. OTHER: No other significant finding. IMPRESSION: Bilateral lower lobe airspace disease shows worsening. Cardiomegaly with pulmonary homer a. Left internal jugular catheter as described. TECHNICAL DOCUMENTATION: JOB ID: [id number] 2010 [employer]- All Rights Reserved Reading location - IP/workstation name: [email or web address]
--- NOTE | 2020-02-16 15:37 | PDOC PROGRESS REPORT ---
Subjective Progress Note for:: 02/16/20 Subjective:: This afternoon when I saw him he was taking neb treatments and somewhat sleepy sitting in a chair. He continues to be hard of hearing and communication is really difficult. His urine output for the past 24 hours was 3200 mL. Reason For Visit: ACUTE RESPIRATORY FAILURE WITH HYPERCAPNEA,ACUTE Physical Exam Vital Signs: Temp Pulse Resp BP Pulse Ox 97.2 F 80 16 118/100 H 96 02/16/20 08:29 02/16/20 14:00 02/16/20 13:56 02/16/20 07:00 02/16/20 13:56 Intake & Output 02/15/20 02/16/20 02/17/20 06:59 06:59 06:59 Intake Total 1530 1698 Output Total 1650 3200 1200 Balance -120 -1502 -1200 Weight 125.2 kg Exam: General appearance: PRESENT: Comfortable currently on nasal cannula Head exam: PRESENT: atraumatic, normocephalic Eye exam: PRESENT: Eyes closed Neck exam: ABSENT: JVD Respiratory exam: PRESENT: Diminished breath sounds. ABSENT: crackles, rales, rhonchi, unlabored, wheezes Cardiovascular exam: PRESENT: Irregularly irregular rate rhythm -+S1, +S2. ABSENT: diastolic murmur, systolic murmur GI/Abdominal exam: PRESENT: normal bowel sounds, distended, firm, subcutaneous edema and ascites ABSENT: guarding, mass, tenderness Extremities exam: Grade 3 bilateral lower extremity pitting edema Neurological exam: PRESENT: Somnolent. Skin exam: PRESENT: dry, warm, Results Laboratory Results: 02/16/20 05:16 02/16/20 05:16 02/15/20 02/16/20 02/16/20 14:39 05:16 05:16 WBC 5.2 RBC 3.30 L Hgb 10.6 L Hct 32.9 L MCV 100 H MCH 32.1 MCHC 32.2 RDW 17.4 H Plt Count 177 Seg Neutrophils % Not Reportable Carbonic Acid HCO3/H2CO3 Ratio ABG pH ABG pCO2 ABG pO2 ABG HCO3 ABG O2 Saturation ABG Base Excess FiO2 Sodium 131.1 L 130.8 L Potassium 5.6 H 5.0 Chloride 92 L 92 L Carbon Dioxide 29 30 Anion Gap 10 9 BUN 57 H 55 H Creatinine 1.68 H 1.54 H Est GFR ( Amer) 48 L 54 L Glucose 275 H 287 H Calcium 7.8 L 8.1 L Magnesium 2.4 H Total Bilirubin 0.4 AST 33 Alkaline Phosphatase 110 Total Protein 5.5 L Albumin 2.8 L 02/16/20 08:15 WBC RBC Hgb Hct MCV MCH MCHC RDW Plt Count Seg Neutrophils % Carbonic Acid 1.30 HCO3/H2CO3 Ratio 21:1 ABG pH 7.42 ABG pCO2 43.1 ABG pO2 74.5 L ABG HCO3 27.3 H ABG O2 Saturation 95.2 ABG Base Excess 2.5 FiO2 30% Sodium Potassium Chloride Carbon Dioxide Anion Gap BUN Creatinine Est GFR ( Amer) Glucose Calcium Magnesium Total Bilirubin AST Alkaline Phosphatase Total Protein Albumin 02/13/20 02/13/20 02/13/20 01:22 10:10 10:10 Creatine Kinase 43 L CK-MB (CK-2) 2.37 Troponin I 0.017 < 0.012 02/13/20 02/13/20 02/14/20 16:18 16:18 04:17 Creatine Kinase 41 L 59 CK-MB (CK-2) 2.34 Troponin I < 0.012 02/14/20 04:17 Creatine Kinase CK-MB (CK-2) 2.53 Troponin I 0.014 Impressions: Abdomen/Pelvis CT 02/13/20 00:00 IMPRESSION: 1. Findings suggestive of volume overload with anasarca and mild volume ascites. 2. Cholelithiasis. 3. No other evidence of acute intra-abdominal/pelvic process. Chest CT 02/13/20 00:00 IMPRESSION: 1. Findings compatible with CHF with cardiomegaly, small bilateral effusions and mild interstitial edema. Additional bibasilar consolidative change, likely atelectasis although infection not entirely excluded. 2. Heavy three-vessel coronary atherosclerosis. Head CT 02/13/20 00:00 IMPRESSION: NORMAL BRAIN CT WITHOUT CONTRAST. EVIDENCE OF ACUTE STROKE: NO. Chest X-Ray 02/16/20 00:00 IMPRESSION: Bilateral lower lobe airspace disease shows worsening. Cardiomegaly with pulmonary edema. Left internal jugular catheter as described. Assessment & Plan - Diagnosis (1) BRUCE (acute kidney injury) Is this a current diagnosis for this admission?: Yes Plan: Nonoliguric. No associated significant proteinuria nor microhematuria. This is most likely secondary to multiple prerenal factors including possible cardiorenal syndrome due to CHF, liver cirrhosis with ascites and diabetes. CT scan of the abdomen showed no hydronephrosis nor masses. Management is really to optimize treatment for the above comorbid conditions as the kidney function just follows through depending on the status of those. Agree with current dobutamine drip and Lasix drip being managed by cardiology. No need of renal replacement therapy at this time. Continue to monitor kidney function. Avoid nephrotoxic medications. Adjust doses of medications depending on kidney function. Discontinue Toradol and other NSAIDs. Creatinine improved to 1.54 today. Good urine output. (2) Hyponatremia Is this a current diagnosis for this admission?: Yes Plan: Likely secondary to hypotonic IV solution being given the patient. (3) Hyperkalemia Is this a current diagnosis for this admission?: Yes Plan: Secondary to BRUCE. Improved with [place]. Low potassium diet. (4) Acute respiratory failure with hypercapnia Is this a current diagnosis for this admission?: Yes Plan: Defer to Dr. Steen. Also being given azithromycin and ceftriaxone. Pulmonary being consulted. Currently on nasal cannula. (5) CHF exacerbation Qualifiers: Heart failure type: combined systolic and diastolic Qualified Code(s): I50.43 - Acute on chronic combined systolic (congestive) and diastolic (congestive) heart failure Is this a current diagnosis for this admission?: Yes Plan: Echocardiogram on 07/14/2019 showed LVEF of 45%, moderate global hypokinesia of left ventricle, right ventricle moderately dilated, right atrium mild to moderately dilated, left atrium severely dilated, seen in severe pulmonary hypertension. On dobutamine and Lasix drip. Dr. Portillo following the patient. (6) COPD (chronic obstructive pulmonary disease) Qualifiers: COPD type: emphysema Emphysema type: centrilobular Qualified Code(s): J43.2 - Centrilobular emphysema Is this a current diagnosis for this admission?: Yes (7) Cirrhosis of liver Qualifiers: Hepatic cirrhosis type: alcoholic cirrhosis Ascites presence: unspecified Qualified Code(s): K70.30 - Alcoholic cirrhosis of liver without ascites Is this a current diagnosis for this admission?: Yes Plan: Alcohol induced. (8) Ascites Qualifiers: Ascites type: other type Qualified Code(s): R18.8 - Other ascites Is this a current diagnosis for this admission?: Yes (9) Pulmonary hypertension Is this a current diagnosis for this admission?: Yes (10) Atrial fibrillation Qualifiers: Atrial fibrillation type: permanent Qualified Code(s): I48.21 - Permanent atrial fibrillation Is this a current diagnosis for this admission?: Yes Plan: On Eliquis and metoprolol. (11) Neuropathy Is this a current diagnosis for this admission?: Yes Plan: On gabapentin. Needs to be careful with the dose of gabapentin. If the patient becomes more somnolent then it needs to be decreased. 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
--- NOTE | 2020-02-16 15:48 | RADIOLOGY REPORT (SQ) ---
EXAM DESCRIPTION: U/S ABDOMEN LIMITED W/O DOP IMAGES COMPLETED DATE/TIME: 02/16/2020 3:34 pm REASON FOR STUDY: eval ascites COMPARISON: None. TECHNIQUE: Limited Static and real time haji scale imaging performed of the 4 abdominal quadrants an d the midline. LIMITATIONS: Patient remains seated upright for imaging. FINDINGS: ASCITES: Simple appearing ascites is seen within all 4 quadrants, with the largest collect ion demonstrated within the right lower quadrant. OTHER: No other significant finding. IMPRESSION: Diffuse simple appearing ascites with the largest collection seen within the right lower quadrant. TECHNICAL DOCUMENTATION: JOB ID: [id number] 2010 [employer]- All Rights Reserved Reading location - IP/workstation name: [email or web address]
[2020-02-16] MEDS: PHARMACY COMMUNICATION ORDER MC SCH (17:52)
--- NOTE | 2020-02-16 22:15 | Progress Note ---
Provider Note Provider Note: CARDIOLOGY PROGRESS NOTE by Dr. Alicia Portillo on 02/16/2020. OBJECTIVE: The patient is now sitting comfortably in the chair and is on nasal oxygen. He states his shortness of breath is much improved but is not completely resolved. He has orthopnea but no PND. His leg edema is also much improved and is a 1+ bilaterally. He denies any chest pain or discomfort. There is no arrhythmias seen on the monitor he continues to be chronic atrial fibrillation. He has no TIA CVA symptoms. The patient's urine output is good and his renal function has improved. His abdominal distention is also a little less. PHYSICAL EXAMINATION: The patient is moderately obese and appears to be chronically ill. But surprisingly no acute distress at present is sitting up in the chair. Selected Entries 02/16/20 02/16/20 15:49 15:52 Temperature 97.7 F Temperature Axillary Source Pulse Rate 98 Respiratory 20 Rate Blood Pressure 102/63 Blood Pressure 76 Mean BP Location Right Arm BP Position Sitting O2 Sat by Pulse 91 L Oximetry Oxygen Delivery Room Air Method HEAD: Is atraumatic normocephalic. EYES: Pupils equal round regular reactive to light and accommodation. Extraocular movements are normal. There is no conjunctival pallor. There is no scleral icterus. EARS: Tympanic membranes are intact. External auditory canals are clear. NOSE: There is no deviated nasal septum. There is no inflammation nasal mucous membrane. MOUTH: Mucous membrane s of mouth are moist. Tongue is moist. There is no ulcers. THROAT: There is no redness of the oropharynx. There is no exudates. SKIN: There is no skin rashes. There is no petechia or ecchymosis. There is no jaundice. NECK: Supple. There is JVD present. Carotids are equal there is no bruits. There is no lymphadenopathy there is no goiter. There is no accessory muscle respiration use trachea central. LUNGS: There is diminished air entry prolonged expiration. There is bilateral expiratory wheezing. There is a few scattered rhonchi. There is no rales of CHF. HEART: S1-S2 is heard. S1 is of variable intensity. There is no S3 gallop. There is no S4 gallop. There is systolic murmur left sternal border and apex there is no rub. ABDOMEN: Is distended. There is mild ascites with shifting dullness present. There is no paraspinal megaly. Bowel sounds are well heard. There is no tender areas masses. There is no rebound guarding or rigidity. EXTREMITIES: Femorals are deep femorals are diminished. There is no femoral bruits. Leg pulses difficult to palpate. There is 3+ lower extremity edema with venous stasis dermatitis. There is no cellulitis. There is no DVT. There is no cyanosis or clubbing. Capillary refill is normal. 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 PSYCHIATRIC: In spite of the patient's drowsiness his judgment site are intact his affect is normal. The patient's 24-hour intake is 1698 mL normal and his output for 24 hours is 3200 mL. Abdomen/Pelvis CT 02/13/20 00:00 IMPRESSION: 1. Findings suggestive of volume overload with anasarca and mild volume ascites. 2. Cholelithiasis. 3. No other evidence of acute intra-abdominal/pelvic process. Chest CT 02/13/20 00:00 IMPRESSION: 1. Findings compatible with CHF with cardiomegaly, small bilateral effusions and mild interstitial edema. Additional bibasilar consolidative change, likely atelectasis although infection not entirely excluded. 2. Heavy three-vessel coronary atherosclerosis. Chest X-Ray 02/13/20 00:00 IMPRESSION: Worsening bibasilar pneumonia. Head CT 02/13/20 00:00 IMPRESSION: NORMAL BRAIN CT WITHOUT CONTRAST. EVIDENCE OF ACUTE STROKE: NO. Chest X-Ray 02/14/20 00:00 IMPRESSION: Bibasilar pneumonia, left more than right. Left internal jugular catheter as described. Cardiomegaly without bryan pulmonary edema. Cannot exclude a minimal right pleural effusion. Abdomen Ultrasound 02/16/20 00:00 IMPRESSION: Diffuse simple appearing ascites with the largest collection seen within the right lower quadrant. Chest X-Ray 02/16/20 00:00 IMPRESSION: Bilateral lower lobe airspace disease shows worsening. Cardiomegaly with pulmonary edema. Left internal jugular catheter as described. Labs- All tests 24 hr 02/16/20 02/16/20 02/16/20 05:16 05:16 08:15 WBC 5.2 RBC 3.30 L Hgb 10.6 L Hct 32.9 L MCV 100 H MCH 32.1 MCHC 32.2 RDW 17.4 H Plt Count 177 Lymph % (Auto) Not Reportable Harris % (Auto) Not Reportable Eos % (Auto) Not Reportable Baso % (Auto) Not Reportable Absolute Neuts (auto) Not Reportable Absolute Lymphs (auto) Not Reportable Absolute Monos (auto) Not Reportable Absolute Eos (auto) Not Reportable Absolute Basos (auto) Not Reportable Total Counted 100 Seg Neutrophils % Not Reportable Seg Neuts % (Manual) 94 H Band Neutrophils % 1 L Lymphocytes % (Manual) 3 L Monocytes % (Manual) 2 L Eosinophils % (Manual) 0 Basophils % (Manual) 0 Abs Neuts (Manual) 4.9 Abs Lymphs (Manual) 0.2 L Abs Monocytes (Manual) 0.1 Absolute Eos (Manual) 0.0 Abs Basophils (Manual) 0.0 Toxic Granulation 1+ Platelet Comment ADEQUATE Poikilocytosis SLIGHT Anisocytosis 1+ Macrocytosis SLIGHT Tear Drop Cells SLIGHT Ovalocytes SLIGHT Schistocytes SLIGHT Carbonic Acid 1.30 HCO3/H2CO3 Ratio 21:1 ABG pH 7.42 ABG pCO2 43.1 ABG pO2 74.5 L ABG HCO3 27.3 H ABG Total CO2 28.7 H ABG O2 Saturation 95.2 ABG Base Excess 2.5 FiO2 30% Sodium 130.8 L Potassium 5.0 Chloride 92 L Carbon Dioxide 30 Anion Gap 9 BUN 55 H Creatinine 1.54 H Est GFR ( Amer) 54 L Est GFR (MDRD) Non-Af 44 L Glucose 287 H POC Glucose Calcium 8.1 L 02/16/20 02/16/20 02/16/20 10:03 12:25 16:20 WBC RBC Hgb Hct MCV MCH MCHC RDW Plt Count Lymph % (Auto) Harris % (Auto) Eos % (Auto) Baso % (Auto) Absolute Neuts (auto) Absolute Lymphs (auto) Absolute Monos (auto) Absolute Eos (auto) Absolute Basos (auto) Total Counted Seg Neutrophils % Seg Neuts % (Manual) Band Neutrophils % Lymphocytes % (Manual) Monocytes % (Manual) Eosinophils % (Manual) Basophils % (Manual) Abs Neuts (Manual) Abs Lymphs (Manual) Abs Monocytes (Manual) Absolute Eos (Manual) Abs Basophils (Manual) Toxic Granulation Platelet Comment Poikilocytosis Anisocytosis Macrocytosis Tear Drop Cells Ovalocytes Schistocytes Carbonic Acid HCO3/H2CO3 Ratio ABG pH ABG pCO2 ABG pO2 ABG HCO3 ABG Total CO2 ABG O2 Saturation ABG Base Excess FiO2 Sodium Potassium Chloride Carbon Dioxide Anion Gap BUN Creatinine Est GFR ( Amer) Est GFR (MDRD) Non-Af Glucose POC Glucose 381 H 275 H 157 H Calcium IMPRESSION/RECOMMENDATION: 1. Acute coronary pulmonary with acute on chronic right ventricular systolic failure: Would you This seems to be improving. ARB and continue the patient on dobutamine and Lasix drip. This acute on chronic right ventricle systolic heart failure is secondary to severe pulmonary hypertension. . Acute exacerbation of COPD: Recommend anti-COPD inhalers and antibiotics and consider steroids 3. Acute on chronic hypercapnic and hypoxic respiratory failure: Recommend intermittent BiPAP as needed. Continue treatment of acute exacerbation of COPD. 4. Severe pulmonary hypertension: Secondary to patient's severe COPD ongoing smoking 5. History of alcoholic cirrhosis of the liver with ascites and portal hypertension. 6. Coronary artery disease: History of prior old myocardial infarction and history of coronary bypass graft surgery: The patient has no anginal symptoms and no evidence of acute coronary syndrome at present. 7. Chronic atrial fibrillation: Rate is well controlled continue current medication including Eliquis for stroke prophylaxis. 8. Hypertension: Blood pressure well controlled. Nurse's notes that the patient is on midodrine to keep his blood pressure up so that his Lopressor and other medications can be given. 9. Diabetes mellitus with peripheral neuropathy. Continue current medication for the diabetes and his neuropathy. 10. Chronic kidney disease at present stage III: Avoid nephrotoxic drugs. 12. History of tobacco abuse: Tobacco cessation counseling done. Medications reviewed. Medications added. Medical decision making is of high complexity. Medical regimen management plan discussed with attending provider. Discussed with nephrology also. Medical decision making is of high complexity. 40 minutes spent on this patient more than 50% of time spent in direct patient care.
[2020-02-16] MEDS: DOBUTAMINE HCL/D5W 500 MG/250 ML RTUINJ IV PRN (22:54)
[2020-02-16] MEDS: CEFTRIAXONE 2 GM/D5W RTU 2 GM/50 ML RTUPB IV SCH (22:57)
[2020-02-16] MEDS: ATORVASTATIN CALCIUM 80 MG TABLET PO SCH (22:57)
[2020-02-16] MEDS: TAMSULOSIN HCL 0.4 MG CAP.SR.24H PO SCH (22:58)
[2020-02-17] MEDS: IPRATROPIUM/ALBUTEROL 0.5-2.5 MG/3 ML AMPUL NEB SCH ×4 (02:41→20:08)
[2020-02-17] MEDS: GABAPENTIN 300 MG CAPSULE PO SCH ×3 (06:59→22:21)
[2020-02-17] MEDS: BUSPIRONE HCL 10 MG TABLET PO SCH ×3 (07:00→22:21)
[2020-02-17] MEDS: ACETAMINOPHEN 325 MG TABLET PO PRN (07:06)
[2020-02-17] MEDS: INSULIN LISPRO 100 UNIT/ML 3 ML VIAL SUBCUT SCH ×4 (08:40→22:22)
[2020-02-17] MEDS: AZITHROMYCIN 250 MG in DEXTROSE 5%-WATER 250 ML IV SCH (08:41)
[2020-02-17] MEDS: ALBUMIN HUMAN 12.5 GM/50 ML RTUINJ IV SCH ×2 (08:59→11:13)
[2020-02-17] MEDS: DOBUTAMINE HCL/D5W 500 MG/250 ML RTUINJ IV PRN (09:00)
[2020-02-17] MEDS: METHYLPREDNISOLONE INJ 40 MG/1 ML SDV IV SCH ×2 (09:04→22:18)
[2020-02-17] MEDS: FLUTICASONE/UMECLIDIN/VILANTER 100-62.5-25 MCG/DOSE IH SCH (09:05)
[2020-02-17] MEDS: NITROGLYCERIN 2.5 MG (0.1 MG/HR) PATCH.TD24 TD SCH (09:05)
[2020-02-17] MEDS: ASPIRIN 81 MG TABLET, ENT COATED PO SCH (09:07)
[2020-02-17] MEDS: GUAIFENESIN 600 MG TABLET.SA PO SCH ×2 (09:07→17:34)
[2020-02-17] MEDS: LACTULOSE SYRUP 20 GM/30 ML UDCUP PO SCH (09:08)
[2020-02-17] MEDS: APIXABAN 2.5 MG TABLET PO SCH ×3 (09:08→17:33)
[2020-02-17] MEDS: MIDODRINE HCL 5 MG TABLET PO SCH ×3 (09:08→17:33)
--- NOTE | 2020-02-17 09:16 | PDOC PROGRESS REPORT ---
Subjective Progress Note for:: 02/17/20 Subjective:: Patient is currently able to sit on the edge of the bed feeling little bit better but still discomfort in the abdominal distention site Denied any chest pain no short of breath It was some blood and change color in the urine most likely from Leigh trauma There was still significant scrotal swelling Discussed with the cardiology and suggest the continues the Lasix drip. Dobutamine drip is currently better Cussed with the radiology regarding the ascites with CT scan of the abdomen however very mild ascites on the ultrasound so some small pocket of the ascites the radiologist says they will redo the ultrasound and see whether patients get a benefit from the paracentesis or not Reason For Visit: ACUTE RESPIRATORY FAILURE WITH HYPERCAPNEA,ACUTE Physical Exam Vital Signs: Temp Pulse Resp BP Pulse Ox 97.5 F 101 H 20 105/67 94 02/17/20 04:12 02/17/20 09:00 02/17/20 09:00 02/17/20 04:12 02/17/20 09:00 Intake & Output 02/16/20 02/17/20 02/18/20 06:59 06:59 06:59 Intake Total 1698 1009 250 Output Total 3200 3325 Balance -1502 -2316 250 Weight 119.1 kg General appearance: PRESENT: no acute distress, well-developed, well-nourished Head exam: PRESENT: atraumatic, normocephalic Eye exam: PRESENT: conjunctiva pink, EOMI, PERRLA. ABSENT: scleral icterus Ear exam: PRESENT: normal external ear exam Mouth exam: PRESENT: moist, tongue midline Neck exam: PRESENT: full ROM. ABSENT: carotid bruit, JVD, lymphadenopathy, thyromegaly Respiratory exam: PRESENT: decreased breath sounds Cardiovascular exam: PRESENT: RRR. ABSENT: diastolic murmur, rubs, systolic murmur Vascular exam: PRESENT: normal capillary refill GI/Abdominal exam: PRESENT: normal bowel sounds, soft. ABSENT: distended, guarding, mass, organolmegaly, rebound, tenderness Rectal exam: PRESENT: deferred Extremities exam: PRESENT: pedal edema Additional comments: The scrotal swelling is present Neurological exam: PRESENT: alert, awake, oriented to person, oriented to place, oriented to time, oriented to situation, CN II-XII grossly intact. ABSENT: motor sensory deficit Psychiatric exam: PRESENT: appropriate affect, normal mood. ABSENT: homicidal ideation, suicidal ideation Skin exam: PRESENT: dry, intact, warm. ABSENT: cyanosis, rash Results Laboratory Results: 02/16/20 05:16 02/16/20 05:16 02/13/20 02/13/20 02/13/20 01:22 10:10 10:10 Creatine Kinase 43 L CK-MB (CK-2) 2.37 Troponin I 0.017 < 0.012 02/13/20 02/13/20 02/14/20 16:18 16:18 04:17 Creatine Kinase 41 L 59 CK-MB (CK-2) 2.34 Troponin I < 0.012 02/14/20 04:17 Creatine Kinase CK-MB (CK-2) 2.53 Troponin I 0.014 Impressions: Abdomen/Pelvis CT 02/13/20 00:00 IMPRESSION: 1. Findings suggestive of volume overload with anasarca and mild volume ascites. 2. Cholelithiasis. 3. No other evidence of acute intra-abdominal/pelvic process. Chest CT 02/13/20 00:00 IMPRESSION: 1. Findings compatible with CHF with cardiomegaly, small bilateral effusions and mild interstitial edema. Additional bibasilar consolidative change, likely atelectasis although infection not entirely excluded. 2. Heavy three-vessel coronary atherosclerosis. Head CT 02/13/20 00:00 IMPRESSION: NORMAL BRAIN CT WITHOUT CONTRAST. EVIDENCE OF ACUTE STROKE: NO. Abdomen Ultrasound 02/16/20 00:00 IMPRESSION: Diffuse simple appearing ascites with the largest collection seen within the right lower quadrant. Chest X-Ray 02/16/20 00:00 IMPRESSION: Bilateral lower lobe airspace disease shows worsening. Cardiomegaly with pulmonary edema. Left internal jugular catheter as described. Assessment & Plan - Diagnosis (1) Acute respiratory failure with hypercapnia Is this a current diagnosis for this admission?: Yes Plan: Currently all improving continues the BiPAP will get the ABG today (2) Cirrhosis of liver Qualifiers: Hepatic cirrhosis type: alcoholic cirrhosis Ascites presence: unspecified Qualified Code(s): K70.30 - Alcoholic cirrhosis of liver without ascites Is this a current diagnosis for this admission?: Yes Plan: Patient have a very mild ascites repeat the ultrasound today (3) CHF exacerbation Qualifiers: Heart failure type: combined systolic and diastolic Qualified Code(s): I50.43 - Acute on chronic combined systolic (congestive) and diastolic (congestive) heart failure Is this a current diagnosis for this admission?: Yes Plan: ContinueLasix drip and dobutamine and follow-up with the cardiology (4) Acute renal failure Is this a current diagnosis for this admission?: Yes Plan: Currently all stable continues to follow with the nephrology (5) Ascites Qualifiers: Ascites type: other type Qualified Code(s): R18.8 - Other ascites Is this a current diagnosis for this admission?: Yes Plan: Discussed with the radiology today we will redo the ultrasound today with unable to get the paracentesis or not if is in the fluid (6) Atrial fibrillation Qualifiers: Atrial fibrillation type: permanent Qualified Code(s): I48.21 - Permanent atrial fibrillation Is this a current diagnosis for this admission?: Yes (7) CAD (coronary artery disease) Qualifiers: Coronary Disease-Associated Artery/Lesion type: tetlin artery Associated angina: without angina Is this a current diagnosis for this admission?: Yes (8) Diabetes mellitus Qualifiers: Diabetes mellitus type: type 2 Diabetes mellitus assisted insulin use: without terminal clerk use Diabetes mellitus complication status: without complication Qualified Code(s): E11.9 - Type 2 diabetes mellitus without complications Is this a current diagnosis for this admission?: Yes Plan: Continues a sliding scale (9) Chronic pain syndrome Is this a current diagnosis for this admission?: Yes (10) Neuropathy Is this a current diagnosis for this admission?: Yes (11) COPD (chronic obstructive pulmonary disease) Qualifiers: COPD type: emphysema Emphysema type: centrilobular Qualified Code(s): J43.2 - Centrilobular emphysema Is this a current diagnosis for this admission?: Yes Plan: Continues to nebulizer - Time Time Spent with patient: 15-24 minutes Level of Care: IMCU Medications reviewed and adjusted accordingly: Yes Anticipated discharge: SNF Anticipated DC Timeframe: Other - Plan Summary Plan Summary: Continues to current medications
[2020-02-17] MEDS: METOPROLOL TARTRATE 50 MG TABLET PO SCH ×2 (09:58→22:20)
[2020-02-17] MEDS: LOSARTAN POTASSIUM 25 MG TABLET PO SCH ×2 (09:58→22:21)
[2020-02-17] MEDS: MAGNESIUM OXIDE 400 MG TABLET PO SCH (10:00)
[2020-02-17] MEDS ORDERED: DOPAMINE HCL/DEXTROSE 5%-WATER 800 MG/250 ML RTUINJ IV ONE (11:11)
[2020-02-17] MEDS: DOPAMINE HCL 800 MG/D5W 250 ML IV PRN (12:23)
[2020-02-17] MEDS: PATIROMER 8.4 GM SUSP PACKET PO SCH (12:31)
--- NOTE | 2020-02-17 14:30 | PDOC PROGRESS REPORT ---
Subjective Progress Note for:: 02/17/20 Subjective:: Patient is currently now on nasal cannula at 5 L and seems to be tolerating it clinically. He made about 3325 mL of urine output for the past 24 hours. He is a still hard of hearing but seems to be able to hear better today. He did not offer any other complaints. Reason For Visit: ACUTE RESPIRATORY FAILURE WITH HYPERCAPNEA,ACUTE Physical Exam Vital Signs: Temp Pulse Resp BP Pulse Ox 97.5 F 101 H 20 105/67 94 02/17/20 04:12 02/17/20 09:00 02/17/20 09:00 02/17/20 04:12 02/17/20 09:00 Intake & Output 02/16/20 02/17/20 02/18/20 06:59 06:59 06:59 Intake Total 1698 1009 250 Output Total 3200 3325 Balance -1502 -2316 250 Weight 119.1 kg Exam: General appearance: PRESENT: no acute distress, cooperative, well-developed, well-nourished Head exam: PRESENT: atraumatic, normocephalic; very hard of hearing Eye exam: PRESENT: conjunctiva slightly pale, PERRLA. ABSENT: scleral icterus Neck exam: ABSENT: JVD Respiratory exam: PRESENT: Normal breath sounds. ABSENT: crackles, rales, rhonchi, unlabored, wheezes Cardiovascular exam: PRESENT: Regular rate rhythm -+S1, +S2. Grade 2/6 systolic murmur ABSENT: diastolic murmur GI/Abdominal exam: PRESENT: normal bowel sounds, firm, distended with subcut aneous edema ABSENT: guarding, mass, tenderness Extremities exam: Grade 3 bilateral lower extremity pitting edema Neurological exam: PRESENT: alert, awake, communicative but very difficult of hearing. Skin exam: PRESENT: dry, warm, Results Laboratory Results: 02/16/20 05:16 02/16/20 05:16 02/13/20 02/13/20 02/13/20 01:22 10:10 10:10 Creatine Kinase 43 L CK-MB (CK-2) 2.37 Troponin I 0.017 < 0.012 02/13/20 02/13/20 02/14/20 16:18 16:18 04:17 Creatine Kinase 41 L 59 CK-MB (CK-2) 2.34 Troponin I < 0.012 02/14/20 04:17 Creatine Kinase CK-MB (CK-2) 2.53 Troponin I 0.014 Impressions: Abdomen/Pelvis CT 02/13/20 00:00 IMPRESSION: 1. Findings suggestive of volume overload with anasarca and mild volume ascites. 2. Cholelithiasis. 3. No other evidence of acute intra-abdominal/pelvic process. Chest CT 02/13/20 00:00 IMPRESSION: 1. Findings compatible with CHF with cardiomegaly, small bilateral effusions and mild interstitial edema. Additional bibasilar consolidative change, likely atelectasis although infection not entirely excluded. 2. Heavy three-vessel coronary atherosclerosis. Head CT 02/13/20 00:00 IMPRESSION: NORMAL BRAIN CT WITHOUT CONTRAST. EVIDENCE OF ACUTE STROKE: NO. Abdomen Ultrasound 02/16/20 00:00 IMPRESSION: Diffuse simple appearing ascites with the largest collection seen within the right lower quadrant. Chest X-Ray 02/16/20 00:00 IMPRESSION: Bilateral lower lobe airspace disease shows worsening. Cardiomegaly with pulmonary edema. Left internal jugular catheter as described. Assessment & Plan - Diagnosis (1) BRUCE (acute kidney injury) Is this a current diagnosis for this admission?: Yes Plan: Nonoliguric. No associated significant proteinuria nor microhematuria. This is most likely secondary to multiple prerenal factors including possible cardiorenal syndrome due to CHF, liver cirrhosis with ascites and diabetes. CT scan of the abdomen showed no hydronephrosis nor masses. Management is really to optimize treatment for the above comorbid conditions as the kidney function just follows through depending on the status of those. Agree with current dobutamine drip and Lasix drip being managed by cardiology. No need of renal replacement therapy at this time. Continue to monitor kidney function. Avoid nephrotoxic medications. Adjust doses of medications depending on kidney function. Discontinue Toradol and other NSAIDs. Good urine output. (2) Hyponatremia Is this a current diagnosis for this admission?: Yes Plan: Likely secondary to hypotonic IV solution being given the patient. (3) Hyperkalemia Is this a current diagnosis for this admission?: Yes Plan: Secondary to BRUCE. Improved with Veltassa. Low potassium diet. (4) Acute respiratory failure with hypercapnia Is this a current diagnosis for this admission?: Yes Plan: Defer to Dr. Steen. Also being given azithromycin and ceftriaxone. Pulmonary being consulted. Currently on nasal cannula. (5) CHF exacerbation Qualifiers: Heart failure type: combined systolic and diastolic Qualified Code(s): I50.43 - Acute on chronic combined systolic (congestive) and diastolic (congestive) heart failure Is this a current diagnosis for this admission?: Yes Plan: Echocardiogram on 07/14/2019 showed LVEF of 45%, moderate global hypokinesia of left ventricle, right ventricle moderately dilated, right atrium mild to moderately dilated, left atrium severely dilated, seen in severe pulmonary hypertension. On dobutamine and Lasix drip. Dr. Portillo following the patient. (6) COPD (chronic obstructive pulmonary disease) Qualifiers: COPD type: emphysema Emphysema type: centrilobular Qualified Code(s): J43.2 - Centrilobular emphysema Is this a current diagnosis for this admission?: Yes (7) Cirrhosis of liver Qualifiers: Hepatic cirrhosis type: alcoholic cirrhosis Ascites presence: unspecified Qualified Code(s): K70.30 - Alcoholic cirrhosis of liver without ascites Is this a current diagnosis for this admission?: Yes Plan: Alcohol induced. (8) Ascites Qualifiers: Ascites type: other type Qualified Code(s): R18.8 - Other ascites Is this a current diagnosis for this admission?: Yes (9) Pulmonary hypertension Is this a current diagnosis for this admission?: Yes (10) Atrial fibrillation Qualifiers: Atrial fibrillation type: permanent Qualified Code(s): I48.21 - Permanent atrial fibrillation Is this a current diagnosis for this admission?: Yes Plan: On Eliquis and metoprolol. (11) Neuropathy Is this a current diagnosis for this admission?: Yes Plan: On gabapentin. Needs to be careful with the dose of gabapentin. If the patient becomes more somnolent then it needs to be decreased. (12) Diabetes mellitus Qualifiers: Diabetes mellitus type: type 2 Diabetes mellitus chcf insulin use: without chcf use Diabetes mellitus complication status: without complication Qualified Code(s): E11.9 - Type 2 diabetes mellitus without complications Is this a current diagnosis for this admission?: Yes (13) Anemia Is this a current diagnosis for this admission?: Yes (14) Chronic pain syndrome Is this a current diagnosis for this admission?: Yes Plan: Patient cannot have any Toradol or any NSAID. - Time Time with patient: 15-25 minutes
[2020-02-17] MEDS: PHARMACY COMMUNICATION ORDER MC SCH (17:42)
[2020-02-17] MEDS ORDERED: MORPHINE SULFATE 10 MG/ML INJ ONE (18:34)
[2020-02-17] MEDS: FLUTICASONE NASAL SPRAY 50 MCG/SPRY 120 SPRAY/16 GM NASL SCH (22:19)
[2020-02-17] MEDS: ATORVASTATIN CALCIUM 80 MG TABLET PO SCH (22:20)
[2020-02-17] MEDS: TAMSULOSIN HCL 0.4 MG CAP.SR.24H PO SCH (22:21)
[2020-02-17] MEDS: CEFTRIAXONE 2 GM/D5W RTU 2 GM/50 ML RTUPB IV SCH (22:24)
[2020-02-17] MEDS: NORMAL SALINE 250 ML with FUROSEMIDE 250 MG IV PRN ×2 (22:26)
--- NOTE | 2020-02-17 22:27 | Progress Note ---
Provider Note Provider Note: CARDIOLOGY PROGRESS NOTE by Dr. Alicia Portillo on 02/17/2020. Subjective: The patient states his shortness of breath is better. He still has significant scrotal swelling. He has 1+ edema bilaterally. There is no arrhythmias seen of ventricular origin. He is in atrial fibrillation with controlled ventricular response. The patient did drop his blood pressure and his dobutamine was decreased to 2.5 mcg/kg/min and the patient was started on dopamine at 5 mcg/kg/min. This has brought his blood pressure up. He is also on midodrine. There is no bleeding on Eliquis. There is no TIA CVA symptoms. PHYSICAL EXAMINATION: The patient is moderately obese. He appears to be chronically ill and malnourished. Selected Entries 02/17/20 02/17/20 16:11 19:20 Temperature 97.4 F 97.3 F Temperature Axillary Axillary Source Pulse Rate 96 90 Respiratory 21 H Rate Blood Pressure 104/55 L Blood Pressure 71 Mean BP Location Left Arm BP Position Sitting O2 Sat by Pulse 90 L 87 L Oximetry Oxygen Flow 5 5.00 Rate Oxygen Delivery Nasal Cannula Method HEAD: Is atraumatic normocephalic. EYES: Pupils equal round regular reactive to light and accommodation. Extraocular movements are normal. There is no conjunctival pallor. There is no scleral icterus. EARS: Tympanic membranes are intact. External auditory canals are clear. NOSE: There is no deviated nasal septum. There is no inflammation nasal mucous membrane. MOUTH: Mucous membranes of mouth are moist. Tongue is moist. There is no ulcers. THROAT: There is no redness of the oropharynx. There is no exudates. SKIN: There is no skin rashes. There is no petechia or ecchymosis. There is no jaundice. NECK: Supple. There is JVD present. Carotids are equal there is no bruits. There is no lymphadenopathy there is no goiter. There is no accessory muscle respiration use trachea central. LUNGS: There is diminished air entry prolonged expiration. There is bilateral expiratory wheezing. There is a few scattered rhonchi. There is no rales of CHF. HEART: S1-S2 is heard. S1 is of variable intensity. There is no S3 gallop. There is no S4 gallop. There is systolic murmur left sternal border and apex there is no rub. ABDOMEN: Is distended. There is mild ascites with shifting dullness present. There is no paraspinal megaly. Bowel sounds are well heard. There is no tender areas masses. There is no rebound guarding or rigidity. EXTREMITIES: Femorals are deep femorals are diminished. There is no femoral bruits. Leg pulses difficult to palpate. There is 1+ lower extremity edema with venous stasis dermatitis. There is no cellulitis. There is no DVT. There is no cyanosis or clubbing. Capillary refill is normal. EMT DISPATCHER: The patient is slightly drowsy but oriented x3 with no focal deficits. PSYCHIATRIC: In spite of the patient's drowsiness his judgment site are intact his affect is normal. The patient's 24-hour intake is 1009 mL normal and his output for 24 hours is 3325 mL. Labs- All tests 24 hr 02/16/20 02/17/20 02/17/20 22:31 07:55 12:00 POC Glucose 241 H 237 H 290 H 02/17/20 02/17/20 16:09 21:24 POC Glucose 280 H 339 H Abdomen/Pelvis CT 02/13/20 00:00 IMPRESSION: 1. Findings suggestive of volume overload with anasarca and mild volume ascites. 2. Cholelithiasis. 3. No other evidence of acute intra-abdominal/pelvic process. Chest CT 02/13/20 00:00 IMPRESSION: 1. Findings compatible with CHF with cardiomegaly, small bilateral effusions and mild interstitial edema. Additional bibasilar consolidative change, likely atelectasis although infection not entirely excluded. 2. Heavy three-vessel coronary atherosclerosis. Chest X-Ray 02/13/20 00:00 IMPRESSION: Worsening bibasilar pneumonia. Head CT 02/13/20 00:00 IMPRESSION: NORMAL BRAIN CT WITHOUT CONTRAST. EVIDENCE OF ACUTE STROKE: NO. Chest X-Ray 02/14/20 00:00 IMPRESSION: Bibasilar pneumonia, left more than right. Left internal jugular catheter as described. Cardiomegaly without bryan pulmonary edema. Cannot exclude a minimal right pleural effusion. Abdomen Ultrasound 02/16/20 00:00 IMPRESSION: Diffuse simple appearing ascites with the largest collection seen within the right lower quadrant. Chest X-Ray 02/16/20 00:00 IMPRESSION: Bilateral lower lobe airspace disease shows worsening. Cardiomegaly with pulmonary edema. Left internal jugular catheter as described. IMPRESSION/RECOMMENDATION: 1. Acute coronary pulmonary with acute on chronic right ventricular systolic failure: Would you This seems to be improving. ARB and continue the patient on dobutamine and Lasix drip. This acute on chronic right ventricle systolic heart failure is secondary to severe pulmonary hypertension. . Acute exacerbation of COPD: Recommend anti-COPD inhalers and antibiotics and consider steroids 3. Acute on chronic hypercapnic and hypoxic respiratory failure: Recommend intermittent BiPAP as needed. Continue treatment of acute exacerbation of COPD. 4. Hypotension: Patient started on dopamine. This is brought his blood pressure up as. He is also on midodrine.' 5. Severe pulmonary hypertension: Secondary to patient's severe COPD ongoing smoking 6. History of alcoholic cirrhosis of the liver with ascites and portal hypertension. 7. Coronary artery disease: History of prior old myocardial infarction and history of coronary bypass graft surgery: The patient has no anginal symptoms and no evidence of acute coronary syndrome at present. 8. Chronic atrial fibrillation: Rate is well controlled continue current medication including Eliquis for stroke prophylaxis. 9. Hypertension: Blood pressure well controlled. Nurse's notes that the patient is on midodrine to keep his blood pressure up so that his Lopressor and other medications can be given. 10. Diabetes mellitus with peripheral neuropathy. Continue current medication for the diabetes and his neuropathy. 11. Chronic kidney disease at present stage III: Avoid nephrotoxic drugs. 12. History of tobacco abuse: Tobacco cessation counseling done Reviewed. Medications are added. Medications adjusted. Medical decision making is like complexity. 40 minutes spent on this patient with 50% of the time spent in direct patient care. Discussed with nephrology and with attending provider. Will follow.
[2020-02-18] MEDS: IPRATROPIUM/ALBUTEROL 0.5-2.5 MG/3 ML AMPUL NEB SCH ×4 (01:50→20:28)
[2020-02-18] MEDS: ACETAMINOPHEN 325 MG TABLET PO PRN ×3 (01:59→23:10)
[2020-02-18] MEDS: TRAZODONE HCL 50 MG TABLET PO PRN ×2 (01:59→23:10)
[2020-02-18] MEDS: BUSPIRONE HCL 10 MG TABLET PO SCH ×3 (06:07→22:48)
[2020-02-18] MEDS: GABAPENTIN 300 MG CAPSULE PO SCH ×3 (06:07→22:49)
[2020-02-18] MEDS: FLUTICASONE NASAL SPRAY 50 MCG/SPRY 120 SPRAY/16 GM NASL SCH ×3 (06:08→17:55)
[2020-02-18] MEDS: INSULIN LISPRO 100 UNIT/ML 3 ML VIAL SUBCUT SCH ×4 (08:08→22:50)
[2020-02-18 08:11] LABS: HEMATOCRIT 34.7 % (37.9-51.0); HEMOGLOBIN 10.9 g/dL (13.5-17.0); MEAN CORPUSCULAR HEMOGLOBIN 31.4 pg (27.0-33.4); MEAN CORPUSCULAR HGB CONC 31.4 g/dL (32.0-36.0); MEAN CORPUSCULAR VOLUME 100 fl (80-97); PLATELET COUNT 157 10^3/uL (150-450); RED BLOOD COUNT 3.47 10^6/uL (4.35-5.55); RED CELL DISTRIBUTION WIDTH 17.5 % (11.5-14.0); WHITE BLOOD COUNT 5.6 10^3/uL (4.0-10.5)
[2020-02-18 08:29] LABS: ABSOLUTE LYMPHOCYTES# (MANUAL) 0.2 10^3/uL (0.5-4.7); ABSOLUTE MONOCYTES # (MANUAL) 0.1 10^3/uL (0.1-1.4); ANION GAP 7 (5-19); ANISOCYTOSIS 1+; BASOPHILS % (MANUAL) 0 % (0-2); BLOOD UREA NITROGEN 58 mg/dL (7-20); CALCIUM 8.4 mg/dL (8.4-10.2); CARBON DIOXIDE 32 mmol/L (22-30); CHLORIDE 91 mmol/L (98-107); EOSINOPHILS % (MANUAL) 0 % (0-6); GLUCOSE 322 mg/dL (75-110); LYMPHOCYTES % (MANUAL) 4 % (13-45); MONOCYTES % (MANUAL) 1 % (3-13); POTASSIUM 5.6 mmol/L (3.6-5.0); SEGMENTED NEUTROPHILS % (MAN) 95 % (42-78); TOTAL CELLS COUNTED 100
[2020-02-18 08:30] LABS: PLATELET COMMENT ADEQUATE
[2020-02-18] MEDS: LOSARTAN POTASSIUM 25 MG TABLET PO SCH ×2 (09:06→22:49)
[2020-02-18] MEDS: METOPROLOL TARTRATE 50 MG TABLET PO SCH ×2 (09:10→22:48)
[2020-02-18] MEDS: FLUTICASONE/UMECLIDIN/VILANTER 100-62.5-25 MCG/DOSE IH SCH (09:11)
[2020-02-18] MEDS: NITROGLYCERIN 2.5 MG (0.1 MG/HR) PATCH.TD24 TD SCH (09:12)
[2020-02-18] MEDS: APIXABAN 2.5 MG TABLET PO SCH ×2 (09:18→17:55)
[2020-02-18] MEDS: GUAIFENESIN 600 MG TABLET.SA PO SCH ×2 (09:18→17:55)
[2020-02-18] MEDS: METHYLPREDNISOLONE INJ 40 MG/1 ML SDV IV SCH ×2 (09:18→22:50)
[2020-02-18] MEDS: ASPIRIN 81 MG TABLET, ENT COATED PO SCH (09:18)
[2020-02-18] MEDS: MIDODRINE HCL 5 MG TABLET PO SCH ×3 (09:18→17:55)
[2020-02-18] MEDS: MAGNESIUM OXIDE 400 MG TABLET PO SCH (09:18)
--- NOTE | 2020-02-18 09:58 | PDOC PROGRESS REPORT ---
Subjective Progress Note for:: 02/18/20 Subjective:: Patient is currently doing fair Patient's denied any chest pain no short of breath Still have not tight in the abdominal area but in exam is much softer Patient urine color is also getting clear Patient still making good urine output Patient's potassium is 5.6 currently valtess Reason For Visit: ACUTE RESPIRATORY FAILURE WITH HYPERCAPNEA,ACUTE Physical Exam Vital Signs: Temp Pulse Resp BP Pulse Ox 97.3 F 103 H 16 94/44 L 96 02/18/20 07:37 02/18/20 08:32 02/18/20 08:32 02/18/20 08:00 02/18/20 08:32 Intake & Output 02/17/20 02/18/20 02/19/20 06:59 06:59 06:59 Intake Total 1009 917 250 Output Total 3320 4160 Balance -2316 -9453 250 Weight 119.1 kg 122.6 kg General appearance: PRESENT: no acute distress Eye exam: PRESENT: PERRLA Mouth exam: PRESENT: neck supple Respiratory exam: PRESENT: decreased breath sounds Cardiovascular exam: PRESENT: +S1, +S2 GI/Abdominal exam: PRESENT: ascites, distended, normal bowel sounds Extremities exam: PRESENT: pedal edema Musculoskeletal exam: PRESENT: ambulatory Neurological exam: PRESENT: alert, awake, oriented to person, oriented to place, oriented to time, oriented to situation Skin exam: PRESENT: dry Results Laboratory Results: 02/18/20 07:35 02/18/20 07:35 02/18/20 02/18/20 07:35 07:35 WBC 5.6 RBC 3.47 L Hgb 10.9 L Hct 34.7 L MCV 100 H MCH 31.4 MCHC 31.4 L RDW 17.5 H Plt Count 157 Seg Neutrophils % Not Reportable Sodium 130.0 L Potassium 5.6 H Chloride 91 L Carbon Dioxide 32 H Anion Gap 7 BUN 58 H Creatinine 1.45 H Est GFR ( Amer) 57 L Glucose 322 H Calcium 8.4 Magnesium 2.5 H 02/13/20 03:30 Blood Blood Culture - Final NO GROWTH IN 5 DAYS 02/13/20 01:22 Blood Blood Culture - Final NO GROWTH IN 5 DAYS 02/13/20 02/13/20 02/13/20 01:22 10:10 10:10 Creatine Kinase 43 L CK-MB (CK-2) 2.37 Troponin I 0.017 < 0.012 02/13/20 02/13/20 02/14/20 16:18 16:18 04:17 Creatine Kinase 41 L 59 CK-MB (CK-2) 2.34 Troponin I < 0.012 02/14/20 04:17 Creatine Kinase CK-MB (CK-2) 2.53 Troponin I 0.014 Impressions: Abdomen/Pelvis CT 02/13/20 00:00 IMPRESSION: 1. Findings suggestive of volume overload with anasarca and mild volume ascites. 2. Cholelithiasis. 3. No other evidence of acute intra-abdominal/pelvic process. Chest CT 02/13/20 00:00 IMPRESSION: 1. Findings compatible with CHF with cardiomegaly, small bilateral effusions and mild interstitial edema. Additional bibasilar consolidative change, likely atelectasis although infection not entirely excluded. 2. Heavy three-vessel coronary atherosclerosis. Head CT 02/13/20 00:00 IMPRESSION: NORMAL BRAIN CT WITHOUT CONTRAST. EVIDENCE OF ACUTE STROKE: NO. Abdomen Ultrasound 02/16/20 00:00 IMPRESSION: Diffuse simple appearing ascites with the largest collection seen within the right lower quadrant. Chest X-Ray 02/16/20 00:00 IMPRESSION: Bilateral lower lobe airspace disease shows worsening. Cardiomegaly with pulmonary edema. Left internal jugular catheter as described. Assessment & Plan - Diagnosis (1) Acute respiratory failure with hypercapnia Is this a current diagnosis for this admission?: Yes Plan: Continues use of BiPAP currently all stable (2) Cirrhosis of liver Qualifiers: Hepatic cirrhosis type: alcoholic cirrhosis Ascites presence: unspecified Qualified Code(s): K70.30 - Alcoholic cirrhosis of liver without ascites Is this a current diagnosis for this admission?: Yes Plan: As per discussed with the radiology and cardiology not enough fluid to paracentesis at this point (3) CHF exacerbation Qualifiers: Heart failure type: combined systolic and diastolic Qualified Code(s): 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 Is this a current diagnosis for this admission?: Yes Plan: Continues with dobutamine drip and the Lasix drip (4) Acute renal failure Is this a current diagnosis for this admission?: Yes Plan: With the nephrology patient's potassium slightly elevated currently already medicines for that continue to monitor (5) Ascites Qualifiers: Ascites type: other type Qualified Code(s): R18.8 - Other ascites Is this a current diagnosis for this admission?: Yes (6) Atrial fibrillation Qualifiers: Atrial fibrillation type: permanent Qualified Code(s): I48.21 - Permanent atrial fibrillation Is this a current diagnosis for this admission?: Yes Plan: The controls on Eliquis (7) CAD (coronary artery disease) Qualifiers: Coronary Disease-Associated Artery/Lesion type: [place] artery Associated angina: without angina Is this a current diagnosis for this admission?: Yes (8) Diabetes mellitus Qualifiers: Diabetes mellitus type: type 2 Diabetes mellitus roasterman insulin use: without roasterman use Diabetes mellitus complication status: without complication Qualified Code(s): E11.9 - Type 2 diabetes mellitus without complications Is this a current diagnosis for this admission?: Yes (9) Chronic pain syndrome Is this a current diagnosis for this admission?: Yes (10) Neuropathy Is this a current diagnosis for this admission?: Yes (11) COPD (chronic obstructive pulmonary disease) Qualifiers: COPD type: emphysema Emphysema type: centrilobular Qualified Code(s): J43.2 - Centrilobular emphysema Is this a current diagnosis for this admission?: Yes - Time Time Spent with patient: 15-24 minutes Level of Care: IMCU Medications reviewed and adjusted accordingly: Yes Anticipated discharge: SNF Anticipated DC Timeframe: Other - Plan Summary Plan Summary: Continues to current medications
[2020-02-18] MEDS: DOPAMINE HCL 800 MG/D5W 250 ML IV PRN (10:53)
[2020-02-18] MEDS: DOBUTAMINE HCL/D5W 500 MG/250 ML RTUINJ IV PRN (10:58)
[2020-02-18] MEDS: PATIROMER 8.4 GM SUSP PACKET PO SCH (13:09)
[2020-02-18] MEDS: NORMAL SALINE 250 ML with FUROSEMIDE 250 MG IV PRN ×2 (17:55)
[2020-02-18] MEDS: PHARMACY COMMUNICATION ORDER MC SCH (17:55)
--- NOTE | 2020-02-18 21:27 | Progress Note ---
Provider Note Provider Note: CARDIOLOGY PROGRESS NOTE by Dr. Alicia Portillo on 02/18/2020. OBJECTIVE: The patient is less short of breath but still requiring oxygen. He is up sitting up in the chair. His scrotal edema is slightly less and his leg edema is much less. He denies chest pain or discomfort. He is in atrial fibrillation with controlled ventricular response. His abdominal wall edema is also much less. He does not have much acetic fluid. There is no PND but he does have orthopnea. PHYSICAL EXAMINATION: The patient appears to be chronically ill and moderately obese. Selected Entries 02/18/20 16:14 Temperature 97.9 F Temperature Oral Source Pulse Rate 88 Respiratory 20 Rate Blood Pressure 100/71 Blood Pressure 80 Mean BP Location Right Arm BP Position Sitting O2 Sat by Pulse 93 Oximetry Oxygen Flow 5.00 Rate Oxygen Delivery Nasal Cannula Method HEAD: Is atraumatic normocephalic. EYES: Pupils equal round regular reactive to light and accommodation. Extraocular movements are normal. There is no conjunctival pallor. There is no scleral icterus. EARS: Tympanic membranes are intact. External auditory canals are clear. NOSE: There is no deviated nasal septum. There is no inflammation nasal mucous membrane. MOUTH: Mucous membranes of mouth are moist. Tongue is moist. There is no ulcers. THROAT: There is no redness of the oropharynx. There is no exudates. SKIN: There is no skin rashes. There is no petechia or ecchymosis. There is no jaundice. NECK: Supple. There is JVD present. Carotids are equal there is no bruits. There is no lymphadenopathy there is no goiter. There is no accessory muscle respiration use trachea central. LUNGS: There is diminished air entry prolonged expiration. There is bilateral expiratory wheezing. There is a few scattered rhonchi. There is no rales of CHF. HEART: S1-S2 is heard. S1 is of variable intensity. There is no S3 gallop. There is no S4 gallop. There is systolic murmur left sternal border and apex there is no rub. ABDOMEN: Is distended. There is mild ascites with shifting dullness present. There is no paraspinal megaly. Bowel sounds are well heard. There is no tender areas masses. There is no rebound guarding or rigidity. EXTREMITIES: Femorals are deep femorals are diminished. There is no femoral bruits. Leg pulses difficult to palpate. There is 1+ lower extremity edema with venous stasis dermatitis. There is no cellulitis. There is no DVT. There is no cyanosis or clubbing. Capillary refill is normal. GUIDE TRAVEL: The patient is slightly drowsy but oriented x3 with no focal deficits. PSYCHIATRIC: In spite of the patient's drowsiness his judgment site are intact his affect is normal. The patient's 24-hour intake is 917 mL normal and his output for 24 hours is 2350 mL. Abdomen/Pelvis CT 02/13/20 00:00 IMPRESSION: 1. Findings suggestive of volume overload with anasarca and mild volume ascites. 2. Cholelithiasis. 3. No other evidence of acute intra-abdominal/pelvic process. Chest CT 02/13/20 00:00 IMPRESSION: 1. Findings compatible with CHF with cardiomegaly, small bilateral effusions and mild interstitial edema. Additional bibasilar consolidative change, likely atelectasis although infection not entirely excluded. 2. Heavy three-vessel coronary atherosclerosis. Chest X-Ray 02/13/20 00:00 [facility] Labs- All tests 24 hr 02/17/20 02/18/20 02/18/20 21:24 07:35 07:35 WBC 5.6 RBC 3.47 L Hgb 10.9 L Hct 34.7 L MCV 100 H MCH 31.4 MCHC 31.4 L RDW 17.5 H Plt Count 157 Lymph % (Auto) Not Reportable [place] % (Auto) Not Reportable Eos % (Auto) Not Reportable Baso % (Auto) Not Reportable Absolute Neuts (auto) Not Reportable Absolute Lymphs (auto) Not Reportable Absolute Monos (auto) Not Reportable Absolute Eos (auto) Not Reportable Absolute Basos (auto) Not Reportable Total Counted 100 Seg Neutrophils % Not Reportable Seg Neuts % (Manual) 95 H Lymphocytes % (Manual) 4 L Monocytes % (Manual) 1 L Eosinophils % (Manual) 0 Basophils % (Manual) 0 Abs Neuts (Manual) 5.3 Abs Lymphs (Manual) 0.2 L Abs Monocytes (Manual) 0.1 Absolute Eos (Manual) 0.0 Abs Basophils (Manual) 0.0 Platelet Comment ADEQUATE Anisocytosis 1+ Macrocytosis 1+ Sodium 130.0 L Potassium 5.6 H Chloride 91 L Carbon Dioxide 32 H Anion Gap 7 BUN 58 H Creatinine 1.45 H Est GFR ( Amer) 57 L Est GFR (MDRD) Non-Af 47 L Glucose 322 H POC Glucose 339 H Calcium 8.4 Magnesium 2.5 H 02/18/20 02/18/20 02/18/20 07:38 12:40 16:25 WBC RBC Hgb Hct MCV MCH MCHC RDW Plt Count Lymph % (Auto) [place] % (Auto) Eos % (Auto) Baso % (Auto) Absolute Neuts (auto) Absolute Lymphs (auto) Absolute Monos (auto) Absolute Eos (auto) Absolute Basos (auto) Total Counted Seg Neutrophils % Seg Neuts % (Manual) Lymphocytes % (Manual) Monocytes % (Manual) Eosinophils % (Manual) Basophils % (Manual) Abs Neuts (Manual) Abs Lymphs (Manual) Abs Monocytes (Manual) Absolute Eos (Manual) Abs Basophils (Manual) Platelet Comment Anisocytosis Macrocytosis Sodium Potassium Chloride Carbon Dioxide Anion Gap BUN Creatinine Est GFR ( Amer) Est GFR (MDRD) Non-Af Glucose POC Glucose 325 H 343 H 369 H Calcium Magnesium 02/18/20 21:09 WBC RBC Hgb Hct MCV MCH MCHC RDW Plt Count Lymph % (Auto) [place] % (Auto) Eos % (Auto) Baso % (Auto) Absolute Neuts (auto) Absolute Lymphs (auto) Absolute Monos (auto) Absolute Eos (auto) Absolute Basos (auto) Total Counted Seg Neutrophils % Seg Neuts % (Manual) Lymphocytes % (Manual) Monocytes % (Manual) Eosinophils % (Manual) Basophils % (Manual) Abs Neuts (Manual) Abs Lymphs (Manual) Abs Monocytes (Manual) Absolute Eos (Manual) Abs Basophils (Manual) Platelet Comment Anisocytosis Macrocytosis Sodium Potassium Chloride Carbon Dioxide Anion Gap BUN Creatinine Est GFR ( Amer) Est GFR (MDRD) Non-Af Glucose POC Glucose 307 H Calcium Magnesium ng bibasilar pneumonia. Head CT 02/13/20 00:00 IMPRESSION: NORMAL BRAIN CT WITHOUT CONTRAST. EVIDENCE OF ACUTE STROKE: NO. Chest X-Ray 02/14/20 00:00 IMPRESSION: Bibasilar pneumonia, left more than right. Left internal jugular catheter as described. Cardiomegaly without bryan pulmonary edema. Cannot exclude a minimal right pleural effusion. Abdomen Ultrasound 02/16/20 00:00 IMPRESSION: Diffuse simple appearing ascites with the largest collection seen within the right lower quadrant. Chest X-Ray 02/16/20 00:00 IMPRESSION: Bilateral lower lobe airspace disease shows worsening. Cardiomegaly with pulmonary edema. Left internal jugular catheter as described. IMPRESSION/RECOMMENDATION: 1. Acute coronary pulmonary with acute on chronic right ventricular systolic failure: Would you This seems to be improving. ARB and continue the patient on dobutamine and Lasix drip. This acute on chronic right ventricle systolic heart failure is secondary to severe pulmonary hypertension. . Acute exacerbation of COPD: Recommend anti-COPD inhalers and antibiotics and consider steroids 3. Acute on chronic hypercapnic and hypoxic respiratory failure: Recommend intermittent BiPAP as needed. Continue treatment of acute exacerbation of COPD. 4. Hypotension: Patient started on dopamine. This is brought his blood pressure up as. He is also on midodrine.' 5. Severe pulmonary hypertension: Secondary to patient's severe COPD ongoing smoking 6. History of alcoholic cirrhosis of the liver with ascites and portal hypertension. 7. Coronary artery disease: History of prior old myocardial infarction and history of coronary bypass graft surgery: The patient has no anginal symptoms and no evidence of acute coronary syndrome at present. 8. Chronic atrial fibrillation: Rate is well controlled continue current medication including Eliquis for stroke prophylaxis. 9. Hypertension: Blood pressure well controlled. Nurse's notes that the patient is on midodrine to keep his blood pressure up so that his Lopressor and other medications can be given. 10. Diabetes mellitus with peripheral neuropathy. Continue current medication for the diabetes and his neuropathy. 11. Chronic kidney disease at present stage III: Avoid nephrotoxic drugs. 12. History of tobacco abuse: Tobacco cessation counseling done Medications reviewed. Medical regimen management plan discussed with Dr. Steen. Medical decision making is still of high complexity since the patient still is is on inotropes. Discussed with the patient and patient's son and granddaughter. Medical decision making is of high complexity. 40 minutes spent on the patient. With more than 50% of time spent in direct patient care. Will follow
[2020-02-18] MEDS: CEFTRIAXONE 2 GM/D5W RTU 2 GM/50 ML RTUPB IV SCH (22:47)
[2020-02-18] MEDS: ATORVASTATIN CALCIUM 80 MG TABLET PO SCH (22:48)
[2020-02-18] MEDS: TAMSULOSIN HCL 0.4 MG CAP.SR.24H PO SCH (22:49)
[2020-02-19] MEDS: IPRATROPIUM/ALBUTEROL 0.5-2.5 MG/3 ML AMPUL NEB SCH ×4 (02:10→20:29)
[2020-02-19] MEDS: BUSPIRONE HCL 10 MG TABLET PO SCH ×3 (06:43→22:06)
[2020-02-19] MEDS: GABAPENTIN 300 MG CAPSULE PO SCH ×3 (06:43→22:06)
[2020-02-19 07:16] LABS: HEMOGLOBIN 11.3 g/dL (13.5-17.0); MEAN CORPUSCULAR HGB CONC 32.1 g/dL (32.0-36.0); MEAN CORPUSCULAR VOLUME 100 fl (80-97); PLATELET COUNT 143 10^3/uL (150-450); RED BLOOD COUNT 3.52 10^6/uL (4.35-5.55); WHITE BLOOD COUNT 5.5 10^3/uL (4.0-10.5)
[2020-02-19 07:37] LABS: ANION GAP 5 (5-19); BLOOD UREA NITROGEN 59 mg/dL (7-20); CALCIUM 8.3 mg/dL (8.4-10.2); CARBON DIOXIDE 33 mmol/L (22-30); CHLORIDE 92 mmol/L (98-107); GLUCOSE 241 mg/dL (75-110); POTASSIUM 5.6 mmol/L (3.6-5.0)
[2020-02-19 08:34] LABS: ABSOLUTE LYMPHOCYTES# (MANUAL) 0.1 10^3/uL (0.5-4.7); ABSOLUTE MONOCYTES # (MANUAL) 0.1 10^3/uL (0.1-1.4); ANISOCYTOSIS 1+; BASOPHILS % (MANUAL) 0 % (0-2); EOSINOPHILS % (MANUAL) 0 % (0-6); LYMPHOCYTES % (MANUAL) 2 % (13-45); MONOCYTES % (MANUAL) 1 % (3-13); OVALOCYTES SLIGHT; PLATELET COMMENT DECREASED; POIKILOCYTOSIS SLIGHT; SEGMENTED NEUTROPHILS % (MAN) 97 % (42-78); TOTAL CELLS COUNTED 100
[2020-02-19] MEDS: INSULIN LISPRO 100 UNIT/ML 3 ML VIAL SUBCUT SCH ×4 (08:36→22:07)
[2020-02-19] MEDS: LOSARTAN POTASSIUM 25 MG TABLET PO SCH ×2 (09:11→22:06)
[2020-02-19] MEDS: METOPROLOL TARTRATE 50 MG TABLET PO SCH ×2 (09:12→22:04)
[2020-02-19] MEDS: FLUTICASONE NASAL SPRAY 50 MCG/SPRY 120 SPRAY/16 GM NASL SCH ×2 (09:36→17:27)
[2020-02-19] MEDS: NITROGLYCERIN 2.5 MG (0.1 MG/HR) PATCH.TD24 TD SCH (09:36)
[2020-02-19] MEDS: FLUTICASONE/UMECLIDIN/VILANTER 100-62.5-25 MCG/DOSE IH SCH (09:36)
[2020-02-19] MEDS: GUAIFENESIN 600 MG TABLET.SA PO SCH ×2 (09:37→17:27)
[2020-02-19] MEDS: MIDODRINE HCL 5 MG TABLET PO SCH ×3 (09:37→17:27)
[2020-02-19] MEDS: DOPAMINE HCL 800 MG/D5W 250 ML IV PRN (09:37)
[2020-02-19] MEDS: MAGNESIUM OXIDE 400 MG TABLET PO SCH (09:37)
[2020-02-19] MEDS: APIXABAN 2.5 MG TABLET PO SCH ×2 (09:37→17:27)
[2020-02-19] MEDS: ASPIRIN 81 MG TABLET, ENT COATED PO SCH (09:37)
[2020-02-19] MEDS: METHYLPREDNISOLONE INJ 40 MG/1 ML SDV IV SCH (09:38)
--- NOTE | 2020-02-19 09:48 | PDOC PROGRESS REPORT ---
Subjective Progress Note for:: 02/19/20 Subjective:: Patient is feeling better Still having very good urine output Patient's swelling is much better Patient's denied any chest pain no short of breath Reason For Visit: ACUTE RESPIRATORY FAILURE WITH HYPERCAPNEA,ACUTE Physical Exam Vital Signs: Temp Pulse Resp BP Pulse Ox 97.4 F 88 18 93/48 L 94 02/19/20 09:22 02/19/20 08:29 02/19/20 08:29 02/19/20 08:00 02/19/20 08:29 Intake & Output 02/18/20 02/19/20 02/20/20 06:59 06:59 06:59 Intake Total 917 1656 250 Output Total 2350 9685 Balance -1433 -1069 250 Weight 122.6 kg 123.6 kg General appearance: PRESENT: no acute distress, well-developed, well-nourished Head exam: PRESENT: atraumatic, normocephalic Eye exam: PRESENT: conjunctiva pink, EOMI, PERRLA. ABSENT: scleral icterus Ear exam: PRESENT: normal external ear exam Mouth exam: PRESENT: moist, tongue midline Neck exam: PRESENT: full ROM. ABSENT: carotid bruit, JVD, lymphadenopathy, thyromegaly Respiratory exam: PRESENT: clear to auscultation [place] Cardiovascular exam: PRESENT: RRR. ABSENT: diastolic murmur, rubs, systolic murmur Vascular exam: PRESENT: normal capillary refill GI/Abdominal exam: PRESENT: ascites, distended, normal bowel sounds, soft. ABSENT: guarding, mass, organolmegaly, rebound, tenderness Rectal exam: PRESENT: deferred Extremities exam: PRESENT: pedal edema Neurological exam: PRESENT: alert, awake, oriented to person, oriented to place, oriented to time, oriented to situation, CN II-XII grossly intact. ABSENT: motor sensory deficit Psychiatric exam: PRESENT: appropriate affect, normal mood. ABSENT: homicidal ideation, suicidal ideation Skin exam: PRESENT: dry, intact, warm. ABSENT: cyanosis, rash Results Laboratory Results: 02/19/20 06:45 02/19/20 06:45 02/19/20 02/19/20 06:45 06:45 WBC 5.5 RBC 3.52 L Hgb 11.3 L Hct 35.0 L MCV 100 H MCH 32.0 MCHC 32.1 RDW 17.0 H Plt Count 143 L Seg Neutrophils % Not Reportable Sodium 130.4 L Potassium 5.6 H Chloride 92 L Carbon Dioxide 33 H Anion Gap 5 BUN 59 H Creatinine 1.35 H Est GFR ( Amer) > 60 Glucose 241 H Calcium 8.3 L 02/13/20 02/13/20 02/13/20 01:22 10:10 10:10 Creatine Kinase 43 L CK-MB (CK-2) 2.37 Troponin I 0.017 < 0.012 02/13/20 02/13/20 02/14/20 16:18 16:18 04:17 Creatine Kinase 41 L 59 CK-MB (CK-2) 2.34 Troponin I < 0.012 02/14/20 04:17 Creatine Kinase CK-MB (CK-2) 2.53 Troponin I 0.014 Impressions: Abdomen/Pelvis CT 02/13/20 00:00 IMPRESSION: 1. Findings suggestive of volume overload with anasarca and mild volume ascites. 2. Cholelithiasis. 3. No other evidence of acute intra-abdominal/pelvic process. Chest CT 02/13/20 00:00 IMPRESSION: 1. Findings compatible with CHF with cardiomegaly, small bilateral effusions and mild interstitial edema. Additional bibasilar consolidative change, likely atelectasis although infection not entirely excluded. 2. Heavy three-vessel coronary atherosclerosis. Head CT 02/13/20 00:00 IMPRESSION: NORMAL BRAIN CT WITHOUT CONTRAST. EVIDENCE OF ACUTE STROKE: NO. Abdomen Ultrasound 02/16/20 00:00 IMPRESSION: Diffuse simple appearing ascites with the largest collection seen within the right lower quadrant. Chest X-Ray 02/16/20 00:00 IMPRESSION: Bilateral lower lobe airspace disease shows worsening. Cardiomegaly with pulmonary edema. Left internal jugular catheter as described. Assessment & Plan - Diagnosis (1) Acute respiratory failure with hypercapnia Is this a current diagnosis for this admission?: Yes (2) Cirrhosis of liver Qualifiers: Hepatic cirrhosis type: alcoholic cirrhosis Ascites presence: unspecified Qualified Code(s): K70.30 - Alcoholic cirrhosis of liver without ascites Is this a current diagnosis for this admission?: Yes (3) CHF exacerbation Qualifiers: Heart failure type: combined systolic and diastolic Qualified Code(s): I50.43 - Acute on chronic combined systolic (congestive) and diastolic (congestive) heart failure Is this a current diagnosis for this admission?: Yes (4) Acute renal failure Is this a current diagnosis for this admission?: Yes (5) Ascites Qualifiers: Ascites type: other type Qualified Code(s): R18.8 - Other ascites Is this a current diagnosis for this admission?: Yes (6) Atrial fibrillation Qualifiers: Atrial fibrillation type: permanent Qualified Code(s): I48.21 - Permanent atrial fibrillation Is this a current diagnosis for this admission?: Yes (7) CAD (coronary artery disease) Qualifiers: Coronary Disease-Associated Artery/Lesion type: [place] artery Associated angina: without angina Is this a current diagnosis for this admission?: Yes (8) Diabetes mellitus Qualifiers: Diabetes mellitus type: type 2 Diabetes mellitus custodial insulin use: without buttermaker use Diabetes mellitus complication status: without complication Qualified Code(s): E11.9 - Type 2 diabetes mellitus without complications Is this a current diagnosis for this admission?: Yes (9) Chronic pain syndrome Is this a current diagnosis for this admission?: Yes (10) Neuropathy Is this a current diagnosis for this admission?: Yes (11) COPD (chronic obstructive pulmonary disease) Qualifiers: COPD type: emphysema Emphysema type: centrilobular Qualified Code(s): J43.2 - Centrilobular emphysema Is this a current diagnosis for this admission?: Yes - Time Time Spent with patient: 15-24 minutes Level of Care: IMCU Medications reviewed and adjusted accordingly: Yes Anticipated discharge: SNF Anticipated DC Timeframe: Other - Plan Summary Plan Summary: Continues to current medications
[2020-02-19] MEDS: SODIUM CHLORIDE NASAL SPRAY 44 ML NASL SCH ×2 (10:20→17:27)
[2020-02-19] MEDS: PATIROMER 8.4 GM SUSP PACKET PO SCH (12:20)
[2020-02-19] MEDS: ACETAMINOPHEN 325 MG TABLET PO PRN (13:15)
[2020-02-19] MEDS: DOBUTAMINE HCL/D5W 500 MG/250 ML RTUINJ IV PRN (15:08)
[2020-02-19] MEDS: PHARMACY COMMUNICATION ORDER MC SCH (17:27)
[2020-02-19] MEDS: NORMAL SALINE 250 ML with FUROSEMIDE 250 MG IV PRN ×2 (17:27)
--- NOTE | 2020-02-19 19:02 | Progress Note ---
Provider Note Provider Note: CARDIOLOGY PROGRESS NOTE by Dr. Alicia Portillo on 02/19/2020. SUBJECTIVE: The patient continues to improve. His shortness of breath is much better but still has shortness of breath and orthopnea. He still has abdominal distention. It seems more like gaseous distention rather than recurrent reaccumulation of great amount of ascites. His leg edema is also improved he still has mild leg edema. His scrotal edema is improved. There is no ventricular arrhythmias seen on the monitor. He is remains in atrial fibrillation with controlled ventricular response. There is no bleeding on Eliquis. There is no TIA CVA symptoms. His renal function is vastly improved. PHYSICAL EXAMINATION: The patient is moderately obese but appears to be chronically ill. At present in no acute distress. Selected Entries 02/19/20 02/19/20 14:13 14:45 Pulse Rate 93 Respiratory 18 Rate Respiratory Non-Labored Effort Blood Pressure 100/70 [Left Upper Arm ] Blood Pressure 80 Mean [Left Upper Arm] Blood Pressure Supine Position [Left Upper Arm] O2 Sat by Pulse 93 Oximetry HEAD: Is atraumatic normocephalic. EYES: Pupils equal round regular reactive to light and accommodation. Extraocular movements are normal. There is no conjunctival pallor. There is no scleral icterus. EARS: Tympanic membranes are intact. External auditory canals are clear. NOSE: There is no deviated nasal septum. There is no inflammation nasal mucous membrane. MOUTH: Mucous membranes of mouth are moist. Tongue is moist. There is no ulcers. THROAT: There is no redness of the oropharynx. There is no exudates. SKIN: There is no skin rashes. There is no petechia or ecchymosis. There is no jaundice. NECK: Supple. There is JVD present. Carotids are equal there is no bruits. There is no lymphadenopathy there is no goiter. There is no accessory muscle respiration use trachea central. LUNGS: There is diminished air entry prolonged expiration. There is bilateral expiratory wheezing. There is a few scattered rhonchi. There is no rales of CHF. HEART: S1-S2 is heard. S1 is of variable intensity. There is no S3 gallop. There is no S4 gallop. There is systolic murmur left sternal border and apex there is no rub. ABDOMEN: Is distended. There is mild ascites with shifting dullness present. There is no paraspinal megaly. Bowel sounds are well heard. There is no tender areas masses. There is no rebound guarding or rigidity. EXTREMITIES: Femorals are deep femorals are diminished. There is no femoral bruits. Leg pulses difficult to palpate. There is 1+ lower extremity edema with venous stasis dermatitis. There is no cellulitis. There is no DVT. There is no cyanosis or clubbing. Capillary refill is normal. KAYAK MAKER: The patient is slightly drowsy but oriented x3 with no focal deficits. PSYCHIATRIC: In spite of the patient's drowsiness his judgment site are intact his affect is normal. The patient's 24-hour intake is 1656 mL normal and his output for 24 hours is 2725 mL. Labs- All tests 24 hr 02/18/20 02/19/20 02/19/20 21:09 06:45 06:45 WBC 5.5 RBC 3.52 L Hgb 11.3 L Hct 35.0 L MCV 100 H MCH 32.0 MCHC 32.1 RDW 17.0 H Plt Count 143 L Lymph % (Auto) Not Reportable [place] % (Auto) Not Reportable Eos % (Auto) Not Reportable Baso % (Auto) Not Reportable Absolute Neuts (auto) Not Reportable Absolute Lymphs (auto) Not Reportable Absolute Monos (auto) Not Reportable Absolute Eos (auto) Not Reportable Absolute Basos (auto) Not Reportable Total Counted 100 Seg Neutrophils % Not Reportable Seg Neuts % (Manual) 97 H Lymphocytes % (Manual) 2 L Monocytes % (Manual) 1 L Eosinophils % (Manual) 0 Basophils % (Manual) 0 Abs Neuts (Manual) 5.3 Abs Lymphs (Manual) 0.1 L Abs Monocytes (Manual) 0.1 Absolute Eos (Manual) 0.0 Abs Basophils (Manual) 0.0 Platelet Comment DECREASED Poikilocytosis SLIGHT Anisocytosis 1+ Macrocytosis 1+ Ovalocytes SLIGHT Sodium 130.4 L Potassium 5.6 H Chloride 92 L Carbon Dioxide 33 H Anion Gap 5 BUN 59 H Creatinine 1.35 H Est GFR ( Amer) > 60 Est GFR (MDRD) Non-Af 52 L Glucose 241 H POC Glucose 307 H Calcium 8.3 L 02/19/20 02/19/20 02/19/20 08:08 11:54 16:22 WBC RBC Hgb Hct MCV MCH MCHC RDW Plt Count Lymph % (Auto) [place] % (Auto) Eos % (Auto) Baso % (Auto) Absolute Neuts (auto) Absolute Lymphs (auto) Absolute Monos (auto) Absolute Eos (auto) Absolute Basos (auto) Total Counted Seg Neutrophils % Seg Neuts % (Manual) Lymphocytes % (Manual) Monocytes % (Manual) Eosinophils % (Manual) Basophils % (Manual) Abs Neuts (Manual) Abs Lymphs (Manual) Abs Monocytes (Manual) Absolute Eos (Manual) Abs Basophils (Manual) Platelet Comment Poikilocytosis Anisocytosis Macrocytosis Ovalocytes Sodium Potassium Chloride Carbon Dioxide Anion Gap BUN Creatinine Est GFR ( Amer) Est GFR (MDRD) Non-Af Glucose POC Glucose 306 H 261 H 318 H Calcium Abdomen/Pelvis CT 02/13/20 00:00 IMPRESSION: 1. Findings suggestive of volume overload with anasarca and mild volume ascites. 2. Cholelithiasis. 3. No other evidence of acute intra-abdominal/pelvic process. Chest CT 02/13/20 00:00 IMPRESSION: 1. Findings compatible with CHF with cardiomegaly, small bilateral effusions and mild interstitial edema. Additional bibasilar consolidative change, likely atelectasis although infection not entirely excluded. 2. Heavy three-vessel coronary atherosclerosis. Chest X-Ray 02/13/20 00:00 IMPRESSION: Worsening bibasilar pneumonia. Head CT 02/13/20 00:00 IMPRESSION: NORMAL BRAIN CT WITHOUT CONTRAST. EVIDENCE OF ACUTE STROKE: NO. Chest X-Ray 02/14/20 00:00 IMPRESSION: Bibasilar pneumonia, left more than right. Left internal jugular catheter as described. Cardiomegaly without bryan pulmonary edema. Cannot exclude a minimal right pleural effusion. Abdomen Ultrasound 02/16/20 00:00 IMPRESSION: Diffuse simple appearing ascites with the largest collection seen within the right lower quadrant. Chest X-Ray 02/16/20 00:00 IMPRESSION: Bilateral lower lobe airspace disease shows worsening. Cardiomegaly with pulmonary edema. Left internal jugular catheter as described. IMPRESSION/RECOMMENDATION: 1. Acute coronary pulmonary with acute on chronic right ventricular systolic failure: Would you This seems to be improving. ARB and continue the patient on dobutamine and Lasix drip. This acute on chronic right ventricle systolic heart failure is secondary to severe pulmonary hypertension. . Acute exacerbation of COPD: Recommend anti-COPD inhalers and antibiotics and consider steroids 3. Acute on chronic hypercapnic and hypoxic respiratory failure: Recommend intermittent BiPAP as needed. Continue treatment of acute exacerbation of COPD. 4. Hypotension: Patient started on dopamine. This is brought his blood pressure up as. He is also on midodrine.' 5. Severe pulmonary hypertension: Secondary to patient's severe COPD ongoing smoking 6. History of alcoholic cirrhosis of the liver with ascites and portal hypertension. 7. Coronary artery disease: History of prior old myocardial infarction and history of coronary bypass graft surgery: The patient has no anginal symptoms and no evidence of acute coronary syndrome at present. 8. Chronic atrial fibrillation: Rate is well controlled continue current medication including Eliquis for stroke prophylaxis. 9. Hypertension: Blood pressure well controlled. Nurse's notes that the patient is on midodrine to keep his blood pressure up so that his Lopressor and other medications can be given. 10. Diabetes mellitus with peripheral neuropathy. Continue current medication for the diabetes and his neuropathy. 11. Chronic kidney disease at present stage III: Avoid nephrotoxic drugs. 12. History of tobacco abuse: Tobacco cessation counseling done Medications reviewed. Medical regimen management plan discussed with Dr. Steen. Medical decision making is still of high complexity since the patient still is is on inotropes. Discussed with the patient and patient's son and crystal quiñones Medical decision making is of high complexity. 40 minutes spent on the patient. With more than 50% of time spent in direct patient care. Will follow
[2020-02-19] MEDS: TAMSULOSIN HCL 0.4 MG CAP.SR.24H PO SCH (22:04)
[2020-02-19] MEDS: ATORVASTATIN CALCIUM 80 MG TABLET PO SCH (22:07)
[2020-02-19] MEDS: CEFTRIAXONE 2 GM/D5W RTU 2 GM/50 ML RTUPB IV SCH (22:07)
[2020-02-20] MEDS: ACETAMINOPHEN 325 MG TABLET PO PRN ×2 (01:44→21:03)
[2020-02-20] MEDS: IPRATROPIUM/ALBUTEROL 0.5-2.5 MG/3 ML AMPUL NEB SCH ×4 (02:19→20:31)
[2020-02-20] MEDS: BUSPIRONE HCL 10 MG TABLET PO SCH ×3 (06:23→21:04)
[2020-02-20] MEDS: GABAPENTIN 300 MG CAPSULE PO SCH ×3 (06:23→21:04)
[2020-02-20 07:32] LABS: BLOOD UREA NITROGEN 63 mg/dL (7-20); CARBON DIOXIDE 36 mmol/L (22-30); CHLORIDE 89 mmol/L (98-107); GLUCOSE 296 mg/dL (75-110); POTASSIUM 5.6 mmol/L (3.6-5.0)
[2020-02-20 07:39] LABS: ANION GAP 4 (5-19)
[2020-02-20] MEDS: INSULIN LISPRO 100 UNIT/ML 3 ML VIAL SUBCUT SCH ×4 (08:04→22:20)
[2020-02-20] MEDS: DOPAMINE HCL 800 MG/D5W 250 ML IV PRN (08:58)
--- NOTE | 2020-02-20 09:14 | PDOC PROGRESS REPORT ---
Subjective Date:: 02/20/20 Subjective:: Patient is feeling better Still having good urine output Patient's potassium is 5.6 Denied any chest pain denied any shortness of the breath Reason For Visit: ACUTE RESPIRATORY FAILURE WITH HYPERCAPNEA,ACUTE Physical Exam Vital Signs: Temp Pulse Resp BP Pulse Ox 97.4 F 83 20 78/59 L 90 L 02/20/20 07:19 02/20/20 08:27 02/20/20 08:27 02/20/20 08:00 02/20/20 07:19 Intake & Output 02/19/20 02/20/20 02/21/20 06:59 06:59 06:59 Intake Total 1706 2152 250 Output Total 2725 2500 Balance -1019 -348 250 Weight 123.6 kg 121 kg General appearance: PRESENT: no acute distress, well-developed, well-nourished Head exam: PRESENT: atraumatic, normocephalic Eye exam: PRESENT: conjunctiva pink, EOMI, PERRLA. ABSENT: scleral icterus Ear exam: PRESENT: normal external ear exam Mouth exam: PRESENT: moist, tongue midline Neck exam: PRESENT: full ROM. ABSENT: carotid bruit, JVD, lymphadenopathy, thyromegaly Respiratory exam: PRESENT: clear to auscultation [place] Cardiovascular exam: PRESENT: RRR. ABSENT: diastolic murmur, rubs, systolic murmur Vascular exam: PRESENT: normal capillary refill GI/Abdominal exam: PRESENT: normal bowel sounds, soft. ABSENT: distended, guarding, mass, organolmegaly, rebound, tenderness Rectal exam: PRESENT: deferred Extremities exam: PRESENT: pedal edema Neurological exam: PRESENT: alert, awake, oriented to person, oriented to place, oriented to time, oriented to situation, CN II-XII grossly intact. ABSENT: motor sensory deficit Psychiatric exam: PRESENT: appropriate affect, normal mood. ABSENT: homicidal ideation, suicidal ideation Skin exam: PRESENT: dry, intact, warm. ABSENT: cyanosis, rash Results Laboratory Results: 02/19/20 06:45 02/20/20 06:25 02/20/20 06:25 Sodium 129.3 L Potassium 5.6 H Chloride 89 L Carbon Dioxide 36 H Anion Gap 4 L BUN 63 H Creatinine 1.26 H Est GFR ( Amer) > 60 Glucose 296 H Calcium 8.0 L 02/13/20 02/13/20 02/13/20 01:22 10:10 10:10 Creatine Kinase 43 L CK-MB (CK-2) 2.37 Troponin I 0.017 < 0.012 02/13/20 02/13/20 02/14/20 16:18 16:18 04:17 Creatine Kinase 41 L 59 CK-MB (CK-2) 2.34 Troponin I < 0.012 02/14/20 04:17 Creatine Kinase CK-MB (CK-2) 2.53 Troponin I 0.014 Impressions: Abdomen/Pelvis CT 02/13/20 00:00 IMPRESSION: 1. Findings suggestive of volume overload with anasarca and mild volume ascites. 2. Cholelithiasis. 3. No other evidence of acute intra-abdominal/pelvic process. Chest CT 02/13/20 00:00 IMPRESSION: 1. Findings compatible with CHF with cardiomegaly, small bilateral effusions and mild interstitial edema. Additional bibasilar consolidative change, likely atelectasis although infection not entirely excluded. 2. Heavy three-vessel coronary atherosclerosis. Head CT 02/13/20 00:00 IMPRESSION: NORMAL BRAIN CT WITHOUT CONTRAST. EVIDENCE OF ACUTE STROKE: NO. Abdomen Ultrasound 02/16/20 00:00 IMPRESSION: Diffuse simple appearing ascites with the largest collection seen within the right lower quadrant. Chest X-Ray 02/16/20 00:00 IMPRESSION: Bilateral lower lobe airspace disease shows worsening. Cardiomegaly with pulmonary edema. Left internal jugular catheter as described. Assessment & Plan - Diagnosis (1) Acute respiratory failure with hypercapnia Is this a current diagnosis for this admission?: Yes (2) Cirrhosis of liver Qualifiers: Hepatic cirrhosis type: alcoholic cirrhosis Ascites presence: unspecified Qualified Code(s): K70.30 - Alcoholic cirrhosis of liver without ascites Is this a current diagnosis for this admission?: Yes (3) CHF exacerbation Qualifiers: Heart failure type: combined systolic and diastolic Qualified Code(s): I50.43 - Acute on chronic combined systolic (congestive) and diastolic (congestive) heart failure Is this a current diagnosis for this admission?: Yes (4) Acute renal failure Is this a current diagnosis for this admission?: Yes (5) Ascites Qualifiers: Ascites type: other type Qualified Code(s): R18.8 - Other ascites Is this a current diagnosis for this admission?: Yes (6) Atrial fibrillation Qualifiers: Atrial fibrillation type: permanent Qualified Code(s): I48.21 - Permanent atrial fibrillation Is this a current diagnosis for this admission?: Yes (7) CAD (coronary artery disease) Qualifiers: Coronary Disease-Associated Artery/Lesion type: [place] artery Associated an aby: without angina Is this a current diagnosis for this admission?: Yes (8) Diabetes mellitus Qualifiers: Diabetes mellitus type: type 2 Diabetes mellitus exterminator insulin use: without chcf use Diabetes mellitus complication status: without complication Qualified Code(s): E11.9 - Type 2 diabetes mellitus without complications Is this a current diagnosis for this admission?: Yes (9) Chronic pain syndrome Is this a current diagnosis for this admission?: Yes (10) Neuropathy Is this a current diagnosis for this admission?: Yes (11) COPD (chronic obstructive pulmonary disease) Qualifiers: COPD type: emphysema Emphysema type: centrilobular Qualified Code(s): J43.2 - Centrilobular emphysema Is this a current diagnosis for this admission?: Yes - Time Time Spent with patient: 15-24 minutes Level of Care: IMCU Medications reviewed and adjusted accordingly: Yes Anticipated discharge: Other - Plan Summary Plan Summary: Continues the current medications
[2020-02-20] MEDS: LOSARTAN POTASSIUM 25 MG TABLET PO SCH ×2 (09:36→21:04)
[2020-02-20] MEDS: METOPROLOL TARTRATE 50 MG TABLET PO SCH ×2 (09:37→21:04)
[2020-02-20] MEDS: MAGNESIUM OXIDE 400 MG TABLET PO SCH (09:43)
[2020-02-20] MEDS: MIDODRINE HCL 5 MG TABLET PO SCH ×3 (09:43→17:06)
[2020-02-20] MEDS: GUAIFENESIN 600 MG TABLET.SA PO SCH ×2 (09:43→17:06)
[2020-02-20] MEDS: NITROGLYCERIN 2.5 MG (0.1 MG/HR) PATCH.TD24 TD SCH (09:44)
[2020-02-20] MEDS: SODIUM CHLORIDE NASAL SPRAY 44 ML NASL SCH ×2 (09:44→17:06)
[2020-02-20] MEDS: FLUTICASONE NASAL SPRAY 50 MCG/SPRY 120 SPRAY/16 GM NASL SCH ×2 (09:44→17:05)
[2020-02-20] MEDS: APIXABAN 2.5 MG TABLET PO SCH ×2 (09:45→17:05)
[2020-02-20] MEDS: ASPIRIN 81 MG TABLET, ENT COATED PO SCH (09:45)
[2020-02-20] MEDS ORDERED: METHYLPREDNISOLONE INJ 40 MG/1 ML SDV IV SCH (10:00)
[2020-02-20 12:05] LABS: ARTERIAL BLOOD BASE EXCESS 3.1 mmol/L; ARTERIAL BLOOD H2CO3 2.03 mmol/L (1.05-1.35); ARTERIAL BLOOD HCO3 31.3 mmol/L (20-24); ARTERIAL BLOOD O2 SATURATION 95.4 % (94-98); ARTERIAL BLOOD PCO2 67.6 mmHg (35-45); ARTERIAL BLOOD PH 7.28 (7.35-7.45); ARTERIAL BLOOD PO2 88.6 mmHg (80-100); ARTERIAL BLOOD TOTAL CO2 33.4 mmol/L (23-27)
[2020-02-20 12:07] LABS: HEMATOCRIT 34.9 % (37.9-51.0); HEMOGLOBIN 11.1 g/dL (13.5-17.0); MEAN CORPUSCULAR HEMOGLOBIN 31.6 pg (27.0-33.4); MEAN CORPUSCULAR HGB CONC 31.8 g/dL (32.0-36.0); MEAN CORPUSCULAR VOLUME 99 fl (80-97); PLATELET COUNT 143 10^3/uL (150-450); RED BLOOD COUNT 3.51 10^6/uL (4.35-5.55); RED CELL DISTRIBUTION WIDTH 17.3 % (11.5-14.0); WHITE BLOOD COUNT 6.1 10^3/uL (4.0-10.5)
[2020-02-20 12:08] LABS: ARTERIAL BLOOD FIO2 100%
--- NOTE | 2020-02-20 12:30 | RADIOLOGY REPORT (SQ) ---
EXAM DESCRIPTION: CHEST SINGLE VIEW IMAGES COMPLETED DATE/TIME: 02/20/2020 11:33 am REASON FOR STUDY: chf COMPARISON: 02/16/2020 EXAM PARAMETERS: NUMBER OF VIEWS: One view. TECHNIQUE: Single frontal radiographic view of the chest acquired. RADIATION DOSE: NA LIMITATIONS: None. FINDINGS: LUNGS AND PLEURA: Low lung volumes. Bilateral lower lobe opacification. Bilateral pleura l effusions. MEDIASTINUM AND HILAR STRUCTURES: No masses. Contour normal. HEART AND VASCULAR STRUCTURES: Heart size appears to be borderline. BONES: No acute findings. HARDWARE: Sternotomy wires. Left internal jugular catheter with its tip in the superior vena cava. OTHER: No other significant finding. IMPRESSION: Persistent airspace disease in the lower lobes. Pleural effusions. Borderline cardiome vi. There does not appear to be bryan pulmonary edema at this time. Left internal jugular cathete r remains in place. TECHNICAL DOCUMENTATION: JOB ID: [id number] 2010 [employer] [employer]- All Rights Reserved Reading location - IP/workstation name: [email or web address]
[2020-02-20 12:38] LABS: ABSOLUTE LYMPHOCYTES# (MANUAL) 0.2 10^3/uL (0.5-4.7); ABSOLUTE MONOCYTES # (MANUAL) 0.4 10^3/uL (0.1-1.4); ANISOCYTOSIS SLIGHT; BAND NEUTROPHILS % (MANUAL) 1 % (3-5); BASOPHILS % (MANUAL) 0 % (0-2); EOSINOPHILS % (MANUAL) 1 % (0-6); LYMPHOCYTES % (MANUAL) 3 % (13-45); MONOCYTES % (MANUAL) 7 % (3-13); OVALOCYTES SLIGHT; PLATELET COMMENT DECREASED; POIKILOCYTOSIS SLIGHT; SEGMENTED NEUTROPHILS % (MAN) 88 % (42-78); TOTAL CELLS COUNTED 100
[2020-02-20] MEDS: PATIROMER 8.4 GM SUSP PACKET PO SCH (12:42)
[2020-02-20] MEDS: FLUTICASONE/UMECLIDIN/VILANTER 100-62.5-25 MCG/DOSE IH SCH (12:42)
--- NOTE | 2020-02-20 16:22 | Progress Note ---
Provider Note Provider Note: CARDIOLOGY PROGRESS NOTE by Dr. Alicia Mcgowan on 02/20/2020. SUBJECTIVE: The patient appears to be more short of breath. He is also desaturating in spite of the BiPAP and his O2 sats is delivery is increased to 100% on the BiPAP. His ABG show pH of 7.20 with a PCO2 of 65 and a PO2 of 80. The patient definitely states he does not want to be intubated. Son at the bedside. The patient's chest x-ray shows worsening pleural effusions bilaterally. He denies any chest pain. Patient short of breath and less or thopnea. His leg edema is about the same. The patient continues to be in atrial fibrillation but without any pauses or rapid ventricular response. There is no ventricular arrhythmias seen. There is no bleeding on Eliquis. There is no TIA CVA symptoms. The patient is declared himself to be DNR. This is with the son at the bedside. The son concurs. PHYSICAL EXAMINATION: The patient appears to be chronically ill and malnourished. In moderate respiratory distress on BiPAP. Selected Entries 02/20/20 02/20/20 02/20/20 12:02 14:00 16:45 Pulse Rate 88 Respiratory 16 Rate Blood Pressure 112/74 Blood Pressure 86 Mean O2 Sat by Pulse 91 L Oximetry Fraction of 100 Inspired Oxygen (FIO2) Oxygen Flow 6 Rate Oxygen Delivery Bipap Method Percent of 100 Oxygen HEAD: Is atraumatic normocephalic. EYES: Pupils equal round regular reactive to light and accommodation. Extraocular movements are normal. There is no conjunctival pallor. There is no scleral icterus. EARS: Tympanic membranes are intact. External auditory canals are clear. NOSE: There is no deviated nasal septum. There is no inflammation nasal mucous membrane. MOUTH: Mucous membranes of mouth are moist. Tongue is moist. There is no ulcers. THROAT: There is no redness of the oropharynx. There is no exudates. SKIN: There is no skin rashes. There is no petechia or ecchymosis. There is no jaundice. NECK: Supple. There is JVD present. Carotids are equal there is no bruits. There is no lymphadenopathy there is no goiter. There is no accessory muscle respiration use trachea central. LUNGS: There is diminished air entry prolonged expiration. There is bilateral expiratory wheezing. There is a few scattered rhonchi. There is no rales of CHF. HEART: S1-S2 is heard. S1 is of variable intensity. There is no S3 gallop. There is no S4 gallop. There is systolic murmur left sternal border and apex there is no rub. ABDOMEN: Is distended. There is mild ascites with shifting dullness present. There is no paraspinal megaly. Bowel sounds are well heard. There is no tender areas masses. There is no rebound guarding or rigidity. EXTREMITIES: Femorals are deep femorals are diminished. There is no femoral bruits. Leg pulses difficult to palpate. There is 1+ lower extremity edema with venous stasis dermatitis. There is no cellulitis. There is no DVT. There is no cyanosis or clubbing. Capillary refill is normal. ON AIR DIRECTOR: The patient is slightly drowsy but oriented x3 with no focal deficits. PSYCHIATRIC: In spite of the patient's drowsiness his judgment site are intact his affect is normal. The patient's 24-hour intake is 2152 mL normal and his output for 24 hours is 2500 mL. Labs- All tests 24 hr 02/20/20 02/20/20 02/20/20 06:25 07:21 10:58 WBC RBC Hgb Hct MCV MCH MCHC RDW Plt Count Lymph % (Auto) [place] % (Auto) Eos % (Auto) Baso % (Auto) Absolute Neuts (auto) Absolute Lymphs (auto) Absolute Monos (auto) Absolute Eos (auto) Absolute Basos (auto) Total Counted Seg Neutrophils % Seg Neuts % (Manual) Band Neutrophils % Lymphocytes % (Manual) Monocytes % (Manual) Eosinophils % (Manual) Basophils % (Manual) Abs Neuts (Manual) Abs Lymphs (Manual) Abs Monocytes (Manual) Absolute Eos (Manual) Abs Basophils (Manual) Platelet Comment Poikilocytosis Anisocytosis Ovalocytes Carbonic Acid Cancelled HCO3/H2CO3 Ratio Cancelled ABG pH Cancelled ABG pCO2 Cancelled ABG pO2 Cancelled ABG HCO3 Cancelled ABG Total CO2 Cancelled ABG O2 Saturation Cancelled ABG Base Excess Cancelled FiO2 Cancelled Sodium 129.3 L Potassium 5.6 H Chloride 89 L Carbon Dioxide 36 H Anion Gap 4 L BUN 63 H Creatinine 1.26 H Est GFR ( Amer) > 60 Est GFR (MDRD) Non-Af 56 L Glucose 296 H POC Glucose 308 H Calcium 8.0 L 02/20/20 02/20/20 02/20/20 11:35 11:53 12:04 WBC 6.1 RBC 3.51 L Hgb 11.1 L Hct 34.9 L MCV 99 H MCH 31.6 MCHC 31.8 L RDW 17.3 H Plt Count 143 L Lymph % (Auto) Not Reportable [place] % (Auto) Not Reportable Eos % (Auto) Not Reportable Baso % (Auto) Not Reportable Absolute Neuts (auto) Not Reportable Absolute Lymphs (auto) Not Reportable Absolute Monos (auto) Not Reportable Absolute Eos (auto) Not Reportable Absolute Basos (auto) Not Reportable Total Counted 100 Seg Neutrophils % Not Reportable Seg Neuts % (Manual) 88 H Band Neutrophils % 1 L Lymphocytes % (Manual) 3 L Monocytes % (Manual) 7 Eosinophils % (Manual) 1 Basophils % (Manual) 0 Abs Neuts (Manual) 5.4 Abs Lymphs (Manual) 0.2 L Abs Monocytes (Manual) 0.4 Absolute Eos (Manual) 0.1 Abs Basophils (Manual) 0.0 Platelet Comment DECREASED Poikilocytosis SLIGHT Anisocytosis SLIGHT Ovalocytes SLIGHT Carbonic Acid 2.03 H HCO3/H2CO3 Ratio 15:1 ABG pH 7.28 L ABG pCO2 67.6 H ABG pO2 88.6 ABG HCO3 31.3 H ABG Total CO2 33.4 H ABG O2 Saturation 95.4 ABG Base Excess 3.1 FiO2 100% Sodium Potassium Chloride Carbon Dioxide Anion Gap BUN Creatinine Est GFR ( Amer) Est GFR (MDRD) Non-Af Glucose POC Glucose 369 H Calcium Abdomen/Pelvis CT 02/13/20 00:00 IMPRESSION: 1. Findings suggestive of volume overload with anasarca and mild volume ascites. 2. Cholelithiasis. 3. No other evidence of acute intra-abdominal/pelvic process. Chest CT 02/13/20 00:00 IMPRESSION: 1. Findings compatible with CHF with cardiomegaly, small bilateral effusions and mild interstitial edema. Additional bibasilar consolidative change, likely atelectasis although infection not entirely excluded. 2. Heavy three-vessel coronary atherosclerosis. Chest X-Ray 02/13/20 00:00 IMPRESSION: Worsening bibasilar pneumonia. Head CT 02/13/20 00:00 IMPRESSION: NORMAL BRAIN CT WITHOUT CONTRAST. EVIDENCE OF ACUTE STROKE: NO. Chest X-Ray 02/14/20 00:00 IMPRESSION: Bibasilar pneumonia, left more than right. Left internal jugular catheter as described. Cardiomegaly without bryan pulmonary edema. Cannot exclude a minimal right pleural effusion. Abdomen Ultrasound 02/16/20 00:00 IMPRESSION: Diffuse simple appearing ascites with the largest collection seen within the right lower quadrant. Chest X-Ray 02/16/20 00:00 IMPRESSION: Bilateral lower lobe airspace disease shows worsening. Cardiomegaly with pulmonary edema. Left internal jugular catheter as described. Chest X-Ray 02/20/20 00:00 IMPRESSION: Persistent airspace disease in the lower lobes. Pleural effusions. Borderline cardiomegaly. There does not appear to be bryan pulmonary edema at this time. Left internal jugular catheter remains in place. IMPRESSION/RECOMMENDATION: 1. Acute coronary pulmonary with acute on chronic right ventricular systolic failure: Would you This seems to be improving. ARB and continue the patient on dobutamine and Lasix drip. This acute on chronic right ventricle systolic heart failure is secondary to severe pulmonary hypertension. Will increase the dobutamine to 7.5 mcg/kg/min continue dopamine at 5 mcg/kg/min. We will increase the patient's Lasix drip to 6 mg grams per hour. . Acute exacerbation of COPD: Recommend anti-COPD inhalers and antibiotics and consider steroids 3. Acute on chronic hypercapnic and hypoxic respiratory failure: Recommend intermittent BiPAP as needed. Continue treatment of acute exacerbation of COPD. 4. Hypotension: Patient started on dopamine. This is brought his blood pressure up as. He is also on midodrine.' 5. Severe pulmonary hypertension: Secondary to patient's severe COPD ongoing smoking 6. History of alcoholic cirrhosis of the liver with ascites and portal hypertension. 7. Coronary artery disease: History of prior old myocardial infarction and history of coronary bypass graft surgery: The patient has no anginal symptoms and no evidence of acute coronary syndrome at present. 8. Chronic atrial fibrillation: Rate is well controlled continue current medication including Eliquis for stroke prophylaxis. 9. Hypertension: Blood pressure well controlled. Nurse's notes that the patient is on midodrine to keep his blood pressure up so that his Lopressor and other medications can be given. He is also on dopamine. 10. Diabetes mellitus with peripheral neuropathy. Continue current medication for the diabetes and his neuropathy. 11. Chronic kidney disease at present stage III: Avoid nephrotoxic drugs. 12. History of tobacco abuse: Tobacco cessation counseling done DNR orders written by Dr. Steen and concurred by me. Medications reviewed. The patient's dobutamine has been increased also the patient is on dopamine. His Lasix drip has also been increased. Medical decision making is of high complex ity. Case discussed with the patient and patient's son. Also discussed with Dr. Steen. Will follow
[2020-02-20] MEDS ORDERED: KETOROLAC TROMETHAMINE INJ/PF 30 MG/1 ML SDV ONE (17:02)
[2020-02-20] MEDS: NORMAL SALINE 250 ML with FUROSEMIDE 250 MG IV PRN ×2 (17:09)
[2020-02-20] MEDS: DOBUTAMINE HCL/D5W 500 MG/250 ML RTUINJ IV PRN (17:09)
[2020-02-20] MEDS: PHARMACY COMMUNICATION ORDER MC SCH (17:09)
[2020-02-20] MEDS ORDERED: KETOROLAC TROMETHAMINE INJ/PF 30 MG/1 ML SDV IV ONE (18:00)
[2020-02-20] MEDS: TAMSULOSIN HCL 0.4 MG CAP.SR.24H PO SCH (21:05)
[2020-02-20] MEDS: ATORVASTATIN CALCIUM 80 MG TABLET PO SCH (21:05)
[2020-02-20] MEDS: CEFEPIME 1 GM/D5W RTU 1 GM/50 ML RTUPB IV SCH (21:13)
--- NOTE | 2020-02-21 00:13 | PDOC PROGRESS REPORT ---
Subjective Date:: 02/20/20 Subjective:: Patient continues to be requiring BiPAP and easily desaturates without it. He seems to be more somnolent and lethargic although still arousable when prompted today. His blood pressure has been low so he was started on dopamine drip. Cardiology still continues the dobutamine drip and Lasix drip. He was also started on midodrine for the hypotension. He continues to pass adequate amount of urine output, past 2500 mL for the past 24 hours. Reason For Visit: ACUTE RESPIRATORY FAILURE WITH HYPERCAPNEA,ACUTE Physical Exam Vital Signs: Temp Pulse Resp BP Pulse Ox 97.4 F 83 15 78/59 L 90 L 02/20/20 10:00 02/20/20 08:27 02/20/20 11:49 02/20/20 08:00 02/20/20 07:19 Intake & Output 02/19/20 02/20/20 02/21/20 06:59 06:59 06:59 Intake Total 1706 2152 250 Output Total 2725 2500 Balance -1019 -348 250 Weight 123.6 kg 121 kg Exam: General appearance: PRESENT: On BiPAP, somnolent but arousable Head exam: PRESENT: atraumatic, normocephalic, very hard of hearing Eye exam: PRESENT: conjunctiva pale, PERRLA. ABSENT: scleral icterus Neck exam: ABSENT: JVD Respiratory exam: PRESENT: Normal breath sounds. ABSENT: crackles, rales, rhonchi, unlabored, wheezes Cardiovascular exam: PRESENT: Regular rate rhythm -+S1, +S2. Grade 2/6 systolic murmur GI/Abdominal exam: PRESENT: normal bowel sounds, soft. Almost unchanged subcutaneous edema ABSENT: guarding, mass, tenderness Extremities exam: Grade 3 bilateral lower extremity pitting edema Neurological exam: PRESENT: Somnolent. Skin exam: PRESENT: dry, warm, Results Laboratory Results: 02/20/20 11:53 02/20/20 06:25 02/20/20 02/20/20 02/20/20 06:25 10:58 11:35 WBC RBC Hgb Hct MCV MCH MCHC RDW Plt Count Seg Neutrophils % Carbonic Acid Cancelled 2.03 H HCO3/H2CO3 Ratio Cancelled 15:1 ABG pH Cancelled 7.28 L ABG pCO2 Cancelled 67.6 H ABG pO2 Cancelled 88.6 ABG HCO3 Cancelled 31.3 H ABG O2 Saturation Cancelled 95.4 ABG Base Excess Cancelled 3.1 FiO2 Cancelled 100% Sodium 129.3 L Potassium 5.6 H Chloride 89 L Carbon Dioxide 36 H Anion Gap 4 L BUN 63 H Creatinine 1.26 H Est GFR ( Amer) > 60 Glucose 296 H Calcium 8.0 L 02/20/20 11:53 WBC 6.1 RBC 3.51 L Hgb 11.1 L Hct 34.9 L MCV 99 H MCH 31.6 MCHC 31.8 L RDW 17.3 H Plt Count 143 L Seg Neutrophils % Not Reportable Carbonic Acid HCO3/H2CO3 Ratio ABG pH ABG pCO2 ABG pO2 ABG HCO3 ABG O2 Saturation ABG Base Excess FiO2 Sodium Potassium Chloride Carbon Dioxide Anion Gap BUN Creatinine Est GFR ( Amer) Glucose Calcium 02/13/20 02/13/20 02/13/20 01:22 10:10 10:10 Creatine Kinase 43 L CK-MB (CK-2) 2.37 Troponin I 0.017 < 0.012 02/13/20 02/13/20 02/14/20 16:18 16:18 04:17 Creatine Kinase 41 L 59 CK-MB (CK-2) 2.34 Troponin I < 0.012 02/14/20 04:17 Creatine Kinase CK-MB (CK-2) 2.53 Troponin I 0.014 Impressions: Abdomen/Pelvis CT 02/13/20 00:00 IMPRESSION: 1. Findings suggestive of volume overload with anasarca and mild volume ascites. 2. Cholelithiasis. 3. No other evidence of acute intra-abdominal/pelvic process. Chest CT 02/13/20 00:00 IMPRESSION: 1. Findings compatible with CHF with cardiomegaly, small bilateral effusions and mild interstitial edema. Additional bibasilar consolidative change, likely atelectasis although infection not entirely excluded. 2. Heavy three-vessel coronary atherosclerosis. Head CT 02/13/20 00:00 IMPRESSION: NORMAL BRAIN CT WITHOUT CONTRAST. EVIDENCE OF ACUTE STROKE: NO. Abdomen Ultrasound 02/16/20 00:00 IMPRESSION: Diffuse simple appearing ascites with the largest collection seen within the right lower quadrant. Chest X-Ray 02/20/20 00:00 IMPRESSION: Persistent airspace disease in the lower lobes. Pleural effusions. Borderline cardiomegaly. There does not appear to be bryan pulmonary edema at this time. Left internal jugular catheter remains in place. Assessment & Plan - Diagnosis (1) BRUCE (acute kidney injury) Is this a current diagnosis for this admission?: Yes Plan: Nonoliguric. No associated significant proteinuria nor microhematuria. This is most likely secondary to multiple prerenal factors including possible cardiorenal syndrome due to CHF, liver cirrhosis with ascites and diabetes. CT scan of the abdomen showed no hydronephrosis nor masses. Management is really to optimize treatment for the above comorbid conditions as the kidney function just follows through depending on the status of those. Agree with current dobutamine drip and Lasix drip being managed by cardiology. No need of renal replacement therapy at this time. Continue to monitor kidney function. Avoid nephrotoxic medications. Adjust doses of medications depending on kidney function. Good urine output. Kidney function significantly improved. Continue current management. I will sign off at this time. (2) Hyponatremia Is this a current diagnosis for this admission?: Yes Plan: Likely secondary to hypotonic IV solution being given the patient plus hypervolemic state. (3) Hyperkalemia Is this a current diagnosis for this admission?: Yes Plan: Secondary to BRUCE and hyperosmolality due to elevated blood sugars. Due to the patient's mental status and respiratory status she is unable to take the Velt[place]. I talked to the nurse to try to give the Velt[place] if patient is able to take anything orally. (4) Acute respiratory failure with hypercapnia Is this a current diagnosis for this admission?: Yes Plan: Defer to Dr. Steen. Still on ceftriaxone. Still requiring BiPAP at this time and seems to be worsening respiratory status. (5) CHF exacerbation Qualifiers: Heart failure type: combined systolic and diastolic Qualified Code(s): I50.43 - Acute on chronic combined systolic (congestive) and diastolic (congestive) heart failure Is this a current diagnosis for this admission?: Yes Plan: Echocardiogram on 07/14/2019 showed LVEF of 45%, moderate global hypokinesia of left ventricle, right ventricle moderately dilated, right atrium mild to moderately dilated, left atrium severely dilated, seen in severe pulmonary hypertension. On dobutamine and Lasix drip. Dr. Portillo following the patient. (6) Hypotension Qualifiers: Hypotension type: unspecified hypotension type Qualified Code(s): I95.9 - Hypotension, unspecified Is this a current diagnosis for this admission?: Yes Plan: Patient currently on dopamine and midodrine but continues to be hypotensive despite these. (7) COPD (chronic obstructive pulmonary disease) Qualifiers: COPD type: emphysema Emphysema type: centrilobular Qualified Code(s): J43.2 - Centrilobular emphysema Is this a current diagnosis for this admission?: Yes (8) Cirrhosis of liver Qualifiers: Hepatic cirrhosis type: alcoholic cirrhosis Ascites presence: unspecified Qualified Code(s): K70.30 - Alcoholic cirrhosis of liver without ascites Is this a current diagnosis for this admission?: Yes Plan: Alcohol induced. (9) Ascites Qualifiers: Ascites type: other type Qualified Code(s): R18.8 - Other ascites Is this a current diagnosis for this admission?: Yes (10) Pulmonary hypertension Is this a current diagnosis for this admission?: Yes (11) Atrial fibrillation Qualifiers: Atrial fibrillation type: permanent Qualified Code(s): I48.21 - Permanent atrial fibrillation Is this a current diagnosis for this admission?: Yes Plan: On Eliquis and metoprolol. (12) Neuropathy Is this a current diagnosis for this admission?: Yes Plan: On gabapentin. Needs to be careful with the dose of gabapentin. If the patient becomes more somnolent then it needs to be decreased. (13) Diabetes mellitus Qualifiers: Diabetes mellitus type: type 2 Diabetes mellitus skilled nursing insulin use: without skilled nursing use Diabetes mellitus complication status: without complication Qualified Code(s): E11.9 - Type 2 diabetes mellitus without complications Is this a current diagnosis for this admission?: Yes (14) Anemia Is this a current diagnosis for this admission?: Yes (15) Chronic pain syndrome Is this a current diagnosis for this admission?: Yes Plan: Patient cannot have any Toradol or any NSAID. - Notes Notes: Overall the patient's prognosis is grim. A lot of his comorbidities are incurable. Patient is not ever going to be a good candidate for chronic dialysis treatment. If patient does not improve from this point having maximized all possible treatment available, I would recommend hospice care.
[2020-02-21] MEDS: IPRATROPIUM/ALBUTEROL 0.5-2.5 MG/3 ML AMPUL NEB SCH ×4 (02:40→20:36)
[2020-02-21] MEDS ORDERED: KETOROLAC TROMETHAMINE INJ/PF 30 MG/1 ML SDV ONE (05:31)
[2020-02-21 06:35] LABS: ABSOLUTE LYMPHOCYTES (AUTO) 0.3 10^3/uL (0.5-4.7); ABSOLUTE MONOCYTES (AUTO) 0.5 10^3/uL (0.1-1.4); ABSOLUTE NEUT (AUTO) 5.4 10^3/uL (1.7-8.2); BASOPHILS % (AUTO) 0.2 % (0-2); EOSINOPHILS % (AUTO) 0.5 % (0-6); HEMATOCRIT 34.4 % (37.9-51.0); HEMOGLOBIN 10.9 g/dL (13.5-17.0); LYMPHOCYTES % (AUTO) 5.4 % (13-45); MEAN CORPUSCULAR HEMOGLOBIN 31.7 pg (27.0-33.4); MEAN CORPUSCULAR HGB CONC 31.7 g/dL (32.0-36.0); MEAN CORPUSCULAR VOLUME 100 fl (80-97); PLATELET COUNT 158 10^3/uL (150-450); RED BLOOD COUNT 3.44 10^6/uL (4.35-5.55); RED CELL DISTRIBUTION WIDTH 16.8 % (11.5-14.0); SEGMENTED NEUTROPHILS % (AUTO) 85.9 % (42-78); TOTAL CELLS COUNTED % (AUTO) 100 %; WHITE BLOOD COUNT 6.2 10^3/uL (4.0-10.5)
[2020-02-21] MEDS: GABAPENTIN 300 MG CAPSULE PO SCH ×3 (06:36→21:34)
[2020-02-21] MEDS: BUSPIRONE HCL 10 MG TABLET PO SCH ×3 (06:36→21:34)
[2020-02-21] MEDS ORDERED: KETOROLAC TROMETHAMINE INJ/PF 30 MG/1 ML SDV IV ONE (06:45)
[2020-02-21] MEDS: DOPAMINE HCL 800 MG/D5W 250 ML IV PRN ×2 (06:47→17:25)
[2020-02-21 06:52] LABS: ANION GAP 8 (5-19); BLOOD UREA NITROGEN 63 mg/dL (7-20); CARBON DIOXIDE 33 mmol/L (22-30); CHLORIDE 90 mmol/L (98-107); GLUCOSE 293 mg/dL (75-110); POTASSIUM 5.5 mmol/L (3.6-5.0)
[2020-02-21] MEDS: INSULIN LISPRO 100 UNIT/ML 3 ML VIAL SUBCUT SCH ×4 (08:00→22:34)
--- NOTE | 2020-02-21 08:28 | PDOC PROGRESS REPORT ---
Subjective Date:: 02/21/20 Subjective:: Patient is currently doing same And is more alert awake oriented x3 Discussed with the patient about the CODE STATUS again myself and patients be expressed DNR/DNI yesterday patient's expressed DNR/DNI with Dr. ASHLEY and with his son Lebron Patient's otherwise maximize the treatment at this point per Nephrology and cardiology Patient's blood pressure was running low start on a dopamine drip Reason For Visit: ACUTE RESPIRATORY FAILURE WITH HYPERCAPNEA,ACUTE Physical Exam Vital Signs: Temp Pulse Resp BP Pulse Ox 97.4 F 77 28 H 71/49 L 97 02/21/20 04:12 02/21/20 06:00 02/21/20 04:12 02/21/20 06:00 02/21/20 06:46 Intake & Output 02/20/20 02/21/20 02/22/20 06:59 06:59 06:59 Intake Total 2152 2152 Output Total 2500 1975 Balance -348 177 Weight 121 kg 127 kg General appearance: PRESENT: no acute distress, well-developed, well-nourished Head exam: PRESENT: atraumatic, normocephalic Eye exam: PRESENT: conjunctiva pink, EOMI, PERRLA. ABSENT: scleral icterus Ear exam: PRESENT: normal external ear exam Mouth exam: PRESENT: moist, tongue midline Neck exam: PRESENT: full ROM. ABSENT: carotid bruit, JVD, lymphadenopathy, thyromegaly Respiratory exam: PRESENT: clear to auscultation [place] Cardiovascular exam: PRESENT: RRR. ABSENT: diastolic murmur, rubs, systolic murmur Vascular exam: PRESENT: normal capillary refill GI/Abdominal exam: PRESENT: normal bowel sounds, soft. ABSENT: distended, guarding, mass, organolmegaly, rebound, tenderness Rectal exam: PRESENT: deferred Extremities exam: PRESENT: pedal edema Neurological exam: PRESENT: alert, awake, oriented to person, oriented to place, oriented to time, oriented to situation, CN II-XII grossly intact. ABSENT: motor sensory deficit Psychiatric exam: PRESENT: appropriate affect, normal mood. ABSENT: homicidal ideation, suicidal ideation Skin exam: PRESENT: dry, intact, warm. ABSENT: cyanosis, rash Results Laboratory Results: 02/21/20 06:15 02/21/20 06:15 11/12/3102/20/20 02/20/20 10:58 11:35 11:53 WBC 6.1 RBC 3.51 L Hgb 11.1 L Hct 34.9 L MCV 99 H MCH 31.6 MCHC 31.8 L RDW 17.3 H Plt Count 143 L Seg Neutrophils % Not Reportable Carbonic Acid Cancelled 2.03 H HCO3/H2CO3 Ratio Cancelled 15:1 ABG pH Cancelled 7.28 L ABG pCO2 Cancelled 67.6 H ABG pO2 Cancelled 88.6 ABG HCO3 Cancelled 31.3 H ABG O2 Saturation Cancelled 95.4 ABG Base Excess Cancelled 3.1 FiO2 Cancelled 100% Sodium Potassium Chloride Carbon Dioxide Anion Gap BUN Creatinine Est GFR ( Amer) Glucose Calcium 02/21/20 02/21/20 06:15 06:15 WBC 6.2 RBC 3.44 L Hgb 10.9 L Hct 34.4 L MCV 100 H MCH 31.7 MCHC 31.7 L RDW 16.8 H Plt Count 158 Seg Neutrophils % 85.9 H Carbonic Acid HCO3/H2CO3 Ratio ABG pH ABG pCO2 ABG pO2 ABG HCO3 ABG O2 Saturation ABG Base Excess FiO2 Sodium 130.5 L Potassium 5.5 H Chloride 90 L Carbon Dioxide 33 H Anion Gap 8 BUN 63 H Creatinine 1.37 H Est GFR ( Amer) > 60 Glucose 293 H Calcium 8.0 L 02/13/20 02/13/20 02/13/20 01:22 10:10 10:10 Creatine Kinase 43 L CK-MB (CK-2) 2.37 Troponin I 0.017 < 0.012 02/13/20 02/13/20 02/14/20 16:18 16:18 04:17 Creatine Kinase 41 L 59 CK-MB (CK-2) 2.34 Troponin I < 0.012 02/14/20 04:17 Creatine Kinase CK-MB (CK-2) 2.53 Troponin I 0.014 Impressions: Abdomen/Pelvis CT 02/13/20 00:00 IMPRESSION: 1. Findings suggestive of volume overload with anasarca and mild volume ascites. 2. Cholelithiasis. 3. No other evidence of acute intra-abdominal/pelvic process. Chest CT 02/13/20 00:00 IMPRESSION: 1. Findings compatible with CHF with cardiomegaly, small bilateral effusions and mild interstitial edema. Additional bibasilar consolidative change, likely atelectasis although infection not entirely excluded. 2. Heavy three-vessel coronary atherosclerosis. Head CT 02/13/20 00:00 IMPRESSION: NORMAL BRAIN CT WITHOUT CONTRAST. EVIDENCE OF ACUTE STROKE: NO. Abdomen Ultrasound 02/16/20 00:00 IMPRESSION: Diffuse simple appearing ascites with the largest collection seen within the right lower quadrant. Chest X-Ray 02/20/20 00:00 IMPRESSION: Persistent airspace disease in the lower lobes. Pleural effusions. Borderline cardiomegaly. There does not appear to be bryan pulmonary edema at this time. Left internal jugular catheter remains in place. Assessment & Plan - Diagnosis (1) Acute respiratory failure with hypercapnia Is this a current diagnosis for this admission?: Yes (2) Cirrhosis of liver Qualifiers: Hepatic cirrhosis type: alcoholic cirrhosis Ascites presence: unspecified Qualified Code(s): K70.30 - Alcoholic cirrhosis of liver without ascites Is this a current diagnosis for this admission?: Yes (3) CHF exacerbation Qualifiers: Heart failure type: combined systolic and diastolic Qualified Code(s): I50.43 - Acute on chronic combined systolic (congestive) and diastolic (congestive) heart failure Is this a current diagnosis for this admission?: Yes (4) Acute renal failure Is this a current diagnosis for this admission?: Yes (5) Ascites Qualifiers: Ascites type: other type Qualified Code(s): R18.8 - Other ascites Is this a current diagnosis for this admission?: Yes (6) Atrial fibrillation Qualifiers: Atrial fibrillation type: permanent Qualified Code(s): I48.21 - Permanent atrial fibrillation Is this a current diagnosis for this admission?: Yes (7) CAD (coronary artery disease) Qualifiers: Coronary Disease-Associated Artery/Lesion type: [place] artery Associated angina: without angina Is this a current diagnosis for this admission?: Yes (8) Diabetes mellitus Qualifiers: Diabetes mellitus type: type 2 Diabetes mellitus detention 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 Diabetes mellitus complication status: without complication Qualified Code(s): E11.9 - Type 2 diabetes mellitus without complications Is this a current diagnosis for this admission?: Yes (9) Chronic pain syndrome Is this a current diagnosis for this admission?: Yes (10) Neuropathy Is this a current diagnosis for this admission?: Yes (11) COPD (chronic obstructive pulmonary disease) Qualifiers: COPD type: emphysema Emphysema type: centrilobular Qualified Code(s): J43.2 - Centrilobular emphysema Is this a current diagnosis for this admission?: Yes - Time Time Spent with patient: 15-24 minutes Level of Care: IMCU Medications reviewed and adjusted accordingly: Yes Anticipated discharge: SNF Anticipated DC Timeframe: Other - Plan Summary Plan Summary: With overall prognosis is very poor we will try to contact the daughter and will discuss with the son also if the patient's is not improving patient's primary hospice care but patient asking a lot of pain medications unfortunately unable to use the strong pain medications due to the respiratory status
[2020-02-21] MEDS: CEFEPIME 1 GM/D5W RTU 1 GM/50 ML RTUPB IV SCH ×2 (09:55→22:38)
[2020-02-21] MEDS: MAGNESIUM OXIDE 400 MG TABLET PO SCH (09:56)
[2020-02-21] MEDS: GUAIFENESIN 600 MG TABLET.SA PO SCH ×2 (09:57→17:25)
[2020-02-21] MEDS: ASPIRIN 81 MG TABLET, ENT COATED PO SCH (09:58)
[2020-02-21] MEDS: APIXABAN 2.5 MG TABLET PO SCH ×2 (09:58→17:25)
[2020-02-21] MEDS: MIDODRINE HCL 5 MG TABLET PO SCH ×3 (09:59→17:25)
[2020-02-21] MEDS: FLUTICASONE NASAL SPRAY 50 MCG/SPRY 120 SPRAY/16 GM NASL SCH ×2 (10:00→17:26)
[2020-02-21] MEDS: FLUTICASONE/UMECLIDIN/VILANTER 100-62.5-25 MCG/DOSE IH SCH (10:00)
[2020-02-21] MEDS: SODIUM CHLORIDE NASAL SPRAY 44 ML NASL SCH ×2 (10:00→17:26)
[2020-02-21] MEDS: METOPROLOL TARTRATE 50 MG TABLET PO SCH ×2 (12:31→21:35)
[2020-02-21] MEDS: LOSARTAN POTASSIUM 25 MG TABLET PO SCH ×2 (12:31→21:34)
[2020-02-21] MEDS: NITROGLYCERIN 2.5 MG (0.1 MG/HR) PATCH.TD24 TD SCH (12:32)
[2020-02-21] MEDS: PATIROMER 8.4 GM SUSP PACKET PO SCH (13:11)
[2020-02-21] MEDS ORDERED: DEXTROSE 40% GEL 15 GM TUBE PO PRN ×2 (15:44)
[2020-02-21] MEDS ORDERED: GLUCAGON,HUMAN RECOMB 1 MG INJ IM PRN (15:44)
[2020-02-21] MEDS ORDERED: DEXTROSE 50%-WATER 25 GM/50 ML DISP.SYRIN IV PRN ×2 (15:44)
[2020-02-21] MEDS: PHARMACY COMMUNICATION ORDER MC SCH (17:27)
--- NOTE | 2020-02-21 19:03 | Progress Note ---
Provider Note Provider Note: CARDIOLOGY PROGRESS NOTE by Dr. Alicia Portillo on 02/21/2020. SUBJECTIVE: Last night the patient's blood pressure dropped and hence his dobutamine and Lasix drips were discontinued his dopamine was increased to 10 mcg/kg/min. The patient continues to require BiPAP although he states his breathing is slightly better. He continues to be in atrial fibrillation with controlled ventricular spots. There is no ventricular arrhythmias seen on the monitor. There is no TIA CVA symptoms. His leg edema is remains the same. His abdominal distention remains the same. PHYSICAL EXAMINATION: The patient appears to be moderately obese and chronically ill. Selected Entries 02/21/20 02/21/20 02/21/20 10:00 13:39 15:00 Pulse Rate 75 Respiratory 23 H Rate Blood Pressure 99/50 L Blood Pressure 66 Mean O2 Sat by Pulse 92 Oximetry Oxygen Delivery Bi-pap Method ( includes room air) Fraction of 100 Inspired Oxygen (FIO2) Oxygen Flow 6 Rate HEAD: Is atraumatic normocephalic. EYES: Pupils equal round regular reactive to light and accommodation. Extraocular movements are normal. There is no conjunctival pallor. There is no scleral icterus. EARS: Tympanic membranes are intact. External auditory canals are clear. NOSE: There is no deviated nasal septum. There is no inflammation nasal mucous membrane. MOUTH: Mucous membranes of mouth are moist. Tongue is moist. There is no ulcers. THROAT: There is no redness of the oropharynx. There is no exudates. SKIN: There is no skin rashes. There is no petechia or ecchymosis. There is no jaundice. NECK: Supple. There is JVD present. Carotids are equal there is no bruits. There is no lymphadenopathy there is no goiter. There is no accessory muscle respiration use trachea central. LUNGS: There is diminished air entry prolonged expiration. There is bilateral expiratory wheezing. There is a few scattered rhonchi. There is no rales of CHF. HEART: S1-S2 is heard. S1 is of variable intensity. There is no S3 gallop. There is no S4 gallop. There is systolic murmur left sternal border and apex there is no rub. ABDOMEN: Is distended. There is mild ascites with shifting dullness present. There is no paraspinal megaly. Bowel sounds are well heard. There is no tender areas masses. There is no rebound guarding or rigidity. EXTREMITIES: Femorals are deep femorals are diminished. There is no femoral bruits. Leg pulses difficult to palpate. There is 1+ lower extremity edema with venous stasis dermatitis. There is no cellulitis. There is no DVT. There is no cyanosis or clubbing. Capillary refill is normal. SCHOOL ADMINISTRATOR: The patient is slightly drowsy but oriented x3 with no focal deficits. PSYCHIATRIC: In spite of the patient's drowsiness his judgment site are intact his affect is normal. The patient's 24-hour intake is 2202 mL normal and his output for 24 hours is 1975 mL. Labs- All tests 24 hr 02/20/20 02/21/20 02/21/20 22:07 06:15 06:15 WBC 6.2 RBC 3.44 L Hgb 10.9 L Hct 34.4 L MCV 100 H MCH 31.7 MCHC 31.7 L RDW 16.8 H Plt Count 158 Lymph % (Auto) 5.4 L [place] % (Auto) 8.0 Eos % (Auto) 0.5 Baso % (Auto) 0.2 Absolute Neuts (auto) 5.4 Absolute Lymphs (auto) 0.3 L Absolute Monos (auto) 0.5 Absolute Eos (auto) 0.0 Absolute Basos (auto) 0.0 Seg Neutrophils % 85.9 H Sodium 130.5 L Potassium 5.5 H Chloride 90 L Carbon Dioxide 33 H Anion Gap 8 BUN 63 H Creatinine 1.37 H Est GFR ( Amer) > 60 Est GFR (MDRD) Non-Af 51 L Glucose 293 H POC Glucose 380 H Calcium 8.0 L 02/21/20 02/21/20 02/21/20 07:51 11:32 16:11 WBC RBC Hgb Hct MCV MCH MCHC RDW Plt Count Lymph % (Auto) [place] % (Auto) Eos % (Auto) Baso % (Auto) Absolute Neuts (auto) Absolute Lymphs (auto) Absolute Monos (auto) Absolute Eos (auto) Absolute Basos (auto) Seg Neutrophils % Sodium Potassium Chloride Carbon Dioxide Anion Gap BUN Creatinine Est GFR ( Amer) Est GFR (MDRD) Non-Af Glucose POC Glucose 246 H 260 H 257 H Calcium Abdomen/Pelvis CT 02/13/20 00:00 IMPRESSION: 1. Findings suggestive of volume overload with anasarca and mild volume ascites. 2. Cholelithiasis. 3. No other evidence of acute intra-abdominal/pelvic process. Chest CT 02/13/20 00:00 IMPRESSION: 1. Findings compatible with CHF with cardiomegaly, small bilateral effusions and mild interstitial edema. Additional bibasilar consolidative change, likely atelectasis although infection not entirely excluded. 2. Heavy three-vessel coronary atherosclerosis. Chest X-Ray 02/13/20 00:00 IMPRESSION: Worsening bibasilar pneumonia. Head CT 02/13/20 00: IMPRESSION: NORMAL BRAIN CT WITHOUT CONTRAST. EVIDENCE OF ACUTE STROKE: NO. Chest X-Ray 02/14/20 00:00 IMPRESSION: Bibasilar pneumonia, left more than right. Left internal jugular catheter as described. Cardiomegaly without bryan pulmonary edema. Cannot exclude a minimal right pleural effusion. Abdomen Ultrasound 02/16/20 00:00 IMPRESSION: Diffuse simple appearing ascites with the largest collection seen within the right lower quadrant. Chest X-Ray 02/16/20 00:00 IMPRESSION: Bilateral lower lobe airspace disease shows worsening. Cardiomegaly with pulmonary edema. Left internal jugular catheter as described. Chest X-Ray 02/20/20 00:00 IMPRESSION: Persistent airspace disease in the lower lobes. Pleural effusions. Borderline cardiomegaly. There does not appear to be bryan pulmonary edema at this time. Left internal jugular catheter remains in place. IMPRESSION/RECOMMENDATION: 1. Acute coronary pulmonary with acute on chronic right ventricular systolic failure: Would you This seems to be improving. ARB and continue the patient on dobutamine and Lasix drip. This acute on chronic right ventricle systolic heart failure is secondary to severe pulmonary hypertension. The patient blood pressure dropped and hence the dobutamine and Lasix drips have been discontinued. The patient's dopamine is set at 10 mcg/kg/min. His prognosis very guarded. . Acute exacerbation of COPD: Recommend anti-COPD inhalers and antibiotics and consider steroids 3. Acute on chronic hypercapnic and hypoxic respiratory failure: Recommend continuous BiPAP . Continue treatment of acute exacerbation of COPD. 4. Hypotension: Patient started on dopamine. This is brought his blood pressure up as. He is also on midodrine.' 5. Severe pulmonary hypertension: Secondary to patient's severe COPD ongoing smoking 6. History of alcoholic cirrhosis of the liver with ascites and portal hypertension. 7. Coronary artery disease: History of prior old myocardial infarction and history of coronary bypass graft surgery: The patient has no anginal symptoms and no evidence of acute coronary syndrome at present. 8. Chronic atrial fibrillation: Rate is well controlled continue current medication including Eliquis for stroke prophylaxis. 9. Hypertension: Blood pressure well controlled. Nurse's notes that the carol hogan is on midodrine to keep his blood pressure up so that his Lopressor and other medications can be given. He is also on dopamine. 10. Diabetes mellitus with peripheral neuropathy. Continue current medication for the diabetes and his neuropathy. 11. Chronic kidney disease at present stage III: Avoid nephrotoxic drugs. 12. DNR. Medications reviewed. Medications adjusted. Medical decision making is of high complexity. Case discussed with Dr. Steen. 40 minutes spent on the patient with more than 50% of time spent in direct patient care. Patient is prognosis very guarded. Will follow.
[2020-02-21] MEDS: ATORVASTATIN CALCIUM 80 MG TABLET PO SCH (21:34)
[2020-02-21] MEDS: TAMSULOSIN HCL 0.4 MG CAP.SR.24H PO SCH (21:34)
[2020-02-21] MEDS ORDERED: INSULIN GLARGINE,HUM.REC.ANLOG 1,000 UNIT/10 ML VIAL SUBCUT SCH (22:00)
[2020-02-22] MEDS: ACETAMINOPHEN 325 MG TABLET PO PRN ×2 (00:07→23:18)
[2020-02-22] MEDS: IPRATROPIUM/ALBUTEROL 0.5-2.5 MG/3 ML AMPUL NEB SCH ×4 (01:33→20:39)
[2020-02-22] MEDS: DOPAMINE HCL 800 MG/D5W 250 ML IV PRN ×2 (05:32→16:31)
[2020-02-22] MEDS: GABAPENTIN 300 MG CAPSULE PO SCH ×3 (05:33→22:57)
[2020-02-22] MEDS: BUSPIRONE HCL 10 MG TABLET PO SCH ×3 (05:33→22:57)
[2020-02-22 06:26] LABS: ABSOLUTE LYMPHOCYTES (AUTO) 0.4 10^3/uL (0.5-4.7); ABSOLUTE MONOCYTES (AUTO) 0.6 10^3/uL (0.1-1.4); ABSOLUTE NEUT (AUTO) 5.4 10^3/uL (1.7-8.2); BASOPHILS % (AUTO) 0.1 % (0-2); EOSINOPHILS % (AUTO) 0.6 % (0-6); HEMATOCRIT 34.3 % (37.9-51.0); HEMOGLOBIN 10.8 g/dL (13.5-17.0); LYMPHOCYTES % (AUTO) 6.7 % (13-45); MEAN CORPUSCULAR HEMOGLOBIN 31.5 pg (27.0-33.4); MEAN CORPUSCULAR HGB CONC 31.4 g/dL (32.0-36.0); MEAN CORPUSCULAR VOLUME 100 fl (80-97); MONOCYTES % (AUTO) 9.9 % (3-13); PLATELET COUNT 149 10^3/uL (150-450); RED BLOOD COUNT 3.42 10^6/uL (4.35-5.55); SEGMENTED NEUTROPHILS % (AUTO) 82.7 % (42-78); TOTAL CELLS COUNTED % (AUTO) 100 %; WHITE BLOOD COUNT 6.5 10^3/uL (4.0-10.5)
[2020-02-22 06:45] LABS: ANION GAP 10 (5-19); BLOOD UREA NITROGEN 71 mg/dL (7-20); CALCIUM 7.8 mg/dL (8.4-10.2); CARBON DIOXIDE 32 mmol/L (22-30); CHLORIDE 89 mmol/L (98-107); GLUCOSE 328 mg/dL (75-110); POTASSIUM 5.8 mmol/L (3.6-5.0)
[2020-02-22] MEDS: INSULIN LISPRO 100 UNIT/ML 3 ML VIAL SUBCUT SCH ×4 (08:06→23:00)
[2020-02-22] MEDS: FLUTICASONE/UMECLIDIN/VILANTER 100-62.5-25 MCG/DOSE IH SCH (09:51)
[2020-02-22] MEDS: MIDODRINE HCL 5 MG TABLET PO SCH ×3 (09:52→17:31)
[2020-02-22] MEDS: ASPIRIN 81 MG TABLET, ENT COATED PO SCH (09:53)
[2020-02-22] MEDS: APIXABAN 2.5 MG TABLET PO SCH ×2 (09:53→17:31)
[2020-02-22] MEDS: GUAIFENESIN 600 MG TABLET.SA PO SCH ×2 (09:53→17:31)
[2020-02-22] MEDS: MAGNESIUM OXIDE 400 MG TABLET PO SCH (09:54)
[2020-02-22] MEDS: FLUTICASONE NASAL SPRAY 50 MCG/SPRY 120 SPRAY/16 GM NASL SCH ×2 (09:56→17:32)
[2020-02-22] MEDS: SODIUM CHLORIDE NASAL SPRAY 44 ML NASL SCH ×2 (09:57→17:32)
--- NOTE | 2020-02-22 10:08 | PDOC PROGRESS REPORT ---
Subjective Date:: 02/22/20 Subjective:: Patient is alert awake oriented x3 currently sitting in the chair denied any [facility] pain no short of breath patient's blood pressure is still on the lower end currently on a dobutamine drips and the Lasix Patient's otherwise no other events happens currently using the BiPAP according to the nursing staff patient able to eat or drink spitting the nasal cannula in the remained stable Swelling is significantly reduced Reason For Visit: ACUTE RESPIRATORY FAILURE WITH HYPERCAPNEA,ACUTE Physical Exam Vital Signs: Temp Pulse Resp BP Pulse Ox 97.3 F 91 30 H 76/52 L 95 02/22/20 07:38 02/22/20 08:07 02/22/20 07:38 02/22/20 08:07 02/22/20 04:45 Intake & Output 02/21/20 02/22/20 02/23/20 06:59 06:59 06:59 Intake Total 2202 1867 Output Total 1975 625 Balance 227 1242 Weight 127 kg 128.2 kg General appearance: PRESENT: no acute distress, well-developed, well-nourished Head exam: PRESENT: atraumatic, normocephalic Eye exam: PRESENT: conjunctiva pink, EOMI, PERRLA. ABSENT: scleral icterus Ear exam: PRESENT: normal external ear exam Mouth exam: PRESENT: moist, tongue midline Neck exam: PRESENT: full ROM. ABSENT: carotid bruit, JVD, lymphadenopathy, thyromegaly Respiratory exam: PRESENT: clear to auscultation remington Cardiovascular exam: PRESENT: RRR. ABSENT: diastolic murmur, rubs, systolic murmur Vascular exam: PRESENT: normal capillary refill GI/Abdominal exam: PRESENT: normal bowel sounds, soft. ABSENT: distended, guarding, mass, organolmegaly, rebound, tenderness Rectal exam: PRESENT: deferred Extremities exam: PRESENT: pedal edema Neurological exam: PRESENT: alert, awake, oriented to person, oriented to place, oriented to time, oriented to situation, CN II-XII grossly intact. ABSENT: motor sensory deficit Psychiatric exam: PRESENT: appropriate affect, normal mood. ABSENT: homicidal ideation, suicidal ideation Skin exam: PRESENT: dry, intact, warm. ABSENT: cyanosis, rash Results Laboratory Results: 02/22/20 05:30 02/22/20 05:30 02/22/20 02/22/20 05:30 05:30 WBC 6.5 RBC 3.42 L Hgb 10.8 L Hct 34.3 L MCV 100 H MCH 31.5 MCHC 31.4 L RDW 17.0 H Plt Count 149 L Seg Neutrophils % 82.7 H Sodium 130.5 L Potassium 5.8 H Chloride 89 L Carbon Dioxide 32 H Anion Gap 10 BUN 71 H Creatinine 1.61 H Est GFR ( Amer) 51 L Glucose 328 H Calcium 7.8 L 02/20/20 10:55 Catheterized Urine Urine Culture - Final NO GROWTH 2 DAYS 02/13/20 02/13/20 02/13/20 01:22 10:10 10:10 Creatine Kinase 43 L CK-MB (CK-2) 2.37 Troponin I 0.017 < 0.012 02/13/20 02/13/20 02/14/20 16:18 16:18 04:17 Creatine Kinase 41 L 59 CK-MB (CK-2) 2.34 Troponin I < 0.012 02/14/20 04:17 Creatine Kinase CK-MB (CK-2) 2.53 Troponin I 0.014 Impressions: Abdomen/Pelvis CT 02/13/20 00:00 IMPRESSION: 1. Findings suggestive of volume overload with anasarca and mild volume ascites. 2. Cholelithiasis. 3. No other evidence of acute intra-abdominal/pelvic process. Chest CT 02/13/20 00:00 IMPRESSION: 1. Findings compatible with CHF with cardiomegaly, small bilateral effusions and mild interstitial edema. Additional bibasilar consolidative change, likely atelectasis although infection not entirely excluded. 2. Heavy three-vessel coronary atherosclerosis. Head CT 02/13/20 00:00 IMPRESSION: NORMAL BRAIN CT WITHOUT CONTRAST. EVIDENCE OF ACUTE STROKE: NO. Abdomen Ultrasound 02/16/20 00:00 IMPRESSION: Diffuse simple appearing ascites with the largest collection seen within the right lower quadrant. Chest X-Ray 02/20/20 00:00 IMPRESSION: Persistent airspace disease in the lower lobes. Pleural effusions. Borderline cardiomegaly. There does not appear to be bryan pulmonary edema at this time. Left internal jugular catheter remains in place. Assessment & Plan - Diagnosis (1) Acute respiratory failure with hypercapnia Is this a current diagnosis for this admission?: Yes (2) Cirrhosis of liver Qualifiers: Hepatic cirrhosis type: alcoholic cirrhosis Ascites presence: unspecified Qualified Code(s): K70.30 - Alcoholic cirrhosis of liver without ascites Is this a current diagnosis for this admission?: Yes (3) CHF exacerbation Qualifiers: Heart failure type: combined systolic and diastolic Qualified Code(s): I50.43 - Acute on chronic combined systolic (congestive) and diastolic (congestive) heart failure Is this a current diagnosis for this admission?: Yes (4) Acute renal failure Is this a current diagnosis for this admission?: Yes (5) Ascites Qualifiers: Ascites type: other type Qualified Code(s): R18.8 - Other ascites Is this a current diagnosis for this admission?: Yes (6) Atrial fibrillation Qualifiers: Atrial fibrillation type: permanent Qualified Code(s): I48.21 - Permanent atrial fibrillation Is this a current diagnosis for this admission?: Yes (7) CAD (coronary artery disease) Qualifiers: Coronary Disease-Associated Artery/Lesion type: [place] artery Associated angina: without angina Is this a current diagnosis for this admission?: Yes (8) Diabetes mellitus Qualifiers: Diabetes mellitus type: type 2 Diabetes mellitus exterminator termite insulin use: without exterminator termite use Diabetes mellitus complication status: without complication Qualified Code(s): E11.9 - Type 2 diabetes mellitus without complications Is this a current diagnosis for this admission?: Yes (9) Chronic pain syndrome Is this a current diagnosis for this admission?: Yes (10) Neuropathy Is this a current diagnosis for this admission?: Yes (11) COPD (chronic obstructive pulmonary disease) Qualifiers: COPD type: emphysema Emphysema type: centrilobular Qualified Code(s): J43.2 - Centrilobular emphysema Is this a current diagnosis for this admission?: Yes - Time Time Spent with patient: 15-24 minutes Level of Care: IMCU Medications reviewed and adjusted accordingly: Yes Anticipated discharge: Other Anticipated DC Timeframe: Other - Plan Summary Plan Summary: Continues the current medications
[2020-02-22] MEDS: METOPROLOL TARTRATE 50 MG TABLET PO SCH ×2 (10:12→22:58)
[2020-02-22] MEDS: LOSARTAN POTASSIUM 25 MG TABLET PO SCH ×2 (10:12→22:59)
[2020-02-22] MEDS: NITROGLYCERIN 2.5 MG (0.1 MG/HR) PATCH.TD24 TD SCH (10:13)
[2020-02-22] MEDS: CEFEPIME 1 GM/D5W RTU 1 GM/50 ML RTUPB IV SCH ×2 (10:13→23:00)
[2020-02-22] MEDS: PATIROMER 8.4 GM SUSP PACKET PO SCH (11:25)
[2020-02-22 14:26] LABS: ARTERIAL BLOOD BASE EXCESS 4.8 mmol/L; ARTERIAL BLOOD FIO2 100%; ARTERIAL BLOOD H2CO3 2.13 mmol/L (1.05-1.35); ARTERIAL BLOOD HCO3 33.3 mmol/L (20-24); ARTERIAL BLOOD O2 SATURATION 95.4 % (94-98); ARTERIAL BLOOD PH 7.29 (7.35-7.45); ARTERIAL BLOOD PO2 87.9 mmHg (80-100); ARTERIAL BLOOD TOTAL CO2 35.5 mmol/L (23-27)
[2020-02-22 14:27] LABS: ARTERIAL BLOOD PCO2 70.8 mmHg (35-45)
[2020-02-22] MEDS: PHARMACY COMMUNICATION ORDER MC SCH (17:32)
[2020-02-22] MEDS ORDERED: INSULIN GLARGINE,HUM.REC.ANLOG 1,000 UNIT/10 ML VIAL SUBCUT SCH (22:00)
--- NOTE | 2020-02-22 22:37 | Progress Note ---
Provider Note Provider Note: CARDIOLOGY PROGRESS NOTE by Dr. Alicia Portillo on 02/22/2020. SUBJECTIVE: The patient still on BiPAP but is more awake and alert today. He appears to be less short of breath. His leg edema is slightly increased. He does have orthopnea but no PND there is no chest pain discomfort. He continues to be in atrial fibrillation with controlled ventricular response. There is no ventricular arrhythmias seen. His blood pressure still requires dopamine but this is being decreased to 5 mcg/kg/min. PHYSICAL EXAMINATION: The patient is moderately obese and chronically ill appearing patient. He is on the BiPAP. Selected Entries 02/22/20 02/22/20 11:09 11:20 Temperature 97.4 F Temperature Axillary Source Pulse Rate 85 Respiratory 20 24 H Rate Blood Pressure 91/60 L Blood Pressure 70 Mean BP Location Left Arm BP Position Supine O2 Sat by Pulse 97 Oxygen delivery is 100%. Oximetry Patient on BiPAP HEAD: Is atraumatic normocephalic. EYES: Pupils equal round regular reactive to light and accommodation. Extraocular movements are normal. There is no conjunctival pallor. There is no scleral icterus. EARS: Tympanic membranes are intact. External auditory canals are clear. NOSE: There is no deviated nasal septum. There is no inflammation nasal mucous membrane. MOUTH: Mucous membranes of mouth are moist. Tongue is moist. There is no ulcers. THROAT: There is no redness of the oropharynx. There is no exudates. SKIN: There is no skin rashes. There is no petechia or ecchymosis. There is no jaundice. NECK: Supple. There is JVD present. Carotids are equal there is no bruits. There is no lymphadenopathy there is no goiter. There is no accessory muscle respiration use trachea central. LUNGS: There is diminished air entry prolonged expiration. There is bilateral expiratory wheezing. There is a few scattered rhonchi. There is no rales of CHF. HEART: S1-S2 is heard. S1 is of variable intensity. There is no S3 gallop. There is no S4 gallop. There is systolic murmur left sternal border and apex there is no rub. ABDOMEN: Is distended. There is mild ascites with shifting dullness present. There is no paraspinal megaly. Bowel sounds are well heard. There is no tender areas masses. There is no rebound guarding or rigidity. EXTREMITIES: Femorals are deep femorals are diminished. There is no femoral bruits. Leg pulses difficult to palpate. There is 1+ lower extremity edema with venous stasis dermatitis. There is no cellulitis. There is no DVT. There is no cyanosis or clubbing. Capillary refill is normal. [employer]: The patient is slightly drowsy but oriented x3 with no focal deficits. PSYCHIATRIC: In spite of the patient's drowsiness his judgment site are intact his affect is normal. His 24-hour intake is 1917 mL, and output is 625 mL. Labs- All tests 24 hr 02/22/20 02/22/20 02/22/20 05:30 05:30 07:36 WBC 6.5 RBC 3.42 L Hgb 10.8 L Hct 34.3 L MCV 100 H MCH 31.5 MCHC 31.4 L RDW 17.0 H Plt Count 149 L Lymph % (Auto) 6.7 L Hawkins % (Auto) 9.9 Eos % (Auto) 0.6 Baso % (Auto) 0.1 Absolute Neuts (auto) 5.4 Absolute Lymphs (auto) 0.4 L Absolute Monos (auto) 0.6 Absolute Eos (auto) 0.0 Absolute Basos (auto) 0.0 Seg Neutrophils % 82.7 H Carbonic Acid HCO3/H2CO3 Ratio ABG pH ABG pCO2 ABG pO2 ABG HCO3 ABG Total CO2 ABG O2 Saturation ABG Base Excess FiO2 Sodium 130.5 L Potassium 5.8 H Chloride 89 L Carbon Dioxide 32 H Anion Gap 10 BUN 71 H Creatinine 1.61 H Est GFR ( Amer) 51 L Est GFR (MDRD) Non-Af 42 L Glucose 328 H POC Glucose 334 H Calcium 7.8 L 02/22/20 02/22/20 02/22/20 09:32 11:18 16:11 WBC RBC Hgb Hct MCV MCH MCHC RDW Plt Count Lymph % (Auto) Hawkins % (Auto) Eos % (Auto) Baso % (Auto) Absolute Neuts (auto) Absolute Lymphs (auto) Absolute Monos (auto) Absolute Eos (auto) Absolute Basos (auto) Seg Neutrophils % Carbonic Acid 2.13 H HCO3/H2CO3 Ratio 15:1 ABG pH 7.29 L ABG pCO2 70.8 H* ABG pO2 87.9 ABG HCO3 33.3 H ABG Total CO2 35.5 H ABG O2 Saturation 95.4 ABG Base Excess 4.8 FiO2 100% Sodium Potassium Chloride Carbon Dioxide Anion Gap BUN Creatinine Est GFR ( Amer) Est GFR (MDRD) Non-Af Glucose POC Glucose 319 H 243 H Calcium 02/22/20 22:31 WBC RBC Hgb Hct MCV MCH MCHC RDW Plt Count Lymph % (Auto) Hawkins % (Auto) Eos % (Auto) Baso % (Auto) Absolute Neuts (auto) Absolute Lymphs (auto) Absolute Monos (auto) Absolute Eos (auto) Absolute Basos (auto) Seg Neutrophils % Carbonic Acid HCO3/H2CO3 Ratio ABG pH ABG pCO2 ABG pO2 ABG HCO3 ABG Total CO2 ABG O2 Saturation ABG Base Excess FiO2 Sodium Potassium Chloride Carbon Dioxide Anion Gap BUN Creatinine Est GFR ( Amer) Est GFR (MDRD) Non-Af Glucose POC Glucose 204 H Calcium Abdomen/Pelvis CT 02/13/20 00:00 IMPRESSION: 1. Findings suggestive of volume overload with anasarca and mild volume ascites. 2. Cholelithiasis. 3. No other evidence of acute intra-abdominal/pelvic process. Chest CT 02/13/20 00:00 IMPRESSION: 1. Findings compatible with CHF with cardiomegaly, small bilateral effusions and mild interstitial edema. Additional bibasilar consolidative cooney e, likely atelectasis although infection not entirely excluded. 2. Heavy three-vessel coronary atherosclerosis. Chest X-Ray 02/13/20 00:00 IMPRESSION: Worsening bibasilar pneumonia. Head CT 02/13/20 00:00 IMPRESSION: NORMAL BRAIN CT WITHOUT CONTRAST. EVIDENCE OF ACUTE STROKE: NO. Chest X-Ray 02/14/20 00:00 IMPRESSION: Bibasilar pneumonia, left more than right. Left internal jugular catheter as described. Cardiomegaly without bryan pulmonary edema. Cannot exclude a minimal right pleural effusion. Abdomen Ultrasound 02/16/20 00:00 IMPRESSION: Diffuse simple appearing ascites with the largest collection seen within the right lower quadrant. Chest X-Ray 02/16/20 00:00 IMPRESSION: Bilateral lower lobe airspace disease shows worsening. Cardiomegaly with pulmonary edema. Left internal jugular catheter as described. Chest X-Ray 02/20/20 00:00 IMPRESSION: Persistent airspace disease in the lower lobes. Pleural effusions. Borderline cardiomegaly. There does not appear to be bryan pulmonary edema at this time. Left internal jugular catheter remains in place. IMPRESSION/RECOMMENDATION: 1. Acute coronary pulmonary with acute on chronic right ventricular systolic failure: Would you This seems to be improving. ARB and continue the patient on dobutamine and Lasix drip. This acute on chronic right ventricle systolic heart failure is secondary to severe pulmonary hypertension. The patient blood pressure dropped and hence the dobutamine and Lasix drips have been discontinued. The patient's dopamine is set at 10 mcg/kg/min. His prognosis very guarded. . Acute exacerbation of COPD: Recommend anti-COPD inhalers and antibiotics and consider steroids 3. Acute on chronic hypercapnic and hypoxic respiratory failure: Recommend continuous BiPAP . Continue treatment of acute exacerbation of COPD. 4. Hypotension: Patient started on dopamine. This is brought his blood pressure is borderline and some doses of his medicatio. He is also on midodrine.' 5. Severe pulmonary hypertension: Secondary to patient's severe COPD ongoing smoking 6. Cardiomyopathy with moderately reduced LV ejection fraction. 7. History of alcoholic cirrhosis of the liver with ascites and portal hypertension. 8. Coronary artery disease: History of prior old myocardial infarction and history of coronary bypass graft surgery: The patient has no anginal symptoms and no evidence of acute coronary syndrome at present. 9. Chronic atrial fibrillation: Rate is well controlled continue current medication including Eliquis for stroke prophylaxis. 10. Hypertension: Blood pressure well controlled. Nurse's notes that the patient is on midodrine to keep his blood pressure up so that his Lopressor and other medications can be given. He is also on dopamine. 11. Diabetes mellitus with peripheral neuropathy. Continue current medication for the diabetes and his neuropathy. 12. Chronic kidney disease at present stage III: Avoid nephrotoxic drugs. Patient is DNR. Medications reviewed. Medications adjusted. Medical decision making is of high complexity. Case discussed with Dr. Steen. 40 minutes spent on the patient with more than 50% of time spent in direct patient care. Patient is prognosis very guarded. Will follow.
[2020-02-22] MEDS: TAMSULOSIN HCL 0.4 MG CAP.SR.24H PO SCH (22:57)
[2020-02-22] MEDS: ATORVASTATIN CALCIUM 80 MG TABLET PO SCH (22:57)
[2020-02-22] MEDS: BUMETANIDE INJ/PF 1 MG/4 ML SDV IV SCH (22:59)
[2020-02-22] MEDS ORDERED: MEDROXYPROGESTERONE ACET 10 MG TABLET PO SCH (23:00)
[2020-02-22] MEDS: TRAZODONE HCL 50 MG TABLET PO PRN (23:18)
[2020-02-23] MEDS ORDERED: MEDROXYPROGESTERONE ACET 10 MG TABLET ONE (01:27)
[2020-02-23] MEDS: IPRATROPIUM/ALBUTEROL 0.5-2.5 MG/3 ML AMPUL NEB SCH ×3 (01:37→13:52)
[2020-02-23] MEDS: DOPAMINE HCL 800 MG/D5W 250 ML IV PRN ×2 (03:31→16:08)
[2020-02-23] MEDS: BUSPIRONE HCL 10 MG TABLET PO SCH (06:54)
[2020-02-23] MEDS: GABAPENTIN 300 MG CAPSULE PO SCH (06:54)
[2020-02-23 07:25] LABS: INTERNATIONAL RATION (INR) 1.29; PROTHROMBIN TIME 16.3 SEC (11.4-15.4)
[2020-02-23 07:42] LABS: ANION GAP 9 (5-19); BLOOD UREA NITROGEN 75 mg/dL (7-20); CARBON DIOXIDE 28 mmol/L (22-30); CHLORIDE 91 mmol/L (98-107); GLUCOSE 137 mg/dL (75-110)
[2020-02-23 07:43] LABS: ABSOLUTE EOSINOPHILS # (AUTO) 0.1 10^3/uL (0.0-0.6); ABSOLUTE LYMPHOCYTES (AUTO) 0.4 10^3/uL (0.5-4.7); ABSOLUTE MONOCYTES (AUTO) 0.8 10^3/uL (0.1-1.4); ABSOLUTE NEUT (AUTO) 6.8 10^3/uL (1.7-8.2); BASOPHILS % (AUTO) 0.2 % (0-2); EOSINOPHILS % (AUTO) 0.8 % (0-6); HEMATOCRIT 33.7 % (37.9-51.0); HEMOGLOBIN 10.7 g/dL (13.5-17.0); LYMPHOCYTES % (AUTO) 5.5 % (13-45); MEAN CORPUSCULAR HEMOGLOBIN 31.3 pg (27.0-33.4); MEAN CORPUSCULAR HGB CONC 31.7 g/dL (32.0-36.0); MEAN CORPUSCULAR VOLUME 99 fl (80-97); MONOCYTES % (AUTO) 9.4 % (3-13); PLATELET COUNT 161 10^3/uL (150-450); RED BLOOD COUNT 3.42 10^6/uL (4.35-5.55); RED CELL DISTRIBUTION WIDTH 16.7 % (11.5-14.0); SEGMENTED NEUTROPHILS % (AUTO) 84.1 % (42-78); TOTAL CELLS COUNTED % (AUTO) 100 %
[2020-02-23 07:50] LABS: POTASSIUM 6.2 mmol/L (3.6-5.0)
[2020-02-23] MEDS ORDERED: MEDROXYPROGESTERONE ACET 10 MG TABLET PO SCH (08:00)
[2020-02-23] MEDS: INSULIN LISPRO 100 UNIT/ML 3 ML VIAL SUBCUT SCH ×2 (08:46→11:58)
[2020-02-23] MEDS ORDERED: MEDROXYPROGESTERONE ACET 10 MG TABLET PO ONE (10:00)
[2020-02-23] MEDS ORDERED: SODIUM POLYSTYRENE SULFONATE 15 GM/60 ML PO ONE (10:15)
[2020-02-23] MEDS: MIDODRINE HCL 5 MG TABLET PO SCH (11:21)
[2020-02-23] MEDS: LOSARTAN POTASSIUM 25 MG TABLET PO SCH (11:21)
[2020-02-23] MEDS: METOPROLOL TARTRATE 50 MG TABLET PO SCH (11:22)
[2020-02-23] MEDS: APIXABAN 2.5 MG TABLET PO SCH (11:22)
[2020-02-23] MEDS: MAGNESIUM OXIDE 400 MG TABLET PO SCH (11:22)
[2020-02-23] MEDS: ASPIRIN 81 MG TABLET, ENT COATED PO SCH (11:23)
[2020-02-23] MEDS: GUAIFENESIN 600 MG TABLET.SA PO SCH (11:23)
[2020-02-23] MEDS: BUMETANIDE INJ/PF 1 MG/4 ML SDV IV SCH (11:24)
[2020-02-23] MEDS: CEFEPIME 1 GM/D5W RTU 1 GM/50 ML RTUPB IV SCH (11:24)
[2020-02-23] MEDS: NITROGLYCERIN 2.5 MG (0.1 MG/HR) PATCH.TD24 TD SCH (11:25)
[2020-02-23] MEDS ORDERED: BUMETANIDE INJ/PF 1 MG/4 ML SDV IV SCH (11:30)
[2020-02-23] MEDS: FLUTICASONE/UMECLIDIN/VILANTER 100-62.5-25 MCG/DOSE IH SCH (11:30)
[2020-02-23] MEDS: SODIUM CHLORIDE NASAL SPRAY 44 ML NASL SCH (11:30)
--- NOTE | 2020-02-23 11:30 | PDOC PROGRESS REPORT ---
Subjective Reason For Visit: Patient seen today. He is on a BiPAP and hard of hearing and unable to contribute much to the history. Therefore chart review was done and discussions were done with the treating nurse Moris as listed discussed with Dr. Steen. SANDRA MAX is a 74 year old gentleman with history of congestive heart failure, COPD, alcohol induced liver cirrhosis, ascites with history of paracentesis previously/last one apparently 2 weeks ago, atrial fibrillation, hypertension, diabetes mellitus type 2 and coronary artery disease who was admitted for worsening shortness of breath and leg swelling. Patient is very hard of hearing and communication is really difficult. Upon admission the patient was hypoxic and has been on BiPAP. He tested negative for COVID-19. Dr. Portillo, hr assistant is following the patient. He was on dobutamine drip and Lasix drip and they were discontinued because the patient was becoming rather more hypotensive and he has been begun on dopamine. He also is was not responding to IV Lasix which has now been converted to IV Bumex. Patient still remains anasarcous with moderately severe ascites. His intake is quite poor.Labs and medications were reviewed showing relatively stable but gently rising creatinine along with potassium on the high side. His urine output was about 1000 cc today but since then he seems to be dropping on an hourly basis. Physical Exam Vital Signs: Temp Pulse Resp BP Pulse Ox 97.4 F 85 36 H 91/58 L 96 02/23/20 04:59 02/23/20 08:54 02/23/20 08:54 02/23/20 08:00 02/23/20 04:59 Intake & Output 02/22/20 02/23/20 02/24/20 06:59 06:59 06:59 Intake Total 1917 1302 Output Total 625 1000 Balance 1292 302 Weight 128.2 kg 128 kg General appearance: PRESENT: mild distress Exam: He looks very moribund and is on BiPAP. He is rather lethargic as well. Eye exam: PRESENT: EOMI, PERRLA, scleral icterus Neck exam: ABSENT: lymphadenopathy, meningismus, tenderness, thyromegaly, tracheal deviation Respiratory exam: PRESENT: clear to auscultation remington, decreased breath sounds. ABSENT: crackles Cardiovascular exam: PRESENT: +S1, +S2 GI/Abdominal exam: PRESENT: ascites, distended, normal bowel sounds, soft. ABSENT: firm, guarding, organomegaly, tenderness Extremities exam: PRESENT: +2 edema Musculoskeletal exam: ABSENT: ambulatory Neurological exam: PRESENT: altered Psychiatric exam: PRESENT: depressed Skin exam: ABSENT: cyanosis, mottled, rash Results Laboratory Results: 02/23/20 06:55 02/23/20 06:55 02/22/20 02/23/20 02/23/20 09:32 06:55 06:55 WBC 8.0 RBC 3.42 L Hgb 10.7 L Hct 33.7 L MCV 99 H MCH 31.3 MCHC 31.7 L RDW 16.7 H Plt Count 161 Seg Neutrophils % 84.1 H Carbonic Acid 2.13 H HCO3/H2CO3 Ratio 15:1 ABG pH 7.29 L ABG pCO2 70.8 H* ABG pO2 87.9 ABG HCO3 33.3 H ABG O2 Saturation 95.4 ABG Base Excess 4.8 FiO2 100% Sodium 127.9 L Potassium 6.2 H* Chloride 91 L Carbon Dioxide 28 Anion Gap 9 BUN 75 H Creatinine 1.60 H Est GFR ( Amer) 51 L Glucose 137 H Calcium 8.0 L Ammonia 02/23/20 06:55 WBC RBC Hgb Hct MCV MCH MCHC RDW Plt Count Seg Neutrophils % Carbonic Acid HCO3/H2CO3 Ratio ABG pH ABG pCO2 ABG pO2 ABG HCO3 ABG O2 Saturation ABG Base Excess FiO2 Sodium Potassium Chloride Carbon Dioxide Anion Gap BUN Creatinine Est GFR ( Amer) Glucose Calcium Ammonia 15.4 02/20/20 10:55 Catheterized Urine Urine Culture - Final NO GROWTH 2 DAYS 02/13/20 02/13/20 02/13/20 01:22 10:10 10:10 Creatine Kinase 43 L CK-MB (CK-2) 2.37 Troponin I 0.017 < 0.012 NT-Pro-B Natriuret Pep 02/13/20 02/13/20 02/14/20 16:18 16:18 04:17 Creatine Kinase 41 L 59 CK-MB (CK-2) 2.34 Troponin I < 0.012 NT-Pro-B Natriuret Pep 02/14/20 02/23/20 04:17 06:55 Creatine Kinase CK-MB (CK-2) 2.53 Troponin I 0.014 NT-Pro-B Natriuret Pep 41323 H Impressions: Abdomen/Pelvis CT 02/13/20 00:00 IMPRESSION: 1. Findings suggestive of volume overload with anasarca and mild volume ascites. 2. Cholelithiasis. 3. No other evidence of acute intra-abdominal/pelvic process. Chest CT 02/13/20 00:00 IMPRESSION: 1. Findings compatible with CHF with cardiomegaly, small bilateral effusions and mild interstitial edema. Additional bibasilar consolidative cooney e, likely atelectasis although infection not entirely excluded. 2. Heavy three-vessel coronary atherosclerosis. Head CT 02/13/20 00:00 IMPRESSION: NORMAL BRAIN CT WITHOUT CONTRAST. EVIDENCE OF ACUTE STROKE: NO. Abdomen Ultrasound 02/16/20 00:00 IMPRESSION: Diffuse simple appearing ascites with the largest collection seen within the right lower quadrant. Chest X-Ray 02/20/20 00:00 IMPRESSION: Persistent airspace disease in the lower lobes. Pleural effusions. Borderline cardiomegaly. There does not appear to be bryan pulmonary edema at this time. Left internal jugular catheter remains in place. Assessment & Plan - Diagnosis (1) Hyperkalemia Is this a current diagnosis for this admission?: Yes Plan: At this point I would discontinue the losartan/subcu heparin as he is already on Eliquis. Patient has already been given antihyperkalemic measures by Dr. Steen and follow-up with labs. (2) BRUCE (acute kidney injury) Is this a current diagnosis for this admission?: Yes Plan: Patient has got multiple factors for his BRUCE in the face of prerenal congestive heart failure/cirrhosis of the liver. Most likely cardio renal/hepatorenal issues on coming in the face of this extremely sick patient. Recommend conservative measures as he is not a candidate for any definitive treatment like renal replacements. Unfortunately poor prognosis. (3) Acute respiratory failure with hypercapnia Is this a current diagnosis for this admission?: Yes Plan: Currently on BiPAP. Patient is got decompensated heart failure. Increased dosage of Bumex and see the response. We will also add IV albumin. (4) CHF exacerbation Qualifiers: Heart failure type: combined systolic and diastolic Qualified Code(s): I50.43 - Acute on chronic combined systolic (congestive) and diastolic (congestive) heart failure Is this a current diagnosis for this admission?: Yes Plan: Patient looks like he has biventricular failure. Titrate Bumex see the response. However for the moment we will discontinue the losartan given his hypotension as well as his hyperkalemia. (5) Cirrhosis of liver Qualifiers: Hepatic cirrhosis type: alcoholic cirrhosis Ascites presence: unspecified Qualified Code(s): K70.30 - Alcoholic cirrhosis of liver without ascites Is this a current diagnosis for this admission?: Yes Plan: Status quo/decompensated. Poor prognosis. (6) Hyponatremia Is this a current diagnosis for this admission?: Yes Plan: See response to volume. (7) Ascites Qualifiers: Ascites type: other type Qualified Code(s): R18.8 - Other ascites Is this a current diagnosis for this admission?: Yes Plan: Moderate. Monitor. (8) Hypotension Qualifiers: Hypotension type: unspecified hypotension type Qualified Code(s): I95.9 - Hypotension, unspecified Is this a current diagnosis for this admission?: Yes Plan: Currently on dopamine and midodrine. Discontinue losartan. Poor prognosis. Monitor. (9) Pulmonary hypertension Is this a current diagnosis for this admission?: Yes Plan: Decompensated. (10) Diabetes mellitus Qualifiers: Diabetes mellitus type: type 2 Diabetes mellitus extermination supervisor insulin use: without extermination supervisor use Diabetes mellitus complication status: without complication Qualified Code(s): E11.9 - Type 2 diabetes mellitus without complications Is this a current diagnosis for this admission?: Yes Plan: As per Dr. Steen.
[2020-02-23] MEDS: FLUTICASONE NASAL SPRAY 50 MCG/SPRY 120 SPRAY/16 GM NASL SCH (11:31)
[2020-02-23] MEDS: PATIROMER 8.4 GM SUSP PACKET PO SCH (12:06)
--- NOTE | 2020-02-23 12:19 | PDOC PROGRESS REPORT ---
Subjective Date:: 02/23/20 Subjective:: Patient is currently doing same Patient's testicular swelling is much improved leg swelling is also improved Patient potassium is 6.[address] Blanca give him more Kayexalate Patient currently still using the BiPAP denied any chest pain no short of breath Reason For Visit: ACUTE RESPIRATORY FAILURE WITH HYPERCAPNEA,ACUTE Physical Exam Vital Signs: Temp Pulse Resp BP Pulse Ox 97.4 F 85 26 H 91/58 L 96 02/23/20 04:59 02/23/20 08:54 02/23/20 12:07 02/23/20 08:00 02/23/20 04:59 Intake & Output 02/22/20 02/23/20 02/24/20 06:59 06:59 06:59 Intake Total 1917 1302 Output Total 625 1000 Balance 1292 302 Weight 128.2 kg 128 kg General appearance: PRESENT: no acute distress, well-developed, well-nourished Head exam: PRESENT: atraumatic, normocephalic Eye exam: PRESENT: conjunctiva pink, EOMI, PERRLA. ABSENT: scleral icterus Ear exam: PRESENT: normal external ear exam Mouth exam: PRESENT: moist, tongue midline Neck exam: PRESENT: full ROM. ABSENT: carotid bruit, JVD, lymphadenopathy, thyromegaly Respiratory exam: PRESENT: clear to auscultation remington Cardiovascular exam: PRESENT: RRR. ABSENT: diastolic murmur, rubs, systolic murmur Vascular exam: PRESENT: normal capillary refill GI/Abdominal exam: PRESENT: normal bowel sounds, soft. ABSENT: distended, guarding, mass, organolmegaly, rebound, tenderness Rectal exam: PRESENT: deferred Extremities exam: PRESENT: pedal edema Neurological exam: PRESENT: alert, awake, oriented to person, oriented to place, oriented to time, oriented to situation, CN II-XII grossly intact. ABSENT: motor sensory deficit Psychiatric exam: PRESENT: appropriate affect, normal mood. ABSENT: homicidal ideation, suicidal ideation Skin exam: PRESENT: dry, intact, warm. ABSENT: cyanosis, rash Results Laboratory Results: 02/23/20 06:55 02/23/20 06:55 02/22/20 02/23/20 02/23/20 09:32 06:55 06:55 WBC 8.0 RBC 3.42 L Hgb 10.7 L Hct 33.7 L MCV 99 H MCH 31.3 MCHC 31.7 L RDW 16.7 H Plt Count 161 Seg Neutrophils % 84.1 H Carbonic Acid 2.13 H HCO3/H2CO3 Ratio 15:1 ABG pH 7.29 L ABG pCO2 70.8 H* ABG pO2 87.9 ABG HCO3 33.3 H ABG O2 Saturation 95.4 ABG Base Excess 4.8 FiO2 100% Sodium 127.9 L Potassium 6.2 H* Chloride 91 L Carbon Dioxide 28 Anion Gap 9 BUN 75 H Creatinine 1.60 H Est GFR ( Amer) 51 L Glucose 137 H Calcium 8.0 L Ammonia 02/23/20 06:55 WBC RBC Hgb Hct MCV MCH MCHC RDW Plt Count Seg Neutrophils % Carbonic Acid HCO3/H2CO3 Ratio ABG pH ABG pCO2 ABG pO2 ABG HCO3 ABG O2 Saturation ABG Base Excess FiO2 Sodium Potassium Chloride Carbon Dioxide Anion Gap BUN Creatinine Est GFR ( Amer) Glucose Calcium Ammonia 15.4 02/20/20 10:55 Catheterized Urine Urine Culture - Final NO GROWTH 2 DAYS 02/13/20 02/13/20 02/13/20 01:22 10:10 10:10 Creatine Kinase 43 L CK-MB (CK-2) 2.37 Troponin I 0.017 < 0.012 NT-Pro-B Natriuret Pep 02/13/20 02/13/20 02/14/20 16:18 16:18 04:17 Creatine Kinase 41 L 59 CK-MB (CK-2) 2.34 Troponin I < 0.012 NT-Pro-B Natriuret Pep 02/14/20 02/23/20 04:17 06:55 Creatine Kinase CK-MB (CK-2) 2.53 Troponin I 0.014 NT-Pro-B Natriuret Pep 94909 H Impressions: Abdomen/Pelvis CT 02/13/20 00:00 IMPRESSION: 1. Findings suggestive of volume overload with anasarca and mild volume ascites. 2. Cholelithiasis. 3. No other evidence of acute intra-abdominal/pelvic process. Chest CT 02/13/20 00:00 IMPRESSION: 1. Findings compatible with CHF with cardiomegaly, small bilateral effusions and mild interstitial edema. Additional bibasilar consolidative change, likely atelectasis although infection not entirely excluded. 2. Heavy three-vessel coronary atherosclerosis. Head CT 02/13/20 00:00 IMPRESSION: NORMAL BRAIN CT WITHOUT CONTRAST. EVIDENCE OF ACUTE STROKE: NO. Abdomen Ultrasound 02/16/20 00:00 IMPRESSION: Diffuse simple appearing ascites with the largest collection seen within the right lower quadrant. Chest X-Ray 02/20/20 00:00 IMPRESSION: Persistent airspace disease in the lower lobes. Pleural effusions. Borderline cardiomegaly. There does not appear to be bryan pulmonary edema at this time. Left internal jugular catheter remains in place. Assessment & Plan - Diagnosis (1) Acute respiratory failure with hypercapnia Is this a current diagnosis for this admission?: Yes (2) Cirrhosis of liver Qualifiers: Hepatic cirrhosis type: alcoholic cirrhosis Ascites presence: unspecified Qualified Code(s): K70.30 - Alcoholic cirrhosis of liver without ascites Is this a current diagnosis for this admission?: Yes (3) CHF exacerbation Qualifiers: Heart failure type: combined systolic and diastolic Qualified Code(s): I50.43 - Acute on chronic combined systolic (congestive) and diastolic (congestive) heart failure Is this a current diagnosis for this admission?: Yes (4) Acute renal failure Is this a current diagnosis for this admission?: Yes (5) Ascites Qualifiers: Ascites type: other type Qualified Code(s): R18.8 - Other ascites Is this a current diagnosis for this admission?: Yes (6) Atrial fibrillation Qualifiers: Atrial fibrillation type: permanent Qualified Code(s): I48.21 - Permanent atrial fibrillation Is this a current diagnosis for this admission?: Yes (7) CAD (coronary artery disease) Qualifiers: Coronary Disease-Associated Artery/Lesion type: eyak artery Associated angina: without angina Is this a current diagnosis for this admission?: Yes (8) Diabetes mellitus Qualifiers: Diabetes mellitus type: type 2 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: without detention use Diabetes mellitus complication status: without complication Qualified Code(s): E11.9 - Type 2 diabetes mellitus without complications Is this a current diagnosis for this admission?: Yes (9) Chronic pain syndrome Is this a current diagnosis for this admission?: Yes (10) Neuropathy Is this a current diagnosis for this admission?: Yes (11) COPD (chronic obstructive pulmonary disease) Qualifiers: COPD type: emphysema Emphysema type: centrilobular Qualified Code(s): J43.2 - Centrilobular emphysema Is this a current diagnosis for this admission?: Yes (12) Hyperkalemia Is this a current diagnosis for this admission?: Yes - Time Time Spent with patient: 15-24 minutes Level of Care: IMCU Medications reviewed and adjusted accordingly: Yes Anticipated discharge: Other Anticipated DC Timeframe: Other - Plan Summary Plan Summary: We will try to correct the potassiums get the EKG discussed with the Dr. Blanca in cardiology Overall prognosis is very poor
[2020-02-23] MEDS ORDERED: ALBUMIN HUMAN 12.5 GM/50 ML RTUINJ IV SCH (14:00)
[2020-02-23 14:09] VITALS: BP 79/46
[2020-02-23] MEDS ORDERED: MORPHINE SULFATE 10 MG/ML INJ ONE (15:11)
--- NOTE | 2020-02-23 15:27 | Progress Note ---
Provider Note Provider Note: Discussed with the patient's daughter she came from the [place] today and the patient's son to my office very extensively more than 30 minutes regarding the patient's current conditions and patient is currently a DNR/DNI Patient's Son and the daughter expressed make the patient's more comfortable care here in the hospital Discussed about the inpatient hospice versus outpatient hospice and the family suggest the if the patient's in the couple of days in the comfort care is still persist then convert to the inpatient hospice but currently a comfort care no need for any aggressive care at this point
[2020-02-23] MEDS ORDERED: MORPHINE SULFATE 10 MG/ML INJ IV PRN (16:00)
[2020-02-23] MEDS ORDERED: LORAZEPAM INJ 2 MG/1 ML VIAL IV PRN (16:00)
--- NOTE | 2020-02-24 00:34 | EKG REPORT ---
SEVERITY:- ABNORMAL ECG - ATRIAL FIBRILLATION PROBABLE RIGHT VENTRICULAR HYPERTROPHY : Confirmed by: Aissatou Michel 24-Feb-2020 00:33:12
--- NOTE | 2020-02-27 15:45 | Death Summary ---
Summary Date : 02/23/20 Autopsy: No Resuscitation Status: Comfort Measures Only - Final Diagnosis (1) Acute respiratory failure with hypercapnia Is this a current diagnosis for this admission?: Yes (2) Cirrhosis of liver Is this a current diagnosis for this admission?: Yes (3) CHF exacerbation Is this a current diagnosis for this admission?: Yes (4) Acute renal failure Is this a current diagnosis for this admission?: Yes (5) Ascites Is this a current diagnosis for this admission?: Yes (6) Atrial fibrillation Is this a current diagnosis for this admission?: Yes (7) CAD (coronary artery disease) Is this a current diagnosis for this admission?: Yes (8) Diabetes mellitus Is this a current diagnosis for this admission?: Yes (9) Chronic pain syndrome Is this a current diagnosis for this admission?: Yes (10) Neuropathy Is this a current diagnosis for this admission?: Yes (11) COPD (chronic obstructive pulmonary disease) Is this a current diagnosis for this admission?: Yes (12) Hyperkalemia Is this a current diagnosis for this admission?: Yes Hospital Course:: Is a 74-year-old maleWith a history of the congestive heart failureWith a history of the cirrhosis of the liver history of the hypertensions chronic kidney disease neuropathy COPD presenting the emergency departments with a complaining of shortness of the breathAnd anasarca Patient admitted in the IMCU started the patient on a Lasix drip and dobutamine drips consult Dr. ASHLEY business applications specialist consult Dr. Italo Blanca web architect and patient also consult with the pulmonary Patient have a multiple comorbidity with ongoing respiratory failure and multiorgan failure patients do not want to put any life support and very extensive discussed with the patient's son and the daughter and especially daughter have a power of hospital receiving clerk and a patients do not want any aggressive treatments making comfort care Patient is pass[place] an 02/23/2020
== END 2020-02-23 18:12 | DRG 291 ==
LOC: ER 01:10 → EH 05:05 → 3N 06:03 → 3W 02-14 15:43
PROVIDERS: ADMIT Family Medicine; ATTEND Family Medicine
PROC: 02HV33Z Insertion of Infusion Device into Superior Vena Cava, Percutaneous Approach (ICD-10-PCS; principal; 2020-02-14)
PROC: 0HQ4XZZ Repair Neck Skin, External Approach (ICD-10-PCS; 2020-02-14)
DX: I13.0 Hypertensive heart and chronic kidney disease with heart failure and stage 1 through stage 4 chronic kidney disease, or unspecified chronic kidney disease (principal); J96.01 Acute respiratory failure with hypoxia; I50.43 Acute on chronic combined systolic (congestive) and diastolic (congestive) heart failure; J96.02 Acute respiratory failure with hypercapnia; N17.9 Acute kidney failure, unspecified; I48.21 Permanent atrial fibrillation; E87.1 Hypo-osmolality and hyponatremia; T82.838A Hemorrhage due to vascular prosthetic devices, implants and grafts, initial encounter; E11.22 Type 2 diabetes mellitus with diabetic chronic kidney disease; N18.30 Chronic kidney disease, stage 3 unspecified; F17.210 Nicotine dependence, cigarettes, uncomplicated; K70.31 Alcoholic cirrhosis of liver with ascites; I25.10 Atherosclerotic heart disease of native coronary artery without angina pectoris; N40.0 Benign prostatic hyperplasia without lower urinary tract symptoms; J43.2 Centrilobular emphysema; I27.20 Pulmonary hypertension, unspecified; G89.4 Chronic pain syndrome; E87.5 Hyperkalemia; E78.5 Hyperlipidemia, unspecified; H91.90 Unspecified hearing loss, unspecified ear; F41.1 Generalized anxiety disorder; Z20.828 Contact with and (suspected) exposure to other viral communicable diseases; Z66 Do not resuscitate; F32.9 Major depressive disorder, single episode, unspecified; I87.2 Venous insufficiency (chronic) (peripheral); E11.42 Type 2 diabetes mellitus with diabetic polyneuropathy; Z95.1 Presence of aortocoronary bypass graft; Z79.01 Long term (current) use of anticoagulants; I25.2 Old myocardial infarction; Z90.49 Acquired absence of other specified parts of digestive tract; Z79.82 Long term (current) use of aspirin; Z79.899 Other long term (current) drug therapy; Z91.81 History of falling; Y83.8 Other surgical procedures as the cause of abnormal reaction of the patient, or of later complication, without mention of misadventure at the time of the procedure
CPT/HCPCS: 36415; 36600; 70450; 71045; 71250; 74176; 76705; 80048; 80053; 81001; 82140; 82550; 82553; 82803; 82962; 83605; 83735; 83880; 84484; 85025; 85610; 87040; 87070; 87086; 87635; 87804; 93005; 93010; 94660; 96365; 96375; 99233; 99285; C9803; J0456; J0692; J0696; J1250; J1265; J1642; J1815; J1885; J1940; J2060; J2270; J2920; J3010; J3490; J7050; J7060; P9047